=== PATIENT | male | born 1980 | race Caucasian/White ===

== ENCOUNTER → 2016-09-03 | Outpatient (CLI) | payer OTHER ==
[~2016-09-03] MED LIST: ATOR-54 PO; GABA1CAP4 PO; GLGKIT INJ; INSDGI SQ; INSU100I SQ; METO1TAB54 PO; ONDA4TAB46 PO; PRLSR20 PO; PROM25TA9 PO; VARE1PAK15 PO
== END | disposition home or self-care (01) ==
LOC: C.LAB 07:56
DX: Z02.83 Encounter for blood-alcohol and blood-drug test (principal)

== ENCOUNTER 2019-01-23 07:25 | Inpatient (IN) ==
[2019-01-23] MEDS ORDERED: FAMOTIDINE 20MG/5ML IV PUSH IV STA (07:40)
[2019-01-23] MEDS ORDERED: MoRPHine SULFATE 4 MG/ML 1 ML CARP\\VIAL IV PRN (07:40)
[2019-01-23] MEDS ORDERED: ONDANSETRON INJ 2 MG/ML 2 ML VIAL IV STA (07:40)
[2019-01-23] MEDS ORDERED: PROMETHAZINE HCL 12.5 MG in SODIUM CHLORIDE 0.9% 50 ML IV STA (07:40)
[2019-01-23] MEDS ORDERED: NovoLIN-R INSULIN PER UNIT CHARGE IV STA ×2 (07:42→09:03)
[2019-01-23] MEDS ORDERED: SODIUM CHLORIDE 0.9% 1000ML 1,000 ML IV SCH (07:45)
[2019-01-23 07:52] LABS: Hematocrit (blood only) 44.9 % (42-52); Hemoglobin 16.3 g/dL (14.0-18.0); Mean Corpuscular Hemoglobin 33.8 pg (25-34); Mean Corpuscular Hgb Conc 36.3 g/dL (32-36); Mean Corpuscular Volume 93.2 fL (80-100); Mean Platelet Volume 9.6 fL (7.4-10.4); Platelet Count 351 K/uL (130-400); RDW Coefficient of Variation 13.2 % (11.5-14.5); RDW Standard Deviation 45.5 fL (36.4-46.3); Red Blood Count 4.82 M/uL (4.7-6.1)
--- NOTE | 2019-01-23 07:53 | Emergency Department Note ---
Entered by Tung Delgado acting as a scribe for History of Present Illness General Chief complaint: Vomiting Time Seen by Provider: 01/23/19 07:33 Source: patient History of Present Illness Provider complaint: Vomiting Onset (ago): hour(s) (4.5) Location: abdomen Severity: similar to prior episodes Pain Consistency: + constant Associated symptoms: + chest pain, + nausea/vomiting and + other (Abdominal pain); no fever/chills The patient is a 38 year old male who presents to the Emergency Room with comp laints of constant nausea and vomiting that started about 4.5 hours ago. The patient has a history of gastroparesis and states it feels similar to his typical flare ups. The patient has been to the hospital before due to these flares. The patient adds that after a few episodes of emesis he started having hematemesis. The patient notes he does not have any ulcers to his knowledge. The patient also endorses some abdominal and chest soreness caused by the vomiting. The patient states he felt fine before going to bed last night but he did have an episode of emesis yesterday morning. The patient denies any diarrhea or fevers. Home Medications Home Medications Medication Instructions Recorded Confirmed Type insulin lispro [Humalog U-100 1 dose CONTINUOUS SUBCUTANEOUS 02/20/18 01/23/19 History Insulin] INFUSION UD promethazine 25 mg PO BID PRN 02/20/18 01/23/19 History ondansetron 4 - 8 mg TRANSLINGUAL TID PRN 04/25/18 01/23/19 History prochlorperazine maleate 10 mg PO Q8H PRN #20 tab 09/26/18 01/23/19 Rx [Compazine] Allergies Allergy/AdvReac Type Severity Reaction Status Date / Time Penicillins Allergy Severe SWELLING Verified 01/23/19 08:00 Sulfa (Sulfonamide Allergy Unknown Unknown Verified 01/23/19 08:00 Antibiotics) Past Med/Surg History Medical History Diabetes mellitus type 1, uncontrolled, insulin dependent (Chronic 06/09/13) "on insulin pump" Diabetic neuropathy (Chronic) Gastroparesis due to DM (Chronic 07/05/11) Diabetic retinopathy (Chronic) Tobacco abuse (Chronic) Marijuana use, continuous (Chronic) Surgical History H/O laser photocoagulation of retina (Chronic) H/O esophagogastroduodenoscopy (Chronic) " 06/11/2013- Normal upper third of esophagus and middle third of esophagus. LA Grade A reflux esophagitis. Biopsied. Gastritis. Biopsied. Normal duodenal bulb. Normal 2nd part of the duodenum. 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 and A total of 10 systems reviewed and were otherwise negative Physical Exam Vital Signs Vital Signs - 24 hr 01/23/19 07:34 01/23/19 07:40 01/23/19 09:00 Temperature 36.9 C Temperature Source Oral Sepsis Recent Fever Within 48 Hours No Sepsis New/Unexplained Change in Mental Status No Sepsis Action Taken by Nursing No Action Required Pulse Rate 105 H Pulse Rate [Apical] 94 H Pulse Rhythm Regular Pulse Rhythm [Apical] Regular Pulse Strength Normal Respiratory Rate 17 17 Respiratory Effort / Characteristics Non-Labored Spontaneous Non-Labored Spontaneous Respiratory Depth Normal Normal Respiratory Pattern Regular Regular Blood Pressure 148/65 H Blood Pressure [Left Arm] 120/64 Blood Pressure Mean 92 Blood Pressure Mean [Left Arm] 82 Pulse Oximetry 89 L 95 98 Oxygen Delivery Method Room Air Nasal Cannula Nasal Cannula Oxygen Flow Rate 2 2 GENERAL: Patient is in mild distress, vomiting coffee ground material. HEENT: No acute trauma, normocephalic atraumatic, mucous membranes moist, no nasal congestion, no scleral icterus. NECK: No stridor, no adenopathy, no meningismus, trachea is midline. LUNGS: Clear to auscultation bilaterally, no wheeze, no rhonchi, breath sounds equal. HEART: Without murmurs gallops or rubs, regular rate and rhythm. ABDOMEN: Soft, moderately diffusely tender, bowel sounds positive, no hernias, no peritonitis. EXTREMITIES: No cyanosis or edema, full range of motion of all the joints without pain or difficulty, no signs for acute trauma. NEUROLOGIC: Oriented x 3, no acute motor or sensory deficits, no focal weakness. SKIN: No rash, no jaundice, no diaphoresis. Course 0738: Past medical records reviewed. The patient was evaluated in room A10, and a complete history and physical examination were performed. 0829: I spoke to pharmacy about ordering the patient a protonix bolus and drip. 0903: I reevaluated the patient and he is feeling a little better. He is no longer vomiting at this time. I updated him on the treatment plan and he agreed. The [facility] service was paged. 0907: I spoke to Yancy Romo PAC, under Dr. Selina Mendoza, about the patient's case. They are going to accept the patient for further evaluation. Consultations Consultation #1: I spoke to [facility], under Dr. Selina Mendoza, about the patient's case. They are going to accept the patient for further evaluation. Time: 09:07 Administered Medications Pantoprazole Sodium 40 mg/ (Dextrose) 100 mls @ 20 mls/hr IV Q5H HELIO Stop: 02/22/19 08:59 Last Admin: 01/23/19 09:12 Dose: 20 mls/hr Documented by: [id number] Potassium Chloride/Sodium Chloride (Normal Saline W/20 Meq Kcl) 20 meq in 1,000 mls @ 125 mls/hr IV .Q8H HELIO Stop: 02/22/19 13:29 Last Admin: 01/23/19 14:23 Dose: 125 mls/hr Documented by: [id number] Discontinued Medications Famotidine (Pepcid 20mg Iv Push) 20 mg IV ONE STA Stop: 01/23/19 07:41 Last Admin: 01/23/19 08:02 Dose: 20 mg Documented by: [id number] Sodium Chloride (Nss 1000ml) 1,000 mls @ 999 mls/hr IV .Q1H1M HELIO Stop: 01/23/19 08:45 Last Infusion: 01/23/19 08:58 Dose: 0 mls/hr Documented by: [id number] Admin: 01/23/19 08:02 Dose: 999 mls/hr Documented by: [id number] Promethazine HCl 12.5 mg/ (Sodium Chloride) 50.5 mls @ 202 mls/hr IV NOW STA Stop: 01/23/19 07:54 Last Infusion: 01/23/19 08:23 Dose: 0 mls/hr Documented by: [id number] Admin: 01/23/19 08:02 Dose: 202 mls/hr Documented by: [id number] Pantoprazole Sodium 80 mg/ (Dextrose) 120 mls @ 480 mls/hr IV TODAY@0845 [facility] Stop: 01/23/19 08:59 Last Infusion: 01/23/19 09:13 Dose: 0 mls/hr Documented by: [id number] Admin: 01/23/19 08:54 Dose: 480 mls/hr Documented by: [id number] Sodium Chloride (Nss 1000ml) 500 mls @ 999 mls/hr IV .Q31M ONE Stop: 01/23/19 09:33 Last Infusion: 01/23/19 10:35 Dose: 0 mls/hr Documented by: [id number] Admin: 01/23/19 09:57 Dose: 999 mls/hr Documented by: [id number] Insulin Human Regular (Novolin R U-100 Per Unit) 10 units IV NOW STA Stop: 01/23/19 07:43 Last Admin: 01/23/19 08:03 Dose: 10 units Documented by: [id number] Cosigned by: [id number] Insulin Human Regular (Novolin R U-100 Per Unit) 8 units IV NOW STA Stop: 01/23/19 09:04 Last Admin: 01/23/19 09:57 Dose: 8 units Documented by: [id number] Cosigned by: [id number] Ioversol (Optiray 320 100ml) 94 ml IV ONCE PRN PRN Reason: Interaction Checking Stop: 01/27/19 08:41 Last Admin: 01/23/19 08:43 Dose: 94 ml Documented by: [id number] Morphine Sulfate (Morphine Sulfate) 4 mg IV Q15M PRN PRN Reason: Pain Stop: 02/06/19 07:39 Last Admin: 01/23/19 08:02 Dose: 4 mg Documented by: [id number] Ondansetron HCl (Zofran) 4 mg IV NOW STA Stop: 01/23/19 07:41 Last Admin: 01/23/19 08:02 Dose: 4 mg Documented by: [id number] Medical Decision Making Differential Diagnosis Differential Diagnosis includes: DKA, hyperglycemia, electrolyte imbalance, upper GI bleed, ulcer, Roshni-Liu tear, anemia, gastroparesis, bowel obstruction, and UT, amongst others. Medical Records Attestation: I reviewed the patient's medical records. Home Medications Current Medication List: was personally reviewed by me Laboratory Data Attestation: I reviewed the patient's lab results. Result diagrams: 01/23/19 13:21 01/23/19 07:35 Lab Results 01/23/19 01/23/19 01/23/19 Range/Units 07:35 07:35 07:35 WBC 28.80 H (4.8-10.8) K/uL RBC 4.82 (4.7-6.1) M/uL Hgb 16.3 (14.0-18.0) g/dL Hct 44.9 (42-52) % MCV 93.2 (80-100) fL MCH 33.8 (25-34) pg MCHC 36.3 H (32-36) g/dL RDW Std Deviation 45.5 (36.4-46.3) fL RDW Coeff of Lamont 13.2 (11.5-14.5) % Plt Count 351 (130-400) K/uL MPV 9.6 (7.4-10.4) fL Immature Gran % (Auto) 0.4 % Neut % (Auto) 84.0 % Lymph % (Auto) 7.5 % Gulf % (Auto) 6.4 % Eos % (Auto) 1.4 % Baso % (Auto) 0.3 % Immature Gran # (Auto) 0.11 H (0.00-0.02) K/uL Neut # (Auto) 24.16 H (1.4-6.5) K/uL Lymph # (Auto) 2.17 (1.2-3.4) K/uL Gulf # (Auto) 1.85 H (0.11-0.59) K/uL Eos # (Auto) 0.41 (0-0.5) K/uL Baso # (Auto) 0.10 (0-0.2) K/uL PT 11.3 (9.0-12.0) Seconds INR 1.1 (0.9-1.1) APTT 23.7 (21.0-31.0) Seconds PTT Ratio 0.9 VBG pH (7.36-7.41) VBG pCO2 (38-50) mmHg VBG pO2 mmHg VBG HCO3 mmol/L VBG O2 Saturation % VBG Base Excess mEq/L Barometric Pressure mm/Hg Sodium 134 L (136-145) mmol/L Potassium 4.2 (3.5-5.1) mmol/L Chloride 98 (98-107) mmol/L Carbon Dioxide 27 (21-32) mmol/L Anion Gap 9.0 (3-11) BUN 14 (7-18) mg/dl Creatinine 1.20 (0.6-1.4) mg/dl Est Cr Clr Drug Dosing 78.8 ml/min Est GFR ( Amer) 89.6 Est GFR (Non-Af Amer) 77.3 BUN/Creatinine Ratio 11.3 (10-20) Glucose 419 H* (70-99) mg/dl POC Glucose (70-99) Calcium 9.1 (8.5-10.1) mg/dl Magnesium 2.1 (1.8-2.4) mg/dl Total Bilirubin 1.0 (0.2-1) mg/dl AST 12 L (15-37) U/L ALT 20 (12-78) U/L Alkaline Phosphatase 149 H (45-117) U/L Total Protein 7.6 (6.4-8.2) gm/dl Albumin 4.0 (3.4-5.0) gm/dl Globulin 3.6 (2.5-4.0) gm/dl Albumin/Globulin Ratio 1.1 (0.9-2) Lipase 30 L (73-393) U/L Beta-Hydroxybutyric Acd 10.83 H (0.2-2.81) mg/dl Blood Type Antibody Screen 01/23/19 01/23/19 01/23/19 Range/Units 07:42 07:58 07:58 WBC (4.8-10.8) K/uL RBC (4.7-6.1) M/uL Hgb (14.0-18.0) g/dL Hct (42-52) % MCV (80-100) fL MCH (25-34) pg MCHC (32-36) g/dL RDW Std Deviation (36.4-46.3) fL RDW Coeff of Lamont (11.5-14.5) % Plt Count (130-400) K/uL MPV (7.4-10.4) fL Immature Gran % (Auto) % Neut % (Auto) % Lymph % (Auto) % Gulf % (Auto) % Eos % (Auto) % Baso % (Auto) % Immature Gran # (Auto) (0.00-0.02) K/uL Neut # (Auto) (1.4-6.5) K/uL Lymph # (Auto) (1.2-3.4) K/uL Gulf # (Auto) (0.11-0.59) K/uL Eos # (Auto) (0-0.5) K/uL Baso # (Auto) (0-0.2) K/uL PT (9.0-12.0) Seconds INR (0.9-1.1) APTT (21.0-31.0) Seconds PTT Ratio VBG pH 7.36 (7.36-7.41) VBG pCO2 50 (38-50) mmHg VBG pO2 35 mmHg VBG HCO3 28 mmol/L VBG O2 Saturation 68.0 % VBG Base Excess 1.3 mEq/L Barometric Pressure 737.2 mm/Hg Sodium (136-145) mmol/L Potassium (3.5-5.1) mmol/L Chloride (98-107) mmol/L Carbon Dioxide (21-32) mmol/L Anion Gap (3-11) BUN (7-18) mg/dl Creatinine (0.6-1.4) mg/dl Est Cr Clr Drug Dosing ml/min Est GFR ( Amer) Est GFR (Non-Af Amer) BUN/Creatinine Ratio (10-20) Glucose (70-99) mg/dl POC Glucose 414 H* (70-99) Calcium (8.5-10.1) mg/dl Magnesium (1.8-2.4) mg/dl Total Bilirubin (0.2-1) mg/dl AST (15-37) U/L ALT (12-78) U/L Alkaline Phosphatase (45-117) U/L Total Protein (6.4-8.2) gm/dl Albumin (3.4-5.0) gm/dl Globulin (2.5-4.0) gm/dl Albumin/Globulin Ratio (0.9-2) Lipase (73-393) U/L Beta-Hydroxybutyric Acd (0.2-2.81) mg/dl Blood Type A Positive Antibody Screen NEGATIVE 01/23/19 01/23/19 Range/Units 08:52 09:45 WBC (4.8-10.8) K/uL RBC (4.7-6.1) M/uL Hgb (14.0-18.0) g/dL Hct (42-52) % MCV (80-100) fL MCH (25-34) pg MCHC (32-36) g/dL RDW Std Deviation (36.4-46.3) fL RDW Coeff of Lamont (11.5-14.5) % Plt Count (130-400) K/uL MPV (7.4-10.4) fL Immature Gran % (Auto) % Neut % (Auto) % Lymph % (Auto) % Gulf % (Auto) % Eos % (Auto) % Baso % (Auto) % Immature Gran # (Auto) (0.00-0.02) K/uL Neut # (Auto) (1.4-6.5) K/uL Lymph # (Auto) (1.2-3.4) K/uL Gulf # (Auto) (0.11-0.59) K/uL Eos # (Auto) (0-0.5) K/uL Baso # (Auto) (0-0.2) K/uL PT (9.0-12.0) Seconds INR (0.9-1.1) APTT (21.0-31.0) Seconds PTT Ratio VBG pH (7.36-7.41) VBG pCO2 (38-50) mmHg VBG pO2 mmHg VBG HCO3 mmol/L VBG O2 Saturation % VBG Base Excess mEq/L Barometric Pressure mm/Hg Sodium (136-145) mmol/L Potassium (3.5-5.1) mmol/L Chloride (98-107) mmol/L Carbon Dioxide (21-32) mmol/L Anion Gap (3-11) BUN (7-18) mg/dl Creatinine (0.6-1.4) mg/dl Est Cr Clr Drug Dosing ml/min Est GFR ( Amer) Est GFR (Non-Af Amer) BUN/Creatinine Ratio (10-20) Glucose (70-99) mg/dl POC Glucose 373 H* 298 H (70-99) Calcium (8.5-10.1) mg/dl Magnesium (1.8-2.4) mg/dl Total Bilirubin (0.2-1) mg/dl AST (15-37) U/L ALT (12-78) U/L Alkaline Phosphatase (45-117) U/L Total Protein (6.4-8.2) gm/dl Albumin (3.4-5.0) gm/dl Globulin (2.5-4.0) gm/dl Albumin/Globulin Ratio (0.9-2) Lipase (73-393) U/L Beta-Hydroxybutyric Acd (0.2-2.81) mg/dl Blood Type Antibody Screen Imaging Data Radiologist's Impression: Radiology results as stated below per my review and the radiologist's interpretation: XR chest 1V portable CLINICAL HISTORY: cp, vomiting dyspnea COMPARISON STUDY: 02/20/2018 FINDINGS: The bones soft tissues and hemidiaphragms are normal. The cardiomediastinal silhouette is normal. The lungs are clear. The pulmonary vasculature is normal. IMPRESSION: Negative chest. The above report was generated using voice recognition software. It may contain grammatical, syntax or spelling errors. Electronically signed by: Chapincito Sanchez M.D. 01/23/2019 8:[address] abd pelvis IV con only CT DOSE: 476.85 mGycm HISTORY: Nausea. Vomiting. vomiting, poss obstruc TECHNIQUE: Multiaxial CT images of the abdomen and pelvis were performed following the use of intravenous contrast. A dose lowering technique was utilized adhering to the principles of ALARA. COMPARISON STUDY: 04/25/2018 FINDINGS: Mild wall edema of the colon as well as small bowel. No evidence for abscess collection or obstruction. Liver spleen and pancreas are unremarkable. Kidneys are considered negative for hydronephrosis. There are bilateral extrarenal pelves. No evidence for true obstructive change. Bladder is midline. IMPRESSION: 1. Generalized nonspecific enteritis/colitis. 2. No evidence for abscess collection or obstruction. The above report was generated using voice recognition software. It may contain grammatical, syntax or spelling errors. Electronically signed by: Chapincito Sanchez M.D. 01/23/2019 8:52 AM ECG Data Attestation: I personally reviewed and interpreted this ECG as follows: Indication: vomiting Rate (beats per minute): 101 Rhythm: sinus tachycardia ECG Intervals/blocks: Normal QT (456) ECG Findings: Other (No PAC or PVC. No ST elevation. ) Blood Pressure Blood Pressure Findings: Normal blood pressure MDM Narrative There is a significant leukocytosis at 28,000, this could be consistent with infection or just his stress and vomiting. No worrisome anemia. No coagulopathy. No significant electrolyte abnormality with the exception of a glucose in the range of 400. VBG does not show any acidosis. No worrisome liver enzyme elevation. No evidence for pancreatitis. Urinalysis shows glucose, no infection. Chest film does not show pneumonia or CHF, there is no free air. Abdominal and pelvis CT does not show any evidence for bowel obstruction or bowel rupture. EKG shows a sinus tachycardia, no acute ischemia. On exam, the patient did have coffee-ground emesis in his vomit bag. The patient received IV saline, a second IV saline bolus was given. He was given a bolus of IV Protonix and placed on a Protonix drip. He received IV Phenergan for nausea, IV Zofran for nausea. He was given IV morphine for pain. He did receive a dose of IV Pepcid. Patient received IV insulin, 2 doses of IV insulin were given to help lower the blood sugar. The patient does seem to be feeling improved. He is going to require a hospitalization given the hyperglycemia, the high white count, and his hematemesis. I did speak with the patient, I talked with case management. The on-call hospitalist has been consulted. Patient is hyperglycemic and appears to be suffering from a flare of gastroparesis. Impression & Plan Hematemesis, Diffuse abdominal pain, Leukocytosis, Hyperglycemia, Gastroparesis Critical Care Time Critical Care Time: Yes Total Critical Care Time: 35 I have personally spent greater than 35 minutes of critical care time in the direct management of this patient. This includes bedside care, interpretation of diagnostic studies, and testing, discussion with consultants, patient, and family members, and other required patient management activities. This 35 minutes is in excess of all separately billable procedures. Discharge Plan Visit Data *Final* Discharge Date/Time: 01/23/19 12:22 Chief Complaint: Vomiting ED Provider: Rafael Lynne Discharge Problem: Hematemesis, Diffuse abdominal pain, Leukocytosis, Hyperglycemia, Gastroparesis Patient Disposition: Admitted As Inpatient Discharge Instructions Interventions: ED Discharge Assessment Last Done: 01/23/19 12:22 Discharge Problem: Leukocytosis Qualifiers: Leukocytosis type: unspecified Qualified Code(s): D72.829 - Elevated white blood cell count, unspecified The scribe's documentation has been prepared under my direction and personally reviewed by me in its entirety. I confirm that the note above accurately reflects all work, treatment, procedures, and medical decision making performed by me.
[2019-01-23] MEDS ORDERED: PROMETHAZINE 12.5 MG/50.5 ML NSS IV ONE (07:56)
[2019-01-23 08:03] LABS: Albumin Globulin Ratio 1.1 (0.9-2); BUN Creatinine Ratio 11.3 (10-20); Calcium 9.1 mg/dl (8.5-10.1); Creatinine Clr Calc Pharmacy 78.8 ml/min; Est GFR (African American) 89.6; Est GFR (Non-African American) 77.3; Globulin 3.6 gm/dl (2.5-4.0); Magnesium 2.1 mg/dl (1.8-2.4); Potassium 4.2 mmol/L (3.5-5.1); Total Protein 7.6 gm/dl (6.4-8.2)
[2019-01-23 08:05] LABS: INR 1.1 (0.9-1.1); Partial Thromboplastin Ratio 0.9; Partial Thromboplastin Time 23.7 Seconds (21.0-31.0); Prothrombin Time 11.3 Seconds (9.0-12.0)
[2019-01-23 08:12] LABS: Base Excess VBG 1.3 mEq/L; pH VBG 7.36 (7.36-7.41)
[2019-01-23 08:14] LABS: Beta-Hydroxybutyrate 10.83 mg/dl (0.2-2.81)
[2019-01-23 08:22] LABS: Basophils % (auto) 0.3 %; Eosinophils # (auto) 0.41 K/uL (0-0.5); Eosinophils % (auto) 1.4 %; Immature Granulocytes # (auto) 0.11 K/uL (0.00-0.02); Immature Granulocytes % (auto) 0.4 %; Lymphocytes # (auto) 2.17 K/uL (1.2-3.4); Lymphocytes % (auto) 7.5 %; Monocytes # (auto) 1.85 K/uL (0.11-0.59); Monocytes % (auto) 6.4 %; Neutrophils # (auto) 24.16 K/uL (1.4-6.5)
--- NOTE | 2019-01-23 08:36 | XRay Report ---
XR chest 1V portable CLINICAL HISTORY: cp, vomiting dyspnea COMPARISON STUDY: 02/20/2018 FINDINGS: The bones soft tissues and hemidiaphragms are normal. The cardiomediastinal silhouette is n ormal. The lungs are clear. The pulmonary vasculature is normal. IMPRESSION: Negative chest. The above report was generated using voice recognition software. It may contain grammatical, syntax or spelling errors. Electronically signed by: Chapincito Sanchez M.D. 01/23/2019 8:35 AM
[2019-01-23] MEDS ORDERED: IOVERSOL 100ml IV PRN (08:42)
[2019-01-23] MEDS ORDERED: PANTOprazole 80 MG in DEXTROSE 5% 100 ML IV SCH (08:45)
--- NOTE | 2019-01-23 08:53 | CT Scan Report ---
CT abd pelvis IV con only CT DOSE: 476.85 mGycm HISTORY: Nausea. Vomiting. vomiting, poss obstruc TECHNIQUE: Multiaxial CT images of the abdomen and pelvis were performed following the use of intrave nous contrast. A dose lowering technique was utilized adhering to the principles of ALARA. COMPARISON STUDY: 04/25/2018 FINDINGS: Mild wall edema of the colon as well as small bowel. No evidence for abscess collection or obstruction. Liver spleen and pancreas are unremarkable. Kidneys are considered negative for hydronephrosis. There are bilateral extrarenal pelves. No evidence for true obstructive change. Bladder is midline. IMPRESSION: 1. Generalized nonspecific enteritis/colitis. 2. No evidence for abscess collection or obstruction. The above report was generated using voice recognition software. It may contain grammatical, syntax or spelling errors. Electronically signed by: Chapincito Sanchez M.D. 01/23/2019 8:52 AM
[2019-01-23] MEDS ORDERED: SODIUM CHLORIDE 0.9% 1000ML 500 ML IV ONE (09:03)
[2019-01-23] MEDS: PANTOprazole 40 MG in DEXTROSE 5% 100 ML IV SCH ×2 (09:12→15:03)
--- NOTE | 2019-01-23 09:54 | History & Physical Report ---
Date of Service January 23, 2019 Assessment & Plan (1) Coffee ground emesis: (2) Gastroparesis: This is a 38-year-old male with PMH of type 1 diabetes on insulin pump, gastroparesis, tobacco use disorder and marijuana use who presents with coffee- ground emesis since yesterday. -H/o gastroparesis, esophagitis, gastritis and Roshni-Liu tear -Hemoglobin stable at 16.3. Leukocytosis of 28.8 but chronically elevated. Glucose of 419 but no anion gap or acidosis -CT abd/pelvis w contrast showed mild wall edema of the colon as well as small bowel, suggestive of generalized non specific enteritis or colitis. No signs of obstructive process or abscess collection -Keeping NPO, monitor H/H, IV fluids, IV protonix bolus and drip, antiemetics -Seen by GI. He refused offer for EGD eval. Recommend continuing IV fluids, PPI bolus and gtt, symptomatic management. NPO today. Pls obtain stool studies to r/o infectious processes if diarrhea (3) Pancolitis: Afebrile, chronic leukocytosis -CT abd/pelvis with generalized nonspecific enteritis/colitis. No evidence for abscess collection or obstruction -No diarrhea or abnormal bowel movements -Will continue to monitor and add abx if becomes febrile, develops bowel sx (4) Leukocytosis: Elevated at 28.8 -Per chart review, has been elevated between 16-28k in the past so at upper limit of normal -Continue to monitor with daily CBC (5) Diabetes mellitus type 1, uncontrolled, insulin dependent: A1c of 7.2 in july 2018 -On insulin pump at home with initial BSG of 419 -No anion gap, vbg pH without acidosis, B hydroxybutyric acid 10, urine ketones 3+ - Glycemic consult placed (6) Tobacco abuse: Recommended cessation DVT Ppx: Andrea osullivan Code status: FULL PCP: Francis Dispo: Admitted [facility]. Plan to return home once medically stable. Patient seen in collaboration with Dr. Marks. Please see addendum. History of Present Illness Chief Complaint: Vomiting Primary Care Provider: Chapincito Blanco MD This is a 38-year-old male with PMH of type 1 diabetes on insulin pump, gastroparesis, tobacco use disorder and marijuana use who presents with coffee- ground emesis since yesterday. Endorses one episode of coffee-ground emesis when he woke up yesterday and then an additional 4 episodes since 3:00 this morning. Denies any bright red blood per vomit. Bowel movements normal color without melena or hematochezia. Denies fever, chills or abdominal pain. Has history of gastroparesis and states this is a somewhat typical presentation for him when he becomes nauseous with vomiting. Has been seen by GI in the past with history of esophagitis, gastritis and Roshni-Liu tear. Was admitted with similar symptoms in January 2018 and was scheduled for EGD but refused and left AMA later that day. Patient currently afebrile and hemodynamically stable. Hemoglobin stable at 16.3. Leukocytosis of 28.8 but chronically elevated. Glucose of 419 but no anion gap or acidosis. CT abd/pelvis w contrast showed mild wall edema of the colon as well as small bowel, suggestive of generalized non specific enteritis or colitis. No signs of obstructive process or abscess collection. No lightheadedness, visual changes, chest pain, shortness of breath, dysuria, diarrhea or constipation. Denies any new medications. Allergies Allergy/AdvReac Type Severity Reaction Status Date / Time Penicillins Allergy Severe SWELLING Verified 01/23/19 08:00 Sulfa (Sulfonamide Allergy Unknown Unknown Verified 01/23/19 08:00 Antibiotics) Home Medications Home Medications Medication Instructions Recorded Confirmed Type insulin lispro [Humalog U-100 1 dose CONTINUOUS SUBCUTANEOUS 02/20/18 01/23/19 History Insulin] INFUSION UD promethazine 25 mg PO BID PRN 02/20/18 01/23/19 History ondansetron 4 - 8 mg TRANSLINGUAL TID PRN 04/25/18 01/23/19 History prochlorperazine maleate 10 mg PO Q8H PRN #20 tab 09/26/18 01/23/19 Rx [Compazine] Past Med/Surg History Medical History Diabetes mellitus type 1, uncontrolled, insulin dependent (Chronic 06/09/13) "on insulin pump" Diabetic neuropathy (Chronic) Gastroparesis due to DM (Chronic 07/05/11) Diabetic retinopathy (Chronic) Tobacco abuse (Chronic) Marijuana use, continuous (Chronic) Surgical History H/O laser photocoagulation of retina (Chronic) H/O esophagogastroduodenoscopy (Chronic) " 06/11/2013- Normal upper third of esophagus and middle third of esophagus. LA Grade A reflux esophagitis. Biopsied. Gastritis. Biopsied. Normal duodenal bulb. Normal 2nd part of the duodenum. Biopsied." History of arthroplasty of left ankle (Resolved) History of wisdom tooth extraction (Resolved) Hx of inguinal herniorrhaphy (Resolved) Family History Brother T1DM (type 1 diabetes mellitus) Social History Preferred Language: Spanish Communication Ability: Effective Hearing Ability: Normal Bristle Machine Operator Required: No Beliefs That Will Affect Care: None Current Living Situation: Spouse and Family Other Information That Helps Us Care for You: No Feels Safe at Home: Yes Safety Concerns: Feels Safe At This Time Smoking Status: Current every day smoker Tobacco Type: cigarettes ; Years Smoked: 20 ; Cigarettes Per Day: 20 ; Do You Dip or Chew Tobacco: No ; Second Hand Exposure: No ; Hx Alcohol Use: No Hx Substance Use: Yes substance use type: marijuana Last Used Substance: Hours (ago) Review of Systems Review of Systems: At least ten systems reviewed and negative except as noted in the HPI. Physical Exam Physical Exam: General Appearance: WD/WN, vitals as above, thin, lethargic but answers questions appropriately Head: normocephalic, atraumatic Eyes: normal inspection, PERRL, conjunctivae normal, anicteric sclerae ENT: external ear and nose normal, oropharynx normal Neck: trachea midline, no thyromegaly normal visual inspection Respiratory: lungs clear to auscultation, no wheeze, rales, rhonchi. Normal insp/exp effort, no accessory muscle use Cardiovascular: regular rate, rhythm, no murmur, normal peripheral pulses. Vessels: no JVD or carotid bruit Chest: normal inspection of chest Abdomen/GI: normal bowel sounds, soft, nontender, no hepatosplenomegaly Extremities/Musculoskelatal: no cyanosis or clubbing, extremities motor strength 5/5 Neurologic: PERRL, EOMI, accommodation nl, no face palsy, no dysarthria CN's II-XI intact bilaterally and moves all extremities Psychiatric: A+Ox3, euthymic affect Skin: no rashes, normal color, warm/dry Results & Data Vital Signs (Past 12 Hours) Vital Signs Temp Pulse Pulse Resp BP BP Pulse Ox 01/23/19 09:00 94 H 17 120/64 98 01/23/19 07:40 95 01/23/19 07:34 36.9 C 105 H 17 148/65 H 89 L Laboratory Results Short CBC 01/23/19 Range/Units 07:35 WBC 28.80 H (4.8-10.8) K/uL Hgb 16.3 (14.0-18.0) g/dL Hct 44.9 (42-52) % Plt Count 351 (130-400) K/uL BMP 01/23/19 07:35 Sodium 134 L Potassium 4.2 Chloride 98 Carbon Dioxide 27 BUN 14 Creatinine 1.20 Glucose 419 H* Calcium 9.1 Liver Function 01/23/19 Range/Units 07:35 Total Bilirubin 1.0 (0.2-1) mg/dl AST 12 L (15-37) U/L ALT 20 (12-78) U/L Alkaline Phosphatase 149 H (45-117) U/L Albumin 4.0 (3.4-5.0) gm/dl Urine 01/23/19 Range/Units 10:00 Urine Color Yellow Urine Appearance Clear (Clear) Urine pH 7.5 (4.5-7.5) Ur Specific [place] 1.045 H (1.000-1.030) Urine Protein Negative (Negative) Urine Glucose (UA) 3+ H (Negative) Diagnostic Findings CXR: IMPRESSION: Negative chest. CT abd/pelvis: IMPRESSION: 1. Generalized nonspecific enteritis/colitis. 2. No evidence for abscess collection or obstruction. Code Status & VTE Plan VTE Prophylaxis Plan VTE Prophylaxis will be ordered: Yes Supervising Physician Co-Signing Physician Notes Attending Addendum: care coordinated with GILMA Hernández please refer to her notes for full details, I agree with her notes patient seen and examined, records reviewed by myself as well on exam, patient seen resting in bed, comfortable, sleeping but easily awakened had another episode of coffee ground emesis earlier no active abdominal pain, nausea on my exam no other symptoms VS noted and reviewed orientedx3 , not in distress, speaks in sentences with no effort nor accessory muscle use normal rate, regular rhythm, no murmurs clear breath sounds bilaterally non distended, soft, nontender no bipedal edema, erythema, warmth no neuro deficits WBC 28 Hg 14.8 Crea 1.2 ASSESSMENT AND PLAN POSSIBLE UPPER GI BLEED Protonix drip, NPO, IV fluids monitor H&H GI consulted PANCOLITIS WBC 28k patient adamantly requesting antibiotic to be given discussed possible risks including C diff diarrhea, dehydration, DKA he verbalized understanding and agreement start Probiotics when diet resumed other diagnoses and plan of care as per GILMA Hernández's notes Schuyler Marks MD (1) Leukocytosis Leukocytosis type: unspecified Qualified Code(s): D72.829 - Elevated white blood cell count, unspecified
[2019-01-23 10:19] LABS: Appearance Urine Clear (Clear); Bilirubin Urine Negative (Negative); Blood Urine Negative (Negative); Color Urine Yellow; Glucose Urine UA 3+ (Negative); Ketones Urine Negative (Negative); Leukocyte Esterase Urine Negative (Negative); Nitrite Urine Negative (Negative); Protein Urine Negative (Negative); Specific Gravity Urine 1.045 (1.000-1.030); Urobilinogen Urine Negative (Negative); pH Urine 7.5 (4.5-7.5)
--- NOTE | 2019-01-23 11:12 | Gastrointestinal Consultation ---
Date of Consultation January 23, 2019 Assessment & Plan (1) Coffee ground emesis: (2) Gastroparesis: Pt is a 38 y/o male w hx of uncontrolled DM II, gastroparesis, esophagitis, gastritis, hx of Roshni Liu tear who presented to ED w c/o n/v since yesterday. He reports emesis this AM turned into black in color w coffee ground material. Normal H/H, BUN/Cr, LFTs, lipase. ? etiology of leukocytosis CT w findings of non specific colitis/enteritis though he denies diarrhea. - He refused my offer for EGD eval. Thus for now would recommend IVF hydration, PPI bolus and gtt, symptomatic management. NPO today. Pls obtain stool studies to r/o infectious processes if diarrhea. Supervising Physician Co-Signing Physician Notes Attending attestation I have seen, examined this patient, and agree with the findings and above by our mid-level provider LUCAS Ruiz, with the following additions. -Patient admitted with apparent gastroparesis flare as similar in past, possibly gastroenteritis. Concern of coffee-ground emesis, no signs of hemodynamic changes, Hb stable -Recommended EGD, patient refused -BID PPI -NPO, advance diet as tolerated -Work up for infection given elevated WBC ct -Call with questions History of Present Illness Reason for Consultation: Hematemesis Requesting Physician: Dr. Schuyler Marks Attending Physician: Dr. Dany Daugherty History of Present Illness Pt is a 38 y/o male, who presented to ED w c/o n/v, bloody emesis. He has hx of uncontrolled DM II, gastroparesis, marijuana and tobacco abuses, hx of esophagitis, gastritis, Roshni Liu tear. He started to have n/v yesterday morning. Had 1 episode of emesis yesterday. Today around 3AM he started having more n/v. Initially emesis was orange in color then it started to turn into black, with coffee ground materials. He has generalized abd discomfort. Stools were "normal" without black tarry appearance. Last BM prior to ED visit. Upon eval, noted leukocytosis WBC 28K - this seems to be slightly up from baseline. H/H stable 16/44, plt 351, normal PT/INR, normal BUN/Cr. Noted normal LFTs, lipase. Glucose >400s. CT abd/pelvis w contrast showed mild wall edema of the colon as well as small bowel, suggestive of generalized non specific enteritis or colitis. No signs of obstructive process or abscess collection. He denies sick contact, raw/undercooked foods consumption, recent new meds/antibx. Noted he was last seen in our service while admitted w similar N/N symptoms in January 2018. Was scheduled for EGD eval but morning of it, he refused this and left AMA later in the day. He refuses EGD eval when offered by me today. He reports he usually gets gastroparesis flare about 2x a year. When it happen, he would handle it by changing diet. He was previousy given Reglan but developed tics. He was also on Erythromycin in the past. Allergies Allergy/AdvReac Type Severity Reaction Status Date / Time Penicillins Allergy Severe SWELLING Verified 01/23/19 08:00 Sulfa (Sulfonamide Allergy Unknown Unknown Verified 01/23/19 08:00 Antibiotics) Home Medications Home Medications Medication Instructions Recorded Confirmed Type insulin lispro [Humalog U-100 1 dose CONTINUOUS SUBCUTANEOUS 02/20/18 01/23/19 History Insulin] INFUSION UD promethazine 25 mg PO BID PRN 02/20/18 01/23/19 History ondansetron 4 - 8 mg TRANSLINGUAL TID PRN 04/25/18 01/23/19 History prochlorperazine maleate 10 mg PO Q8H PRN #20 tab 09/26/18 01/23/19 Rx [Compazine] Patient History Medical History Diabetes mellitus type 1, uncontrolled, insulin dependent (Chronic 06/09/13) "on insulin pump" Diabetic neuropathy (Chronic) Gastroparesis due to DM (Chronic 07/05/11) Diabetic retinopathy (Chronic) Tobacco abuse (Chronic) Marijuana use, continuous (Chronic) Surgical History H/O laser photocoagulation of retina (Chronic) H/O esophagogastroduodenoscopy (Chronic) " 06/11/2013- Normal upper third of esophagus and middle third of esophagus. LA Grade A reflux esophagitis. Biopsied. Gastritis. Biopsied. Normal duodenal bulb. Normal 2nd part of the duodenum. Biopsied." History of arthroplasty of left ankle (Resolved) History of wisdom tooth extraction (Resolved) Hx of inguinal herniorrhaphy (Resolved) Family History Brother T1DM (type 1 diabetes mellitus) Social History Preferred Language: Greek Communication Ability: Effective Hearing Ability: Normal Plodding Operator Required: No Beliefs That Will Affect Care: None Current Living Situation: Spouse and Family Other Information That Helps Us Care for You: No Feels Safe at Home: Yes Safety Concerns: Feels Safe At This Time Smoking Status: Current every day smoker Tobacco Type: cigarettes ; Years Smoked: 20 ; Cigarettes Per Day: 20 ; Do You Dip or Chew Tobacco: No ; Second Hand Exposure: No ; Hx Alcohol Use: No Hx Substance Use: Yes substance use type: marijuana Last Used Substance: Hours (ago) Review of Systems Review of Systems: All systems reviewed & are unremarkable except as noted in HPI & below Physical Exam Constitutional: + thin, cooperative, comfortable and + lethargic Eyes: PERRL, conjunctivae normal, anicteric sclerae ENMT: external ear and nose normal, oropharynx normal Respiratory: normal respiratory effort, lungs clear to auscultation Cardiovascular: RRR, no murmur, no edema Gastrointestinal (Abdomen): Inspection/Auscultation: + hypoactive bowel sounds Percussion/Palpation: + abdomen tender (generalized) and abdomen soft Skin: no rashes, warm and dry no jaundice Psychiatric: A+Ox3, euthymic affect Lymphatic: no lymphedema Results & Data Vital Signs (Past 12 Hours) Vital Signs Temp Pulse Pulse Resp BP BP Pulse Ox 01/23/19 10:15 93 H 18 127/75 98 01/23/19 09:00 94 H 17 120/64 98 01/23/19 07:40 95 01/23/19 07:34 36.9 C 105 H 17 148/65 H 89 L
[2019-01-23] MEDS ORDERED: PROMETHAZINE HCL 6.25 MG in SODIUM CHLORIDE 0.9% 50 ML IV PRN (12:55)
[2019-01-23] MEDS ORDERED: ACETAMINOPHEN 325 MG TAB PO PRN (12:55)
[2019-01-23] MEDS ORDERED: POLYETHYLENE (MIRALAX) 17 GM PACK PO PRN (12:55)
[2019-01-23] MEDS ORDERED: ONDANSETRON INJ 2 MG/ML 2 ML VIAL IV PRN (12:55)
[2019-01-23] MEDS ORDERED: POTASSIUM CHLORIDE 20 MEQ in SODIUM CHLORIDE 0.9% 1000ML 1,000 ML IV SCH (13:16)
[2019-01-23] MEDS ORDERED: PHARMACY GLYCEMIC MGMT CONSULT PRN (13:16)
[2019-01-23] MEDS ORDERED: NSS + 20MEQ KCL 20 MEQ/1,000 ML BAG IV SCH (13:30)
[2019-01-23 13:32] LABS: Hematocrit (blood only) 42.2 % (42-52); Hemoglobin 14.8 g/dL (14.0-18.0)
--- NOTE | 2019-01-23 14:09 | Pharmacy Report ---
Pharmacy Glycemic Short Note 2 - Date of Service January 23, 2019 - Glycemic Short BSG Results (Last 24 hours): 01/23/19 01/23/19 01/23/19 07:35 07:42 08:52 Glucose 419 H* POC Glucose 414 H* 373 H* 01/23/19 01/23/19 09:45 11:22 Glucose POC Glucose 298 H 133 H OUTPATIENT ANTIDIABETIC REGIMEN: * Lispro insulin pump * basal rate 5392-4998: 0.75 units/hr, 1126-5944: 0.7 units/hr (total 17.15 units/day) * Sensitivity factor: 80, carb coverage: 1 unit for every 25 grams ASSESSMENT: * Mahesh is a 38 year old T1DM male managed on a lispro insulin pump * I spoke with the patient about transitioning to a basal + bolus insulin regimen due to recent severe hyperglycemia, NPO status, N/V. He is very resistant to disconnecting his pump. I have included recommendations for a basal + bolus regimen below as I am not convinced self management of pump is appropriate for this patient. PLAN FOR INPATIENT GLYCEMIC CONTROL: Pt is to manage BSGs with insulin pump per outpatient settings. * RN will have patient read and sign agreement [id number] Insulin Pump Therapy Patient Agreement. * RN will provide and explain form NS-[id number] Flowsheet for Patient * Patient will document their insulin dose given on NS-824 which is kept at the bedside, available to caregivers upon request, and which becomes part of the permanent medical record. If at any time the patients condition evidences that he/she is not able to manage the insulin pump (i.e. frequent hypo/hyperglycemia) Pharmacy will assume glycemic control by discontinuing the pump & managing with SQ basal bolus insulin regimen for the interim. Recommendations for basal/bolus: * Basal insulin * Lantus 14 units SQ once daily * Bolus insulin * NovoLog per scale ACHS or Q6hrs while NPO * Goal Range: Low 110 mg/dL - High 140 mg/dL * Correction Factor: 50 mg/dL/unit * Nutritional / Prandial insulin per carb ratio of 1 unit per 20 grams CHO consumed
[2019-01-23] MEDS ORDERED: GLUCOSE 40% GEL 15 GM TUBE PO PRN (14:15)
[2019-01-23] MEDS ORDERED: CARBOHYDRATES FOR HYPOGLYCEMIA PO PRN (14:15)
[2019-01-23] MEDS ORDERED: INSULIN HUMAN LISPRO (humaLOG) 100 UNITS/ML VIAL SC PRN (14:15)
[2019-01-23] MEDS ORDERED: DEXTROSE 50% 50 ML SYRINGE IV PRN (14:15)
[2019-01-23] MEDS ORDERED: GLUCOSE 10 TABS/TUBE PO PRN (14:15)
[2019-01-23] MEDS ORDERED: GLUCAGON FOR INJ 1 MG VIAL SQ PRN (14:15)
[2019-01-23] MEDS ORDERED: POTASSIUM CHLORIDE 20 MEQ in D5W AND NSS 1,000 ML IV SCH (16:00)
[2019-01-23] MEDS ORDERED: D5NSS + 20MEQ KCL 20 MEQ/1,000 ML BAG IV SCH (16:15)
[2019-01-23] MEDS ORDERED: PROMETHAZINE HCL 12.5 MG in SODIUM CHLORIDE 0.9% 50 ML IV PRN (16:30)
[2019-01-23] MEDS ORDERED: CIPROFLOXACIN 400 MG/200 ML BAG IV SCH (17:00)
== END 2019-01-23 19:15 | disposition left against medical advice (07) | DRG 392 ==
LOC: ED 07:25 → 2N 09:51

== ENCOUNTER 2020-09-04 23:50 | Inpatient (IN) ==
[2020-09-05] MEDS ORDERED: ONDANSETRON INJ 2 MG/ML 2 ML VIAL IV STA (00:19)
[2020-09-05] MEDS ORDERED: FAMOTIDINE 20MG IV PUSH 20 MG/5 ML SYR IV STA (00:19)
[2020-09-05] MEDS ORDERED: PANTOPRAZOLE BOLUS/DRIP 1 EA IV STA (00:27)
[2020-09-05] MEDS ORDERED: PANTOprazole 80 MG in DEXTROSE 5% 100 ML IV ONE (00:27)
[2020-09-05] MEDS ORDERED: SODIUM CHLORIDE 0.9% 1000ML 1,000 ML IV SCH ×2 (00:30→01:15)
[2020-09-05 00:37] LABS: Basophils # (auto) 0.05 K/uL (0-0.2); Basophils % (auto) 0.3 %; Eosinophils # (auto) 0.01 K/uL (0-0.5); Eosinophils % (auto) 0.1 %; Hematocrit (blood only) 43.6 % (42-52); Hemoglobin 15.6 g/dL (14.0-18.0); Immature Granulocytes # (auto) 0.04 K/uL (0.00-0.02); Immature Granulocytes % (auto) 0.2 %; Lymphocytes # (auto) 1.36 K/uL (1.2-3.4); Lymphocytes % (auto) 8.3 %; Mean Corpuscular Hemoglobin 33.2 pg (25-34); Mean Corpuscular Hgb Conc 35.8 g/dL (32-36); Mean Corpuscular Volume 92.8 fL (80-100); Mean Platelet Volume 9.9 fL (7.4-10.4); Monocytes # (auto) 0.74 K/uL (0.11-0.59); Monocytes % (auto) 4.5 %; Neutrophils # (auto) 14.28 K/uL (1.4-6.5); Neutrophils % (auto) 86.6 %; Platelet Count 390 K/uL (130-400); RDW Coefficient of Variation 13.2 % (11.5-14.5); RDW Standard Deviation 45.5 fL (36.4-46.3); White Blood Count 16.48 K/uL (4.8-10.8)
[2020-09-05] MEDS ORDERED: PROMETHAZINE 25 MG/51 ML BAG IV STA (00:37)
[2020-09-05 00:47] LABS: Base Excess VBG 4.6 mEq/L; HCO3 VBG 25 mmol/L; Oxygen Saturation VBG 78.5 %; PCO2 VBG 26 mmHg (38-50); PO2 VBG 34 mmHg
[2020-09-05 00:56] LABS: Alanine Aminotransferase 26 U/L (12-78); Albumin Globulin Ratio 0.9 (0.9-2); Alkaline Phosphatase 132 U/L (45-117); Aspartate Aminotransferase 17 U/L (15-37); BUN Creatinine Ratio 16.5 (10-20); Beta-Hydroxybutyrate 11.25 mg/dl (0.2-2.81); Blood Urea Nitrogen 22 mg/dl (7-18); Calcium 9.4 mg/dl (8.5-10.1); Carbon Dioxide 25 mmol/L (21-32); Chloride 103 mmol/L (98-107); Creatinine Clr Calc Pharmacy 66.8 ml/min; Est GFR (African American) 78.8 ml/min; Globulin 4.3 gm/dl (2.5-4.0); Glucose 324 mg/dl (70-99); Lipase 44 U/L (73-393); Magnesium 1.8 mg/dl (1.8-2.4); Potassium 3.4 mmol/L (3.5-5.1); Sodium 139 mmol/L (136-145); Total Protein 8.3 gm/dl (6.4-8.2); Troponin I < 0.015 ng/ml (0-0.045)
[2020-09-05 00:58] LABS: INR 1.1 (0.9-1.1); Partial Thromboplastin Time 25.1 Seconds (21.0-31.0); Prothrombin Time 10.9 Seconds (9.0-12.0)
[2020-09-05] MEDS: PANTOprazole 40 MG in DEXTROSE 5% 100 ML IV SCH ×2 (01:22→06:16)
[2020-09-05 01:47] LABS: Appearance Urine Clear (Clear); Bacteria Urine Automated Negative (Negative); Bilirubin Urine Negative (Negative); Blood Urine Negative (Negative); Color Urine Yellow; Glucose Urine UA 3+ (Negative); Ketones Urine 2+ (Negative); Leukocyte Esterase Urine Negative (Negative); Nitrite Urine Negative (Negative); RBC Urine Automated 0-4 /hpf (0-4); Specific Gravity Urine 1.027 (1.000-1.030); Urobilinogen Urine Negative (Negative)
[2020-09-05 01:53] LABS: Protein Urine 2+ (Negative)
[2020-09-05 02:01] LABS: Sperm Urine Present (None Prsent)
[2020-09-05 03:05] LABS: Basophils # (auto) 0.03 K/uL (0-0.2); Basophils % (auto) 0.2 %; Hematocrit (blood only) 41.8 % (42-52); Hemoglobin 14.9 g/dL (14.0-18.0); Immature Granulocytes # (auto) 0.03 K/uL (0.00-0.02); Immature Granulocytes % (auto) 0.2 %; Lymphocytes # (auto) 1.18 K/uL (1.2-3.4); Lymphocytes % (auto) 6.2 %; Mean Corpuscular Hgb Conc 35.6 g/dL (32-36); Mean Corpuscular Volume 92.7 fL (80-100); Mean Platelet Volume 9.6 fL (7.4-10.4); Monocytes # (auto) 0.79 K/uL (0.11-0.59); Monocytes % (auto) 4.1 %; Neutrophils # (auto) 17.05 K/uL (1.4-6.5); Neutrophils % (auto) 89.3 %; Platelet Count 358 K/uL (130-400); RDW Coefficient of Variation 13.4 % (11.5-14.5); RDW Standard Deviation 45.5 fL (36.4-46.3); Red Blood Count 4.51 M/uL (4.7-6.1); White Blood Count 19.08 K/uL (4.8-10.8)
[2020-09-05] MEDS ORDERED: POLYETHYLENE (MIRALAX) 17 GM PACK PO PRN (04:13)
[2020-09-05] MEDS ORDERED: ACETAMINOPHEN 325 MG TAB PO PRN (04:13)
[2020-09-05] MEDS ORDERED: ONDANSETRON INJ 2 MG/ML 2 ML VIAL IV PRN (04:13)
[2020-09-05] MEDS ORDERED: NITROGLYCERIN SL 0.4 MG/TAB TAB SL PRN (04:13)
[2020-09-05] MEDS ORDERED: PHARMACY GLYCEMIC MGMT CONSULT PRN (04:17)
[2020-09-05] MEDS ORDERED: POTASSIUM CHLORIDE CRTAB 20 MEQ TABCR PO STA (04:17)
[2020-09-05] MEDS: SODIUM CHLORIDE 0.9% 1000ML 1,000 ML IV SCH ×3 (04:22→20:46)
[2020-09-05] MEDS ORDERED: GLUCOSE 40% GEL 15 GM TUBE PO PRN (04:30)
[2020-09-05] MEDS ORDERED: GLUCOSE 10 TABS/TUBE PO PRN (04:30)
[2020-09-05] MEDS ORDERED: GLUCAGON FOR INJ 1 MG VIAL IM PRN (04:30)
[2020-09-05] MEDS ORDERED: DEXTROSE 50% 50 ML SYRINGE IV PRN (04:30)
[2020-09-05] MEDS ORDERED: CARBOHYDRATES FOR HYPOGLYCEMIA PO PRN (04:30)
[2020-09-05] MEDS: NICOTINE 21 MG/24 HR TDSY TD SCH (05:20)
--- NOTE | 2020-09-05 05:22 | History and Physical Report ---
DATE OF ADMISSION: 09/05/2020 CHIEF COMPLAINT: Nausea, vomiting, and coffee-ground emesis. HISTORY OF PRESENT ILLNESS: A 40-year-old male with past medical history significant for type 1 diabetes, on insulin pump, diabetic neuropathy, retinopathy, gastroparesis, history of kidney stones, recently had 2 lithotripsies and stent placement, stent was taken out few days ago, osteoarthritis of the left knee, tobacco abuse disorder, history of laser photocoagulation of retina, presents with nausea, vomiting. The patient says he has episodes of nausea, vomiting from his gastroparesis. He takes his home promethazine and generally it helps, but today it did not help, so he came to the ER. He had an episode of coffee-ground emesis. He says he has a history of coffee-ground emesis in the past and EGD was done in the past. Currently resting comfortably and hemodynamically stable. He has some mild abdominal discomfort currently. Denies any blood in stool or black stools. Normal bladder movements. No chest pain, no shortness of breath. No cough, no sore throat. He has some headache. No blurred vision, no sore throat, no earache, no runny nose. Resting comfortably. ALLERGIES: REGLAN, CHANTIX, NICODERM, PENICILLIN, SULFA ANTIBIOTICS, WELLBUTRIN. PAST MEDICAL HISTORY: As mentioned above. PAST SURGICAL HISTORY: Treatment of extensive retinopathy, photocoagulation, upper endoscopy. MEDICATIONS: The patient is on atorvastatin 20 mg p.o. at bedtime, insulin pump, lisinopril 2.5 mg p.o. at bedtime, omeprazole 20 mg p.o. at bedtime, Zofran 4 mg p.r.n., promethazine 50 mg p.o. p.r.n., Flomax 0.4 mg p.o. at bedtime. FAMILY HISTORY: Significant for brother has diabetes; uncle has diabetes; father has heart disorder; SOCIAL HISTORY: , smokes 1 pack a day for 15 years. Social drinking. Smokes medical marijuana daily. REVIEW OF SYSTEMS: As per HPI. Rest of his review of systems negative. PHYSICAL EXAMINATION: GENERAL: The patient is thin and frail, not in acute distress. VITAL SIGNS: Temperature 36.8, pulse 105, respiratory rate 19, blood pressure 130/74, oxygen 98% on room air. HEENT: Pupils equal, round, and reactive to light. Oral mucosa dry. NECK: No JVD, no neck masses. CARDIOVASCULAR: S1, S2 heard, regular rate and rhythm, no murmur, no gallop. RESPIRATORY SYSTEM: Normal AP diameter. No accessory muscle use. No wheezing, no crackles. ABDOMEN: Soft, mild diffuse abdominal discomfort. No guarding, no rigidity. No distention. CENTRAL NERVOUS SYSTEM: Cranial nerves II-XII grossly intact. Nonfocal. EXTREMITIES: No edema, no erythema. LABORATORY DATA: WBC 19, hemoglobin 14.9, hematocrit 41.8, platelets 358. PT 10.9, INR 1.1, APTT 25.1. Venous blood gas, pH of 7.6, pCO2 of 26, bicarbonate 25. Sodium 139, potassium 3.4, chloride 103, bicarbonate 25, BUN 22, creatinine 1.3, serum glucose 324, calcium 9.4, magnesium 1.8, total bilirubin 1, AST 17, ALT 26, alkaline phosphatase 132. Troponin I less than 0.015. Lipase 44. Beta hydroxybutyric acid 11.2. Urinalysis, +2 ketones, +3 glucose, +2 protein. Ethyl alcohol less than 3. SARS-CoV-2 PCR negative. IMAGING DATA: CT of the abdomen and pelvis preliminary report is showing mild thickening of the wall of the distal esophagus consistent with esophagitis, showing constipation, large distal right ureteral calculus no longer present. There is still 5 mm calculus in the right kidney. EKG: Sinus tachycardia at a rate of 107, no significant change was found. ASSESSMENT AND PLAN: A 40-year-old male with type 1 diabetes, comes with nausea, vomiting, abdominal discomfort, and coffee-ground emesis. 1. Nausea, vomiting, history of gastroparesis, also coffee-ground emesis: Hemoglobin is stable. The patient has no recent use of any NSAIDS.Oesophagitis on CT scan. The patient says he has history of coffee-ground emesis in the past. Protonix drip was started in the ER, which will be continued. We will keep him n.p.o., IV fluids, and consult GI in the a.m. for further recommendations. Closely monitor in the med/tele. Hemoglobin and hematocrit q. 6 hours. Blood consent obtained. Nausea and vomiting most likely from gastroparesis. The patient also smokes medical marijuana daily, could be from cannabis-induced emesis. IV Zofran and Phenergan p.r.n., n.p.o. for now, fluids, and await GI input. Leukocytosis mostly reactive, will follow repeat labs. 2. Type 1 diabetes, on insulin pump: The patient does not have much medicine left in his pump, so we will place him on Lantus and insulin sliding scale and glycemia pharmacy consult. Follow hemoglobin A1c level. 3. History of hyperlipidemia: Continue statin. 4. History of hypertension: Continue lisinopril. 5. kidney stone on Flomax. 6. Deep venous thrombosis prophylaxis: Sequential compression devices. DISPOSITION: Admit to [facility]. Expect to discharge home and follow with family doctor. JALIL
[2020-09-05] MEDS ORDERED: INSULIN GLARGINE SOLOSTAR 100 UNITS/ML 3 ML PEN SC ONE ×3 (05:30→23:00)
[2020-09-05] MEDS: INSULIN ASPART 100 UNITS/ML 3 ML PEN SC SCH ×5 (05:35→20:33)
--- NOTE | 2020-09-05 05:51 | Emergency Department Note ---
History of Present Illness General Chief complaint: Nausea Stated complaint: NAUSEA/VOMITING Time Seen by Provider: 09/05/20 00:06 History of Present Illness Maximum Pain Intensity: 0 This is a 40-year-old male presenting to the emergency department for evaluation of nausea and vomiting symptoms for the past 12 hours. The patient is a diabetic and has had difficulty getting his sugar under control today. His initial vomiting was food from yesterday, but has transition to more bile, and finally coffee-ground emesis upon arrival to the ER. The patient has a recent history of complicated kidney stones requiring multiple procedures to extract. He has been taking pain medications intermittently for this. The patient rates his current discomfort a 3/10, primarily with the nausea and vomiting. He is not having any lower abdominal discomfort. No fevers or chills. Home Medications Medication Instructions Recorded Confirmed Type insulin lispro 1 dose CONTINUOUS SUBCUTANEOUS 02/20/18 09/05/20 History INFUSION CONTINOUS atorvastatin 20 mg PO HS 03/08/20 09/05/20 History lisinopril 2.5 mg PO HS 03/08/20 09/05/20 History omeprazole 20 mg PO HS 06/11/20 09/05/20 History ondansetron 4 mg PO UD PRN 07/14/20 09/05/20 History promethazine 50 mg PO UD PRN 07/14/20 09/05/20 History tamsulosin 0.4 mg capsule 0.4 mg PO HS #30 cap 08/11/20 09/05/20 Rx Allergies Allergy/AdvReac Type Severity Reaction Status Date / Time Penicillins Allergy Unknown Swelling Verified 09/05/20 00:36 and hives (per pt's mother) Sulfa (Sulfonamide Allergy Unknown Unknown Verified 09/05/20 00:36 Antibiotics) Past Med/Surg History Medical History ADHD Arthritis Degenerative joint disease of ankle, left Diabetes mellitus type 1, uncontrolled, insulin dependent Insulin pump Diabetic peripheral neuropathy associated with type 1 diabetes mellitus Gastroparesis due to DM GERD (gastroesophageal reflux disease) History of kidney stones History of seizure r/t hypoglycemia (2+ years ago) Kidney stones Loss of protective sensation of skin of foot Proliferative diabetic retinopathy associated with type 1 diabetes mellitus Tobacco abuse Surgical History H/O esophagogastroduodenoscopy H/O laser photocoagulation of retina History of ankle surgery Left x3 History of lithotripsy History of tooth extraction History of wisdom tooth extraction Hx of inguinal herniorrhaphy PONV (postoperative nausea and vomiting) Family History Brother T1DM (type 1 diabetes mellitus) Uncle Family history of esophageal ulcer Social History Smoking Status: Heavy tobacco smoker Tobacco Type: Cigarettes Years Smoked: 20; Cigarettes Per Day: 2 packs; Second Hand Exposure: Yes; Do You Dip or Chew Tobacco: No; Tobacco Cessation Education Requested by Patient: Yes Hx Alcohol Use: No Hx Substance Use: Yes Last Used Substance: Days (ago) Substance Use Type Other:: Medical marijuana Preferred Language: [place] Communication Ability: Effective Hearing Ability: Normal [employer] Required: No Beliefs That Will Affect Care: None Current Living Situation: Spouse Other Information That Helps Us Care for You: No Feels Safe at Home: Yes Safety Concerns: Feels Safe At This Time Assistive Devices: None Review of Systems A total of 10 systems reviewed and were otherwise negative Physical Exam Vital Signs Vital Signs - 24 hr 09/05/20 02:00 09/05/20 02:31 09/05/20 03:26 Pulse Rate 107 H 105 H Pulse Rate from SpO2 Sensor 107 H 105 H 110 H Respiratory Rate 16 19 Blood Pressure 172/92 H 130/74 Blood Pressure Mean 118 92 Pulse Oximetry 100 100 98 Oxygen Delivery Method Room Air 09/05/20 03:30 Pulse Rate 110 H Pulse Rate from SpO2 Sensor Respiratory Rate 24 Blood Pressure 131/68 Blood Pressure Mean 89 Pulse Oximetry 98 Oxygen Delivery Method VITALS: Vitals are noted on the nurse's note and reviewed by myself. Vital signs stable. GENERAL: Well-developed, well-nourished, white male, who is with active coffee- ground emesis upon my arrival to the room. HEAD: Normocephalic atraumatic. NECK: Supple without nuchal rigidity. No lymphadenopathy. No thyromegaly. Cervical spine is nontender. HEART: Regular rate and rhythm without murmurs gallops or rubs. LUNGS: Clear to auscultation bilaterally without wheezes, rales or rhonchi. No retractions or accessory muscle use. ABDOMEN: Positive normal bowel sounds x 4. Soft with epigastric tenderness on palpation. MUSCULOSKELETAL: No muscle atrophy, erythema, or edema noted. Full range of motion in all extremities. NEURO: Patient was alert and oriented to person place and time. CN II through XII grossly intact. Course Administered Medications Atorvastatin Calcium (Atorvastatin 20 Mg Tab) 20 mg PO HS HELIO Stop: 10/05/20 20:59 Last Admin: 09/05/20 20:32 Dose: 20 mg Documented by: [id number] Sodium Chloride (Nss 1000ml) 1,000 mls @ 125 mls/hr IV .Q8H HELIO Stop: 10/05/20 04:29 Last Admin: 09/05/20 20:46 Dose: 125 mls/hr Documented by: [id number] Infusion: 09/05/20 19:57 Dose: 125 mls/hr Documented by: [id number] Admin: 09/05/20 11:57 Dose: 125 mls/hr Documented by: [id number] Infusion: 09/05/20 11:57 Dose: 125 mls/hr Documented by: [id number] Admin: 09/05/20 04:22 Dose: 125 mls/hr Documented by: [id number] Promethazine HCl 12.5 mg/ (Sodium Chloride) 50.5 mls @ 202 mls/hr IV Q6H PRN PRN Reason: Nausea And Vomiting Stop: 10/05/20 05:59 Last Infusion: 09/05/20 06:16 Dose: 0 mls/hr Documented by: [id number] Admin: 09/05/20 05:59 Dose: 202 mls/hr Documented by: [id number] Pantoprazole Sodium 40 mg/ (Syringe) 10 mls @ 5 mls/min IV BID HELIO Stop: 10/05/20 20:59 Last Admin: 09/05/20 20:32 Dose: 5 mls/min Documented by: [id number] Insulin Aspart (Insulin Aspart 100 Units/Ml 3 Ml Pen) 0 units SC Q4 HELIO; Protocol Stop: 10/05/20 15:59 Last Admin: 09/06/20 00:53 Dose: 285 units Documented by: [id number] Cosigned by: [id number] Admin: 09/05/20 20:33 Dose: 1 units Documented by: [id number] Cosigned by: [id number] Admin: 09/05/20 18:16 Dose: 3 units Documented by: [id number] Cosigned by: [id number] Admin: 09/05/20 15:46 Dose: 1 units Documented by: [id number] Cosigned by: [id number] Lisinopril (Lisinopril 2.5 Mg Tab) 2.5 mg PO HS HELIO Stop: 10/05/20 20:59 Last Admin: 09/05/20 20:31 Dose: 2.5 mg Documented by: [id number] Melatonin (Melatonin 3 Mg Tab) 3 mg PO HS PRN PRN Reason: Sleep Stop: 10/05/20 19:13 Last Admin: 09/05/20 20:38 Dose: 3 mg Documented by: [id number] Miscellaneous (Remove Nicoderm Patch) 1 ea N/A DAILY@0459 [facility] Stop: 10/05/20 04:58 Last Admin: 09/05/20 05:19 Dose: Not Given Documented by: [id number] Nicotine (Nicotine 21 Mg/24 Hr Tdsy) 21 mg TD DAILY@0500 [facility] Stop: 10/05/20 04:59 Last Admin: 09/05/20 05:20 Dose: 21 mg Documented by: [id number] Ondansetron HCl (Ondansetron Inj 2 Mg/Ml 2 Ml Vial) 4 mg IV Q6H PRN PRN Reason: Nausea Stop: 10/05/20 04:12 Last Admin: 09/05/20 05:20 Dose: 4 mg Documented by: [id number] Tamsulosin HCl (Tamsulosin Hcl 0.4 Mg Cap) 0.4 mg PO HS HELIO Stop: 10/05/20 20:59 Last Admin: 09/05/20 20:31 Dose: 0.4 mg Documented by: [id number] Zolpidem Tartrate (Zolpidem Tartrate 5 Mg Tab) 5 mg PO HS PRN PRN Reason: Sleep Stop: 10/05/20 23:18 Last Admin: 09/06/20 00:56 Dose: 5 mg Documented by: [id number] Discontinued Medications Bisacodyl (Bisacodyl 10 Mg Supp) 10 mg IN NOW ONE Stop: 09/05/20 08:01 Last Admin: 09/05/20 08:37 Dose: Not Given Documented by: [id number] Famotidine (Pepcid 20mg Iv Push) 20 mg in 5 mls @ 2.5 mls/min IV NOW STA Stop: 09/05/20 00:20 Last Admin: 09/05/20 00:26 Dose: 2.5 mls/min Documented by: [id number] Sodium Chloride (Nss 1000ml) 1,000 mls @ 999 mls/hr IV .Q1H1M HELIO Stop: 09/05/20 01:30 Last Infusion: 09/05/20 02:02 Dose: 0 mls/hr Documented by: [id number] Admin: 09/05/20 00:27 Dose: 999 mls/hr Documented by: [id number] Pantoprazole Sodium (Protonix Bolus/Drip) 0 mls @ 1 mls/hr IV ONE STA Stop: 09/05/20 00:28 Last Admin: 09/05/20 04:11 Dose: Not Given Documented by: [id number] Pantoprazole Sodium 40 mg/ (Dextrose) 100 mls @ 20 mls/hr IV Q5H HELIO Stop: 10/05/20 00:41 Last Infusion: 09/05/20 10:30 Dose: 0 mg/hr, 0 mls/hr Documented by: [id number] Admin: 09/05/20 06:16 Dose: 8 mg/hr, 20 mls/hr Documented by: [id number] Infusion: 09/05/20 06:16 Dose: 8 mg/hr, 20 mls/hr Documented by: [id number] Admin: 09/05/20 01:22 Dose: 8 mg/hr, 20 mls/hr Documented by: [id number] Pantoprazole Sodium 80 mg/ (Dextrose) 120 mls @ 400 mls/hr IV NOW ONE Stop: 09/05/20 00:44 Last Infusion: 09/05/20 01:22 Dose: 0 mls/hr Documented by: [id number] Admin: 09/05/20 00:55 Dose: 400 mls/hr Documented by: [id number] Promethazine HCl (Phenergan) 25 mg in 51 mls @ 204 mls/hr IV NOW STA Stop: 09/05/20 00:51 Last Infusion: 09/05/20 01:22 Dose: 0 mls/hr Documented by: [id number] Admin: 09/05/20 00:49 Dose: 204 mls/hr Documented by: [id number] Sodium Chloride (Nss 1000ml) 1,000 mls @ 999 mls/hr IV .Q1H1M HELIO Stop: 09/05/20 02:15 Last Infusion: 09/05/20 03:30 Dose: 0 mls/hr Documented by: [id number] Admin: 09/05/20 02:04 Dose: 999 mls/hr Documented by: [id number] Promethazine HCl 6.25 mg/ (Sodium Chloride) 50.25 mls @ 201 mls/hr IV NOW ONE Stop: 09/05/20 08:44 Last Admin: 09/05/20 08:37 Dose: Not Given Documented by: [id number] Fosaprepitant 115 mg/ Sodium (Chloride) 115 mls @ 450 mls/hr IV ONE ONE Stop: 09/05/20 10:30 Last Infusion: 09/05/20 10:45 Dose: 0 mls/hr Documented by: [id number] Admin: 09/05/20 10:29 Dose: 450 mls/hr Documented by: [id number] Insulin Aspart (Insulin Aspart 100 Units/Ml 3 Ml Pen) 0 units SC Q6 HELIO; Protocol Stop: 10/05/20 05:59 Last Admin: 09/05/20 11:54 Dose: 1 units Documented by: [id number] Cosigned by: [id number] Admin: 09/05/20 05:35 Dose: 2 units Documented by: [id number] Cosigned by: [id number] Insulin Glargine (Insulin Glargine Solostar 100 Units/Ml 3 Ml Pen) 10 units SC ONE ONE; Protocol Stop: 09/05/20 05:31 Last Admin: 09/05/20 05:34 Dose: 10 units Documented by: [id number] Cosigned by: [id number] Insulin Glargine (Insulin Glargine Solostar 100 Units/Ml 3 Ml Pen) 10 units SC ONE ONE; Protocol Stop: 09/05/20 23:01 Last Admin: 09/05/20 23:13 Dose: 10 units Documented by: [id number] Cosigned by: [id number] Ondansetron HCl (Ondansetron Inj 2 Mg/Ml 2 Ml Vial) 4 mg IV NOW STA Stop: 09/05/20 00:20 Last Admin: 09/05/20 00:26 Dose: 4 mg Documented by: [id number] Potassium Chloride (Potassium Chloride Crtab 20 Meq Tabcr) 20 meq PO NOW STA Stop: 09/05/20 04:18 Last Admin: 09/05/20 05:35 Dose: 20 meq Documented by: [id number] Promethazine HCl (Promethazine 6.25 Mg/50.25 Ml Nss) Confirm Administered Dose 6.25 mg IV .STK-MED ONE Stop: 09/05/20 08:35 Last Admin: 09/05/20 08:37 Dose: 6.25 mg Documented by: [id number] Medical Decision Making Differential Diagnosis Differential diagnosis: Etiologies such as gastroenteritis, food borne illness, infections, appendicitis, diverticulitis, inflammatory bowel disease, obstruction, GI bleed, biliary pathology, cardiac process, intracranial process, as well as others were entertained. Laboratory Data Result diagrams: 09/05/20 18:55 09/05/20 07:16 Lab Results 09/05/20 09/05/20 09/05/20 Range/Units 00:05 00:05 00:05 WBC 16.48 H (4.8-10.8) K/uL RBC 4.70 (4.7-6.1) M/uL Hgb 15.6 (14.0-18.0) g/dL Hct 43.6 (42-52) % MCV 92.8 (80-100) fL MCH 33.2 (25-34) pg MCHC 35.8 (32-36) g/dL RDW Std Deviation 45.5 (36.4-46.3) fL RDW Coeff of Lamont 13.2 (11.5-14.5) % Plt Count 390 (130-400) K/uL MPV 9.9 (7.4-10.4) fL Immature Gran % (Auto) 0.2 % Neut % (Auto) 86.6 % Lymph % (Auto) 8.3 % [place] % (Auto) 4.5 % Eos % (Auto) 0.1 % Baso % (Auto) 0.3 % Neut # (Auto) 14.28 H (1.4-6.5) K/uL Lymph # (Auto) 1.36 (1.2-3.4) K/uL [place] # (Auto) 0.74 H (0.11-0.59) K/uL Eos # (Auto) 0.01 (0-0.5) K/uL Baso # (Auto) 0.05 (0-0.2) K/uL Immature Gran # (Auto) 0.04 H (0.00-0.02) K/uL PT 10.9 (9.0-12.0) Seconds INR 1.1 (0.9-1.1) APTT 25.1 (21.0-31.0) Seconds PTT Ratio 1.0 VBG pH (7.36-7.41) VBG pCO2 (38-50) mmHg VBG pO2 mmHg VBG HCO3 mmol/L VBG O2 Saturation % VBG Base Excess mEq/L Sodium 139 (136-145) mmol/L Potassium 3.4 L (3.5-5.1) mmol/L Chloride 103 (98-107) mmol/L Carbon Dioxide 25 (21-32) mmol/L Anion Gap 11.0 (3-11) BUN 22 H (7-18) mg/dl Creatinine 1.32 (0.6-1.4) mg/dl Est Cr Clr Drug Dosing 66.8 ml/min Est GFR ( Amer) 78.8 ml/min Est GFR (Non-Af Amer) 68.0 ml/min BUN/Creatinine Ratio 16.5 (10-20) Glucose 324 H* (70-99) mg/dl POC Glucose (70-99) mg/dl Calcium 9.4 (8.5-10.1) mg/dl Magnesium 1.8 (1.8-2.4) mg/dl Total Bilirubin 1.0 (0.2-1) mg/dl AST 17 (15-37) U/L ALT 26 (12-78) U/L Alkaline Phosphatase 132 H (45-117) U/L Troponin I < 0.015 (0-0.045) ng/ml Total Protein 8.3 H (6.4-8.2) gm/dl Albumin 4.0 (3.4-5.0) gm/dl Globulin 4.3 H (2.5-4.0) gm/dl Albumin/Globulin Ratio 0.9 (0.9-2) Lipase 44 L (73-393) U/L Beta-Hydroxybutyric Acd 11.25 H (0.2-2.81) mg/dl Urine Color Urine Appearance (Clear) Urine pH (4.5-7.5) Ur Specific [place] (1.000-1.030) Urine Protein (Negative) Urine Glucose (UA) (Negative) Urine Ketones (Negative) Urine Blood (Negative) Urine Nitrite (Negative) Urine Bilirubin (Negative) Urine Urobilinogen (Negative) Ur Leukocyte Esterase (Negative) Urine WBC (Auto) (0-5) /hpf Urine RBC (Auto) (0-4) /hpf U Hyaline Cast (Auto) (0-5) /lpf U Epithel Cells (Auto) (0-5) /lpf Urine Bacteria (Auto) (Negative) Urine Sperm (None Prsent) Ethyl Alcohol mg/dL (0-3) mg/dl COVID-19 Eval Order SARS-CoV-2 (PCR) (Negative) Blood Type Antibody Screen 09/05/20 09/05/20 09/05/20 Range/Units 00:20 00:32 00:32 WBC (4.8-10.8) K/uL RBC (4.7-6.1) M/uL Hgb (14.0-18.0) g/dL Hct (42-52) % MCV (80-100) fL MCH (25-34) pg MCHC (32-36) g/dL RDW Std Deviation (36.4-46.3) fL RDW Coeff of Lamont (11.5-14.5) % Plt Count (130-400) K/uL MPV (7.4-10.4) fL Immature Gran % (Auto) % Neut % (Auto) % Lymph % (Auto) % [place] % (Auto) % Eos % (Auto) % Baso % (Auto) % Neut # (Auto) (1.4-6.5) K/uL Lymph # (Auto) (1.2-3.4) K/uL [place] # (Auto) (0.11-0.59) K/uL Eos # (Auto) (0-0.5) K/uL Baso # (Auto) (0-0.2) K/uL Immature Gran # (Auto) (0.00-0.02) K/uL PT (9.0-12.0) Seconds INR (0.9-1.1) APTT (21.0-31.0) Seconds PTT Ratio VBG pH (7.36-7.41) VBG pCO2 (38-50) mmHg VBG pO2 mmHg VBG HCO3 mmol/L VBG O2 Saturation % VBG Base Excess mEq/L Sodium (136-145) mmol/L Potassium (3.5-5.1) mmol/L Chloride (98-107) mmol/L Carbon Dioxide (21-32) mmol/L Anion Gap (3-11) BUN (7-18) mg/dl Creatinine (0.6-1.4) mg/dl Est Cr Clr Drug Dosing ml/min Est GFR ( Amer) ml/min Est GFR (Non-Af Amer) ml/min BUN/Creatinine Ratio (10-20) Glucose (70-99) mg/dl POC Glucose 313 H* (70-99) mg/dl Calcium (8.5-10.1) mg/dl Magnesium (1.8-2.4) mg/dl Total Bilirubin (0.2-1) mg/dl AST (15-37) U/L ALT (12-78) U/L Alkaline Phosphatase (45-117) U/L Troponin I (0-0.045) ng/ml Total Protein (6.4-8.2) gm/dl Albumin (3.4-5.0) gm/dl Globulin (2.5-4.0) gm/dl Albumin/Globulin Ratio (0.9-2) Lipase (73-393) U/L Beta-Hydroxybutyric Acd (0.2-2.81) mg/dl Urine Color Urine Appearance (Clear) Urine pH (4.5-7.5) Ur Specific [place] (1.000-1.030) Urine Protein (Negative) Urine Glucose (UA) (Negative) Urine Ketones (Negative) Urine Blood (Negative) Urine Nitrite (Negative) Urine Bilirubin (Negative) Urine Urobilinogen (Negative) Ur Leukocyte Esterase (Negative) Urine WBC (Auto) (0-5) /hpf Urine RBC (Auto) (0-4) /hpf U Hyaline Cast (Auto) (0-5) /lpf U Epithel Cells (Auto) (0-5) /lpf Urine Bacteria (Auto) (Negative) Urine Sperm (None Prsent) Ethyl Alcohol mg/dL < 3.0 (0-3) mg/dl COVID-19 Eval Order SARS-CoV-2 (PCR) (Negative) Blood Type A Positive Antibody Screen NEGATIVE 09/05/20 09/05/20 09/05/20 Range/Units 00:32 01:20 01:46 WBC (4.8-10.8) K/uL RBC (4.7-6.1) M/uL Hgb (14.0-18.0) g/dL Hct (42-52) % MCV (80-100) fL MCH (25-34) pg MCHC (32-36) g/dL RDW Std Deviation (36.4-46.3) fL RDW Coeff of Lamont (11.5-14.5) % Plt Count (130-400) K/uL MPV (7.4-10.4) fL Immature Gran % (Auto) % Neut % (Auto) % Lymph % (Auto) % [place] % (Auto) % Eos % (Auto) % Baso % (Auto) % Neut # (Auto) (1.4-6.5) K/uL Lymph # (Auto) (1.2-3.4) K/uL [place] # (Auto) (0.11-0.59) K/uL Eos # (Auto) (0-0.5) K/uL Baso # (Auto) (0-0.2) K/uL Immature Gran # (Auto) (0.00-0.02) K/uL PT (9.0-12.0) Seconds INR (0.9-1.1) APTT (21.0-31.0) Seconds PTT Ratio VBG pH 7.60 H (7.36-7.41) VBG pCO2 26 L (38-50) mmHg VBG pO2 34 mmHg VBG HCO3 25 mmol/L VBG O2 Saturation 78.5 % VBG Base Excess 4.6 mEq/L Sodium (136-145) mmol/L Potassium (3.5-5.1) mmol/L Chloride (98-107) mmol/L Carbon Dioxide (21-32) mmol/L Anion Gap (3-11) BUN (7-18) mg/dl Creatinine (0.6-1.4) mg/dl Est Cr Clr Drug Dosing ml/min Est GFR ( Amer) ml/min Est GFR (Non-Af Amer) ml/min BUN/Creatinine Ratio (10-20) Glucose (70-99) mg/dl POC Glucose (70-99) mg/dl Calcium (8.5-10.1) mg/dl Magnesium (1.8-2.4) mg/dl Total Bilirubin (0.2-1) mg/dl AST (15-37) U/L ALT (12-78) U/L Alkaline Phosphatase (45-117) U/L Troponin I (0-0.045) ng/ml Total Protein (6.4-8.2) gm/dl Albumin (3.4-5.0) gm/dl Globulin (2.5-4.0) gm/dl Albumin/Globulin Ratio (0.9-2) Lipase (73-393) U/L Beta-Hydroxybutyric Acd (0.2-2.81) mg/dl Urine Color Yellow Urine Appearance Clear (Clear) Urine pH 8.0 H (4.5-7.5) Ur Specific [place] 1.027 (1.000-1.030) Urine Protein 2+ H (Negative) Urine Glucose (UA) 3+ H (Negative) Urine Ketones 2+ H (Negative) Urine Blood Negative (Negative) Urine Nitrite Negative (Negative) Urine Bilirubin Negative (Negative) Urine Urobilinogen Negative (Negative) Ur Leukocyte Esterase Negative (Negative) Urine WBC (Auto) 1-5 (0-5) /hpf Urine RBC (Auto) 0-4 (0-4) /hpf U Hyaline Cast (Auto) 1-5 (0-5) /lpf U Epithel Cells (Auto) 5-10 H (0-5) /lpf Urine Bacteria (Auto) Negative (Negative) Urine Sperm Present A (None Prsent) Ethyl Alcohol mg/dL (0-3) mg/dl COVID-19 Eval Order Covid19 at [facility] SARS-CoV-2 (PCR) (Negative) Blood Type Antibody Screen 09/05/20 09/05/20 Range/Units 01:46 02:46 WBC 19.08 H (4.8-10.8) K/uL RBC 4.51 L (4.7-6.1) M/uL Hgb 14.9 (14.0-18.0) g/dL Hct 41.8 L (42-52) % MCV 92.7 (80-100) fL MCH 33.0 (25-34) pg MCHC 35.6 (32-36) g/dL RDW Std Deviation 45.5 (36.4-46.3) fL RDW Coeff of Lamont 13.4 (11.5-14.5) % Plt Count 358 (130-400) K/uL MPV 9.6 (7.4-10.4) fL Immature Gran % (Auto) 0.2 % Neut % (Auto) 89.3 % Lymph % (Auto) 6.2 % [place] % (Auto) 4.1 % Eos % (Auto) 0.0 % Baso % (Auto) 0.2 % Neut # (Auto) 17.05 H (1.4-6.5) K/uL Lymph # (Auto) 1.18 L (1.2-3.4) K/uL [place] # (Auto) 0.79 H (0.11-0.59) K/uL Eos # (Auto) 0.00 (0-0.5) K/uL Baso # (Auto) 0.03 (0-0.2) K/uL Immature Gran # (Auto) 0.03 H (0.00-0.02) K/uL PT (9.0-12.0) Seconds INR (0.9-1.1) APTT (21.0-31.0) Seconds PTT Ratio VBG pH (7.36-7.41) VBG pCO2 (38-50) mmHg VBG pO2 mmHg VBG HCO3 mmol/L VBG O2 Saturation % VBG Base Excess mEq/L Sodium (136-145) mmol/L Potassium (3.5-5.1) mmol/L Chloride (98-107) mmol/L Carbon Dioxide (21-32) mmol/L Anion Gap (3-11) BUN (7-18) mg/dl Creatinine (0.6-1.4) mg/dl Est Cr Clr Drug Dosing ml/min Est GFR ( Amer) ml/min Est GFR (Non-Af Amer) ml/min BUN/Creatinine Ratio (10-20) Glucose (70-99) mg/dl POC Glucose (70-99) mg/dl Calcium (8.5-10.1) mg/dl Magnesium (1.8-2.4) mg/dl Total Bilirubin (0.2-1) mg/dl AST (15-37) U/L ALT (12-78) U/L Alkaline Phosphatase (45-117) U/L Troponin I (0-0.045) ng/ml Total Protein (6.4-8.2) gm/dl Albumin (3.4-5.0) gm/dl Globulin (2.5-4.0) gm/dl Albumin/Globulin Ratio (0.9-2) Lipase (73-393) U/L Beta-Hydroxybutyric Acd (0.2-2.81) mg/dl Urine Color Urine Appearance (Clear) Urine pH (4.5-7.5) Ur Specific [place] (1.000-1.030) Urine Protein (Negative) Urine Glucose (UA) (Negative) Urine Ketones (Negative) Urine Blood (Negative) Urine Nitrite (Negative) Urine Bilirubin (Negative) Urine Urobilinogen (Negative) Ur Leukocyte Esterase (Negative) Urine WBC (Auto) (0-5) /hpf Urine RBC (Auto) (0-4) /hpf U Hyaline Cast (Auto) (0-5) /lpf U Epithel Cells (Auto) (0-5) /lpf Urine Bacteria (Auto) (Negative) Urine Sperm (None Prsent) Ethyl Alcohol mg/dL (0-3) mg/dl COVID-19 Eval Order SARS-CoV-2 (PCR) NEGATIVE (Negative) Blood Type Antibody Screen Imaging Data Radiologist's Impression: Abdomen/Pelvis CT 09/05/20 00:[address] WITHOUT CONTRAST CT DOSE: 340.44 mGy.cm HISTORY: Acute hematemesis vomiting blood TECHNIQUE: Multiaxial CT images of the abdomen and pelvis were performed without contrast. A dose lowering technique was utilized adhering to the principles of ALARA. COMPARISON STUDY: CT abdomen pelvis 08/11/2020 FINDINGS: Imaged inferior cardiac chambers are unremarkable. Minimal right basilar atelectasis. No pneumatosis or pneumoperitoneum. Limited evaluation of the solid abdominal organs without the use of IV contrast. Within the limitations of the study, the spleen, pancreas, adrenal glands, gallbladder and liver appear unremarkable. There are a few punctate calculi of the left kidney with a 3 mm calculus of the inferior pole. External renal pelvis on the left without hydronephrosis. There are at least 5 nonobstructing calculi of the right kidney measuring up to 5 mm. There is mild right-sided hydroureteronephrosis with perinephric and periureteral stranding, improved from comparison. The previously noted right ureteral calculus is no longer present. Mild urinary bladder distention. Mild calcified plaque of the abdominal aorta and iliac arteries. There is no adenopathy. Moderate wall thickening of the distal esophagus. No bowel obstruction or bowel wall thickening. Mild fecal retention of the rectum. The visualized appendix is unremarkable. Unremarkable soft tissues. No acute fracture. IMPRESSION: 1. Moderate distal esophageal wall thickening. Correlate clinically to exclude esophagitis. 2. Mild right-sided hydroureteronephrosis has improved from comparison. The previously noted right ureteral calculus is no longer present. 3. Nonobstructing bilateral nephrolithiasis. 4. No bowel obstruction or bowel wall thickening. Normal appendix. ACT 112: Negative or not required by law. The above report was generated using voice recognition software. It may contain grammatical, syntax or spelling errors. Electronically signed by: Duke Haji M.D. 09/05/2020 8:17 AM ECG Data Attestation: I personally reviewed and interpreted this ECG as follows: Indication: + vomiting Additional Comments: Sinus tachycardia @[address] elevation Possible Left atrial enlargement When compared with ECG of 07-DEC-2019 22:25, No significant change was found MDM Narrative Physical exam and history were performed. Nursing notes, EMR, and Medication List were personally reviewed. Patient appears to have coffee-ground emesis upon my arrival to his room. I did guaiac this at bedside and it was heme positive. IV access was established and labs were obtained. The patient was hydrated with 2 L normal saline. Blood bank was gathered. I did touch base with the pharmacy, and the patient was s tarted on Protonix with bolus and drip. He was given additional Pepcid and Zofran. The patient was offered pain medication as he does have epigastric pain, but declined. He was sent to CT scan for further evaluation of his symptoms. The case was discussed with my attending. The patient blood work is as above and was reviewed. He does have an elevated white blood cell count which is felt to be from his vomiting. He does not have a significant anemia however, which is comforting. Lipase and transaminases are not diagnostic. Glucose is elevated at greater than 300, and he does appear to have increased ketones. He is not acidotic on VBG. CT scan was performed and reviewed by myself and radiology showing what seems to be esophagitis. This would correlate with many of his symptoms. The patient continued hydration for glucose control. A repeat H&H was performed about 2 hours after the initial, and does show a stable hemoglobin. Overall he does not appear well for discharge home. The case was discussed with the on-call hospitalist team who agreed to evaluate the patient here at bedside. Please see their dictation for further patient course, plan, disposition. The chart was completed utilizing [employer] Voice Recognition Software. Grammatical errors, random word insertions, pronoun errors, and incomplete sentences are an occasional consequence of this system due to software limitations, ambient noise, and hardware issues. Any formal questions or concerns about the content, text, or information contained within the body of this dictation should be directly addressed to the provider for clarification. . Impression & Plan Coffee ground emesis, Esophagitis, Hyperglycemia due to diabetes mellitus, Epigastric abdominal pain Discharge Plan Visit Data Chief Complaint: Nausea Stated Complaint: NAUSEA/VOMITING ED Provider: [facility] Midlevel Provider: Derek Hernandes Discharge Problem: Coffee ground emesis, Esophagitis, Hyperglycemia due to diabetes mellitus, Epigastric abdominal pain Patient Disposition: Admitted As Inpatient Discharge Instructions Interventions: ED Discharge Assessment Last Done: 09/05/20 03:51
[2020-09-05] MEDS ORDERED: PROMETHAZINE HCL 12.5 MG in SODIUM CHLORIDE 0.9% 50 ML IV PRN (06:00)
[2020-09-05 07:46] LABS: Basophils # (auto) 0.03 K/uL (0-0.2); Basophils % (auto) 0.2 %; Hematocrit (blood only) 43.1 % (42-52); Immature Granulocytes # (auto) 0.04 K/uL (0.00-0.02); Immature Granulocytes % (auto) 0.2 %; Lymphocytes # (auto) 1.37 K/uL (1.2-3.4); Lymphocytes % (auto) 8.2 %; Mean Corpuscular Hemoglobin 32.3 pg (25-34); Mean Corpuscular Hgb Conc 34.8 g/dL (32-36); Mean Corpuscular Volume 92.9 fL (80-100); Mean Platelet Volume 9.6 fL (7.4-10.4); Monocytes # (auto) 0.93 K/uL (0.11-0.59); Monocytes % (auto) 5.6 %; Neutrophils # (auto) 14.37 K/uL (1.4-6.5); Neutrophils % (auto) 85.8 %; Platelet Count 372 K/uL (130-400); RDW Coefficient of Variation 13.5 % (11.5-14.5); RDW Standard Deviation 46.6 fL (36.4-46.3); Red Blood Count 4.64 M/uL (4.7-6.1); White Blood Count 16.74 K/uL (4.8-10.8)
[2020-09-05 07:53] LABS: Estimated Average Glucose 212 mg/dl
[2020-09-05] MEDS ORDERED: bisacodyL 10 MG SUPP PR ONE (08:00)
[2020-09-05 08:05] LABS: BUN Creatinine Ratio 21.5 (10-20); Calcium 9.3 mg/dl (8.5-10.1); Est GFR (African American) 125.7 ml/min; Est GFR (Non-African American) 108.5 ml/min; Potassium 3.6 mmol/L (3.5-5.1)
--- NOTE | 2020-09-05 08:18 | CT Scan Report ---
ABDOMEN AND PELVIS CT WITHOUT CONTRAST CT DOSE: 340.44 mGy.cm HISTORY: Acute hematemesis vomiting blood TECHNIQUE: Multiaxial CT images of the abdomen and pelvis were performed without contrast. A dose lo wering technique was utilized adhering to the principles of ALARA. COMPARISON STUDY: CT abdomen pelvis 08/11/2020 FINDINGS: Imaged inferior cardiac chambers are unremarkable. Minimal right basilar atelectasis. No pneumatosis or pneumoperitoneum. Limited evaluation of the solid abdominal organs without the use of IV contrast. Within the limitations of the study, the spleen, pancreas, adrenal glands, gallbladder and liver james ear unremarkable. There are a few punctate calculi of the left kidney with a 3 mm calculus of the inferior pole. Cattle Sorter al renal pelvis on the left without hydronephrosis. There are at least 5 nonobstructing calculi of th e right kidney measuring up to 5 mm. There is mild right-sided hydroureteronephrosis with perinephric and periureteral stranding, improved from comparison. The previously noted right ureteral calculus i s no longer present. Mild urinary bladder distention. Mild calcified plaque of the abdominal aorta an d iliac arteries. There is no adenopathy. Moderate wall thickening of the distal esophagus. No bowel obstruction or bowel wall thickening. Mild fecal retention of the rectum. The visualized appendix is unremarkable. Unremarkable soft tissues. N o acute fracture. IMPRESSION: 1. Moderate distal esophageal wall thickening. Correlate clinically to exclude esophagitis. 2. Mild right-sided hydroureteronephrosis has improved from comparison. The previously noted right ur eteral calculus is no longer present. 3. Nonobstructing bilateral nephrolithiasis. 4. No bowel obstruction or bowel wall thickening. Normal appendix. ACT 112: Negative or not required by law. The above report was generated using voice recognition software. It may contain grammatical, syntax o r spelling errors. Electronically signed by: Duke Haji M.D. 09/05/2020 8:17 AM
[2020-09-05] MEDS ORDERED: PROMETHAZINE HCL 6.25 MG in SODIUM CHLORIDE 0.9% 50 ML IV ONE (08:30)
[2020-09-05] MEDS ORDERED: PROMETHAZINE 6.25 MG/50.25 ML NSS IV ONE (08:34)
--- NOTE | 2020-09-05 10:02 | Gastrointestinal Consultation ---
Date of Consultation September 05, 2020 Assessment & Plan (1) Diabetes: (2) Esophagitis: (3) Gastroparesis: (4) Coffee ground emesis: Pt is a 40 y/o male w hx of DM I, gastroparesis, who presented w abd pain, N/V, reported one episode of coffee ground emesis. Blood ct stable, emesis bilious appearing on examination. CT showed distal esophagus thickening, likely esophagitis. - Monitor blood ct and for s/s of GI bleeding - Keep NPO - PPI IV BID - Emend 115mg IV x 1 dose now - GI coctail - Symptomatic management - Plan for EGD eval in outpt setting Supervising Physician Co-Signing Physician Notes I performed a history and physical examination of the patient today, including specifically on physical exam - soft abdomen. I have discussed the patient's management with the advanced practitioner. Please refer to the nurse practitioner's note for the documented findings and plan of care. EGD as OP. Antiemetics. Recall GI if needed. History of Present Illness Reason for Consultation: N/V, coffee ground emesis Requesting Physician: Dr. Blayne Marcum Attending Physician: Dr. Oren Ott History of Present Illness Pt is a 40 yo male w PMHx of DM I, kidney stones s/p lithotripsy and stent replacement, removed 4 days ago, OA, marijuana uses who presented to ED w c/o abd pain, N/V x 2 days. Previously N/V symptoms managed well w Promethazine & occasional Zofran. He denies sick contact, travels, new meds, herbal supplement, changes in bowel habits including diarrhea. He denies uses of NSAIDs. Been on Omeprazole at home. Hx of esophagitis and Roshni zarco tear in the past. Last EGD in 2013. H&P noted reported he had an episode of coffee ground emesis. However vomitus in emesis bag currently appears bilious. + slight tachycardia, VS stable, blood ct stable. BUN w/o significant rise. CT abd/pelvis w/o contrast: 1. Moderate distal esophageal wall thickening. Correlate clinically to exclude esophagitis. 2. Mild right-sided hydroureteronephrosis has improved from comparison. The previously noted right ureteral calculus is no longer present. 3. Nonobstructing bilateral nephrolithiasis. 4. No bowel obstruction or bowel wall thickening. Normal appendix. Allergies Allergy/AdvReac Type Severity Reaction Status Date / Time Penicillins Allergy Unknown Swelling Verified 09/05/20 00:36 and hives (per pt's mother) Sulfa (Sulfonamide Allergy Unknown Unknown Verified 09/05/20 00:36 Antibiotics) Home Medications Medication Instructions Recorded Confirmed Type insulin lispro 1 dose CONTINUOUS SUBCUTANEOUS 02/20/18 09/05/20 History INFUSION CONTINOUS atorvastatin 20 mg PO HS 03/08/20 09/05/20 History lisinopril 2.5 mg PO HS 03/08/20 09/05/20 History omeprazole 20 mg PO HS 06/11/20 09/05/20 History ondansetron 4 mg PO UD PRN 07/14/20 09/05/20 History promethazine 50 mg PO UD PRN 07/14/20 09/05/20 History tamsulosin 0.4 mg capsule 0.4 mg PO HS #30 cap 08/11/20 09/05/20 Rx Patient History Medical History ADHD Arthritis Degenerative joint disease of ankle, left Diabetes mellitus type 1, uncontrolled, insulin dependent Insulin pump Diabetic peripheral neuropathy associated with type 1 diabetes mellitus Gastroparesis due to DM GERD (gastroesophageal reflux disease) History of kidney stones History of seizure r/t hypoglycemia (2+ years ago) Kidney stones Loss of protective sensation of skin of foot Proliferative diabetic retinopathy associated with type 1 diabetes mellitus Tobacco abuse Surgical History H/O esophagogastroduodenoscopy H/O laser photocoagulation of retina History of ankle surgery Left x3 History of lithotripsy History of tooth extraction History of wisdom tooth extraction Hx of inguinal herniorrhaphy PONV (postoperative nausea and vomiting) Family History Brother T1DM (type 1 diabetes mellitus) Uncle Family history of esophageal ulcer Social History Smoking Status: Heavy tobacco smoker Tobacco Type: Cigarettes Years Smoked: 20; Cigarettes Per Day: 2 packs; Second Hand Exposure: Yes; Do You Dip or Chew Tobacco: No; Tobacco Cessation Education Requested by Patient: Yes Hx Alcohol Use: No Hx Substance Use: Yes Last Used Substance: Days (ago) Substance Use Type Other:: Medical marijuana Preferred Language: Eritrean Communication Ability: Effective Hearing Ability: Normal Transfill Technician Required: No Beliefs That Will Affect Care: None Current Living Situation: Spouse Other Information That Helps Us Care for You: No Feels Safe at Home: Yes Safety Concerns: Feels Safe At This Time Assistive Devices: None Review of Systems Review of Systems: All systems reviewed & are unremarkable except as noted in HPI & below Physical Exam Constitutional: + ill appearing, + thin and cooperative Eyes: PERRL, conjunctivae normal, anicteric sclerae ENMT: external ear and nose normal, oropharynx normal Respiratory: normal respiratory effort, lungs clear to auscultation Cardiovascular: RRR, no murmur, no edema Gastrointestinal (Abdomen): Inspection/Auscultation: + hypoactive bowel sounds Percussion/Palpation: + abdomen tender and abdomen soft Skin: no rashes, warm and dry no jaundice Psychiatric: A+Ox3, euthymic affect Lymphatic: no lymphedema Results & Data ([facility]) Vital Signs (Past 12 Hours) Vital Signs Temp Pulse Pulse Resp BP BP Pulse Ox 09/05/20 08:25 100 H 20 142/82 H 99 09/05/20 05:00 105 H 17 09/05/20 04:12 110 H 19 110/64 09/05/20 04:00 107 H 24 121/74 99 09/05/20 03:30 110 H 24 131/68 98 09/05/20 03:26 130/74 98 09/05/20 02:31 105 H 19 100 09/05/20 02:00 107 H 16 172/92 H 100 09/05/20 01:30 169/107 H 99 09/05/20 01:02 108 H 23 171/97 H 100 09/04/20 23:58 116 H 19 167/106 H 100 09/04/20 23:55 36.8 C 115 H 22 167/106 H 95
[2020-09-05] MEDS ORDERED: FOSAPREPITANT DIMEGLUMINE 115 MG in 0.9 % SODIUM CHLORIDE 111.1667 ML IV ONE (10:15)
[2020-09-05] MEDS ORDERED: ALUMINUM/MAGNESIUM SUSP 72 ML, LIDOCAINE VISCOUS 2% SOLN 24 ML, BARCODE IDENTIFIER 1 EA PO PRN (10:41)
[2020-09-05 13:36] LABS: Hematocrit (blood only) 42.2 % (42-52); Hemoglobin 14.4 g/dL (14.0-18.0)
--- NOTE | 2020-09-05 14:43 | Pharmacy Report ---
Pharmacy Glycemic Short Note 2 - Date of Service September 05, 2020 - Glycemic Short BSG Results (Last 24 hours): 09/05/20 09/05/20 09/05/20 00:05 00:20 05:31 Glucose 324 H* POC Glucose 313 H* 176 H 09/05/20 09/05/20 07:16 11:51 Glucose 151 H POC Glucose 153 H OUTPATIENT ANTIDIABETIC REGIMEN: * Novolog pump: * basal: 7540-4044: 0.675units/hr; 4802-6038 0.6units/hr; 7014-1745 0.675units/hr (~16 unit/day) * sensitivity factor: 90mg/dL/unit * carb ratio: 1 unit per 40gm CHO consumed * A1c = 9.0% ASSESSMENT: * Type 1 diabetic admitted for NV, concern for UGIB * Patient manages his DM with insulin pump, in combo with Dexcom CGM * Patient is known to glycemic control service from prior admissions however duration of hospitalization typically short-lived * He was transitioned to SQ basal/bolus regimen this AM given ongoing NPO status along w/ NV. There may be plans for endoscopy either inpatient or outpt * Will provide basal needs in the form of once daily Lantus as this will allow for easier transition to his own pump in the future. Will reduce home basal dose ~30-40% given NPO status and lack of IV dextrose provision. If patient's BSGs do begin to fall with this regimen, would recommend adding dextrose to IVF to allow for continue insulin admin w/ suppression of ketosis * Novolog doses will be based roughly on weight and out-pt needs PLAN FOR INPATIENT GLYCEMIC CONTROL: * Hold pt's own insulin pump (he is asking his to bring his pump supplies to the hospital to allow for transition in the future) * Basal insulin * Lantus 10 units SQ Q AM * Bolus insulin * NovoLog per scale ACHS and at 0200 * Goal Range: Low 110 mg/dL - High 140 mg/dL * Correction Factor: 60 mg/dL/unit * Nutritional / Prandial insulin per carb ratio of 1 unit per 20 grams CHO consumed * If BSGs begin to fall while NPO, would recommend incorporation of D2.5% or D5% into maint IVFs PLAN FOR DISCHARGE: * Patient's A1c is significantly elevated given his age. He typically follows with [facility] however it appears that several of his last appts have been cancelled. Would encourage f/u with [facility] for pump adjustments.
--- NOTE | 2020-09-05 16:11 | Hospitalist Progress Note ---
Date of Service September 05, 2020 Assessment & Plan (1) Esophagitis: Patient is a 40 yr male with H/O Type 1 diabetes, comes with nausea, vomiting, abdominal discomfort, and coffee-ground emesis. Esophagitis Gastroparesis Coffee-ground emesis likely due to Above -CT ABD:Moderate distal esophageal wall thickening. Correlate clinically to exclude esophagitis. Mild right-sided hydroureteronephrosis has improved from comparison. The previously noted right ureteral calculus is no longer present. Nonobstructing bilateral nephrolithiasis. No bowel obstruction or bowel wall thickening. Normal appendix. -Denies any NSAID use. Also denies alcohol use -Received a dose of Emend -Continue IV PPI -Appreciate GI input -Counseled to quit marijuana use Continue GI cocktail Plan for outpatient EGD Monitor H&H Advance diet as tolerated Continue IV fluids Leukocytosis Likely reactive Afebrile No obvious source of infection Chronic right-sided hydroureteronephrosis CT as above --improving from prior Follows with urology H/O lithotripsy DM Type I HbA1c 9.0 on insulin pump--less insulin supply as per patient currently Continue insulin sliding scale, Lantus for now Appreciate glycemic pharmacy input Hyperlipidemia: Continue statin. Hypertension: Continue lisinopril Nephrolithiasis Continue Flomax DVT Px: SCDs CODE STATUS Full code Disposition Expected discharge home when medically stable. Admission and Anticipated Discharge Date Admission Date: September 05, 2020 Subjective Patient is seen and examined while in ED. States having nausea associated with vomiting and generalized abdominal pain Otherwise feels better Denies chest pain, shortness of breath, dizziness, diarrhea Offers no other complaints Review of Systems Review of Systems: All systems reviewed & are unremarkable except as noted in HPI & below Physical Exam Physical Exam: Physical Exam: Vitals signs as noted above General Appearance:Thin, no apparent distress Head: normocephalic, Atraumatic, +Poor oral hygiene Eyes: normal inspection, EOMI Neck: supple, Trachea midline Respiratory/Chest: Normal breath sounds, CTA Cardiovascular: S1, S2, No murmur, +Tachycardia Abdomen/GI:Soft, mild generalized tender, Bowel sounds present, no guarding or rigidity Extremities/Musculoskeletal:normal inspection, no edema Neurologic/Psych:AAOX3, grossly no focal neurological deficits Skin: normal color, warm Results & Data Results & Data ([facility]) Vital Signs (Past 12 Hours) Vital Signs Temp Pulse Pulse Resp BP BP BP 09/05/20 15:29 36.8 C 97 H 18 133/67 09/05/20 12:49 36.9 C 100 H 20 125/78 09/05/20 08:25 100 H 20 142/82 H 09/05/20 05:00 105 H 17 09/05/20 04:12 110 H 19 110/64 09/05/20 04:00 107 H 24 121/74 Pulse Ox 09/05/20 15:29 97 09/05/20 12:49 100 09/05/20 08:25 99 09/05/20 05:00 09/05/20 04:12 09/05/20 04:00 99 Laboratory Results Short CBC 09/05/20 09/05/20 09/05/20 Range/Units 00:05 02:46 07:16 WBC 16.48 H 19.08 H 16.74 H (4.8-10.8) K/uL Hgb 15.6 14.9 15.0 (14.0-18.0) g/dL Hct 43.6 41.8 L 43.1 (42-52) % Plt Count 390 358 372 (130-400) K/uL 09/05/20 Range/Units 13:18 WBC (4.8-10.8) K/uL Hgb 14.4 (14.0-18.0) g/dL Hct 42.2 (42-52) % Plt Count (130-400) K/uL BMP 09/05/20 09/05/20 00:05 07:16 Sodium 139 139 Potassium 3.4 L 3.6 Chloride 103 107 Carbon Dioxide 25 26 BUN 22 H 19 H Creatinine 1.32 0.89 D Glucose 324 H* 151 H Calcium 9.4 9.3 Cardiac Enzymes 09/05/20 Range/Units 00:05 Troponin I < 0.015 (0-0.045) ng/ml Liver Function 09/05/20 Range/Units 00:05 Total Bilirubin 1.0 (0.2-1) mg/dl AST 17 (15-37) U/L ALT 26 (12-78) U/L Alkaline Phosphatase 132 H (45-117) U/L Albumin 4.0 (3.4-5.0) gm/dl Urine 09/05/20 Range/Units 01:20 Urine Color Yellow Urine Appearance Clear (Clear) Urine pH 8.0 H (4.5-7.5) Ur Specific Skipwith 1.027 (1.000-1.030) Urine Protein 2+ H (Negative) Urine Glucose (UA) 3+ H (Negative)
[2020-09-05 19:04] LABS: Hematocrit (blood only) 41.4 % (42-52); Hemoglobin 14.3 g/dL (14.0-18.0)
[2020-09-05] MEDS ORDERED: MELATONIN 3 MG TAB PO PRN (19:14)
[2020-09-05] MEDS ORDERED: TAMSULOSIN HCL 0.4 MG CAP PO SCH (21:00)
[2020-09-05] MEDS ORDERED: ATORVASTATIN 20 MG TAB PO SCH (21:00)
[2020-09-05] MEDS ORDERED: PANTOprazole 40 MG in SYRINGE 0 ML IV SCH (21:00)
[2020-09-05] MEDS ORDERED: lisinopril 2.5 MG TAB PO SCH (21:00)
[2020-09-05] MEDS ORDERED: ZOLPIDEM TARTRATE 5 MG TAB PO PRN (23:19)
[2020-09-06] MEDS: INSULIN ASPART 100 UNITS/ML 3 ML PEN SC SCH ×2 (00:53→03:39)
[2020-09-06] MEDS: SODIUM CHLORIDE 0.9% 1000ML 1,000 ML IV SCH (04:40)
[2020-09-06] MEDS: NICOTINE 21 MG/24 HR TDSY TD SCH (05:03)
[2020-09-06 06:29] LABS: Basophils # (auto) 0.07 K/uL (0-0.2); Basophils % (auto) 0.5 %; Eosinophils # (auto) 0.29 K/uL (0-0.5); Eosinophils % (auto) 2.1 %; Hematocrit (blood only) 40.9 % (42-52); Hemoglobin 14.1 g/dL (14.0-18.0); Immature Granulocytes # (auto) 0.02 K/uL (0.00-0.02); Immature Granulocytes % (auto) 0.1 %; Lymphocytes # (auto) 3.38 K/uL (1.2-3.4); Lymphocytes % (auto) 24.4 %; Mean Corpuscular Hemoglobin 32.4 pg (25-34); Mean Corpuscular Hgb Conc 34.5 g/dL (32-36); Mean Platelet Volume 9.3 fL (7.4-10.4); Monocytes # (auto) 1.39 K/uL (0.11-0.59); Neutrophils # (auto) 8.72 K/uL (1.4-6.5); Neutrophils % (auto) 62.9 %; Platelet Count 328 K/uL (130-400); RDW Coefficient of Variation 13.6 % (11.5-14.5); RDW Standard Deviation 47.4 fL (36.4-46.3); Red Blood Count 4.35 M/uL (4.7-6.1); White Blood Count 13.87 K/uL (4.8-10.8)
[2020-09-06 06:56] LABS: BUN Creatinine Ratio 20.6 (10-20); Creatinine Clr Calc Pharmacy 122.4 ml/min; Est GFR (African American) 137.2 ml/min; Est GFR (Non-African American) 118.3 ml/min; Potassium 3.7 mmol/L (3.5-5.1)
--- NOTE | 2020-09-06 07:51 | Electrocardiogram Report ---
Test Reason : Blood Pressure : / mmHG Vent. Rate : 107 BPM Atrial Rate : 107 BPM P-R Int : 112 ms QRS Dur : 072 ms QT Int : 354 ms P-R-T Axes : 043 062 060 degrees QTc Int : 472 ms Sinus tachycardia Possible Left atrial enlargement Borderline ECG When compared with ECG of 07-DEC-2019 22:25, No significant change was found Confirmed by Toni Shah ([id number]) on 09/06/2020 7:50:45 AM Referred By: REFERRED SELF Confirmed By:Toni Shah
--- NOTE | 2020-09-06 09:21 | Discharge Summary ---
Date of Service September 06, 2020 Admission HPI Per Admitting Provider CHIEF COMPLAINT: Nausea, vomiting, and coffee-ground emesis. HISTORY OF PRESENT ILLNESS: A 40-year-old male with past medical history significant for type 1 diabetes, on insulin pump, diabetic neuropathy, retinopathy, gastroparesis, history of kidney stones, recently had 2 lithotripsies and stent placement, stent was taken out few days ago, osteoarthritis of the left knee, tobacco abuse disorder, history of laser photocoagulation of retina, presents with nausea, vomiting. The patient says he has episodes of nausea, vomiting from his gastroparesis. He takes his home promethazine and generally it helps, but today it did not help, so he came to the ER. He had an episode of coffee- ground emesis. He says he has a history of coffee-ground emesis in the past and EGD was done in the past. Currently resting comfortably and hemodynamically stable. He has some mild abdominal discomfort currently. Denies any blood in stool or black stools. Normal bladder movements. No chest pain, no shortness of breath. No cough, no sore throat. He has some headache. No blurred vision, no sore throat, no earache, no runny nose. Resting comfortably. Admission Exam Per Admitting Provider PHYSICAL EXAMINATION: GENERAL: The patient is thin and frail, not in acute distress. VITAL SIGNS: Temperature 36.8, pulse 105, respiratory rate 19, blood pressure 130/74, oxygen 98% on room air. HEENT: Pupils equal, round, and reactive to light. Oral mucosa dry. NECK: No JVD, no neck masses. CARDIOVASCULAR: S1, S2 heard, regular rate and rhythm, no murmur, no gallop. RESPIRATORY SYSTEM: Normal AP diameter. No accessory muscle use. No wheezing, no crackles. ABDOMEN: Soft, mild diffuse abdominal discomfort. No guarding, no rigidity. No distention. CENTRAL NERVOUS SYSTEM: Cranial nerves II-XII grossly intact. Nonfocal. EXTREMITIES: No edema, no erythema. Principal Diagnosis Esophagitis Gastroparesis Discharge Data Allergies Allergy/AdvReac Type Severity Reaction Status Date / Time Penicillins Allergy Unknown Swelling Verified 09/05/20 00:36 and hives (per pt's mother) Sulfa (Sulfonamide Allergy Unknown Unknown Verified 09/05/20 00:36 Antibiotics) Consultations 09/05/20 02:51 ED Decision to Admit Stat 09/05/20 08:00 Consult Gastroenterology Routine Procedures Performed CT ABD: 1. Moderate distal esophageal wall thickening. Correlate clinically to exclude esophagitis. 2. Mild right-sided hydroureteronephrosis has improved from comparison. The previously noted right ureteral calculus is no longer present. 3. Nonobstructing bilateral nephrolithiasis. 4. No bowel obstruction or bowel wall thickening. Normal appendix. Ordered Studies 09/05/20 00:20 CT abd pelvis wo con Urgent Diabetes Follow up Diabetes Follow-up Needed for HgbA1c >9% Hospital Course (1) Esophagitis: Patient is a 40 yr male with H/O Type 1 diabetes, comes with nausea, vomiting, abdominal discomfort, and coffee-ground emesis. Esophagitis Gastroparesis Coffee-ground emesis likely due to Above -CT ABD:Moderate distal esophageal wall thickening. Correlate clinically to exclude esophagitis. Mild right-sided hydroureteronephrosis has improved from comparison. The previously noted right ureteral calculus is no longer present. Nonobstructing bilateral nephrolithiasis. No bowel obstruction or bowel wall thickening. Normal appendix. -Denies any NSAID use. Also denies alcohol use -Received a dose of Emend -Continue IV PPI -Appreciate GI input -Counseled to quit marijuana use Continue GI cocktail Plan for outpatient EGD Monitor H&H Advance diet as tolerated Continue IV fluids Patient left AMA early this morning as per Night hospitalist Leukocytosis Likely reactive Afebrile No obvious source of infection Chronic right-sided hydroureteronephrosis CT as above --improving from prior Follows with urology H/O lithotripsy DM Type I HbA1c 9.0 on insulin pump--less insulin supply as per patient currently Continue insulin sliding scale, Lantus for now Appreciate glycemic pharmacy input Hyperlipidemia: Continue statin. Hypertension: Continue lisinopril Nephrolithiasis Continue Flomax DVT Px: SCDs CODE STATUS Full code Disposition Patient left AMA early this morning as per Night hospitalist Total Time Total Time Spent Total Time Spent (In Minutes): 25 minutes Discharge Plan Discharge Items Patient Disposition: Against Medical Advice Reason For Visit: NAUSEA Activity: As commented below Non-emergency contact: Primary Care Provider and Stopboard Assembler Follow-up/Referrals: Chapincito Blanco MD [Primary Care Provider] - Pending Studies at Discharge: No Medications and DC Order Prescriptions: Continued tamsulosin 0.4 mg capsule 0.4 mg PO HS Qty: 30 RF: 0 insulin lispro 100 unit/mL solution 1 dose Continuous Subcutaneous Infusion CONTINOUS RF: 0 atorvastatin 20 mg tablet 20 mg PO HS RF: 0 lisinopril 2.5 mg tablet 2.5 mg PO HS RF: 0 omeprazole 20 mg capsule,delayed release(DR/EC) 20 mg PO HS RF: 0 promethazine 25 mg Tablet 50 mg PO UD PRN (Reason: GASTROPERSIS ) RF: 0 ondansetron 4 mg Tablet,Disintegrating 4 mg PO UD PRN (Reason: Nausea) RF: 0 Discharge Orders: Left Against Medical Advice (Routine); Ordered 09/06/20 Ordered By: Blayne Marcum Admission Data Admit Date/Time: 09/05/20 03:33 Attending Provider: Blayne Marcum Admit Provider: Juan Landaverde Primary Care Provider: Chapincito Blanco Other Providers: Juan Brown ; Juan Landaverde
== END 2020-09-06 06:50 | disposition left against medical advice (07) | DRG 73 ==
LOC: ED 23:50 → EDINP 09-05 03:33 → 2N 09-05 03:51

== ENCOUNTER 2021-06-20 02:05 | Observation (INO) ==
[2021-06-20] MEDS ORDERED: ONDANSETRON INJ 2 MG/ML 2 ML VIAL IV STA ×2 (02:16→07:06)
[2021-06-20] MEDS ORDERED: SODIUM CHLORIDE 0.9% 1000ML 1,000 ML IV ONE (02:16)
[2021-06-20] MEDS ORDERED: LORazepam 2 MG/1 ML VIAL IV STA (02:19)
[2021-06-20] MEDS ORDERED: FAMOTIDINE 20MG IV PUSH 20 MG/5 ML SYR IV STA (02:19)
[2021-06-20 02:51] LABS: Basophils # (auto) 0.17 K/uL (0-0.2); Eosinophils # (auto) 0.41 K/uL (0-0.5); Eosinophils % (auto) 2.4 %; Hematocrit (blood only) 44.2 % (42-52); Hemoglobin 15.5 g/dL (14.0-18.0); Immature Granulocytes # (auto) 0.04 K/uL (0.00-0.02); Immature Granulocytes % (auto) 0.2 %; Lymphocytes # (auto) 2.63 K/uL (1.2-3.4); Lymphocytes % (auto) 15.1 %; Mean Corpuscular Hemoglobin 32.8 pg (25-34); Mean Corpuscular Hgb Conc 35.1 g/dL (32-36); Mean Corpuscular Volume 93.4 fL (80-100); Mean Platelet Volume 10.5 fL (7.4-10.4); Monocytes # (auto) 1.55 K/uL (0.11-0.59); Monocytes % (auto) 8.9 %; Neutrophils # (auto) 12.64 K/uL (1.4-6.5); Neutrophils % (auto) 72.4 %; Platelet Count 305 K/uL (130-400); RDW Coefficient of Variation 14.3 % (11.5-14.5); RDW Standard Deviation 48.9 fL (36.4-46.3); Red Blood Count 4.73 M/uL (4.7-6.1); White Blood Count 17.44 K/uL (4.8-10.8)
[2021-06-20 02:58] LABS: Base Excess VBG 2.1 mEq/L; HCO3 VBG 25 mmol/L; Oxygen Saturation VBG 79.6 %; PCO2 VBG 34 mmHg (38-50); PO2 VBG 42 mmHg; pH VBG 7.49 (7.36-7.41)
[2021-06-20 03:55] LABS: Alanine Aminotransferase 9 U/L (7-52); Albumin Globulin Ratio 1.2 (0.9-2); Albumin Level 4.2 gm/dl (3.4-5.0); Alkaline Phosphatase 128 U/L (34-104); BUN Creatinine Ratio 16.3 (10-20); Bilirubin,Total 0.9 mg/dl (0.2-1.0); Blood Urea Nitrogen 16 mg/dl (6-23); Calcium 10.7 mg/dl (8.5-10.1); Carbon Dioxide 23 mmol/L (21-32); Chloride 96 mmol/L (98-107); Creatinine Clr Calc Pharmacy 86.5 ml/min; Est GFR (African American) 112.1 ml/min; Est GFR (Non-African American) 96.7 ml/min; Globulin 3.4 gm/dl (2.5-4.0); Glucose 616 mg/dl (70-99(Fasting)); Lipase 5 U/L (11-82); Total Protein 7.6 gm/dl (6.0-8.3)
[2021-06-20] MEDS ORDERED: NovoLIN-R INSULIN PER UNIT CHARGE IV STA ×2 (04:00→05:20)
[2021-06-20 04:53] LABS: Magnesium 1.8 mg/dl (1.7-2.4)
--- NOTE | 2021-06-20 04:54 | Emergency Department Note ---
History of Present Illness General Chief complaint: Hyperglycemia Stated complaint: Hyperglycemia Time Seen by Provider: 06/20/21 02:10 History of Present Illness Maximum Pain Intensity: 5 This is a 41-year-old male presenting to the emergency department for evaluation of nausea, vomiting, and elevated blood sugar at home. The patient has an established history of type 1 diabetes with insulin pump. He believes his pump is working appropriately and he did a site change earlier today. The patient started with some nausea this afternoon and is no longer able to keep anything down. The patient states that his sugar typically runs between 150 and 200, but today it was "high". The patient does use marijuana on a regular basis. He does not have any recent medication changes otherwise. No fevers or chills. No chest pain, chest tightness, shortness of breath. He rates his discomfort a 5/10. The patient does arrive via EMS. EMS fingerstick was 497. Home Medications Medication Instructions Recorded Confirmed Type insulin lispro 100 unit/mL 1 dose CONTINUOUS SUBCUTANEOUS 02/20/18 06/20/21 History subcutaneous solution INFUSION CONTINOUS mirtazapine 15 mg tablet 15 mg PO HS 06/20/21 06/20/21 History Allergies Allergy/AdvReac Type Severity Reaction Status Date / Time Penicillins Allergy Unknown Swelling Verified 06/20/21 02:36 and hives (per pt's mother) Sulfa (Sulfonamide Allergy Unknown Unknown Verified 06/20/21 02:36 Antibiotics) Past Med/Surg History Medical History ADHD Arthritis Degenerative joint disease of ankle, left Diabetes mellitus type 1, uncontrolled, insulin dependent Insulin pump Diabetic peripheral neuropathy associated with type 1 diabetes mellitus Gastroparesis due to DM GERD (gastroesophageal reflux disease) History of kidney stones History of seizure r/t hypoglycemia (2+ years ago) Kidney stones Left against medical advice Loss of protective sensation of skin of foot Marijuana use Proliferative diabetic retinopathy associated with type 1 diabetes mellitus Tobacco abuse Surgical History H/O esophagogastroduodenoscopy H/O laser photocoagulation of retina History of ankle surgery Left x3 History of lithotripsy History of tooth extraction History of wisdom tooth extraction Hx of inguinal herniorrhaphy PONV (postoperative nausea and vomiting) Family History Brother T1DM (type 1 diabetes mellitus) Uncle Family history of esophageal ulcer Social History Smoking Status: Current every day smoker Tobacco Type: Cigarettes Years Smoked: 20; Cigarettes Per Day: 1-2 pack per day; Second Hand Exposure: Yes; Hx Alcohol Use: No Hx Substance Use: Yes Last Used Substance: Hours (ago) Last Used Substance Other:: last evening 06/19/21 Substance Use Type Other:: Medical marijuana Preferred Language: Sammarinese Communication Ability: Effective Hearing Ability: Normal Leave Specialist Required: No Beliefs That Will Affect Care: None Current Living Situation: Spouse Current Living Situation Comment: home w/ spouse Feels Safe at Home: Yes Assistive Devices: None Review of Systems A total of 10 systems reviewed and were otherwise negative Physical Exam Vital Signs Vital Signs - 24 hr 06/20/21 01:56 06/20/21 03:00 06/20/21 03:11 Temperature 36.5 C Temperature Source Axillary Pulse Rate 96 H 91 H 92 H Pulse Rate from SpO2 Sensor 93 H 92 H Pulse Rhythm Regular Pulse Strength Normal Respiratory Rate 20 17 20 Respiratory Effort / Characteristics Non-Labored Spontaneous Respiratory Pattern Regular Blood Pressure 146/84 H 146/72 H Blood Pressure Mean 104 96 Blood Pressure Position Lying Pulse Oximetry 98 96 91 Oxygen Delivery Method Room Air Sepsis Recent Fever Within 48 Hours No Sepsis New/Unexplained Change in Mental Status N/A Sepsis Action Taken by Nursing No Action Required 06/20/21 03:30 06/20/21 04:00 06/20/21 04:31 Temperature Temperature Source Pulse Rate 99 H 102 H 104 H Pulse Rate from SpO2 Sensor 99 H 102 H 105 H Pulse Rhythm Pulse Strength Respiratory Rate 22 16 24 Respiratory Effort / Characteristics Respiratory Pattern Blood Pressure 137/72 150/71 H Blood Pressure Mean 93 97 Blood Pressure Position Pulse Oximetry 93 97 93 Oxygen Delivery Method Sepsis Recent Fever Within 48 Hours Sepsis New/Unexplained Change in Mental Status Sepsis Action Taken by Nursing 06/20/21 05:00 06/20/21 05:30 06/20/21 06:00 Temperature Temperature Source Pulse Rate 103 H 95 H 92 H Pulse Rate from SpO2 Sensor Pulse Rhythm Pulse Strength Respiratory Rate 24 18 18 Respiratory Effort / Characteristics Respiratory Pattern Blood Pressure 142/78 H 135/78 159/83 H Blood Pressure Mean 99 97 108 Blood Pressure Position Pulse Oximetry 97 97 Oxygen Delivery Method Sepsis Recent Fever Within 48 Hours Sepsis New/Unexplained Change in Mental Status Sepsis Action Taken by Nursing 06/20/21 06:30 Temperature Temperature Source Pulse Rate 89 Pulse Rate from SpO2 Sensor Pulse Rhythm Pulse Strength Respiratory Rate 18 Respiratory Effort / Characteristics Respiratory Pattern Blood Pressure 128/66 Blood Pressure Mean 86 Blood Pressure Position Pulse Oximetry 96 Oxygen Delivery Method Sepsis Recent Fever Within 48 Hours Sepsis New/Unexplained Change in Mental Status Sepsis Action Taken by Nursing VITALS: Vitals are noted on the nurse's note and reviewed by myself. Vital signs stable. GENERAL: White male who is actively dry heaving upon my arrival to the room. He is minimally cooperative. HEAD: Normocephalic atraumatic. MOUTH: Mucous membranes moist. Tonsils are not enlarged. Pharynx without carlito thema, blood, or exudate. Uvula midline. Airway patent. NECK: Supple without nuchal rigidity. No lymphadenopathy. No thyromegaly. Cervical spine is nontender. HEART: Regular rate and rhythm without murmurs gallops or rubs. LUNGS: Clear to auscultation bilaterally without wheezes, rales or rhonchi. No retractions or accessory muscle use. ABDOMEN: Positive normal bowel sounds x 4. Soft, nontender, without masses or organomegaly. No guarding or rebound tenderness. MUSCULOSKELETAL: No muscle atrophy, erythema, or edema noted. Full range of motion in all extremities. Course Administered Medications Discontinued Medications Sodium Chloride (Nss 1000ml) 1,000 mls @ 999 mls/hr IV .Q1H1M ONE Stop: 06/20/21 03:16 Last Infusion: 06/20/21 05:03 Dose: 0 mls/hr Documented by: [id number] Admin: 06/20/21 02:53 Dose: 999 mls/hr Documented by: [id number] Famotidine (Pepcid 20mg Iv Push) 20 mg in 5 mls @ 2.5 mls/min IV NOW STA Stop: 06/20/21 02:20 Last Admin: 06/20/21 02:52 Dose: 2.5 mls/min Documented by: [id number] Sodium Chloride (Nss 1000ml) 1,000 mls @ 999 mls/hr IV .Q1H1M HELIO Stop: 06/20/21 06:00 Last Infusion: 06/20/21 06:35 Dose: 0 mls/hr Documented by: [id number] Admin: 06/20/21 05:04 Dose: 999 mls/hr Documented by: [id number] Magnesium Sulfate/Dextrose (Magnesium Sulfate / D5w) 1 gm in 100 mls @ 50 mls/hr IV ONE ONE Stop: 06/20/21 07:31 Last Infusion: 06/20/21 08:20 Dose: 0 mls/hr Documented by: [id number] Admin: 06/20/21 05:52 Dose: 50 mls/hr Documented by: [id number] Potassium Chloride 20 meq/ (Lactated Ringer's) 1,010 mls @ 125 mls/hr IV .Q8H5M [facility] Stop: 06/21/21 00:54 Last Admin: 06/20/21 09:08 Dose: 125 mls/hr Documented by: [id number] Pantoprazole Sodium 40 mg/ (Syringe) 10 mls @ 5 mls/min IV BID [facility] Stop: 07/20/21 09:44 Last Admin: 06/20/21 10:15 Dose: 5 mls/min Documented by: [id number] Insulin Aspart (Insulin Aspart Per Unit) 0 units SC [facility] Stop: 07/20/21 08:17 Last Admin: 06/20/21 12:06 Dose: 5 units Documented by: [id number] Cosigned by: [id number] Admin: 06/20/21 09:12 Dose: 3 units Documented by: [id number] Cosigned by: [id number] Insulin Glargine (Insulin Glargine Solostar 100 Units/Ml 3 Ml Pen) 10 units SC BID [facility] Stop: 07/20/21 08:59 Last Admin: 06/20/21 09:41 Dose: 10 units Documented by: [id number] Cosigned by: [id number] Insulin Human Lispro (Humalog Insulin Pump) 1 ea N/A [facility]; Protocol Stop: 07/20/21 16:29 Last Admin: 06/20/21 14:15 Dose: 1 ea Documented by: [id number] Insulin Human Regular (Novolin-R Insulin Per Unit Charge) 10 units IV NOW STA Stop: 06/20/21 04:01 Last Admin: 06/20/21 04:14 Dose: 10 units Documented by: [id number] Cosigned by: [id number] Insulin Human Regular (Novolin-R Insulin Per Unit Charge) 5 units IV NOW STA Stop: 06/20/21 05:21 Last Admin: 06/20/21 05:53 Dose: 5 units Documented by: [id number] Cosigned by: [id number] Lorazepam (Lorazepam 2 Mg/1 Ml Vial) 0.5 mg IV NOW STA Stop: 06/20/21 02:20 Last Admin: 06/20/21 02:52 Dose: 0.5 mg Documented by: [id number] Metoclopramide HCl (Metoclopramide Hcl Inj 5 Mg/Ml 2 Ml Vial) 10 mg IV Q6H PRN PRN Reason: Nausea Stop: 07/20/21 08:17 Last Admin: 06/20/21 09:08 Dose: 10 mg Documented by: [id number] Metoclopramide HCl (Metoclopramide Hcl Inj 5 Mg/Ml 2 Ml Vial) 10 mg IV Q6 HELIO Stop: 07/20/21 14:14 Last Admin: 06/20/21 14:49 Dose: Not Given Documented by: [id number] Nicotine (Nicotine 14 Mg/24 Hr Patch) 14 mg TD QAM HELIO Stop: 07/20/21 09:44 Last Admin: 06/20/21 10:30 Dose: 14 mg Documented by: [id number] Ondansetron HCl (Ondansetron Inj 2 Mg/Ml 2 Ml Vial) 4 mg IV NOW STA Stop: 06/20/21 02:17 Last Admin: 06/20/21 02:52 Dose: 4 mg Documented by: [id number] Ondansetron HCl (Ondansetron Inj 2 Mg/Ml 2 Ml Vial) 4 mg IV NOW STA Stop: 06/20/21 07:07 Last Admin: 06/20/21 07:24 Dose: 4 mg Documented by: [id number] Pantoprazole Sodium (Pantoprazole 40 Mg Tab) 40 mg PO BID HELIO Stop: 07/20/21 08:59 Last Admin: 06/20/21 09:08 Dose: Not Given Documented by: [id number] Medical Decision Making Differential Diagnosis Differential diagnosis: Etiologies such as moreno, hyperglycemia, cyclic vomiting, gastroenteritis, food borne illness, infections, appendicitis, diverticulitis, inflammatory bowel dis ease, obstruction, GI bleed, biliary pathology, cardiac process, intracranial process, as well as others were entertained. Laboratory Data Result diagrams: 06/20/21 10:50 06/20/21 05:13 Lab Results 06/20/21 06/20/21 06/20/21 Range/Units 02:09 02:35 02:42 WBC 17.44 H (4.8-10.8) K/uL RBC 4.73 (4.7-6.1) M/uL Hgb 15.5 (14.0-18.0) g/dL Hct 44.2 (42-52) % MCV 93.4 (80-100) fL MCH 32.8 (25-34) pg MCHC 35.1 (32-36) g/dL RDW Std Deviation 48.9 H (36.4-46.3) fL RDW Coeff of Lamont 14.3 (11.5-14.5) % Plt Count 305 (130-400) K/uL MPV 10.5 H (7.4-10.4) fL Immature Gran % (Auto) 0.2 % Neut % (Auto) 72.4 % Lymph % (Auto) 15.1 % [place] % (Auto) 8.9 % Eos % (Auto) 2.4 % Baso % (Auto) 1.0 % Neut # (Auto) 12.64 H (1.4-6.5) K/uL Lymph # (Auto) 2.63 (1.2-3.4) K/uL [place] # (Auto) 1.55 H (0.11-0.59) K/uL Eos # (Auto) 0.41 (0-0.5) K/uL Baso # (Auto) 0.17 (0-0.2) K/uL Immature Gran # (Auto) 0.04 H (0.00-0.02) K/uL VBG pH (7.36-7.41) VBG pCO2 (38-50) mmHg VBG pO2 mmHg VBG HCO3 mmol/L VBG O2 Saturation % VBG Base Excess mEq/L Sodium (136-145) mmol/L Potassium (3.5-5.1) mmol/L Chloride (98-107) mmol/L Carbon Dioxide (21-32) mmol/L Anion Gap BUN (6-23) mg/dl Creatinine (0.6-1.4) mg/dl Est Cr Clr Drug Dosing ml/min Est GFR ( Amer) ml/min Est GFR (Non-Af Amer) ml/min BUN/Creatinine Ratio (10-20) Glucose (70-99(Fasting)) mg/dl POC Glucose > 600 H* (70-99) mg/dl Estimat Average Glucose mg/dl Hemoglobin A1c (4.5-5.6) % Calcium (8.5-10.1) mg/dl Magnesium (1.7-2.4) mg/dl Total Bilirubin (0.2-1.0) mg/dl AST (13-39) U/L ALT (7-52) U/L Alkaline Phosphatase (34-104) U/L Troponin I (0-0.04) ng/ml Total Protein (6.0-8.3) gm/dl Albumin (3.4-5.0) gm/dl Globulin (2.5-4.0) gm/dl Albumin/Globulin Ratio (0.9-2) Lipase (11-82) U/L SARS-CoV-2, RNA, NAAT NEGATIVE (NEGATIVE) 06/20/21 06/20/21 06/20/21 Range/Units 02:42 02:42 02:42 WBC (4.8-10.8) K/uL RBC (4.7-6.1) M/uL Hgb (14.0-18.0) g/dL Hct (42-52) % MCV (80-100) fL MCH (25-34) pg MCHC (32-36) g/dL RDW Std Deviation (36.4-46.3) fL RDW Coeff of Lamont (11.5-14.5) % Plt Count (130-400) K/uL MPV (7.4-10.4) fL Immature Gran % (Auto) % Neut % (Auto) % Lymph % (Auto) % [place] % (Auto) % Eos % (Auto) % Baso % (Auto) % Neut # (Auto) (1.4-6.5) K/uL Lymph # (Auto) (1.2-3.4) K/uL [place] # (Auto) (0.11-0.59) K/uL Eos # (Auto) (0-0.5) K/uL Baso # (Auto) (0-0.2) K/uL Immature Gran # (Auto) (0.00-0.02) K/uL VBG pH 7.49 H (7.36-7.41) VBG pCO2 34 L (38-50) mmHg VBG pO2 42 mmHg VBG HCO3 25 mmol/L VBG O2 Saturation 79.6 % VBG Base Excess 2.1 mEq/L Sodium (136-145) mmol/L Potassium (3.5-5.1) mmol/L Chloride 96 L (98-107) mmol/L Carbon Dioxide 23 (21-32) mmol/L Anion Gap TNP BUN 16 (6-23) mg/dl Creatinine 0.98 (0.6-1.4) mg/dl Est Cr Clr Drug Dosing 86.5 ml/min Est GFR ( Amer) 112.1 ml/min Est GFR (Non-Af Amer) 96.7 ml/min BUN/Creatinine Ratio 16.3 (10-20) Glucose 616 H* (70-99(Fasting)) mg/dl POC Glucose (70-99) mg/dl Estimat Average Glucose 174 mg/dl Hemoglobin A1c 7.7 H (4.5-5.6) % Calcium 10.7 H (8.5-10.1) mg/dl Magnesium (1.7-2.4) mg/dl Total Bilirubin 0.9 (0.2-1.0) mg/dl AST (13-39) U/L ALT 9 (7-52) U/L Alkaline Phosphatase 128 H (34-104) U/L Troponin I (0-0.04) ng/ml Total Protein 7.6 (6.0-8.3) gm/dl Albumin 4.2 (3.4-5.0) gm/dl Globulin 3.4 (2.5-4.0) gm/dl Albumin/Globulin Ratio 1.2 (0.9-2) Lipase 5 L (11-82) U/L SARS-CoV-2, RNA, NAAT (NEGATIVE) 06/20/21 06/20/21 06/20/21 Range/Units 04:17 04:21 05:07 WBC (4.8-10.8) K/uL RBC (4.7-6.1) M/uL Hgb (14.0-18.0) g/dL Hct (42-52) % MCV (80-100) fL MCH (25-34) pg MCHC (32-36) g/dL RDW Std Deviation (36.4-46.3) fL RDW Coeff of Lamont (11.5-14.5) % Plt Count (130-400) K/uL MPV (7.4-10.4) fL Immature Gran % (Auto) % Neut % (Auto) % Lymph % (Auto) % [place] % (Auto) % Eos % (Auto) % Baso % (Auto) % Neut # (Auto) (1.4-6.5) K/uL Lymph # (Auto) (1.2-3.4) K/uL [place] # (Auto) (0.11-0.59) K/uL Eos # (Auto) (0-0.5) K/uL Baso # (Auto) (0-0.2) K/uL Immature Gran # (Auto) (0.00-0.02) K/uL VBG pH (7.36-7.41) VBG pCO2 (38-50) mmHg VBG pO2 mmHg VBG HCO3 mmol/L VBG O2 Saturation % VBG Base Excess mEq/L Sodium 135 L (136-145) mmol/L Potassium (3.5-5.1) mmol/L Chloride (98-107) mmol/L Carbon Dioxide (21-32) mmol/L Anion Gap BUN (6-23) mg/dl Creatinine (0.6-1.4) mg/dl Est Cr Clr Drug Dosing ml/min Est GFR ( Amer) ml/min Est GFR (Non-Af Amer) ml/min BUN/Creatinine Ratio (10-20) Glucose (70-99(Fasting)) mg/dl POC Glucose 503 H* 371 H* (70-99) mg/dl Estimat Average Glucose mg/dl Hemoglobin A1c (4.5-5.6) % Calcium (8.5-10.1) mg/dl Magnesium 1.8 (1.7-2.4) mg/dl Total Bilirubin (0.2-1.0) mg/dl AST (13-39) U/L ALT (7-52) U/L Alkaline Phosphatase (34-104) U/L Troponin I (0-0.04) ng/ml Total Protein (6.0-8.3) gm/dl Albumin (3.4-5.0) gm/dl Globulin (2.5-4.0) gm/dl Albumin/Globulin Ratio (0.9-2) Lipase (11-82) U/L SARS-CoV-2, RNA, NAAT (NEGATIVE) 06/20/21 06/20/21 Range/Units 05:13 05:13 WBC (4.8-10.8) K/uL RBC (4.7-6.1) M/uL Hgb (14.0-18.0) g/dL Hct (42-52) % MCV (80-100) fL MCH (25-34) pg MCHC (32-36) g/dL RDW Std Deviation (36.4-46.3) fL RDW Coeff of Lamont (11.5-14.5) % Plt Count (130-400) K/uL MPV (7.4-10.4) fL Immature Gran % (Auto) % Neut % (Auto) % Lymph % (Auto) % [place] % (Auto) % Eos % (Auto) % Baso % (Auto) % Neut # (Auto) (1.4-6.5) K/uL Lymph # (Auto) (1.2-3.4) K/uL [place] # (Auto) (0.11-0.59) K/uL Eos # (Auto) (0-0.5) K/uL Baso # (Auto) (0-0.2) K/uL Immature Gran # (Auto) (0.00-0.02) K/uL VBG pH (7.36-7.41) VBG pCO2 (38-50) mmHg VBG pO2 mmHg VBG HCO3 mmol/L VBG O2 Saturation % VBG Base Excess mEq/L Sodium (136-145) mmol/L Potassium 3.4 L (3.5-5.1) mmol/L Chloride (98-107) mmol/L Carbon Dioxide (21-32) mmol/L Anion Gap BUN (6-23) mg/dl Creatinine (0.6-1.4) mg/dl Est Cr Clr Drug Dosing ml/min Est GFR ( Amer) ml/min Est GFR (Non-Af Amer) ml/min BUN/Creatinine Ratio (10-20) Glucose (70-99(Fasting)) mg/dl POC Glucose (70-99) mg/dl Estimat Average Glucose mg/dl Hemoglobin A1c (4.5-5.6) % Calcium (8.5-10.1) mg/dl Magnesium (1.7-2.4) mg/dl Total Bilirubin (0.2-1.0) mg/dl AST 14 (13-39) U/L ALT (7-52) U/L Alkaline Phosphatase (34-104) U/L Troponin I < 0.03 (0-0.04) ng/ml Total Protein (6.0-8.3) gm/dl Albumin (3.4-5.0) gm/dl Globulin (2.5-4.0) gm/dl Albumin/Globulin Ratio (0.9-2) Lipase (11-82) U/L SARS-CoV-2, RNA, NAAT (NEGATIVE) MDM Narrative Physical exam and history were performed. Nursing notes, EMR, and Medication List were personally reviewed. Patient appears to have hyperglycemia with nausea and vomiting at home. The patient is a type I diabetic and his prehospital blood glucose is nearly 500. IV access was established and labs were obtained. The patient was hydrated with 2 L of normal saline and given IV Zofran and IV Ativan. An order was placed for continuous cardiac monitoring. The monitor shows a rate of 90 with normal sinus rhythm. The patient's blood work is as above and was reviewed. He does have an elevated white blood cell count of 17,000. He does not have significant anemia. Lab glucose is greater than 600 and he was started on IV regular insulin. Patient is not acidotic. He does not have significant electrolyte imbalance. Drug abuse screen is positive for marijuana. Patient was reevaluated multiple times throughout his ER stay. The patient did have persistent vomiting and was given multiple medications to control this. I suspect his symptoms are likely the result of cyclic vomiting from marijuana use combined with gastroparesis from type 1 diabetes. I did discuss options of care with the patient, and he is concerned about getting his nausea under control as well as his sugar. The patient case was initially discussed with the [facility] Hospitalist team, who did evaluate the patient, however the patient changed to the [facility] service 2 months ago, and was subsequently discussed with the [facility] hospitalist team. Please see the hospitalist dictation for further patient course, plan, disposition. The chart was completed utilizing [employer] Voice Recognition Software. Grammatical errors, random word insertions, pronoun errors, and incomplete sentences are an occasional consequence of this system due to software limitations, ambient noise, and hardware issues. Any formal questions or concerns about the content, text, or information contained within the body of this dictation should be directly addressed to the provider for clarification. . Impression & Plan Hyperglycemia due to diabetes mellitus, Epigastric abdominal pain, Marijuana use, Nausea and vomiting Discharge Plan Visit Data Chief Complaint: Hyperglycemia Stated Complaint: Hyperglycemia ED Provider: Swapna Morgan ED Midlevel Provider: Derek Hernandes Discharge Problem: Hyperglycemia due to diabetes mellitus, Epigastric abdominal pain, Marijuana use, Nausea and vomiting Patient Disposition: Admitted As Inpatient Discharge Instructions Interventions: ED Discharge Assessment Last Done: 06/20/21 08:05
[2021-06-20] MEDS ORDERED: SODIUM CHLORIDE 0.9% 1000ML 1,000 ML IV SCH ×2 (05:00→09:45)
[2021-06-20] MEDS ORDERED: MAGNESIUM SULFATE / D5W 1 GM/100 ML BAG IV ONE (05:32)
--- NOTE | 2021-06-20 05:39 | History & Physical Report ---
Date of Service June 20, 2021 Assessment & Plan (1) Hyperglycemic crisis in diabetes mellitus: Plan: DM1, on insulin pump r precipitated by viral gastroenteritis ? question of gastroparesis flareup ro Cdif diarrhea, recent antibiotic intake for some foot infection 2. situational hypertension 3. ongoing tobacco abuse. med tle Pharmacy consult in the morning for glycemic control. Symptomatic management for possible gastroparesis flare up Px counseled about smoking cessation. DVT prophylaxis, Lovenox subQ. Full code. History of Present Illness Primary Care Provider: Chapincito Blanco MD Allergies Allergy/AdvReac Type Severity Reaction Status Date / Time Penicillins Allergy Unknown Swelling Verified 06/20/21 02:36 and hives (per pt's mother) Sulfa (Sulfonamide Allergy Unknown Unknown Verified 06/20/21 02:36 Antibiotics) Home Medications Medication Instructions Recorded Confirmed Type insulin lispro 100 unit/mL 1 dose CONTINUOUS SUBCUTANEOUS 02/20/18 06/20/21 History subcutaneous solution INFUSION CONTINOUS mirtazapine 15 mg tablet 15 mg PO HS 06/20/21 06/20/21 History Past Med/Surg History Medical History ADHD Arthritis Degenerative joint disease of ankle, left Diabetes mellitus type 1, uncontrolled, insulin dependent Insulin pump Diabetic peripheral neuropathy associated with type 1 diabetes mellitus Gastroparesis due to DM GERD (gastroesophageal reflux disease) History of kidney stones History of seizure r/t hypoglycemia (2+ years ago) Kidney stones Loss of protective sensation of skin of foot Marijuana use Proliferative diabetic retinopathy associated with type 1 diabetes mellitus Tobacco abuse Surgical History H/O esophagogastroduodenoscopy H/O laser photocoagulation of retina History of ankle surgery Left x3 History of lithotripsy History of tooth extraction History of wisdom tooth extraction Hx of inguinal herniorrhaphy PONV (postoperative nausea and vomiting) Family History Brother T1DM (type 1 diabetes mellitus) Uncle Family history of esophageal ulcer Social History Smoking Status: Current every day smoker Tobacco Type: Cigarettes Years Smoked: 20; Cigarettes Per Day: 2 packs; Second Hand Exposure: Yes; Hx Alcohol Use: No Hx Substance Use: Yes Last Used Substance: Days (ago) Substance Use Type Other:: Medical marijuana Preferred Language: Tongan Communication Ability: Effective Hearing Ability: Normal Bond Clerk Required: No Beliefs That Will Affect Care: None Current Living Situation: Spouse Feels Safe at Home: Yes Assistive Devices: None Results & Data Results & Data ([facility]) Vital Signs (Past 12 Hours) Vital Signs Temp Pulse Resp BP Pulse Ox 06/20/21 05:00 103 H 24 142/78 H 06/20/21 04:31 104 H 24 93 06/20/21 04:00 102 H 16 150/71 H 97 06/20/21 03:30 99 H 22 137/72 93 06/20/21 03:11 92 H 20 146/72 H 91 06/20/21 03:00 91 H 17 96 06/20/21 01:56 36.5 C 96 H 20 146/84 H 98
[2021-06-20 05:41] LABS: Potassium 3.4 mmol/L (3.5-5.1)
--- NOTE | 2021-06-20 06:53 | History & Physical Report ---
Date of Service June 20, 2021 Assessment & Plan (1) Hyperglycemia due to diabetes mellitus: Plan: elevated blood sugar, 616 on arrival. Most likely secondary to pump malfunction. Patient received IVF and insulin in the ER with improvement. pH=7.49. AG minimal at 16 -Observation to medical -Lantus 10u this AM with ISS -Goal blood sugar 100 - 140 -Check A1C -Diabetes education -Continue IVF with LR at 125mL/hr (2) Nausea and vomiting: Plan: Patient with persistent nausea, dark red liquid - appears bloody. Has history of esophagitis with coffee ground emesis in the past. HD stable. No liver disease. Given Pepcid in ER. Most likely secondary to hyperglycemia. Patient with history of marijuana use, cyclic vomiting. -Zofran PRN -Phenergan PRN -Reglan PRN -Protonix 40mg po BID -CBC at 11:00 -IVF and electrolyte repletion -Should consider discontinuing marijuana use - may be contributing to symptoms (3) Gastroparesis: Plan: As above -Zofran, Phenergan and Reglan as needed -EKG ordered to assess QT interval -Tele monitoring Plan: F/E/N - LR at 125mL/hr + KCl 20mEq, Labs in AM, Clear liquids advance as tolerated Ppx - Low risk for DVT, IVF and ambulation Code - Full Dispo - Observation to medical with telemetry History of Present Illness Chief Complaint: nausea, vomiting Primary Care Provider: Curry Rubin MD 41yo male with Type I DM presenting with hyperglycemia, nausea with persistent vomiting and PO intolerance since this AM around 10:00. Has abdominal pain from vomiting, otherwise, no complaints. Denies fever, chills, chest pain, cough, SOB and diarrhea. He changed his insulin pump site earlier today. Not sure if it is functioning properly. His Dexcom was reading "High" afterwards. Patient does not have insulin needles at home and was unable to administer additional insulin. Vomiting dark red material. Has history of esophagitis in the past. ER Course: NSS, Zofran, Pepcid, Ativan, Insulin 10u IV then 5u IV, Mg Allergies Allergy/AdvReac Type Severity Reaction Status Date / Time Penicillins Allergy Unknown Swelling Verified 06/20/21 02:36 and hives (per pt's mother) Sulfa (Sulfonamide Allergy Unknown Unknown Verified 06/20/21 02:36 Antibiotics) Home Medications Medication Instructions Recorded Confirmed Type insulin lispro 100 unit/mL 1 dose CONTINUOUS SUBCUTANEOUS 02/20/18 06/20/21 History subcutaneous solution INFUSION CONTINOUS mirtazapine 15 mg tablet 15 mg PO HS 06/20/21 06/20/21 History Past Med/Surg History Medical History ADHD Arthritis Degenerative joint disease of ankle, left Diabetes mellitus type 1, uncontrolled, insulin dependent Insulin pump Diabetic peripheral neuropathy associated with type 1 diabetes mellitus Gastroparesis due to DM GERD (gastroesophageal reflux disease) History of kidney stones History of seizure r/t hypoglycemia (2+ years ago) Kidney stones Loss of protective sensation of skin of foot Marijuana use Proliferative diabetic retinopathy associated with type 1 diabetes mellitus Tobacco abuse Surgical History H/O esophagogastroduodenoscopy H/O laser photocoagulation of retina History of ankle surgery Left x3 History of lithotripsy History of tooth extraction History of wisdom tooth extraction Hx of inguinal herniorrhaphy PONV (postoperative nausea and vomiting) Family History Brother T1DM (type 1 diabetes mellitus) Uncle Family history of esophageal ulcer Social History Smoking Status: Current every day smoker Tobacco Type: Cigarettes Years Smoked: 20; Cigarettes Per Day: 2 packs; Second Hand Exposure: Yes; Hx Alcohol Use: No Hx Substance Use: Yes Last Used Substance: Days (ago) Substance Use Type Other:: Medical marijuana Preferred Language: [place] Citizen Communication Ability: Effective Hearing Ability: Normal Space Studies 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 Patient nausea and wretching during encounter Physical Exam Physical Exam: General: patient ill in appearance, thin, nausea with persistent retching throughout exam. Difficult to answer questions Skin: warm, dry, intact, no rashes or lesions HEENT: NC/AT, PERRL, EOMI, anicteric sclera, conjunctiva without injection, external ear normal to inspection and nontender, nares patent, moist mucus membranes, dentition intact, no oropharyngeal lesions, neck supple, trachea midline, no LAD, no thyromegaly, no JVD Heart: +S1/S2, regular, no m/r/g Lungs: equal air entry bilaterally, no rales/rhonchi/wheezes Abd: +BS, soft, diffuse tenderness without rebound/guarding/peritoneal signs Ext: warm, 2+ pulses in UE/LE bilaterally, no clubbing/cyanosis or edema Neuro: nonfocal, patient AA&O x 4, speech intact, no facial droop, moving all extremities on command with equal strength 5/5, weak, ambulates slowly and shuffling Results & Data Results & Data ([facility]) Vital Signs (Past 12 Hours) Vital Signs Temp Pulse Resp BP Pulse Ox 06/20/21 05:00 103 H 24 142/78 H 06/20/21 04:31 104 H 24 93 06/20/21 04:00 102 H 16 150/71 H 97 06/20/21 03:30 99 H 22 137/72 93 06/20/21 03:11 92 H 20 146/72 H 91 06/20/21 03:00 91 H 17 96 06/20/21 01:56 36.5 C 96 H 20 146/84 H 98 Laboratory Results Laboratory Results WBC 17.44 K/uL (4.8-10.8) H 06/20/21 02:42 RBC 4.73 M/uL (4.7-6.1) 06/20/21 02:42 Hgb 15.5 g/dL (14.0-18.0) 06/20/21 02:42 Hct 44.2 % (42-52) 06/20/21 02:42 MCV 93.4 fL (80-100) 06/20/21 02:42 MCH 32.8 pg (25-34) 06/20/21 02:42 MCHC 35.1 g/dL (32-36) 06/20/21 02:42 RDW Std Deviation 48.9 fL (36.4-46.3) H 06/20/21 02:42 RDW Coeff of Lamont 14.3 % (11.5-14.5) 06/20/21 02:42 Plt Count 305 K/uL (130-400) 06/20/21 02:42 MPV 10.5 fL (7.4-10.4) H 06/20/21 02:42 Immature Gran % (Auto) 0.2 % 06/20/21 02:42 Neut % (Auto) 72.4 % 06/20/21 02:42 Lymph % (Auto) 15.1 % 06/20/21 02:42 Mathews % (Auto) 8.9 % 06/20/21 02:42 Eos % (Auto) 2.4 % 06/20/21 02:42 Baso % (Auto) 1.0 % 06/20/21 02:42 Neut # (Auto) 12.64 K/uL (1.4-6.5) H 06/20/21 02:42 Lymph # (Auto) 2.63 K/uL (1.2-3.4) 06/20/21 02:42 Mathews # (Auto) 1.55 K/uL (0.11-0.59) H 06/20/21 02:42 Eos # (Auto) 0.41 K/uL (0-0.5) 06/20/21 02:42 Baso # (Auto) 0.17 K/uL (0-0.2) 06/20/21 02:42 Immature Gran # (Auto) 0.04 K/uL (0.00-0.02) H 06/20/21 02:42 VBG pH 7.49 (7.36-7.41) H 06/20/21 02:42 VBG pCO2 34 mmHg (38-50) L 06/20/21 02:42 VBG pO2 42 mmHg 06/20/21 02:42 VBG HCO3 25 mmol/L 06/20/21 02:42 VBG O2 Saturation 79.6 % 06/20/21 02:42 VBG Base Excess 2.1 mEq/L 06/20/21 02:42 Sodium 135 mmol/L (136-145) L 06/20/21 04:17 Potassium 3.4 mmol/L (3.5-5.1) L 06/20/21 05:13 Chloride 96 mmol/L (98-107) L 06/20/21 02:42 Carbon Dioxide 23 mmol/L (21-32) 06/20/21 02:42 Anion Gap TNP 06/20/21 02:42 BUN 16 mg/dl (6-23) 06/20/21 02:42 Creatinine 0.98 mg/dl (0.6-1.4) 06/20/21 02:42 Est Cr Clr Drug Dosing 86.5 ml/min 06/20/21 02:42 Est GFR ( Amer) 112.1 ml/min 06/20/21 02:42 Est GFR (Non-Af Amer) 96.7 ml/min 06/20/21 02:42 BUN/Creatinine Ratio 16.3 (10-20) 06/20/21 02:42 Glucose 616 mg/dl (70-99(Fasting)) H* 06/20/21 02:42 POC Glucose 371 mg/dl (70-99) H* 06/20/21 05:07 Calcium 10.7 mg/dl (8.5-10.1) H 06/20/21 02:42 Magnesium 1.8 mg/dl (1.7-2.4) 06/20/21 04:17 Total Bilirubin 0.9 mg/dl (0.2-1.0) 06/20/21 02:42 AST 14 U/L (13-39) 06/20/21 05:13 ALT 9 U/L (7-52) 06/20/21 02:42 Alkaline Phosphatase 128 U/L (34-104) H 06/20/21 02:42 Troponin I < 0.03 ng/ml (0-0.04) 06/20/21 05:13 Total Protein 7.6 gm/dl (6.0-8.3) 06/20/21 02:42 Albumin 4.2 gm/dl (3.4-5.0) 06/20/21 02:42 Globulin 3.4 gm/dl (2.5-4.0) 06/20/21 02:42 Albumin/Globulin Ratio 1.2 (0.9-2) 06/20/21 02:42 Lipase 5 U/L (11-82) L 06/20/21 02:42 SARS-CoV-2, RNA, NAAT NEGATIVE (NEGATIVE) 06/20/21 02:35 Code Status & VTE Plan VTE Prophylaxis Plan VTE Prophylaxis will be ordered: Yes PG Care Time/CCT Total # of Minutes Spent Total Time Spent with Patient: Total time spent is greater than 50% in coordination of care (as documented) at patient's floor/unit and/or counseling patient: Coding Level of Care Code INT OBSERVATION CARE 50M LVL 2 Diagnoses Gastroparesis K31.84 Hyperglycemia due to diabetes mellitus E11.65 Nausea and vomiting R11.2
[2021-06-20 07:14] LABS: Estimated Average Glucose 174 mg/dl; Hemoglobin A1C 7.7 % (4.5-5.6)
[2021-06-20] MEDS ORDERED: GLUCOSE 10 TABS/TUBE PO PRN (08:18)
[2021-06-20] MEDS ORDERED: CARBOHYDRATES FOR HYPOGLYCEMIA PO PRN (08:18)
[2021-06-20] MEDS ORDERED: DEXTROSE 50% 50 ML SYRINGE IV PRN (08:18)
[2021-06-20] MEDS ORDERED: ACETAMINOPHEN 325 MG TAB PO PRN (08:18)
[2021-06-20] MEDS ORDERED: METOCLOPRAMIDE HCL INJ 5 MG/ML 2 ML VIAL IV PRN (08:18)
[2021-06-20] MEDS ORDERED: GLUCAGON FOR INJ 1 MG VIAL SQ PRN (08:18)
[2021-06-20] MEDS ORDERED: PROMETHAZINE HCL 6.25 MG in SODIUM CHLORIDE 0.9% 50 ML IV PRN (08:18)
[2021-06-20] MEDS ORDERED: GLUCOSE 40% GEL 15 GM TUBE PO PRN (08:18)
[2021-06-20] MEDS ORDERED: ONDANSETRON INJ 2 MG/ML 2 ML VIAL IV PRN (08:18)
--- NOTE | 2021-06-20 08:34 | XRay Report ---
XR chest 1V portable CLINICAL HISTORY: sepsis. Evaluate cardiopulmonary status COMPARISON STUDY: 12/07/2019 TECHNIQUE: 1 view of the chest FINDINGS: Single frontal view of the chest demonstrates the cardiomediastinal silhouette to be within normal li mits. The lungs are clear of alveolar opacities. There is no evidence for pleural effusion. There is no evidence for vascular congestion. There is no acute osseous pathology. IMPRESSION: 1. No acute cardiopulmonary disease. ACT 112: Negative or not required by law. Electronically signed by: Valentino Flores M.D. 06/20/2021 8:33 AM
[2021-06-20] MEDS ORDERED: POTASSIUM CHLORIDE 20 MEQ in LACTATED RINGER'S 1,000 ML IV SCH (08:45)
[2021-06-20] MEDS ORDERED: INSULIN GLARGINE SOLOSTAR 100 UNITS/ML 3 ML PEN SC SCH (09:00)
[2021-06-20] MEDS ORDERED: PANTOprazole 40 MG TAB PO SCH (09:00)
[2021-06-20] MEDS: INSULIN ASPART PER UNIT SC SCH ×2 (09:12→12:06)
[2021-06-20] MEDS ORDERED: PANTOprazole 40 MG in SYRINGE 0 ML IV SCH (09:45)
[2021-06-20] MEDS ORDERED: NICOTINE 14 MG/24 HR PATCH TD SCH (09:45)
[2021-06-20 11:10] LABS: Basophils # (auto) 0.05 K/uL (0-0.2); Basophils % (auto) 0.2 %; Hematocrit (blood only) 40.8 % (42-52); Immature Granulocytes # (auto) 0.06 K/uL (0.00-0.02); Immature Granulocytes % (auto) 0.3 %; Lymphocytes # (auto) 0.98 K/uL (1.2-3.4); Lymphocytes % (auto) 4.8 %; Mean Corpuscular Hemoglobin 31.9 pg (25-34); Mean Corpuscular Hgb Conc 34.3 g/dL (32-36); Mean Corpuscular Volume 92.9 fL (80-100); Mean Platelet Volume 9.7 fL (7.4-10.4); Monocytes # (auto) 0.51 K/uL (0.11-0.59); Monocytes % (auto) 2.5 %; Neutrophils # (auto) 18.95 K/uL (1.4-6.5); Neutrophils % (auto) 92.2 %; Platelet Count 325 K/uL (130-400); RDW Standard Deviation 47.8 fL (36.4-46.3); Red Blood Count 4.39 M/uL (4.7-6.1); White Blood Count 20.55 K/uL (4.8-10.8)
[2021-06-20 11:53] LABS: Appearance Urine Clear (Clear); Bacteria Urine Automated Negative (Negative); Bilirubin Urine Negative (Negative); Blood Urine Trace (Negative); Color Urine Orange; Epithelial Cell Urine Auto >30 /lpf (0-5); Glucose Urine UA 3+ (Negative); Ketones Urine 1+ (Negative); Leukocyte Esterase Urine Negative (Negative); Nitrite Urine Negative (Negative); RBC Urine Automated 0-4 /hpf (0-4); Specific Gravity Urine 1.023 (1.000-1.030); Urobilinogen Urine Negative (Negative); pH Urine 7.5 (4.5-7.5)
[2021-06-20 11:59] LABS: Protein Urine Trace (Negative)
--- NOTE | 2021-06-20 12:22 | Electrocardiogram Report ---
Test Reason : Blood Pressure : / mmHG Vent. Rate : 098 BPM Atrial Rate : 098 BPM P-R Int : 128 ms QRS Dur : 080 ms QT Int : 358 ms P-R-T Axes : 073 070 071 degrees QTc Int : 457 ms Normal sinus rhythm Possible Left atrial enlargement Borderline ECG When compared with ECG of 05-SEP-2020 01:56, No significant change was found Confirmed by Allan Torres ([id number]) on 06/20/2021 12:21:36 PM Referred By: REFERRED SELF Confirmed By:Allan Torres
[2021-06-20] MEDS ORDERED: FLUARIX QUADRIVALENT 0.5 ML SYR IM ONE (12:59)
[2021-06-20 13:20] LABS: Amphetamines+Metham, Urine Neg (Neg); Benzodiazepine, Urine Neg (Neg); Cocaine, Urine Neg (Neg); MDMA (Ecstacy), Urine Neg (Neg); Methadone, Urine Neg (Neg); Phencyclidine, Urine Neg (Neg)
--- NOTE | 2021-06-20 14:05 | Communication Note ---
Date of Service: June 20, 2021 patient evaluated this AM. Brief Hx: DM1 diagnosed at age 4, now with polyneuropathy, gastroparesis, microalbuminuria, ocular complications, on insulin pump for management with dexcom. Has lots of highs and lows with sugars as he tends to not eat to control the sugars but then will bright with high sugar food (10 oz of mountain dew) to make sure he doesn't bottom out from too much of an insulin bolus. Admitted for hyperglycemia to [facility] with persistent N/V. Feeling better with use of phenergan rather than zofran. uses phenergan almost daily at home for control of chronic N/V. Likely secondary to gastroparesis vs. new infection. No fevers/chills/facial pain/sinus congestion. mild productive cough. no hx osteomyelitis or foot infections. Changed placement of pump needle yesterday and was able to see sugars decreasing but still had N/V and elevated sugars later. Has had issues with needle cannula bending while in skin. Recently transferred from [facility] PCP to [facility] Dr. Rubin due to insurance change. Previously was in discussion with mnaohar? about getting gastric pacemaker to control gastroparesis. uses medical marijuana for symptom control. Previously has been on erythromycin and domperidone which worked well. A1c today 7.7, 6.9 1 month ago in [facility] record. Exam: Const - thin, tattooed Pulm: CTA BL Card: tachycardic, RR Abd: nondistended, thin but not scaphoid extremities: 2+ DP pulses BL, no signs of erythema/infection overlying toes or feet Neuro: A&Ox3 Plan Hyperglycemia with DM1- SSI, Glargine 10u BID, continue monitoring ACHS. Hypokalemia - repletion with 20meq in LR @ 125 N/V - due to gastroparesis vs. cyclic emesis from medical MJ. controlled with phenergan. discuss cutting back on MJ vs. reaching back out regarding gastric pacemaker. Possible viral gastroenteritis given acute onset N/V+D given it has been spreading in the community. will continue to monitor. Chronic Leukocytosis - 16k in Apr 2021 in [facility] records, 20.55 today. increase 2/2 demargination vs. viral gastroenteritis vs. oncologic? Afebrile, neutrophilic predominance. will evaluate CRP, ESR. Diabetic Gastroparesis - scheduled reglan Attending Note I saw the patient with the resident physician and agree with the impression and plan as noted above. The patient was admitted earlier today. Please see the admission team note and attending attestation for complete information. No obvious signs of infection; leukocytosis appears chronic. Unsure if episode of hyperglycemia was secondary to pump malfunction versus viral gastroenteritis (difficult to differentiate his current symptoms from his daily, baseline nausea secondary to gastroparesis). At present time, patient is feeling better than upon admission. Exam is unremarkable. Will cover sugars with sliding scale; agree with checking inflammatory markers. Resident Activity Tracking Resident Involvement: Resident Care Provided Care Provided: Adult [facility] Medicine
[2021-06-20] MEDS ORDERED: METOCLOPRAMIDE HCL INJ 5 MG/ML 2 ML VIAL IV SCH (14:15)
[2021-06-20] MEDS ORDERED: INSULIN HUMAN LISPRO (humaLOG) 100 UNITS/ML VIAL SC PRN (14:30)
[2021-06-20] MEDS ORDERED: PHARMACY GLYCEMIC MGMT CONSULT PRN (14:32)
[2021-06-20 15:00] LABS: Barbiturates, Urine Neg (Neg); Opiate, Urine Neg (Neg)
--- NOTE | 2021-06-20 15:25 | Pharmacy Report ---
Pharmacy Glycemic Short Note 2 - Date of Service June 20, 2021 - Glycemic Short BSG Results (Last 24 hours): 06/20/21 06/20/21 06/20/21 02:09 02:42 04:21 Glucose 616 H* POC Glucose > 600 H* 503 H* 06/20/21 06/20/21 06/20/21 05:07 06:49 08:09 Glucose POC Glucose 371 H* 257 H 262 H 06/20/21 06/20/21 06/20/21 09:58 09:59 11:46 Glucose POC Glucose 315 H* 350 H* 258 H 06/20/21 14:15 Glucose POC Glucose 239 H OUTPATIENT ANTIDIABETIC REGIMEN: * Humalog pump: * Goal range 100-140 * Basal 12-5pm: 0.6 units/hr; 5pm-12pm: 0.7units/hr: 5pm-12pm (~16units/hr) * CF 120 mg/dl/unit * CR 1 unit per 50 grams CHO consumed ASSESSMENT: * 41 year old male type 1 diabetic since 4 years old admitted with hyperglycemia likely d/t pump failure, BSG > 600mg, down to 200s now with Lantus 10 units SQ and 15 units IV regular insulin and 8 units NovoLog SQ * Patient's brought in new supplies, patient would like to go back onto pump now despite not having BSG in goal range yet * Patient restarted insulin pump as above with new sight and new supplies PLAN FOR INPATIENT GLYCEMIC CONTROL: * Insulin pump as above
[2021-06-20] MEDS ORDERED: MIRTAZAPINE TAB 15 MG TAB PO SCH (21:00)
--- NOTE | 2021-06-21 08:18 | Discharge Summary ---
Date of Service June 21, 2021 Admission HPI Per Admitting Provider 41yo male with Type I DM presenting with hyperglycemia, nausea with persistent vomiting and PO intolerance since this AM around 10:00. Has abdominal pain from vomiting, otherwise, no complaints. Denies fever, chills, chest pain, cough, SOB and diarrhea. He changed his insulin pump site earlier today. Not sure if it is functioning properly. His Dexcom was reading "High" afterwards. Patient does not have insulin needles at home and was unable to administer additional insulin. Vomiting dark red material. Has history of esophagitis in the past. ER Course: NSS, Zofran, Pepcid, Ativan, Insulin 10u IV then 5u IV, Mg Admission Exam Per Admitting Provider General: patient ill in appearance, thin, nausea with persistent retching thro ughout exam. Difficult to answer questions Skin: warm, dry, intact, no rashes or lesions HEENT: NC/AT, PERRL, EOMI, anicteric sclera, conjunctiva without injection, external ear normal to inspection and nontender, nares patent, moist mucus membranes, dentition intact, no oropharyngeal lesions, neck supple, trachea midline, no LAD, no thyromegaly, no JVD Heart: +S1/S2, regular, no m/r/g Lungs: equal air entry bilaterally, no rales/rhonchi/wheezes Abd: +BS, soft, diffuse tenderness without rebound/guarding/peritoneal signs Ext: warm, 2+ pulses in UE/LE bilaterally, no clubbing/cyanosis or edema Neuro: nonfocal, patient AA&O x 4, speech intact, no facial droop, moving all extremities on command with equal strength 5/5, weak, ambulates slowly and shuffling Principal Diagnosis Hyperglycemia Discharge Exam Const - thin, tattooed Pulm: CTA BL Card: tachycardic, RRR Abd: nondistended, thin but not scaphoid extremities: 2+ DP pulses BL, no signs of erythema/infection overlying toes or feet Neuro: A&Ox3 Discharge Data Allergies Allergy/AdvReac Type Severity Reaction Status Date / Time Penicillins Allergy Unknown Swelling Verified 06/20/21 02:36 and hives (per pt's mother) Sulfa (Sulfonamide Allergy Unknown Unknown Verified 06/20/21 02:36 Antibiotics) Consultations 03/26/22 05:27 ED Decision to Admit Stat Hospital Course (1) Left against medical advice: 41 yo M with IDDM1 managed by insulin pump, neuropathy, gastroparesis, medical marijuana use, tobacco use, admitted for hyperglycemia, nausea and vomiting. Hyperglycemia Secondary to either pump malfunction or viral gastroenteritis. Patient described moving his pump site to his abdomen on day of admission which hasn't been working well due to scarring. He also attests to persist nausea and vomiting and one episode of diarrhea the same day. His was recently ill with similar symptoms. Symptoms improved with phenergan use, IVF and potassium repletion. Given pump dependent status and question of pump malfunction, he was advised to stay in the hospital overnight to continue monitoring blood sugars, electrolytes and pump function. He refused, acknowledged and repeated back to me that leaving against medical advice ran the risk of hyperglycemia, DKA, worsening emesis, electrolyte disturbances and possible . (2) Hyperglycemic crisis in diabetes mellitus: (3) Marijuana use: (4) Gastroparesis: (5) Diabetes mellitus type 1, uncontrolled, insulin dependent: Total Time Total Time Spent Total Time Spent (In Minutes): see attending attestation Discharge Plan Discharge Items Patient Disposition: Against Medical Advice Reason For Visit: HYPERGLYCEMIA, NAUSEA Discharge Diagnosis: Hyperglycemia Activity: Resume your previous activity Non-emergency contact: Primary Care Provider Call non-emergency contact if: you have any medication questions and your symptoms worsen Follow-up/Referrals: Curry Rubin MD [Primary Care Provider] - Diet: Carb Count or DM1 Addtl Attending Provider Instructions: Admitted for hyperglycemia, persistent nausea and vomiting, possibly secondary to worsening gastroparesis vs. acute viral gastroenteritis. Hypokalemic and hyponatremic on admission, improved with hydration. emesis control with phenergan. Query insulin pump not working as well for possible etiology. responded well to IV regular insulin Left AMA citing feeling well enough to be home and not needing to stay another night. Able to recite that his decision to leave was against medical advise, and has the risk of worsening condition, hyperglycemia, dehydration, severe organ damage,. he accepted these risks and maintained that he wished to leave. Pending Studies at Discharge: No Stand-Alone Forms: My [employer], Smoking Cessation Medications and DC Order Prescriptions: Discontinued mirtazapine 15 mg tablet 15 mg PO HS RF: 0 No Action insulin lispro 100 unit/mL solution 1 dose Continuous Subcutaneous Infusion CONTINOUS RF: 0 Discharge Orders: Left Against Medical Advice (Routine); Ordered 06/20/21 Ordered By: Christin Stanley/Other Patient Handouts: Diabetes: Sick-Day Plan Admission Data Admit Date/Time: 06/20/21 06:36 Attending Provider: Scott Barrios Admit Provider: Iraida Hernández Primary Care Provider: Curry Rubin Other Providers: Iraida Hernández Other Interventions: Discharge Summary Assessment (RN) Last Done: 06/20/21 16:56 Supervising Physician Co-Signing Physician Notes I also saw the patient concurrent with the resident physician and confirmed [place] portions of the history and exam. Please see my complete attestation in the medications reported the same date. After seeing the patient in the morning, the patient elected to leave the hospital AGAINST MEDICAL ADVICE. We had advocated that he remain in the hospital overnight to confirm proper functioning of his insulin pump and to continue to monitor his glucose and electrolytes. There was a concern for an occult infection -an alternative reason for his elevated blood sugars -although thankfully there was no sign of infection upon exam. His ESR came back at 16 although his CRP was slightly evaded 2.23. Encouraged follow-up with PCP. Encouraged return to the emergency department should symptoms warrant. Again the patient like to leave the hospital AGAINST MEDICAL ADVICE. Resident Activity Tracking Resident Involvement: Resident Care Provided Care Provided: Adult Hospital Medicine
== END 2021-06-20 17:13 | disposition left against medical advice (07) ==
LOC: ED 02:05 → 2W 02:05 → SUATTDRO 06:36 → 2W 08:05

== ENCOUNTER 2023-04-03 14:44 | Inpatient (IN) ==
--- OUTSIDE RECORDS SUMMARY | 2023-04-03 14:49 | External Medical Summary | Continuity of Care Document ---
Author Name Unknown Organization [facility] [address] Address [address] [place], [place] [id number] Care Team Providers Care Plasticator Name Role Phone Tejas Rubin Primary Care Physician [phone] [id number] Date(s): 10/05/22 - 10/05/22 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) - Encounter for general adult medical examination without abnormal findings(Final) - Type 1 diabetes mellitus without complications(Final) - Discharge Disposition: Home or Self Care Attending Physician: MD Rubin Christopher Referring Physician: MD Rubin Christopher Allergies, Adverse Reactions, Alerts Substance Reaction Severity Status penicillin Hives Moderate Active sulfa drugs unknown Moderate Active Nicoderm Dermatitis Moderate Active Wellbutrin Hypoglycemia Moderate Active Reglan Facial tic Moderate Active Chantix Emesis Moderate Active Immunizations Given and Recorded Vaccine Date Status Refusal Reason SARS-CoV-2 (COVID-19) mRNA-1273 vaccine 1 11/22/20 Recorded SARS-CoV-2 (COVID-19) mRNA-1273 vaccine 2 10/25/20 Recorded tetanus/diphtheria/pertuss, acel (Tdap) 3 11/24/19 Recorded tetanus/diphtheria/pertuss, acel (Tdap) 4 12/31/10 Recorded hepatitis B adult vaccine 5 05/10/18 Recorded hepatitis B pediatric vaccine 05/19/15 Recorded hepatitis B pediatric vaccine 04/16/15 Recorded influenza virus vaccine, H1N1 6 02/10/09 Recorded pneumococcal 23-valent vaccine 7 07/31/07 Recorded pneumococcal 23-valent vaccine 8 03/28/00 Recorded 1Result Comment: 2021-05-18: Historical information-source unspecified 2Result Comment: 2021-05-18: Historical information-source unspecified 3Result Comment: 2021-05-18: Historical information-source unspecified 4Result Comment: 2021-05-18: Historical information-source unspecified 5Result Comment: 2021-05-18: Historical information-source unspecified 6Result Comment: 2021-05-18: Historical information-source unspecified 7Result Comment: 2021-05-18: Historical information-source unspecified 8Result Comment: 2021-05-18: Historical information-source unspecified Medications Dexcom G6 [employer] Start: 08/06/22 15:22:00 EDT, See Instructions, Disp# 1 kit, as directed Start Date: 08/06/22 Status: Ordered Dexcom G6 Sensor Kit Start: 08/06/22 15:22:00 EDT, See Instructions, Disp# 1 kit, as directed Start Date: 08/06/22 Status: Ordered Dexcom G6 Transmitter Kit Start: 08/06/22 15:22:00 EDT, See Instructions, Disp# 1 kit, as directed Start Date: 08/06/22 Status: Ordered Glucagon Emergency Kit for Low Blood Sugar 1 mg injection DIRECTED Start Date: 05/18/21 Status: Ordered loratadine 10 mg oral capsule Start: 05/18/21 14:30:00 EST, 1 cap, PO, Daily Start Date: 05/18/21 Status: Ordered mirtazapine 30 mg oral tablet Start: 10/14/21 16:36:00 EDT, 1 tab, PO, qhs, Disp# 90 tab, Refills: 2, Pharmacy: [facility]/pharmacy #[id number] Start Date: 10/14/21 Stop Date: 07/11/22 Status: Ordered NovoLOG 100 units/mL injectable solution Start: 09/03/21 16:10:00 EDT, See Instructions, Disp# 100 mL, Refills: 5, Use Via insulin pump max 100 units per day, Pharmacy: [facility]/pharmacy #[id number] Start Date: 09/03/21 Status: Ordered ondansetron 8 mg oral tablet, disintegrating Start: 05/03/22 14:26:00 EST, 1 tab, PO, q12h, Disp# 30 tab, Refills: 5, PRN: as needed for nausea/vomiting, Pharmacy: [facility]/pharmacy #[id number] Start Date: 05/03/22 Status: Ordered promethazine 25 mg oral tablet Start: 05/03/22 14:26:00 EST, 1 tab, PO, bid, Disp# 60 tab, Refills: 5, PRN: as needed for nausea/vomiting, Pharmacy: [facility]/pharmacy #[id number] Start Date: 05/03/22 Status: Ordered Tandem X2 insulin pump Start: 11/02/21 14:55:00 EDT, Tandem X2 insulin pump, [employer] XC 23in tubing 6mm cannula. 2slim X23mL cartridge. 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 2No radiopaque foreign body identified in plantar aspect of the foot [id number] Nov,Mar 4Bilateral Results Laboratory List Name Date Comprehensive Metabolic Panel (COMP META B PANEL) 10/05/22 Hemoglobin A1C (HEMOGLOBIN, A1C) 10/05/22 Hepatitis C Antibody (HEP C AB) 10/05/22 Lipid Profile (LIPOPROTEINS) 10/05/22 Microalbumin, Urine, Random (MICROALBUMI N, RD UR) 10/05/22 Thyroid Stimulating Hormone (TSH) 3 Most recent to oldest [Reference Range]: 1 eGFR CKD-EPI [>60 mL/min/1.73 m2] >90 mL /min/1.73 m2 1 (10/05/22 2:22 PM) Estimated Average Glucose 146 mg/dL 2 (10/05/22 2:22 PM) Non-HDL 92 mg/dL 3 (10/05/22 2:22 PM) Estimated CrCl 110.59 mL/min (10/05/22 3:39 PM) Micro Alb (u) [<2.00 mg/dL] 3.46 mg/dL *HI* (10/05/22 2 PM) Anion Gap [5-14 mmol/L] 12 mmol/L (10/05/22 PM) Alb [3.5-5.0 g/dL] 4.4 g/dL (10/05/22 PM) Alk Phos [38-126 unit/L] 81 unit/L (10/05/22 PM) ALT [<50 unit/L] 17 unit/L (10/05/22 PM) AST [15-46 unit/L] 26 unit/L (10/05/22 PM) BUN [7-20 mg/dL] 15 mg/dL (10/05/22 PM) Ca [8.4-10.2 mg/dL] 9.8 mg/dL (10/05/22 PM) Chol/HDL 4 (10/05/22 PM) Chol [125-200 mg/dL] 121 mg/dL *LOW* (10/05/22 PM) Cl- [96-107 mmol/L] 104 mmol/L (10/05/22 PM) HCO3 [22-30 mmol/L] 27 mmol/L (10/05/22 PM) Cret [0.70-1.30 mg/dL] 0.80 mg/dL (10/05/22 PM) HbA1c [4.0-6.0 %] 6.7 % *HI* (10/05/22 PM) Glu [74-106 mg/dL] 149 mg/dL *HI* (10/05/22 PM) HCV Ab [NR] NONREACTIVE *Unknown* (10/05/22 PM) HDL [>35 mg/dL] 29 mg/dL *LOW* (10/05/22 PM) K [3.5-5.1 mmol/L] 3.9 mmol/L (10/05/22 2:22 PM) LDL Chol, Calculated [50-130 mg/dL] 80 m g/dL (10/05/22 2:22 PM) Micro Alb Ratio [<20 ug/mg cret] 20 ug/m g cret *HI* (10/05/22 2:22 PM) Na [137-145 mmol/L] 143 mmol/L (10/05/22 2:22 PM) T Bili [0.2-1.3 mg/dL] 0.3 mg/dL (10/05/22 2:22 PM) Prot [6.3-8.2 g/dL] 7.4 g/dL (10/05/22 2:22 PM) TG [<200 mg/dL] 59 mg/dL (10/05/22 2:22 PM) TSH [0.47-4.68 uIU/mL] 0.73 uIU/mL 4 (10/05/22 2:22 PM) Creat (u) 173.34 mg/dL 5 (10/05/22 2:22 PM) 1Result Comment: [facility] [address] [place] [address], [place] [address] 2Result Comment: Testing [facility]formed [facility], [address] [place] [address], [place] [address] 3Result Comment: Testing Performed By: [facility], [address] [place] [address], [place] [address] 4Result Comment: Testing Performed [facility], [address] [place] [address], [place] [address] 5Result Comment: Reference Range for Random Urine Not Established. Social History Social History Type Response Tobacco Current every day sm oker, Cigarettes, 40 per day. 28 year(s). Ready to change: Yes. Smoking Status Never smoked cigaret tony Sex Male Patient Care team information Care Team Personnel Name: MD Rubin Christopher Position: Physician - Family Med Member Role: Primary Care Provider Address: Address: [address] [place] [address], [place] [address] [place] Care Team Related Persons Name: PAT PRIETO Address: home [address] [place], [place] [id number] Name: YOLANDA FIGUEROA Address: home [address] [facility] [place] [id number]
--- OUTSIDE RECORDS SUMMARY | 2023-04-03 14:49 | External Medical Summary | Continuity of Care Document ---
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 Name Role Phone Tejas Rubin Primary Care Physician [phone] [id number] Date(s): 11/01/22 - 11/01/[address] [facility] [address] [address] [phone] Encounter Diagnosis Gastroparesis(Discharge Diagnosis) - 11/01/22 Medical marijuana use(Discharge Diagnosis) - 11/01/22 Body mass index [BMI] 19.9 or less, adult(Discharge Diagnosis) - 11/01/22 Chronic constipation(Discharge Diagnosis) - 11/01/22 Discharge Disposition: Home or Self Care Attending Physician: LUCAS Hernandes Janet Griffith Referring Physician: LUCAS Hernandes Janet Griffith Allergies, Adverse Reactions, Alerts Substance Reaction Severity Status penicillin Hives Moderate Active sulfa drugs unknown Moderate Active Nicoderm Dermatitis Moderate Active Wellbutrin Hypoglycemia Moderate Active Reglan Facial tic Moderate Active Chantix Emesis Moderate Active Assessment and Plan Extracted from: Title:Office Visit Note Author:LUCAS Hernandes Janet Griffith Date:11/01/22 1.Gastroparesis The patient is a pleasant 42-year-old male who presents in the office todayfor follow-up ofgastroparesis with past medical history to include type 1 diabeteson insulin pump,cigarette smoking,andregular marijuana use. 1. Gastroparesis: - Appears the patient was initially diagnosed with gastroparesis about 10 years ago. - He has tried multiple medicationsin the past includingerythromycin liquid, domperidone. - He had discussed a gastric pacemaker with [facility]day. - He is currently managed with promethazine 50 mg daily, Zofran prn, and medical marijuana. - Discussed potential side effects of long-term use of promethazine and Zofran. - Caution use of medical marijuana as this may be contributingto a cannabis hyperemesis syndrome. - Gastric emptying study07/2021 demonstrated gastroparesis. - Had planned to obtain EGD but patient decided to defer. - Patient's primary goal is symptom management. - [facility] - Continue compliance withgastroparesis diet. - He was strongly encouraged to stop smoking, has stopped all but 2 cigarettes daily and is now vaping. Encouraged to stop vaping. - Refills provided for promethazine 2. Chronic constipation: - Bowel movement approximately every 2 to 3 days Start Linzess 145 mcg p.o. daily 2. GI office visit follow-upin 6 months, sooner if needed. 2.Medical marijuana use 3.Chronic constipation Immunizations Given and Recorded Vaccine Date Status [...] 2021-05-18: Historical information-source unspecified Medications Dexcom G6 Certified Fire Investigator Kit Start: 08/06/22 15:22:00 EDT, See Instructions, [...] injection DIRECTED Start Date: 05/18/21 Status: Ordered linaclotide 145 mcg oral capsule Start: 11/01/22 11:09:00 EDT, 1 cap, PO, Daily, Disp# 90 cap, Refills: 3, [facility] Start Date: 11/01/22 Stop Date: 10/27/23 Status: Ordered loratadine 10 mg oral capsule Start: 05/18/21 14:30:00 EST, 1 cap, PO, Daily Start Date: 05/18/21 Status: Ordered Medical Marijuana Start: 11/01/22 10:54:00 EDT, Medical Marijuana, 1 gram inhaled daily Start Date: 11/01/22 Status: Ordered mirtazapine 30 mg oral tablet Start: 10/14/21 16:36:00 EDT, 1 tab, PO, qhs, Disp# 90 tab, Refills: 2, Pharmacy: [facility]/pharmacy #[id number] Start Date: 10/14/21 Stop Date: 07/11/22 Status: Ordered NovoLOG 100 units/mL injectable solution Start: 09/03/21 16:10:00 EDT, See Instructions, Disp# 100 mL, Refills: 5, Use Via insulin pump max 100 units per day, Pharmacy: [facility]/pharmacy #[id number] Start Date: 09/03/21 Status: Ordered ondansetron 8 mg oral tablet, disintegrating Start: 05/03/22 14:26:00 EST, 1 tab, PO, q12h, Disp# 30 tab, Refills: 5, PRN: as needed for nausea/vomiting, Pharmacy: [facility]/pharmacy #[id number] Start Date: 05/03/22 Status: Ordered promethazine 25 mg oral tablet Start: 11/01/22 11:09:00 EDT, 1 tab, PO, bid, Disp# 180 tab, Refills: 1, PRN: as needed for nausea/vomiting, Pharmacy: [facility] Start Date: 11/01/22 Stop Date: 04/30/23 Status: Ordered Tandem X2 insulin pump Start: 11/02/21 14:55:00 EDT, Tandem X2 insulin pump, [employer] XC 23in tubing 6mm cannula. 2slim X23mL cartridge. Start Date: 11/02/21 Status: Ordered Mental Status 11/01/22 Barriers to Learning one year None evide nt Mandatory Health Literacy Documentation Yes Communication Barrier Present No Health Literacy Communication Barriers N ever Primary Language [place] Problem List Condition Confirmation Course Effective Dates Status H ealth Status Informant Chronic constipation Confirmed Active Cigarette smoker 1 Confirmed Active Diabetic ophthalmopathy [...] 2patient's twin brother 3uric acid, per patient Diagnosis Diagnosis Type Effective Dates Health Status Clinical Service Informant Body mass index [BMI] 19.9 or less, adult Discharge Diagnosis 11/01/22 Non-Specified Gastroparesis Discharge Diagnosis 11/01/22 Chronic constipation Discharge Diagnosis 11/01/22 Medical marijuana use Discharge Diagnosis 11/01/22 Procedures Procedure Date Related Diagnosis Body Site Status Gastric emptying study 1 08/19/21 Completed X-ray of left foot 2 03/17/20 Comp leted Ankle 3 03/28/14 Completed Upper GI (gastrointestinal) endoscopy 12/18/12 Completed Upper GI (gastrointestinal) endoscopy 09/14/11 Completed [place] tooth 1998 Completed Hernia repair 1984 Completed 1Significant delayed gastric tmpyting as described above. 2No radiopaque foreign body identified in plantar aspect of the foot [address] Nov,Mar 4Bilateral Vital Signs Most recent to oldest [Reference Range]: 1 Height 182 cm (11/01/22 10:56 AM) Patient Weight 64 kg (11/01/22 10:56 AM) Body Mass Index 19.32 kg/m2 (11/01/22 10:56 AM) Heart Rate 92 bpm (11/01/22 10:56 AM) Respiratory Rate 16 br/min (11/01/22 10:56 AM) Blood Pressure 106/58mmHg (11/01/22 10:56 AM) Cuff Pulse Pressure 48 mmHg (11/01/22 10:56 AM) BP Location # 1 Right Arm (11/01/22 10:56 AM) Social History Social History Type Response Tobacco Current every day sm oker, Cigarettes, 40 per day. 26 year(s). Ready to change: Yes. Smoking Status Former Smoker, quit within 31 days - 1 yr Sex Male Gastroenterology Outpatient Note * LUCAS Hernandes, Claudia Choudhury: PERFORM Event Display: Gastroenterology Outpt Note Authored Date: Chief Complaint Pt here for 6 month f/u for gastroparesis. Pt states he is doing the same History of Present Illness The patient is a pleasant [id number] presents today forfollow-up evaluation ofgastroparesis.The patient was last evaluated in the office byneda 05/03/2022. [facility]. PMH: IDDM1 managed by insulin pump, neuropathy, gastroparesis, medical marijuana use, tobacco use Abdominal surgical history:Bilateralinguinal hernia repair (age 4) Prior records: 11/15/2012: Gastric emptying study was performed due to abdominal pain, nausea, vomiting which demonstrated an abnormal study with delayed gastric emptying 12/18/2012: EGD obtained due to history of epigastric abdominal pain, heartburn, failure to respond to medical treatment which demonstrated normal esophagus with large amount of food (residue) found in the gastric body. Patient was advised to follow antireflux regimen. 05/22/2021: [facility] OV notes are reviewed for patient with h/o Type 1 diabetes w/ retinopathy, gastroparesis, nephropathy, neuropathy. Referred to GI for h/o gastroparesis with significant issues with any GI illnesses. Has 25mg promethazine 1 tab daily (sometimes 2), has Marinol but leans more on medial MJ, filling rarely and tolerating.Has previously used ondansetron.Has alsopreviously usederythromycin liquid for gastroparesis and domperidone (the former worked better).Previously discussed w/ [facility] gastric pacemaker. No records from GI at [facility] are available for review at time of appointment. Patient has had extensive work-up, evaluation, and management through [facility]. 08/19/2021: Gastric emptying study obtained due to history of diabetes and history of gastroparesis demonstrated significant delayed gastric emptying with approximately 96% activity remaining at the 1hour time interval (normal is less than 90%), 90% remaining at the 2 hour time interval (normal is less than 60%), and 46% activity remaining at the 4 hour time interval (normal is less than 10%). 10/26/2021 GI OV: the patient presents today for evaluation of gastroparesis. He hasbasically lived off of promethazine and Zofran per his report. He has had longstanding history of gastroparesiswith work-upin [place] and at [facility] and [facility].He would just like to be able to continue to manage his disease. He reports that he has tried everything includingdomperidone in the past. Denies any fever, chills, unintentional weight loss. No sore throat, hoarseness of voice, cough. No difficulty swallowing food pills or liquids. He gets occasional heartburn inthe morning with nausea and vomiting. Denies routine use of NSAIDs or aspirin. He does have dailynausea that ismostly relieved by use of promethazine. Reports vomiting 2-3 times per week. He states he does not really have a lot of appetiteand he always feels full. He gets abdominal bloating frequently. Hedenies dairy intolerance. He has some generalized abdominal painprimar juanpablo in the right upper quadrant. Denies melena or hematochezia. Reports a bowel movement every 2 to 3 days. He is not compliant with gastroparesis diet per his own report. He uses promethazine as first-lineeach morning and Zofran as needed. He is only taking 1 dose of promethazine daily. 05/03/2022 GI OV: OV:Patient presents today for f/u of gastroparesis with h/o type 1 diabetes andfrequent marijuana use. Overall symptoms unchanged. Follows low fat, low fiber diet most of thetime per his report today. Uses Phenergan first line for nausea and Zofran secondarily. He is no longer using Marinol. Weight stable to slightly decreased. Has chronic constipation with BM q 2-3 days. Denies any fever, chills, unintentional weight loss. No sore throat, hoarseness of voice, cough. No difficulty swallowing food pills or liquids. He gets occasional heartburn in themorning with nausea and vomiting. Denies routine use of NSAIDs or aspirin. He does have mariella ausea that ismostly relieved by use of promethazine. Reports vomiting 2-3 times per week. He states he does not really have a lot of appetiteand he always feels full. He gets abdominal bloating frequently. Hedenies dairy intolerance. He has some generalized abdominal painprimarilyin the right upper quadrant. Denies melena or hematochezia. 11/01/2022 GI OV: Patient presents today for f/u of gastroparesis with h/o type 1 diabetes and frequent marijuana use.Most recent hemoglobin A1c was under 7. He is using an insulin pump. Continues to use about 1 to 1-1/2 g of medical marijuana daily. His weight has been stable since last office visit. He is taking 50 mgof Phenergan daily. He has Zofran for as needed use. He reports daily nausea with vomitingapproximately 2-4 times weekly. He does note undigested food from the day beforewith emesis. Denies specific abdominal pain. He has history of constipation with bowel movement approximately every 2 to 3 days. Social History: Patient is a current smoker. He previouslysmoked 2 packs of cigarettes per day. He is now vaping. He reports rare intake of alcohol. He is a daily medical marijuana user. 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 He is and has no children. Family History: Sister withh/o gastroparesis No further complaints or concerns today. Physical Exam Vitals & Measurements HR:92(Monitored) RR:16 BP:106/58 HT:182cm WT:64.000kg(Dosing) WT:64kg BMI:19.32 General:Alert and oriented, No acute distress, appears stated age,_,thin HENT:Normocephalic, normal hearing Respiratory: Respiration are non-labored and no evidence of respiratory distress is noted Integumentary:Exposed skin viewable is dry and intact Psychiatric:Cooperative, appropriate mood & affect, Normal judgement Assessment/Plan 1.Gastroparesis The patient is a pleasant 42-year-old male who presents in the office todayfor follow-up ofgastroparesis with past medical history to include type 1 diabeteson insulin pump,cigarette smoking,andregular marijuana use. 1. Gastroparesis: - Appears the patient was initially diagnosed with gastroparesis about 10 years ago. - He has tried multiple medicationsin the past includingerythromycin liquid, domperidone. - He had discussed a gastric pacemaker with Uday. - He is currently managed with promethazine 50 mg daily, Zofran prn, and medical marijuana. - Discussed potential side effects of long-term use of promethazine and Zofran. - Caution use of medical marijuana as this may be contributingto a cannabis hyperemesis syndrome. - Gastric emptying study07/2021 demonstrated gastroparesis. - Had planned to obtain EGD but patient decided to defer. - Patient's primary goal is symptom management. - [facility] - Continue compliance withgastroparesis diet. - He was strongly encouraged to stop smoking, has stopped all but 2 cigarettes daily and is now vaping. Encouraged to stop vaping. - Refills provided for promethazine 2. Chronic constipation: - Bowel movement approximately every 2 to 3 days Start Linzess 145 mcg p.o. daily 2. GI office visit follow-upin 6 months, sooner if needed. 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 mellitus with ophthalmic complication Procedure/Surgical History Gastric emptying study (08/19/2021)X-ray of left foot (03/17/2020)Ankle (03/28/2014)Upper GI (gastrointestinal) endoscopy (12/18/2012)Upper GI (gastrointestinal) endoscopy (09/14/2011)[place] tooth (1998)Hernia repair (1984) Medications diabetes supplies(Dexcom G6 Transmitter Kit), See Instructions diabetes supplies(Dexcom G6 Sensor Kit), See Instructions diabetes supplies(Dexcom G6 Certified Fire Investigator Kit), See Instructions glucagon(Glucagon Emergency Kit for Low Blood Sugar 1 mg injection) insulin aspart(NovoLOG 100 units/mL injectable solution), See Instructions, 5 refills linaclotide(linaclotide 145 mcg oral capsule), 145 mcg= 1 cap, PO, Daily, 3 refills loratadine(loratadine 10 mg oral capsule), 10 mg= 1 cap, PO, Daily mirtazapine(mirtazapine 30 mg oral tablet), 30 mg= 1 tab, PO, qhs, 2 refills ondansetron(ondansetron 8 mg oral tablet, disintegrating), 8 mg= 1 tab, PO, q12h, PRN, 5 refills promethazine(promethazine 25 mg oral tablet), 25 mg= 1 tab, PO, bid, PRN, 1 refills unknown medication(Tandem X2 insulin pump) unknown medication(Medical Marijuana) Allergies Chantix (Moderate)Emesis Nicoderm (Moderate)Dermatitis Reglan (Moderate)Facial tic Wellbutrin (Moderate)Hypoglycemia penicillin (Moderate)Hives sulfa drugs (Moderate)unknown Social History Smoking Status Former Smoker, quit within 31 days - 1 yr Alcohol - Low Risk Use:Current Type:Beer Frequency:1-2 times per week Average drinks per episode in last year:1 Substance Abuse - Low Risk Use:Current Type:Marijuana - Comments: medical Tobacco - High Risk Use:Current every day smoker Type:Cigarettes Tobacco use per day:40 Number of years:26 Ready to change:Yes Family History Breast cancer: Unknown. Cancer: Unknown. Deep vein thrombosis: Mother. Heart attack: Father. Heart disease: Father. Stroke: Father. Type I diabetes mellitus: Brother. Health Status Family Member(s) Family Member(s) Relationship: Father, Age: Unknown Immunizations Vaccine Date Status SARS-CoV-2 (COVID-19) mRNA-1273 vaccine 11/22/2020 Recorded Comments : 2021-05-18: Historical information-source unspecified SARS-CoV-2 (COVID-19) mRNA-1273 vaccine 10/25/2020 Recorded Comments : 2021-05-18: Historical information-source unspecified tetanus/diphtheria/pertuss, acel (Tdap) 11/24/2019 Recorded Comments : 2021-05-18: Historical information-source unspecified hepatitis B adult vaccine 05/10/2018 Recorded Comments : 2021-05-18: Historical information-source unspecified hepatitis B pediatric vaccine 05/19/2015 Recorded hepatitis B pediatric vaccine 04/16/2015 Recorded tetanus/diphtheria/pertuss, acel (Tdap) 12/31/2010 Recorded Comments : 2021-05-18: Historical information-source unspecified influenza virus vaccine, H1N1 02/10/2009 Recorded Comments : 2021-05-18: Historical information-source unspecified pneumococcal 23-valent vaccine 07/31/2007 Recorded Comments : 2021-05-18: Historical information-source unspecified pneumococcal 23-valent vaccine 03/28/2000 Recorded Comments : 2021-05-18: Historical information-source unspecified Recommendations Health Maintenance Pending(in the next year) OverDue Adult Influenza Vaccine due09/25/22and every 1year Due Adult COVID-19 Vaccination due11/01/22Unknown Frequency Due In Future Diabetes Management A1c not due until10/05/23and every 1year Body Mass Index not due until11/01/23and every 1year Satisfied(in the past 1 year) Satisfied Body Mass Index on11/01/22.Satisfied by SEDRICK Murray Erin Diabetes Management A1c on10/05/22.Satisfied by Contributor_system, [employer] Diabetes Nephropathy Management on10/05/22.Satisfied by Contributor_system, [id number] Diabetic Eye Exam on10/05/22.Satisfied by VERENICE Jean-Baptiste Robin A Hepatitis C Screening on10/05/22.Satisfied by Contributor_system, [email or web address] Lipid Screening on10/05/22.Satisfied by Contributor_system, [employer] Lab Results 30 Day Labs Last Updated 10/05/22 22:45 10/05/22 1539 Estimated RjPa552.59 10/05/22 1422 Chol/HDL4 Zvxc683T HDL29L LDL Chol, Oepkiquemj32 TG59 Non-HDL92 Anion Gap12 BUN15 Ca9.8 Cl-104 HNO218 Cret0.80 Hpi868A K3.9 Na143 eGFR CKD-EPI>90 HbA1c6.7H TSH0.73 Estimated Average Jvlhcgo065 Alk Phos81 ALT17 AST26 HCV AbNONREACTIVE T Bili0.3 Alb4.4 Prot7.4 Micro Alb Ajiln78F Creat (u)173.34 Micro Alb (u)3.46H Electronic Signature on File CC: Tejas Rubin MD [address] [id number] Electronically Reviewed/Signed by: LUCAS Cheung Author Signature Dt/Tm:11/01/2022 11:20 AM Division of Gastroenterology [facility] Patient Care team information Care Team Personnel Name: MD Rubin Christopher Position: Physician - Family Med Member Role: Primary Care Provider Address: Address: [address] [place] [address] [place] Care Team Related Persons Name: PAT PRIETO Address: home [address], [place] [phone] Name: YOLANDA FIGUEROA Address: home [address], [place] [id number]
--- OUTSIDE RECORDS SUMMARY | 2023-04-03 14:49 | External Medical Summary | Continuity of Care Document ---
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) - 02/22/23 Diabetic neuropathy(Discharge Diagnosis) - 02/22/23 Diabetic ophthalmopathy(Discharge Diagnosis) - 02/22/23 Gastroparesis(Discharge Diagnosis) - 02/22/23 Cigarette smoker(Discharge Diagnosis) - 02/22/23 Type 1 diabetes mellitus without complications(Final) - 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) - Type 1 diabetes mellitus with diabetic polyneuropathy(Final) - 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) - Gastroparesis(Final) - Nicotine dependence, cigarettes, uncomplicated(Final) - Discharge Disposition: Home or Self Care Attending Physician: MD Noah, Gillian Allergies, Adverse Reactions, Alerts Substance Reaction Severity [...] 2021-05-18: Historical information-source unspecified Medications Dexcom G6 Construction Equipment Mechanic Kit Start: 08/06/22 15:22:00 EDT, See Instructions, [...] Daily, Disp# 90 cap, Refills: 3, Pharmacy: [facility] Start Date: 11/01/22 Stop Date: 10/27/23 Status: Ordered loratadine 10 mg oral capsule Start: 05/18/21 14:30:00 EST, 1 cap, PO, Daily Start Date: 05/18/21 Status: Ordered Medical Marijuana Start: 11/01/22 10:54:00 EDT, Medical Marijuana, 1 gram inhaled daily Start Date: 11/01/22 Status: Ordered mirtazapine 30 mg oral tablet Start: 10/14/21 16:36:00 EDT, 1 tab, PO, qhs, Disp# 90 tab, Refills: 2, Pharmacy: [facility]/pharmacy #[id number] Start Date: 10/14/21 Stop Date: 07/11/22 Status: Ordered NovoLOG 100 units/mL injectable solution Start: 02/03/23 10:27:00 EST, See Instructions, Disp# 100 mL, Refills: 5, Use Via insulin pump max 100 units per day, Pharmacy: [facility]/pharmacy #[id number] Start Date: 02/03/23 Status: Ordered ondansetron 8 mg oral tablet, disintegrating Start: 05/03/22 14:26:00 EST, 1 tab, PO, q12h, Disp# 30 tab, Refills: 5, PRN: as needed for nausea/vomiting, Pharmacy: [facility]/pharmacy #[id number] Start Date: 05/03/22 Status: Ordered promethazine 25 mg oral tablet Start: 02/04/23 8:00:00 EST, 1 tab, PO, bid, Disp# 180 tab, Refills: 1, PRN: as needed for nausea/vomiting, [id number] Start Date: 02/04/23 Stop Date: 08/03/23 Status: Ordered rosuvastatin 5 mg oral tablet Start: 02/22/23 11:50:00 EST, 1 tab, PO, Daily, Disp# 30 tab, Refills: 1, Pharmacy: [facility] #[id number] Start Date: 02/22/23 Stop Date: 04/23/23 Status: Ordered Tandem X2 insulin pump Start: 11/02/21 14:55:00 EDT, Tandem X2 insulin pump, [employer]osoft XC 23in tubing 6mm cannula. 2slim X23mL cartridge. Start Date: 11/02/21 Status: Ordered Mental Status 02/22/23 Barriers to Learning one year None evide nt Mandatory Health Literacy Documentation Yes Health Literacy Communication Barriers N ever Primary Language Honduran Problem List Condition Confirmation Course Effective Dates [...] Effective Dates Health Status Clinical Service Informant Type 1 diabetes mellitus with nephropathy Discharge Diagnosis 02/22/23 Diabetic neuropathy Discharge Diagnosis 02/22/23 Diabetic ophthalmopathy Discharge Diagnosis 02/22/23 Cigarette smoker Discharge Diagnosis 02/22/23 Type 1 diabetes Discharge Diagnosis 02/22/23 Gastroparesis Discharge Diagnosis 02/22/23 Procedures Procedure Date Related Diagnosis Body Site Status Gastric emptying study 1 08/19/21 Completed X-ray of left foot 2 03/17/20 Comp leted Ankle 3 03/28/14 Completed Upper GI (gastrointestinal) endoscopy 12/18/12 Completed Upper GI (gastrointestinal) endoscopy 09/14/11 Completed [place] tooth 1998 Completed Hernia repair 1984 Completed 1Significant delayed gastric tmpyting as described above. 2No radiopaque foreign body identified in plantar aspect of the foot [address] Nov,Mar 4Bilateral Results Laboratory List Name Date Hemoglobin A1C (HEMOGLOBIN, A1C) 3 Lipid Profile (LIPOPROTEINS) 02/22/23 Microalbumin, Urine, Random (MICROALBUMI N, RD UR) 02/22/23 Most recent to oldest [Reference Range]: 1 Estimated Average Glucose 148 mg/dL (02/22/23 12:12 PM) Non-HDL 136 mg/dL (02/22/23 12:12 PM) Micro Alb (u) [<2.00 mg/dL] 4.49 mg/dL *HI* (02/22/23 12:12 PM) Chol/HDL 6 (02/22/23 12:12 PM) Chol [<200 mg/dL] 162 mg/dL (02/22/23 12:12 PM) HbA1c [<5.7 %] 6.8 % 1 *HI* (02/22/23 12:12 PM) HDL [>40 mg/dL] 26 mg/dL *LOW* (02/22/23 12:12 PM) LDL Chol, Calculated [50-130 mg/dL] 122 mg/dL (02/22/23 12:12 PM) Micro Alb Ratio [<20 ug/mg cret] 14 ug/m g cret (02/22/23 12:12 PM) TG [<150 mg/dL] 70 mg/dL (02/22/23 12:12 PM) Creat (u) 314.79 mg/dL 2 (02/22/23 12:12 PM) 1Result Comment: ADA Recommended [place] Reference Range: Normal: <5.7% Prediabetes: 5.7-6.4% Diabetes: >6.4% 2Result Comment: Reference Range for Random Urine Not Established. Vital Signs Most recent to oldest [Reference Range]: 1 Height 182 cm (02/22/23 10:43 AM) Patient Weight 67.3 kg (02/22/23 10:43 AM) Body Mass Index 20.32 kg/m2 (02/22/23 10:43 AM) Temperature [36.5-37.9 DegC] 36.7 DegC (02/22/23 10:43 AM) Heart Rate 94 bpm (02/22/23 10:43 AM) Blood Pressure 136/66mmHg (02/22/23 10:43 AM) Cuff Pulse Pressure 70 mmHg (02/22/23 10:43 AM) Social History Social History Type Response Tobacco Current every day sm oker, Cigarettes, 40 per day. 28 year(s). Ready to change: Yes. Smoking Status Current some day lig ht smoker Sex Male Patient Care team information Care Team Personnel Name: MD Rubin Christopher Position: Physician - Family Med Member Role: Primary Care Provider Address: Address: [facility] [address] [address] [place] Care Team Related Persons Name: PAT PRIETO Address: home [address] [place], [place] [phone] Name: YOLANDA FIGUEROA Address: home [address] [place], [place] [phone]
--- OUTSIDE RECORDS SUMMARY | 2023-04-03 14:50 | External Medical Summary | Continuity of Care Document ---
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) - 08/06/22 Gastroparesis(Discharge Diagnosis) - 10/04/22 Diabetic neuropathy(Discharge Diagnosis) - 10/04/22 Diabetic ophthalmopathy(Discharge Diagnosis) - 10/04/22 Discharge Disposition: Home or Self Care Attending Physician: MD Rubin Christopher Allergies, Adverse Reactions, Alerts Substance Reaction Severity Status penicillin Hives Moderate Active sulfa drugs unknown Moderate Active Nicoderm Dermatitis Moderate Active Wellbutrin Hypoglycemia Moderate Active Reglan Facial tic Moderate Active Chantix Emesis Moderate Active Assessment and Plan Extracted from: Title:T1DM F/u Author:DO Hsu Alonna Paige Date:10/04/22 1.Type 1 diabetes mellitus with nephropathy - Chronic, stable - Complicated by nephropathy, neuropathy, and ophthalmopathy - March A1c 6.7 (improved from 8.5), repeat today - Ordered Lipid panel (goal LDL < 70), CMP (to evaluate forNephropathy)and Microalbumin/Cr ratio (consider MORA if elevated) - BP at goal (goal < 130/85) - Diabetic eye exam tomorrow - Encouraged ongoing Endocrine and GI follow up - Continue current medical management 2.Diabetic neuropathy - See above 3.Gastroparesis - See above 4.Diabetic ophthalmopathy - See above Immunizations Given and Recorded Vaccine Date Status [...] 2021-05-18: Historical information-source unspecified Medications Dexcom G6 Repeater Operator Kit Start: 08/06/22 15:22:00 EDT, See Instructions, [...] qhs, Disp# 90 tab, Refills: 2, [id number] Start Date: 10/14/21 Stop Date: 07/11/22 Status: Ordered NovoLOG 100 units/mL injectable solution Start: 09/03/21 16:10:00 EDT, See Instructions, Disp# 100 mL, Refills: 5, Use Via insulin pump max 100 units per day, [id number] Start Date: 09/03/21 Status: Ordered ondansetron 8 mg oral tablet, disintegrating Start: 05/03/22 14:26:00 EST, 1 tab, PO, q12h, Disp# 30 tab, Refills: 5, PRN: as needed for nausea/vomiting, [id number] Start Date: 05/03/22 Status: Ordered promethazine 25 mg oral tablet Start: 05/03/22 14:26:00 EST, 1 tab, PO, bid, Disp# 60 tab, Refills: 5, PRN: as needed for nausea/vomiting, [id number] Start Date: 05/03/22 Status: Ordered Tandem X2 insulin pump Start: 11/02/21 14:55:00 EDT, Tandem X2 insulin pump, [employer] XC 23in tubing 6mm cannula. 2slim X23mL cartridge. Start Date: 11/02/21 Status: Ordered Mental Status 10/04/22 Barriers to Learning one year None evide nt Mandatory Health Literacy Documentation Yes Health Literacy Communication Barriers N ever Primary Language Danish Problem List Condition Confirmation Course Effective Dates [...] 1 diabetes mellitus with nephropathy Discharge Diagnosis 08/06/22 Non-Specified Diabetic neuropathy Discharge Diagnosis 10/04/22 Gastroparesis Discharge Diagnosis 10/04/22 Diabetic ophthalmopathy Discharge Diagnosis 10/04/22 Procedures Procedure Date Related Diagnosis Body Site Status Gastric emptying study 1 08/19/21 Completed X-ray of left foot 2 03/17/20 Comp leted Ankle 3 03/28/14 Completed Upper GI (gastrointestinal) endoscopy 12/18/12 Completed Upper GI (gastrointestinal) endoscopy 09/14/11 Completed [place] tooth 1998 Completed Hernia repair 1984 Completed 1Significant delayed gastric tmpyting as described above. 2No radiopaque foreign body identified in plantar aspect of the foot [address] Nov,Mar 4Bilateral Vital Signs Most recent to oldest [Reference Range]: 1 Patient Weight 63.7 kg (10/04/22 12:42 PM) Temperature [36.5-37.9 DegC] 37.1 DegC (10/04/22 12:42 PM) Blood Pressure 104/72mmHg (10/04/22 12:42 PM) BP Location # 1 Left Arm (10/04/22 12:42 PM) Social History Social History Type Response Tobacco Current every day sm oker, Cigarettes, 40 per day. 26 year(s). Ready to change: Yes. Smoking Status Never smoked cigaret tony Sex Male FCM Outpt Note * MD Pa, Venessa Cruz: MODIFY MD Winn Amy L: MODIFY Event Display: FCM Outpt Note Authored Date: [id number] Chief Complaint pt here for f/u- no concerns History of Present Illness Mahesh is a 41 year old male with history of T1 DM, cigarette smoking, nephrolithiasis, and osteoarthritis who presents for DM follow up. T1DM F/u - Home Average: 50-70% in range (80-150) - Home Lows: Occasional 70s, rarely symptomatic - Ongoing Dexcom and tandem pump - Follows with Endocrinology and Gastroenterology - March A1c 6.7, repeat at visit - Diabetic Eye Exam - Scheduled tomorrow - No change in peripheral sensation or gastroparesis - GI continues to follow - Patient due for Endocrinology appointment, encouraged ongoing f/u - Insulin: 0.6 Basal Rate/ Averaging 20-30 units short acting per day Review of Systems No chest pain, dyspnea, palpitations No abdominal pain, diarrhea or constipation No headaches, lightheadedness or dizziness Physical Exam Vitals & Measurements T:37.1C BP:104/72 SpO2:93% WT:63.700kg(Dosing) WT:63.7kg PHQ2 Data(Data Documented on:10/04/2022 12:41) Emotional health assessment NEGATIVE General: NAD, well appearing, alert, interactive Respiratory: Non-labored, CTAB, no wheezing/rhonchi/rales Cardiovascular: RRR, normal S1/S2, no murmur/rubs/gallops Extremities: 2+ dp bilaterally, no peripheral edema Abdomen: active bowel sounds, no TTP, no masses, Dexcom and pump intact Foot Exam: Sensation intact, no evidence of wounds, lesions, or abrasions. Monofilament testing negative. Assessment/Plan 1.Type 1 diabetes mellitus with nephropathy - Chronic, stable - Complicated by nephropathy, neuropathy, and ophthalmopathy - March A1c 6.7 (improved from 8.5), repeat today - Ordered Lipid panel (goal LDL < 70), CMP (to evaluate forNephropathy)and Microalbumin/Cr ratio (consider MORA if elevated) - BP at goal (goal < 130/85) - Diabetic eye exam tomorrow - Encouraged ongoing Endocrine and GI follow up - Continue current medical management 2.Diabetic neuropathy - See above 3.Gastroparesis - See above 4.Diabetic ophthalmopathy - See above Attestation Attestation -I discussed and evaluated this patient with Dr. Hsu. Praised patient for tremendous improvement that he's made in his diabetic control. The assessment and plan was developed with her and carried out at my direction. I have read and agree with her note. Problem List/Past Medical History Ongoing Cigarette smoker Diabetic neuropathy Diabetic ophthalmopathy Face lesion Family history of gout Gastroparesis Medical marijuana use Nephrolithiasis Osteoarthritis of ankle, left Poorly controlled type 1 diabetes mellitus with gastroparesis Type 1 diabetes mellitus with nephropathy Type 1 diabetes mellitus with ophthalmic complication Procedure/Surgical History Gastric emptying study (08/19/2021)X-ray of left foot (03/17/2020)Ankle (03/28/2014)Upper GI (gastrointestinal) endoscopy (12/18/2012)Upper GI (gastrointestinal) endoscopy (09/14/2011)[place] tooth (1998)Hernia repair (1984) Medications diabetes supplies(Dexcom G6 Transmitter Kit), See Instructions diabetes supplies(Dexcom G6 Sensor Kit), See Instructions diabetes supplies(Dexcom G6 Repeater Operator Kit), See Instructions glucagon(Glucagon Emergency Kit for Low Blood Sugar 1 mg injection) insulin aspart(NovoLOG 100 units/mL injectable solution), See Instructions, 5 refills loratadine(loratadine 10 mg oral capsule), 10 mg= 1 cap, PO, Daily mirtazapine(mirtazapine 30 mg oral tablet), 30 mg= 1 tab, PO, qhs, 2 refills ondansetron(ondansetron 8 mg oral tablet, disintegrating), 8 mg= 1 tab, PO, q12h, PRN, 5 refills promethazine(promethazine 25 mg oral tablet), 25 mg= 1 tab, PO, bid, PRN, 5 refills unknown medication(Tandem X2 insulin pump) Allergies Chantix (Moderate)Emesis Nicoderm (Moderate)Dermatitis Reglan (Moderate)Facial tic Wellbutrin (Moderate)Hypoglycemia penicillin (Moderate)Hives sulfa drugs (Moderate)unknown Social History Smoking Status Never smoked cigarettes Alcohol - Low Risk Use:Current Type:Beer Frequency:1-2 [...] Recommendations Health Maintenance Pending(in the next year) Due Adult Influenza Vaccine due09/25/22and every 1year Adult COVID-19 Vaccination due10/04/22Unknown Frequency Diabetic Eye Exam due10/04/22Unknown Frequency Hepatitis C Screening due10/04/22One-time only Due In Future Diabetes Management A1c not due until04/07/23and every 1year Body Mass Index not due until10/04/23and every 1year Satisfied(in the past 1 year) Satisfied Body Mass Index on07/05/22.Satisfied by SEDRICK Meyer Vanessa T Diabetes Management A1c on10/22/21.Satisfied by Contributor_system, [employer] Electronic Signature on File Electronically Reviewed/Signed by: Shawn Hsu DO Author Signature Dt/Tm:10/04/2022 01:33 PM Resident Department of Family Medicine Electronically Reviewed/Signed by: Venessa Winn MD Cosigner Signature Dt/Tm: 10/04/2022 07:48 PM [facility] [address] [place] [address] APQ Patient Care team information Care Team Personnel Name: MD Rubin Christopher Position: Physician - Family Med Member Role: Primary Care Provider Address: Address: [address] [place] [address] [address] [place] [address] [place] Care Team Related Persons Name: PAT PRIETO Address: home [address] [place], [place] [phone] Name: YOLANDA FIGUEROA Address: home [address] [place], [place] [phone]
[2023-04-03] MEDS ORDERED: SODIUM CHLORIDE 0.9% 1,000 ML IV STA (15:20)
[2023-04-03 15:38] LABS: Basophils # (auto) 0.12 K/uL (0.00-0.20); Basophils % (auto) 0.7 %; Eosinophils # (auto) 0.08 K/uL (0.00-0.50); Eosinophils % (auto) 0.5 %; Hematocrit (blood only) 38.6 % (42.0-52.0); Hemoglobin 13.4 g/dl (14.0-18.0); Immature Granulocytes % (auto) 0.6 %; Lymphocytes # (auto) 0.51 K/uL (1.20-3.40); Mean Corpuscular Hemoglobin 31.2 pg (25.0-34.0); Mean Corpuscular Hgb Conc 34.7 g/dL (32.0-36.0); Mean Corpuscular Volume 89.8 fL (80.0-100.0); Mean Platelet Volume 10.2 fL (9.4-12.4); Monocytes % (auto) 5.3 %; Neutrophils # (auto) 15.17 K/uL (1.40-6.50); Neutrophils % (auto) 89.9 %; Platelet Count 315 K/uL (130-400); RDW Standard Deviation 42.5 fL (36.4-46.3); White Blood Count 16.88 K/ul (4.8-10.8)
[2023-04-03 15:43] LABS: Anion Gap 15 (3-11); BUN Creatinine Ratio 15.6 (10-20); Blood Urea Nitrogen 14 mg/dl (6-23); Calcium 9.4 mg/dl (8.6-10.3); Carbon Dioxide 21 mmol/L (21-32); Chloride 102 mmol/L (98-107); Creatinine Clr Calc Pharmacy 100.2 ml/min; Est GFR (African American) 123.4 ml/min; Est GFR (Non-African American) 106.5 ml/min; Glucose 288 mg/dl (70-99(Fasting)); Potassium 3.9 mmol/L (3.5-5.1); Sodium 138 mmol/L (136-145)
[2023-04-03 15:49] LABS: Troponin I High Sensitivity 4.6 pg/ml (0-20)
[2023-04-03] MEDS ORDERED: PROMETHAZINE 12.5 MG/50.5 ML BAG IV STA (15:51)
[2023-04-03 16:01] LABS: INR 1.1 (0.9-1.1); Prothrombin Time 12.2 Seconds (9.0-12.0)
[2023-04-03 16:08] LABS: Alanine Aminotransferase 9 U/L (7-52); Albumin Globulin Ratio 1.6 (0.9-2); Albumin Level 4.2 gm/dl (3.4-5.0); Alkaline Phosphatase 88 U/L (34-104); Aspartate Aminotransferase 12 U/L (13-39); Bilirubin,Total 1.4 mg/dl (0.2-1.0); Globulin 2.7 gm/dl (2.5-4.0); Lipase < 3 U/L (11-82); Total Protein 6.9 gm/dl (6.0-8.3)
[2023-04-03 16:23] LABS: Adenovirus PCR Not Detected (NotDetected); Bordetella parapertussis PCR Not Detected (NotDetected); Bordetella pertussis PCR Not Detected (NotDetected); Chlamydia pneumoniae PCR Not Detected (NotDetected); Coronavirus 229E PCR Not Detected (NotDetected); Coronavirus HKU1 PCR Not Detected (NotDetected); Coronavirus NL63 PCR Not Detected (NotDetected); Coronavirus OC43PCR Not Detected (NotDetected); Human Metapneumovirus PCR Not Detected (NotDetected); Influenza B PCR Not Detected (NotDetected); Mycoplasma pneumoniae PCR Not Detected (NotDetected); Parainfluenza Virus 1 PCR Not Detected (NotDetected); Parainfluenza Virus 2 PCR Not Detected (NotDetected); Parainfluenza Virus 3 PCR Not Detected (NotDetected); Parainfluenza Virus 4 PCR Not Detected (NotDetected); Respiratory Syncytial VirusPCR Not Detected (NotDetected); Rhinovirus/Enterovirus PCR Not Detected (NotDetected)
[2023-04-03] MEDS ORDERED: PANTOprazole 80 MG in DEXTROSE 5% 100 ML IV STA (16:26)
--- NOTE | 2023-04-03 16:36 | Emergency Department Note ---
Impression & Plan Nausea & vomiting, Esophagitis, Abdominal pain, Coffee ground emesis, COVID-19 ED Provider Note HISTORY OF PRESENT ILLNESS: Patient is a 42-year-old male presenting with vomiting and abdominal pain. Patient reports that he woke up around 8 AM feeling nauseous and started vomiting. Has had multiple episodes of coffee-ground emesis. He reports generalized abdominal pain. Denies any fevers. He was given Zofran prior to arrival. Per the patient: "I need Phenergan." Denies any chest pain or shortness of breath. Denies any blood in the stool. Denies any melena. Denies any diarrhea. Denies any anticoagulation use. ROS: as above PHYSICAL EXAM: Constitutional: Patient appears in no acute distress. Patient actively vomiting coffee-ground emesis. HENT: Head: Normocephalic and atraumatic. Eyes: EOMI, PERRL Mouth/Throat: Mucous membranes moist. Neck: Trachea midline. Neck supple. Cardiovascular: Tachycardic with regular rhythm. No murmurs, rubs or gallops. Intact distal pulses. Pulmonary/Chest: No respiratory distress. Breath sounds clear and equal bilaterally. No wheezes or rales. Abdominal: Abdomen soft, no rebound or guarding. Generalized TTP Musculoskeletal: No edema, tenderness or deformity noted. Skin: Warm and dry. No rash, erythema, pallor or cyanosis Psychiatric: Appropriate mood and affect for situation. Neurological: Alert and keenly responsive. CN II-XII grossly intact, moving all extremities equally and fully. MDM: - Vitals signs showed hypertension and tachycardia. - History obtained via patient. Patient presents with vomiting and abdominal pain. Patient reports he woke up at 8 AM feeling nauseous and started vomiting. He has had multiple episodes of coffee-ground emesis. He is complaining of generalized abdominal pain. Denies any fevers. Denies any chest pain or shortness of breath. Denies any blood in the stool or melena. He is not on any anticoagulation. - Chronic conditions affecting care: GERD; DM-1 - Differential diagnoses include, but are not limited to: Bowel obstruction; peptic ulcer disease; esophagitis; viral syndrome; cholecystitis - Order placed for continuous cardiac monitoring. At this time, monitor showed rate of 110 bpm with normal sinus rhythm, per my interpretation. - External medical records reviewed. EMS run sheet was reviewed. Patient was given 4 mg IV Zofran prehospital. - I did test the patient's vomitus and it was Hemoccult positive. - EKG interpreted by myself showed normal sinus rhythm. Rate tachycardic at 107 bpm. QTc 472. No acute ischemic changes. - Laboratory workup interpreted by myself showed leukocytosis (WBC 16.88) with left shift; normal electrolytes; elevated lactate (2.4); elevated anion gap (15); hyperglycemia (glucose 288); normal lipase; normal troponin - CXR negative for pneumonia, per my interpretation - CT abdomen/pelvis with IV contrast showed distal esophageal wall thickening consistent with esophagitis. No bowel obstruction. - Patient was given 1L NS and 12.5 mg IV phenergan in the emergency department. However, he continued to vomit. He was given 1.25 mg of droperidol. He was given 80 mg of IV Protonix. - Type and screen obtained. - Viral respiratory panel positive for COVID-19. - Leukocytosis with elevated anion gap likely secondary to patient's continued vomiting. Patient's coffee-ground emesis is likely secondary to his persistent vomiting and esophagitis. - Discussion was had with career placement specialist about patient's case and need for admission - Hospitalist consulted for admission - Patient admitted to [facility] service for further evaluation and management. ASSESSMENT AND PLAN: Diagnosis: Nausea and vomiting; coffee-ground emesis; esophagitis; abdominal pain; COVID-19 Plan: Admit Past Med/Surg History Medical History (Updated 04/03/23 @ 18:32 by Mahesh Sheikh MD) Left against medical advice Marijuana use Coffee ground emesis GERD (gastroesophageal reflux disease) Kidney stones History of kidney stones Arthritis History of seizure r/t hypoglycemia (2+ years ago) ADHD Loss of protective sensation of skin of foot Diabetic peripheral neuropathy associated with type 1 diabetes mellitus Proliferative diabetic retinopathy associated with type 1 diabetes mellitus Degenerative joint disease of ankle, left Tobacco abuse Gastroparesis due to DM Surgical History History of lithotripsy History of ankle surgery Left x3 History of tooth extraction PONV (postoperative nausea and vomiting) H/O laser photocoagulation of retina Hx of inguinal herniorrhaphy History of wisdom tooth extraction H/O esophagogastroduodenoscopy Family History Brother T1DM (type 1 diabetes mellitus) Uncle Family history of esophageal ulcer Father Myocardial infarction Heart disease Stroke Mother Deep vein thrombosis Social History Smoking Status: Current every day smoker Tobacco Type: E-cigarettes / Vaping Cigarettes Per Day: 1-2 pack per day; Second Hand Exposure: Yes; Do You Dip or Chew Tobacco: No; Hx Alcohol Use: No Hx Substance Use: Yes Last Used Substance: Hours (ago) Last Used Substance Other:: last evening 06/19/21 Substance Use Type Other:: Medical marijuana Preferred Language: Occitan Communication Ability: Effective Hearing Ability: Normal Automotive Specialty Technician Required: No Beliefs That Will Affect Care: None Current Living Situation: Spouse Current Living Situation Comment: home w/ spouse Feels Safe at Home: Yes Assistive Devices: None Allergies Allergies Allergy/AdvReac Type Severity Reaction Status Date / Time Penicillins Allergy Unknown Swelling Verified 04/03/23 16:28 and hives (per pt's mother) Sulfa (Sulfonamide Allergy Unknown Unknown Verified 04/03/23 16:28 Antibiotics) bupropion [From Wellbutrin] AdvReac Unknown Unknown Verified 04/03/23 16:28 metoclopramide [From Reglan] AdvReac Unknown Unknown Verified 04/03/23 16:28 varenicline [From Chantix] AdvReac Unknown Unknown Verified 04/03/23 16:28 nicotine [From Nicoderm CQ] AdvReac Unknown Verified 04/03/23 16:28 Pollen Allergy Mild Unknown Uncoded 04/03/23 16:28 Cleocin CAPS Allergy Unknown Uncoded 04/03/23 16:28 Home Meds Home Medications Medication Instructions Recorded Confirmed ondansetron 4 mg disintegrating 4 mg PO Q8H 07/23/21 04/03/23 tablet polyethylene glycol 3350 17 17 g PO DAILY PRN constipation 07/23/21 04/03/23 gram/dose oral powder promethazine 25 mg tablet 25 mg PO Q6H PRN Nausea 07/23/21 04/03/23 subcutaneous insulin pump 07/23/21 04/03/23 insulin aspart U-100 100 unit/mL 0 unit subcut DAILY 06/03/22 04/03/23 subcutaneous solution (Novolog U-100 Insulin aspart) Medical Marijuana 1 dose inhalation DIRECTED PRN 04/03/23 04/03/23 Pain rosuvastatin 5 mg tablet 5 mg PO DAILY 04/03/23 04/03/23 Previous Rx's Medication Instructions Recorded glucagon 1 mg/0.2 mL subcutaneous 1 mg (0.2 mL) subcut .COMPLEX #0.4 06/07/22 auto-injector (Gvoke HypoPen mL 1-Pack) Results & Data (ED) Vital Signs Vital Signs - 24 hr 04/03/23 15:05 04/03/23 15:05 04/03/23 15:20 Temperature 36.6 C Temperature Source Oral Pulse Rate 118 H 112 H Pulse Rate [Apical] 118 H Pulse Rhythm Regular Regular Pulse Rhythm [Apical] Regular Pulse Strength Normal Pulse Strength [Apical] Normal Respiratory Rate 20 20 Respiratory Effort / Characteristics Non-Labored Spontaneous Non-Labored Spontaneous Respiratory Depth Normal Normal Respiratory Pattern Regular Blood Pressure 155/106 H Blood Pressure [Right Arm] 155/106 H Blood Pressure Mean 122 Blood Pressure Mean [Right Arm] 122 Blood Pressure Position Semi-fowlers Blood Pressure Position [Right Arm] Semi-fowlers Pulse Oximetry 100 100 100 Oxygen Delivery Method Room Air Room Air Room Air Sepsis Recent Fever Within 48 Hours No Sepsis New/Unexplained Change in Mental Status N/A Sepsis Action Taken by Nursing No Action Required 04/03/23 15:39 04/03/23 17:04 Temperature Temperature Source Pulse Rate 112 H Pulse Rate [Apical] 111 H Pulse Rhythm Pulse Rhythm [Apical] Regular Pulse Strength Pulse Strength [Apical] Normal Respiratory Rate 16 Respiratory Effort / Characteristics Non-Labored Spontaneous Respiratory Depth Normal Respiratory Pattern Regular Blood Pressure Blood Pressure [Right Arm] 146/72 H Blood Pressure Mean Blood Pressure Mean [Right Arm] 96 Blood Pressure Position Blood Pressure Position [Right Arm] Semi-fowlers Pulse Oximetry 94 Oxygen Delivery Method Room Air Sepsis Recent Fever Within 48 Hours Sepsis New/Unexplained Change in Mental Status Sepsis Action Taken by Nursing Laboratory Data 04/03/23 15:10 04/03/23 15:10 Lab Results 04/03/23 04/03/23 04/03/23 Range/Units 15:10 15:21 15:53 WBC 16.88 H (4.8-10.8) K/ul RBC 4.30 L (4.70-6.10) M/uL Hgb 13.4 L (14.0-18.0) g/dl Hct 38.6 L (42.0-52.0) % MCV 89.8 (80.0-100.0) fL MCH 31.2 (25.0-34.0) pg MCHC 34.7 (32.0-36.0) g/dL RDW Std Deviation 42.5 (36.4-46.3) fL RDW Coeff of [place] 13.0 (11.5-14.5) % Plt Count 315 (130-400) K/uL MPV 10.2 (9.4-12.4) fL Immature Gran % (Auto) 0.6 % Neut % (Auto) 89.9 % Lymph % (Auto) 3.0 % [place] % (Auto) 5.3 % Eos % (Auto) 0.5 % Baso % (Auto) 0.7 % Neut # (Auto) 15.17 H (1.40-6.50) K/uL Lymph # (Auto) 0.51 L (1.20-3.40) K/uL [place] # (Auto) 0.90 H (0.11-0.59) K/uL Eos # (Auto) 0.08 (0.00-0.50) K/uL Baso # (Auto) 0.12 (0.00-0.20) K/uL Immature Gran # (Auto) 0.10 (0.01-0.20) K/uL PT 12.2 H (9.0-12.0) Seconds INR 1.1 (0.9-1.1) Sodium 138 (136-145) mmol/L Potassium 3.9 (3.5-5.1) mmol/L Chloride 102 (98-107) mmol/L Carbon Dioxide 21 (21-32) mmol/L Anion Gap 15 H (3-11) BUN 14 (6-23) mg/dl Creatinine 0.90 (0.6-1.4) mg/dl Est Cr Clr Drug Dosing 100.2 ml/min Est GFR ( Amer) 123.4 ml/min Est GFR (Non-Af Amer) 106.5 ml/min BUN/Creatinine Ratio 15.6 (10-20) Glucose 288 H (70-99(Fasting)) mg/dl Lactate 2.4 H* (0.4-2.0) mmol/L Calcium 9.4 (8.6-10.3) mg/dl Total Bilirubin 1.4 H (0.2-1.0) mg/dl AST 12 L (13-39) U/L ALT 9 (7-52) U/L Alkaline Phosphatase 88 (34-104) U/L Troponin I High Sens 4.6 (0-20) pg/ml Total Protein 6.9 (6.0-8.3) gm/dl Albumin 4.2 (3.4-5.0) gm/dl Globulin 2.7 (2.5-4.0) gm/dl Albumin/Globulin Ratio 1.6 (0.9-2) Lipase < 3 L (11-82) U/L Adenovirus (PCR) Not Detected (NotDetected) B. pertussis DNA (PCR) Not Detected (NotDetected) B.parapertussis DNA PCR Not Detected (NotDetected) C. pneumoniae DNA (PCR) Not Detected (NotDetected) Coronavirus OC43 (PCR) Not Detected (NotDetected) Coronavirus HKU1 (PCR) Not Detected (NotDetected) Coronavirus 229E (PCR) Not Detected (NotDetected) SARS-CoV-2 (PCR) DETECTED A* (NotDetected) Coronavirus NL63 (PCR) Not Detected (NotDetected) Human Metapneumovir PCR Not Detected (NotDetected) Influenza A (H3) PCR Not Detected (NotDetected) Influenza Type A (PCR) Not Detected (NotDetected) Influenza Type B (PCR) Not Detected (NotDetected) M. pneumoniae (PCR) Not Detected (NotDetected) Parainfluenza 1 (PCR) Not Detected (NotDetected) Parainfluenza 2 (PCR) Not Detected (NotDetected) Parainfluenza 3 (PCR) Not Detected (NotDetected) Parainfluenza 4 (PCR) Not Detected (NotDetected) RSV (PCR) Not Detected (NotDetected) Entero/Rhino (PCR) Not Detected (NotDetected) Blood Type A Positive Antibody Screen NEGATIVE Administered Medications Sodium Chloride (Nss) 1,000 mls @ 999 mls/hr IV .Q1H1M ONE Stop: 04/03/23 19:29 Last Admin: 04/03/23 18:39 Dose: 999 mls/hr Documented By: MANUEL Discontinued Medications Droperidol (Droperidol 5 Mg/2 Ml Vial) 1.25 mg IV ONE STA Stop: 04/03/23 16:45 Last Admin: 04/03/23 16:50 Dose: 1.25 mg Documented By: MANUEL Sodium Chloride (Nss) 1,000 mls @ 999 mls/hr IV .Q1H1M STA Stop: 04/03/23 16:20 Last Infusion: 04/03/23 16:26 Dose: Infused Documented By: Admin: 04/03/23 15:26 Dose: 999 mls/hr Documented By: MANUEL Promethazine HCl (Phenergan) 12.5 mg in 50.5 mls @ 202 mls/hr IV NOW STA Stop: 04/03/23 16:05 Last Infusion: 04/03/23 16:26 Dose: Infused Documented By: Admin: 04/03/23 16:03 Dose: 202 mls/hr Documented By: MANUEL Pantoprazole Sodium 80 mg/ (Dextrose) 120 mls @ 480 mls/hr IV ONE STA Stop: 04/03/23 16:40 Last Infusion: 04/03/23 17:24 Dose: Infused Documented By: Admin: 04/03/23 16:53 Dose: 480 mls/hr Documented By: MANUEL Ioversol (Optiray 320 500ml) 84 ml IV ONCE ONE Stop: 04/03/23 17:37 Last Admin: 04/03/23 17:36 Dose: 84 ml Documented By: MADHAVI Imaging Data Radiologist's Impression: Chest X-Ray 04/03/23 15:20 XR chest 1V portable CLINICAL HISTORY: Vomiting. COMPARISON STUDY: Chest radiograph June 20, 2021. FINDINGS: Lung volumes are normal. Lungs are clear. There is no pneumothorax or pleural effusion. Cardiac size is normal. Mediastinal contours are normal. There is no evidence for pulmonary edema. IMPRESSION: No acute cardiopulmonary findings. ACT 112: Negative or not required by law. Electronically signed by: William Muñoz M.D. 04/03/2023 5:33 PM Abdomen/Pelvis CT 04/03/23 15:51 CT OF THE ABDOMEN AND PELVIS WITH CONTRAST CLINICAL HISTORY: Hematemesis; abdominal pain. COMPARISON STUDY: CT of the abdomen and pelvis September 05, 2020. KUB December 24, 2020. TECHNIQUE: Following IV administration of 84 mL of Optiray, axial images of the abdomen and pelvis were obtained from the lung bases to the proximal femurs. Images were reviewed in the axial, sagittal, and coronal planes. IV contrast was administered without complication. Automated exposure control was utilized for the study. A dose lowering technique was utilized adhering to the principles of ALARA. CT DOSE: 452.86 mGy.cm FINDINGS: Subpleural right lower lobe groundglass opacities favor atelectasis. Suspected distal esophageal wall thickening is noted. This was shown on prior CT. No pneumatosis, free air or portal venous gas is present. The liver, spleen, adrenal glands are unremarkable. Pancreatic glandular atrophy is noted. There is no biliary or pancreatic ductal dilatation. No peripancreatic or pericholecystic infiltration is present. Sensitivity for detection of renal calculi is diminished given excreted contrast. However, multiple right renal calculi measure up to 7 mm. There may be small left renal calculi. Dilatation of the renal pelves is likely chronic. There are no ureteral calculi. There is no hydronephrosis. There is no evidence for a bowel obstruction. Apparent wall thickening of the small and large bowel is likely due to underdistention. The appendix is normal. Major vasculature is patent. There is no free fluid. There is no lymphadenopathy. No fluid collections are present. No acute fractures are identified within the visualized skeletal structures. IMPRESSION: 1. Circumferential distal esophageal wall thickening. This is nonspecific but was shown on CT of September 05, 2020 and favors esophagitis. 2. No bowel obstruction. Small and large bowel wall thickening is likely due to underdistention. Normal appendix. 3. Right nephrolithiasis. Possible small left renal calculi. No ureteral calculi or hydronephrosis. ACT 112: Negative or not required by law. Electronically signed by: William Muñoz M.D. 04/03/2023 5:55 PM Discharge Plan Visit Data Chief Complaint: Vomiting Stated Complaint: VOMITING, GI BLEED ED Provider: Molly Cleaning Discharge Problem: Nausea & vomiting, Esophagitis, Abdominal pain, Coffee ground emesis, COVID-19 Forms Stand Alone Forms: [employer] Prescriptions Prescriptions: No Action Gvoke HypoPen 1-Pack 1 mg/0.2 mL auto-injector 1 mg subcut .COMPLEX Qty: 0.4 1RF Rx Instructions: 1 mg subcutaneously as needed for hypoglycemia; (DME) subcutaneous insulin pump Misc See Rx Instructions .Route Rx Instructions: As directed ondansetron 4 mg tablet,disintegrating 4 mg PO Q8H polyethylene glycol 3350 17 gram/dose powder 17 g PO DAILY PRN (Reason: constipation) promethazine 25 mg tablet 25 mg PO Q6H PRN (Reason: Nausea) insulin aspart U-100 [Novolog U-100 Insulin aspart] 100 unit/mL solution 0 unit subcut DAILY Rx Instructions: Pump rosuvastatin 5 mg tablet 5 mg PO DAILY Medical Marijuana 1 dose inhalation DIRECTED PRN (Reason: Pain) Referrals Referrals: Tejas Rubin MD [Primary Care Provider] -
[2023-04-03] MEDS ORDERED: DROPERIDOL 5 MG/2 ML VIAL IV STA (16:44)
[2023-04-03 17:19] LABS: Influenza A PCR Not Detected (NotDetected)
--- NOTE | 2023-04-03 17:34 | XRay Report ---
XR chest 1V portable CLINICAL HISTORY: Vomiting. COMPARISON STUDY: Chest radiograph June 20, 2021. FINDINGS: Lung volumes are normal. Lungs are clear. There is no pneumothorax or pleural effusion. Car diac size is normal. Mediastinal contours are normal. There is no evidence for pulmonary edema. IMPRESSION: No acute cardiopulmonary findings. ACT 112: Negative or not required by law. Electronically signed by: William Muñoz M.D. 04/03/2023 5:33 PM
[2023-04-03] MEDS ORDERED: OPTIRAY 320 500ml IV ONE (17:36)
--- NOTE | 2023-04-03 17:57 | CT Scan Report ---
CT OF THE ABDOMEN AND PELVIS WITH CONTRAST CLINICAL HISTORY: Hematemesis; abdominal pain. COMPARISON STUDY: CT of the abdomen and pelvis September 05, 2020. KUB December 24, 2020. TECHNIQUE: Following IV administration of 84 mL of Optiray, axial images of the abdomen and pelvis we re obtained from the lung bases to the proximal femurs. Images were reviewed in the axial, sagittal, and coronal planes. IV contrast was administered without complication. Automated exposure control wa s utilized for the study. A dose lowering technique was utilized adhering to the principles of ALARA . CT DOSE: 452.86 mGy.cm FINDINGS: Subpleural right lower lobe groundglass opacities favor atelectasis. Suspected distal esoph ageal wall thickening is noted. This was shown on prior CT. No pneumatosis, free air or portal venous gas is present. The liver, spleen, adrenal glands are unremarkable. Pancreatic glandular atrophy is noted. There is no biliary or pancreatic ductal dilatation. No peripancreatic or pericholecystic infi ltration is present. Sensitivity for detection of renal calculi is diminished given excreted contrast . However, multiple right renal calculi measure up to 7 mm. There may be small left renal calculi. Di latation of the renal pelves is likely chronic. There are no ureteral calculi. There is no hydronephr osis. There is no evidence for a bowel obstruction. Apparent wall thickening of the small and large b owel is likely due to underdistention. The appendix is normal. Major vasculature is patent. There is no free fluid. There is no lymphadenopathy. No fluid collections are present. No acute fractures are identified within the visualized skeletal structures. IMPRESSION: 1. Circumferential distal esophageal wall thickening. This is nonspecific but was shown on CT of September 05, 2020 and favors esophagitis. 2. No bowel obstruction. Small and large bowel wall thickening is likely due to underdistention. Norm al appendix. 3. Right nephrolithiasis. Possible small left renal calculi. No ureteral calculi or hydronephrosis. ACT 112: Negative or not required by law. Electronically signed by: William Muñoz M.D. 04/03/2023 5:55 PM
[2023-04-03 18:12] LABS: Influenza A (H3) PCR Not Detected (NotDetected)
[2023-04-03 18:13] LABS: Coronavirus CoV-2 (COVID19)PCR DETECTED (NotDetected)
[2023-04-03] MEDS ORDERED: SODIUM CHLORIDE 0.9% 1,000 ML IV ONE (18:29)
--- NOTE | 2023-04-03 18:36 | History & Physical Report ---
Date of Service April 03, 2023 Assessment & Plan (1) Esophagitis: Plan: Patient be on clear liquid diet sparingly. Antiemetics to be used copiously. intractable nausea and vomiting, diabetic gastroparesis In the past his abdominal pain has required parenteral opiate therapy. Patient have his hemoglobin checked in the morning is currently stable, volume resuscitation in ER due to concern for possibility being early DKA continuing IV fluid with potassium (2) Type 1 diabetes: Plan: Typically insulin pump to still be discontinued Patient be on basal bolus insulin patient agreeable to taking off his pump and to allow us to use basal bolus insulin overnight Copious IV hydration will be undertaken additional 1 L fluid to be given in the ER Patient with endorgan damage from diabetes including previous retinitis, chronic kidney disease stage III, and peripheral diabetic neuropathy (3) Lab test positive for detection of COVID-19 virus: Plan: COVID test positivity unclear whether this has anything to do is his GI complaints that she has endorgan damage from his diabetes with likely gastroparesis Plan lovneox for covd /dvt prevention History of Present Illness Primary Care Provider: Tejas Rubin MD 43-year-old type I insulin requiring male who presents with intractable nausea and vomiting. Patient typically has medications at home to suggest gastropares is with chronic Zofran and Phenergan. He also takes medical marijuana. He comes in with generalized abdominal pain had some coffee-ground in his emesis but denies recent melena his most recent admission with similar and he left AGAINST MEDICAL ADVICE. He is found to be COVID-positive in the emergency department he is not hypoxic has no chest x-ray changes. states that she had COVID over the holidays and likely is the source of his COVID illness Currently is not in DKA but does have anion gap around 15, and elevated lactic acid Allergies Allergy/AdvReac Type Severity Reaction Status Date / Time Penicillins Allergy Unknown Swelling Verified 04/03/23 16:28 and hives (per pt's mother) Sulfa (Sulfonamide Allergy Unknown Unknown Verified 04/03/23 16:28 Antibiotics) bupropion [From Wellbutrin] AdvReac Unknown Unknown Verified 04/03/23 16:28 metoclopramide [From Reglan] AdvReac Unknown Unknown Verified 04/03/23 16:28 varenicline [From Chantix] AdvReac Unknown Unknown Verified 04/03/23 16:28 [facility] AdvReac Unknown Verified 04/03/23 16:28 Pollen Allergy Mild Unknown Uncoded 04/03/23 16:28 Cleocin CAPS Allergy Unknown Uncoded 04/03/23 16:28 Home Medications Medication Instructions Recorded Confirmed Type ondansetron 4 mg disintegrating 4 mg PO Q8H 07/23/21 04/03/23 History tablet polyethylene glycol 3350 17 17 g PO DAILY PRN constipation 07/23/21 04/03/23 History gram/dose oral powder promethazine 25 mg tablet 25 mg PO Q6H PRN Nausea 07/23/21 04/03/23 History subcutaneous insulin pump 07/23/21 04/03/23 History insulin aspart U-100 100 unit/mL 0 unit subcut DAILY 06/03/22 04/03/23 History subcutaneous solution (Novolog U-100 Insulin aspart) glucagon 1 mg/0.2 mL subcutaneous 1 mg (0.2 mL) subcut .COMPLEX #0.4 06/07/22 04/03/23 Rx auto-injector (Gvoke HypoPen mL 1-Pack) Medical Marijuana 1 dose inhalation DIRECTED PRN 04/03/23 04/03/23 History Pain rosuvastatin 5 mg tablet 5 mg PO DAILY 04/03/23 04/03/23 History Past Med/Surg History Medical History (Updated 04/03/23 @ 18:32 by Mahesh Sheikh MD) Left against medical advice Marijuana use Coffee ground emesis GERD (gastroesophageal reflux disease) Kidney stones History of kidney stones Arthritis History of seizure r/t hypoglycemia (2+ years ago) ADHD Loss of protective sensation of skin of foot Diabetic peripheral neuropathy associated with type 1 diabetes mellitus Proliferative diabetic retinopathy associated with type 1 diabetes mellitus Degenerative joint disease of ankle, left Tobacco abuse Gastroparesis due to DM Surgical History History of lithotripsy History of ankle surgery Left x3 History of tooth extraction PONV (postoperative nausea and vomiting) H/O laser photocoagulation of retina Hx of inguinal herniorrhaphy History of wisdom tooth extraction H/O esophagogastroduodenoscopy Family History Brother T1DM (type 1 diabetes mellitus) Uncle Family history of esophageal ulcer Father Myocardial infarction Heart disease Stroke Mother Deep vein thrombosis Social History Smoking Status: Current every day smoker Tobacco Type: E-cigarettes / Vaping Cigarettes Per Day: 1-2 pack per day; Second Hand Exposure: Yes; Do You Dip or Chew Tobacco: No; Hx Alcohol Use: No Hx Substance Use: Yes Last Used Substance: Hours (ago) Last Used Substance Other:: last evening 06/19/21 Substance Use Type Other:: Medical marijuana Preferred Language: [place] Communication Ability: Effective Hearing Ability: Normal Priming Mixture Carrier Required: No Beliefs That Will Affect Care: None Current Living Situation: Spouse Current Living Situation Comment: home w/ spouse Feels Safe at Home: Yes Assistive Devices: None Review of Systems Review of Systems: moderate distress and fatigue no headache, no visual changes no speech or swallowing issues no chest pain, pressure or palpitations no shortness of breath, cough or wheezes complains of diffuse abdominal pain consistent with previous gastroparesis nausea and vomiting with some flecks of black, no melena no dysuria, hematuria or frequency no focal joint pain or swelling no back pain, CVA tenderness or radicular pain no bruising, bleeding or rashes no focal signs of weakness or numbness or altered sensation no complaints of anxiety or depression.. Physical Exam Physical Exam: The patient appeared well nourished and normally developed. he is in moderate distress Vital signs as documented. Head exam is normocephalic atraumatic Neck is without JVD, thyromegaly, or carotid bruits. Lungs are clear to auscultation, no focal loss of breath sounds Cardiac exam, Rhythm is regular.. No murmurs, rubs or gallops. Abdominal exam reveals normal bowel sounds, soft diffusely tender no acute abdomen, but tender out of proportion to findings Extremities are nonedematous and both pedal pulses are present Neurologic exam is alert and oriented,foot neuropathy Skin is without bruises or rashes Psychologically is without concerns for anxiety or depression.. Results & Data Results & Data Vital Signs (Past 12 Hours) Vital Signs Temp Pulse Pulse Resp BP BP Pulse Ox 04/03/23 17:04 111 H 16 146/72 H 94 04/03/23 15:39 112 H 04/03/23 15:20 112 H 100 04/03/23 15:05 118 H 20 155/106 H 100 04/03/23 15:05 97.9 F 118 H 20 155/106 H 100 O2 Del Method 04/03/23 17:04 Room Air 04/03/23 15:39 04/03/23 15:20 Room Air 04/03/23 15:05 Room Air 04/03/23 15:05 Room Air Laboratory Results Reviewed CBC reviewed comprehensive medical panel reviewed lactic acid Diagnostic Findings Reviewed chest Reviewed CT scan abdomen pelvis Code Status & VTE Plan VTE Prophylaxis Plan VTE Prophylaxis will be ordered: Yes PG Care Time/CCT Total # of Minutes Spent Total Time Spent with Patient: Total time spent is greater than 50% in coordination of care (as documented) at patient's floor/unit and/or counseling patient: Coding Level of Care Code 75582 INT INP/OBS CARE 3/75MIN Diagnoses Esophagitis K20.90 Type 1 diabetes E10.9 Lab test positive for detection of COVID-19 virus U07.1
[2023-04-03] MEDS: PANTOprazole 40 MG in SYRINGE 0 ML IV SCH (20:18)
[2023-04-03] MEDS: FAMOTIDINE 20 MG in SYRINGE 3 ML IV SCH (20:19)
[2023-04-03] MEDS ORDERED: DROPERIDOL 5 MG/2 ML VIAL IV PRN (20:23)
[2023-04-03] MEDS ORDERED: LORazepam 1 MG in SYRINGE 0.5 ML IV PRN (20:23)
[2023-04-03] MEDS ORDERED: GLUCOSE 40% GEL 15 GM TUBE PO PRN (20:23)
[2023-04-03] MEDS ORDERED: CARBOHYDRATES FOR HYPOGLYCEMIA PO PRN (20:23)
[2023-04-03] MEDS ORDERED: GLUCAGON FOR INJ 1 MG VIAL SQ PRN (20:23)
[2023-04-03] MEDS ORDERED: HYDROmorphone INJ 0.5 MG/0.5 ML SYR IV PRN (20:23)
[2023-04-03] MEDS ORDERED: GLUCOSE 10 TAB/TUBE PO PRN (20:23)
--- NOTE | 2023-04-03 21:11 | Electrocardiogram Report ---
Test Reason : Blood Pressure : / mmHG Vent. Rate : 107 BPM Atrial Rate : 107 BPM P-R Int : 130 ms QRS Dur : 080 ms QT Int : 354 ms P-R-T Axes : 065 082 055 degrees QTc Int : 472 ms Sinus tachycardia Possible Anterior infarct , age undetermined Nonspecific ST abnormality Abnormal ECG When compared with ECG of 20-JUN-2021 07:22, No significant change was found Confirmed by Toni Shah ([id number]) on 04/03/2023 9:10:35 PM Referred By: Confirmed By:Toni Shah
[2023-04-03 21:21] LABS: Appearance Urine Clear (Clear); Bacteria Urine Automated Negative (Negative); Bilirubin Urine Negative (Negative); Blood Urine Trace (Negative); Cast Urine Automated 0 /lpf (0-5); Color Urine Yellow; Glucose Urine UA 3+ (Negative); Ketones Urine 1+ (Negative); Leukocyte Esterase Urine Negative (Negative); Nitrite Urine Negative (Negative); Protein Urine Negative (Negative); RBC Urine Automated 0-4 /hpf (0-4); Specific Gravity Urine 1.036 (1.000-1.030); Urobilinogen Urine Negative (Negative)
[2023-04-03] MEDS: INSULIN ASPART PER UNIT CHARGE SC SCH (21:29)
[2023-04-03] MEDS: LANTUS PER UNIT CHARGE SQ SCH (21:30)
[2023-04-03 21:32] LABS: Amphetamines+Metham, Urine Neg (Neg); Barbiturates, Urine Neg (Neg); Benzodiazepine, Urine Neg (Neg); Cocaine, Urine Neg (Neg); MDMA (Ecstacy), Urine Neg (Neg); Marijuana, Urine Pos (Neg); Methadone, Urine Neg (Neg); Opiate, Urine Neg (Neg); Phencyclidine, Urine Neg (Neg)
[2023-04-03] MEDS: ENOXAPARIN INJ 40 MG/0.4 ML SYR SQ SCH (21:32)
[2023-04-03] MEDS: ONDANSETRON INJ 2 MG/ML 2 ML VIAL IV PRN (21:33)
[2023-04-03] MEDS: NSS + 20MEQ KCL 20 MEQ/1,000 ML BAG IV SCH (21:34)
[2023-04-03] MEDS: HYDROmorphone INJ 1 MG/ML SYRINGE IV PRN (21:48)
[2023-04-03 23:23] LABS: BUN Creatinine Ratio 15.8 (10-20); Creatinine Clr Calc Pharmacy 94.9 ml/min; Est GFR (African American) 115.6 ml/min; Est GFR (Non-African American) 99.7 ml/min; Potassium 3.8 mmol/L (3.5-5.1)
[2023-04-04] MEDS: PROMETHAZINE HCL 12.5 MG in SODIUM CHLORIDE 0.9% 50 ML IV PRN ×2 (05:12→20:33)
[2023-04-04] MEDS: NSS + 20MEQ KCL 20 MEQ/1,000 ML BAG IV SCH (05:12)
[2023-04-04 06:09] LABS: Hematocrit (blood only) 35.6 % (42.0-52.0); Hemoglobin 12.3 g/dl (14.0-18.0); Mean Corpuscular Hemoglobin 31.2 pg (25.0-34.0); Mean Corpuscular Hgb Conc 34.6 g/dL (32.0-36.0); Mean Corpuscular Volume 90.4 fL (80.0-100.0); Platelet Count 263 K/uL (130-400); RDW Coefficient of Variation 13.5 % (11.5-14.5); RDW Standard Deviation 44.5 fL (36.4-46.3); Red Blood Count 3.94 M/uL (4.70-6.10); White Blood Count 13.12 K/ul (4.8-10.8)
[2023-04-04 06:29] LABS: BUN Creatinine Ratio 14.6 (10-20); Calcium 8.5 mg/dl (8.6-10.3); Creatinine Clr Calc Pharmacy 93.9 ml/min; Est GFR (African American) 114.1 ml/min; Est GFR (Non-African American) 98.5 ml/min; Magnesium 1.6 mg/dl (1.7-2.4); Potassium 4.2 mmol/L (3.5-5.1)
[2023-04-04 07:55] LABS: Estimated Average Glucose 154 mg/dl
[2023-04-04] MEDS: MAGNESIUM SULFATE / D5W 1 GM/100 ML BAG IV SCH ×2 (09:20→12:00)
[2023-04-04] MEDS: PANTOprazole 40 MG in SYRINGE 0 ML IV SCH ×2 (09:20→21:50)
[2023-04-04] MEDS: INSULIN ASPART PER UNIT CHARGE SC SCH ×4 (10:18→21:51)
[2023-04-04] MEDS: LANTUS PER UNIT CHARGE SQ SCH ×2 (11:30→21:51)
[2023-04-04] MEDS: ONDANSETRON INJ 2 MG/ML 2 ML VIAL IV PRN ×2 (12:10→19:41)
[2023-04-04] MEDS: FAMOTIDINE 20 MG in SYRINGE 3 ML IV SCH ×2 (12:45→21:50)
[2023-04-04] MEDS ORDERED: SODIUM CHLORIDE 0.9% 1,000 ML IV SCH (13:00)
[2023-04-04] MEDS: HYDROmorphone INJ 1 MG/ML SYRINGE IV PRN ×2 (13:46→19:41)
--- NOTE | 2023-04-04 15:12 | Hospitalist Progress Note ---
Date of Service April 04, 2023 Assessment & Plan (1) Esophagitis: Plan: Patient be on clear liquid diet advanace as tolerated Antiemetics continue intractable nausea and vomiting, since recurred diabetic gastroparesis plays a role along with covid and esophagitis seen on CT In the past his abdominal pain has required parenteral opiate therapy, continues to require now . Patient have his hemoglobin checked in the morning is currently stable, volume resuscitation in ER due to concern for possibility being early DKA continuing IV fluid with potassium (2) Type 1 diabetes: Plan: Typically insulin pump , acidosis resolved will return to his home pump today additional ivf to be given Patient with endorgan damage from diabetes including previous retinitis, chronic kidney disease stage III, and peripheral diabetic neuropathy (3) Lab test positive for detection of COVID-19 virus: Plan: COVID test positivity unclear whether this has anything to do is his GI complaints that she has endorgan damage from his diabetes with likely gastroparesis Plan lovneox for covd /dvt prevention Admission and Anticipated Discharge Date Admission Date: April 03, 2023 Subjective Initially at that patient we will go home today and he was agreeable to go home but shortly after breakfast maybe later in the morning he developed increased abdominal pain nausea and vomiting and we recurred to provide IV fluids and antiemetic therapy with pain control Physical Exam Physical Exam: Awake alert appropriate. Card exam is regular lungs are clear Results & Data Results & Data Vital Signs (Past 12 Hours) Vital Signs Pulse Pulse Resp BP Pulse Ox O2 Del Method 04/04/23 14:43 96 H 18 121/67 96 Room Air 04/04/23 11:59 94 H 17 155/83 H 97 Room Air 04/04/23 08:05 93 H Laboratory Results Reviewed CBC reviewed chemistry PG Care Time/CCT Total # of Minutes Spent Total Time Spent with Patient: Total time spent is greater than 50% in coordination of care (as documented) at patient's floor/unit and/or counseling patient: Coding Level of Care Code 45734 SUB INP/OBS CARE 2/35MIN Diagnoses Esophagitis K20.90 Type 1 diabetes E10.9 Lab test positive for detection of COVID-19 virus U07.1
[2023-04-04 17:05] LABS: Albumin Globulin Ratio 1.4 (0.9-2); Albumin Level 3.9 gm/dl (3.4-5.0); BUN Creatinine Ratio 16.7 (10-20); Bilirubin,Total 0.4 mg/dl (0.2-1.0); Creatinine Clr Calc Pharmacy 100.2 ml/min; Est GFR (African American) 123.4 ml/min; Est GFR (Non-African American) 106.5 ml/min; Globulin 2.8 gm/dl (2.5-4.0); Potassium 3.7 mmol/L (3.5-5.1); Total Protein 6.7 gm/dl (6.0-8.3)
[2023-04-04] MEDS: ENOXAPARIN INJ 40 MG/0.4 ML SYR SQ SCH (19:36)
[2023-04-05] MEDS: HYDROmorphone INJ 1 MG/ML SYRINGE IV PRN (00:51)
[2023-04-05] MEDS: PROMETHAZINE HCL 12.5 MG in SODIUM CHLORIDE 0.9% 50 ML IV PRN ×2 (02:32→17:21)
[2023-04-05] MEDS: ONDANSETRON INJ 2 MG/ML 2 ML VIAL IV PRN ×3 (04:37→19:45)
[2023-04-05 07:08] LABS: Albumin Globulin Ratio 1.7 (0.9-2); Albumin Level 3.9 gm/dl (3.4-5.0); BUN Creatinine Ratio 15.8 (10-20); Bilirubin,Total 0.5 mg/dl (0.2-1.0); Calcium 8.4 mg/dl (8.6-10.3); Creatinine Clr Calc Pharmacy 118.8 ml/min; Est GFR (African American) 132.3 ml/min; Est GFR (Non-African American) 114.1 ml/min; Globulin 2.3 gm/dl (2.5-4.0); Magnesium 1.8 mg/dl (1.7-2.4); Potassium 3.3 mmol/L (3.5-5.1); Total Protein 6.2 gm/dl (6.0-8.3)
[2023-04-05 07:21] LABS: Hematocrit (blood only) 37.9 % (42.0-52.0); Hemoglobin 13.4 g/dl (14.0-18.0); Mean Corpuscular Hemoglobin 31.5 pg (25.0-34.0); Mean Corpuscular Hgb Conc 35.4 g/dL (32.0-36.0); Mean Platelet Volume 9.9 fL (9.4-12.4); Platelet Count 261 K/uL (130-400); RDW Coefficient of Variation 13.3 % (11.5-14.5); RDW Standard Deviation 43.7 fL (36.4-46.3); Red Blood Count 4.26 M/uL (4.70-6.10); White Blood Count 13.27 K/ul (4.8-10.8)
[2023-04-05] MEDS ORDERED: POTASSIUM CHLORIDE CRTAB 20 MEQ TABCR PO STA (07:55)
[2023-04-05] MEDS: INSULIN ASPART PER UNIT CHARGE SC SCH (08:59)
[2023-04-05] MEDS: LANTUS PER UNIT CHARGE SQ SCH (08:59)
[2023-04-05] MEDS: PANTOprazole 40 MG in SYRINGE 0 ML IV SCH ×2 (09:03→21:45)
[2023-04-05] MEDS: FAMOTIDINE 20 MG in SYRINGE 3 ML IV SCH ×2 (09:03→21:45)
[2023-04-05] MEDS: SUCRALFATE 1 GM/10 ML UDC PO SCH ×3 (12:14→21:46)
[2023-04-05] MEDS: NSS + 20MEQ KCL 20 MEQ/1,000 ML BAG IV SCH ×2 (12:14→22:55)
[2023-04-05] MEDS: INSULIN, Rapid-Acting PUMP SC SCH ×3 (13:48→23:40)
--- NOTE | 2023-04-05 17:50 | Hospitalist Progress Note ---
Date of Service April 05, 2023 Assessment & Plan (1) Esophagitis: Plan: Patient be on clear liquid diet advanace as tolerated Antiemetics continue intractable nausea and vomiting, since recurred diabetic gastroparesis plays a role along with covid and esophagitis seen on CT Adding sucralfate considering adding metoclopramide In the past his abdominal pain has required parenteral opiate therapy, continues to require now . Patient have his hemoglobin checked in the morning is currently stable, volume resuscitation in ER due to concern for possibility being early DKA continuing IV fluid with potassium Family is concerned of infectious etiologies however there is no signs or symptoms of at this time if diarrhea ensues will do formal stool testing (2) Type 1 diabetes: Plan: Typically insulin pump , acidosis resolved will return to his home pump will 04/04/2023 additional ivf to be given Patient with endorgan damage from diabetes including previous retinitis, chronic kidney disease stage III, and peripheral diabetic neuropathy (3) Lab test positive for detection of COVID-19 virus: Plan: COVID test positivity unclear whether this has anything to do is his GI complaints that she has endorgan damage from his diabetes with likely gastroparesis Plan lovneox for covd /dvt prevention Admission and Anticipated Discharge Date Admission Date: April 03, 2023 Subjective Patient is significant pain issues recurrent nausea and vomiting. is concerned that he required antibiotics in the past to improve his abdominal pain. This is challenging as he does have gastroparesis initially we will try some scheduled metoclopramide and doubt significant diarrhea we will only pursue stool testing if diarrhea results Continue supportive care as parenteral opiates and droperidol for nausea Physical Exam Physical Exam: Awake alert appropriate. Card exam is regular lungs are clear Abdomen is mostly tenderness central abdomen Results & Data Results & Data Vital Signs (Past 12 Hours) Vital Signs Temp Pulse Pulse Resp BP BP Pulse Ox 04/05/23 16:00 98.8 F 93 H 17 155/82 H 94 04/05/23 12:06 98.8 F 68 18 140/77 97 04/05/23 08:04 99.1 F 93 H 18 143/76 H 96 04/05/23 08:00 04/05/23 07:44 94 H 04/05/23 07:43 94 H O2 Del Method 04/05/23 16:00 Room Air 04/05/23 12:06 Room Air 04/05/23 08:04 Room Air 04/05/23 08:00 Room Air 04/05/23 07:44 04/05/23 07:43 Laboratory Results Reviewed CBC Reviewed chemistryhypokalemic added potassium to IV fluids PG Care Time/CCT Total # of Minutes Spent Total Time Spent with Patient: Total time spent is greater than 50% in coordination of care (as documented) at patient's floor/unit and/or counseling patient: Coding Level of Care Code 06496 SUB INP/OBS CARE 2/35MIN Diagnoses Esophagitis K20.90 Type 1 diabetes E10.9 Lab test positive for detection of COVID-19 virus U07.1
[2023-04-05] MEDS: ENOXAPARIN INJ 40 MG/0.4 ML SYR SQ SCH (21:45)
[2023-04-05] MEDS ORDERED: PROCHLORPERAZINE 5 MG in SYRINGE 4 ML IV ONE (22:15)
[2023-04-06 00:07] LABS: Marijuana Quant, GCMS Urine 782 ng/mL (<5)
[2023-04-06] MEDS: PROMETHAZINE HCL 12.5 MG in SODIUM CHLORIDE 0.9% 50 ML IV PRN ×2 (03:17→15:22)
[2023-04-06] MEDS: ONDANSETRON INJ 2 MG/ML 2 ML VIAL IV PRN ×2 (04:53→11:34)
[2023-04-06 06:24] LABS: Hematocrit (blood only) 42.1 % (42.0-52.0); Hemoglobin 14.5 g/dl (14.0-18.0); Mean Corpuscular Hemoglobin 30.7 pg (25.0-34.0); Mean Corpuscular Hgb Conc 34.4 g/dL (32.0-36.0); Mean Corpuscular Volume 89.2 fL (80.0-100.0); Mean Platelet Volume 9.8 fL (9.4-12.4); Platelet Count 276 K/uL (130-400); RDW Standard Deviation 42.9 fL (36.4-46.3); Red Blood Count 4.72 M/uL (4.70-6.10); White Blood Count 11.33 K/ul (4.8-10.8)
[2023-04-06] MEDS: SUCRALFATE 1 GM/10 ML UDC PO SCH ×4 (08:39→20:16)
[2023-04-06] MEDS: FAMOTIDINE 20 MG in SYRINGE 3 ML IV SCH ×2 (08:39→20:15)
[2023-04-06] MEDS: PANTOprazole 40 MG in SYRINGE 0 ML IV SCH ×2 (08:40→20:16)
[2023-04-06] MEDS: INSULIN, Rapid-Acting PUMP SC SCH ×3 (08:58→17:16)
[2023-04-06] MEDS ORDERED: REMDESIVIR 200 MG in SODIUM CHLORIDE 0.9% 210 ML IV STA (11:07)
--- NOTE | 2023-04-06 17:17 | Hospitalist Progress Note ---
Date of Service April 06, 2023 Assessment & Plan (1) Esophagitis: Plan: Patient be on clear liquid diet advanace as tolerated Antiemetics continue intractable nausea and vomiting, since recurred early DKA treated with ssi and basal insulin, IV fluid with potassium resolved diabetic gastroparesis plays a role along with covid and esophagitis seen on CT Adding sucralfate considering adding metoclopramide In the past his abdominal pain has required parenteral opiate therapy, continues to require now . Family is concerned of infectious etiologies however there is no signs or symptoms of at this time (2) Type 1 diabetes: Plan: Typically insulin pump , acidosis resolved will return to his home pump will 04/04/2023 it fell off 04/06 replaced Patient with endorgan damage from diabetes including previous retinitis, chronic kidney disease stage III, and peripheral diabetic neuropathy (3) Lab test positive for detection of COVID-19 virus: Plan: COVID test positivity unclear whether this has anything to do is his GI complaints that she has endorgan damage from his diabetes with likely gastroparesis pt now with cough and extreme fatigue offered remdesivir and agrees Plan lovneox for covd /dvt prevention Admission and Anticipated Discharge Date Admission Date: April 03, 2023 Physical Exam Physical Exam: Awake alert appropriate. Card exam is regular lungs are clear Abdomen continues to be mostly tender in the central abdomen Results & Data Results & Data Vital Signs (Past 12 Hours) Vital Signs Temp Pulse Pulse Resp BP Pulse Ox O2 Del Method 04/06/23 16:29 94 H 04/06/23 16:22 94 H 04/06/23 16:10 98.2 F 78 18 119/76 98 Room Air 04/06/23 12:00 91 H 20 135/75 92 Room Air 04/06/23 08:35 99.2 F 92 H 18 142/75 H 94 Room Air 04/06/23 08:00 Room Air 04/06/23 07:28 92 H Laboratory Results review cbc review poc glucose PG Care Time/CCT Total # of Minutes Spent Total Time Spent with Patient: Total time spent is greater than 50% in coordination of care (as documented) at patient's floor/unit and/or counseling patient: Coding Level of Care Code 59521 SUB INP/OBS CARE 3/50MIN Diagnoses Esophagitis K20.90 Type 1 diabetes E10.9 Lab test positive for detection of COVID-19 virus U07.1
[2023-04-06] MEDS: INSULIN ASPART PER UNIT CHARGE SC SCH ×2 (18:15→20:10)
[2023-04-06] MEDS: LANTUS PER UNIT CHARGE SQ SCH (20:10)
[2023-04-06] MEDS: ENOXAPARIN INJ 40 MG/0.4 ML SYR SQ SCH (20:14)
[2023-04-06] MEDS ORDERED: INSULIN ASPART PER UNIT CHARGE SC SCH (21:00)
[2023-04-07] MEDS: ONDANSETRON INJ 2 MG/ML 2 ML VIAL IV PRN ×4 (00:32→22:31)
[2023-04-07] MEDS: DEXTROSE 50% 50 ML SYRINGE IV PRN ×2 (00:55→23:11)
[2023-04-07] MEDS: PROMETHAZINE HCL 12.5 MG in SODIUM CHLORIDE 0.9% 50 ML IV PRN ×3 (04:11→19:54)
[2023-04-07 06:14] LABS: Hematocrit (blood only) 43.2 % (42.0-52.0); Mean Corpuscular Hemoglobin 30.9 pg (25.0-34.0); Mean Corpuscular Hgb Conc 34.7 g/dL (32.0-36.0); Mean Corpuscular Volume 88.9 fL (80.0-100.0); Mean Platelet Volume 9.4 fL (9.4-12.4); Platelet Count 264 K/uL (130-400); RDW Standard Deviation 42.5 fL (36.4-46.3); Red Blood Count 4.86 M/uL (4.70-6.10); White Blood Count 12.31 K/ul (4.8-10.8)
[2023-04-07] MEDS: INSULIN ASPART PER UNIT CHARGE SC SCH ×5 (07:15→23:37)
[2023-04-07] MEDS: PANTOprazole 40 MG in SYRINGE 0 ML IV SCH ×2 (08:04→19:54)
[2023-04-07] MEDS: FAMOTIDINE 20 MG in SYRINGE 3 ML IV SCH ×2 (08:04→20:14)
[2023-04-07] MEDS: SUCRALFATE 1 GM/10 ML UDC PO SCH ×4 (08:11→19:54)
[2023-04-07] MEDS: LANTUS PER UNIT CHARGE SQ SCH ×2 (08:24→23:38)
--- NOTE | 2023-04-07 08:39 | XRay Report ---
XR chest 1V portable CLINICAL HISTORY: eval for covid pneumonia COMPARISON STUDY: Chest radiograph April 03, 2023. FINDINGS: Lung volumes are normal. Lungs are clear. There is no pneumothorax or pleural effusion. Car diac size is normal. Mediastinal contours are normal. There is no evidence for pulmonary edema. IMPRESSION: No acute cardiopulmonary findings. ACT 112: Negative or not required by law. Electronically signed by: William Muñoz M.D. 04/07/2023 8:38 AM
[2023-04-07] MEDS ORDERED: PROCHLORPERAZINE 5 MG in SYRINGE 4 ML IV ONE (09:59)
[2023-04-07] MEDS: SODIUM CHLORIDE 0.9% 1,000 ML IV SCH ×2 (10:41→19:55)
[2023-04-07] MEDS ORDERED: CIPROFLOXACIN / D5W 400 MG/200 ML BAG IV SCH (11:00)
[2023-04-07] MEDS ORDERED: OPTIRAY 320 500ml IV ONE (11:30)
[2023-04-07] MEDS: metroNIDAZOLE 500 MG/100 ML BAG IV SCH ×2 (11:44→18:18)
--- NOTE | 2023-04-07 12:02 | CT Scan Report ---
CT SCAN OF THE ABDOMEN AND PELVIS WITH IV CONTRAST CLINICAL HISTORY: Nausea and vomiting. Generalized abdominal pain. COMPARISON STUDY: Abdominal CT dated 04/03/2023. TECHNIQUE: Following the IV administration of 95 cc of Optiray 320, CT scan of the abdomen and pelvi s is performed from the lung bases to the proximal femora. Images are reviewed in the axial, sagittal , and coronal planes. IV contrast was administered without complication. A dose lowering technique wa s utilized adhering to the principles of ALARA. CT DOSE: 386.29 mGy.cm FINDINGS: Lung bases: The heart is normal in size and without pericardial effusion. There is advanced coronary artery atherosclerosis. Secretions/debris fill the lower lobe airways. There are trace pleural effusi ons with dependent atelectasis. Patchy airspace consolidation is seen in the left lower lobe. A small hiatal hernia is noted. Liver: The contrast-enhanced liver is normal in size, contour, and attenuation. There is no intrahepa tic biliary ductal dilatation. The hepatic veins and portal veins are patent. Gallbladder: Unremarkable. Spleen: Normal in size and attenuation. Pancreas: Unremarkable. Adrenal glands: Unremarkable. Kidneys: The contrast enhanced kidneys are normal in size and without hydronephrosis. The kidneys enh ance symmetrically. There is an accessory left renal vein which drains to the left iliac vein. There are at least 4 nonobstructing right renal calculi which measure up to 8 mm. A 3 mm nonobstructing sydnee culus is seen in the left kidney. Abdominal vasculature: The abdominal aorta is normal in course and caliber note mild to moderate age advanced atherosclerotic calcification. Bowel: The wall of the distal stomach appears thickened and edematous. There is mild perigastric infi ltration. No bowel obstruction is seen. The appendix is well-visualized and normal. Peritoneum: There is moderate mesenteric edema. Trace free fluid seen in the pelvis. No intraperitone al free air is identified. Lymphadenopathy: None. Pelvic viscera: The bladder is distended and appears thick-walled with mild surrounding inflammation. The prostate and seminal vesicles are normal as visualized. There is trace free fluid in the pelvis. Skeletal structures: No lytic or blastic lesions are seen. IMPRESSION: 1. Fluid/debris fills the lower lobe airways. There are trace pleural effusions, and patchy airspace consolidation is seen in the left lower lobe. These findings likely represent aspiration pneumonia. C orrelate clinically. 2. There is a small hiatal hernia. The distal stomach appears thick walled and edematous, and there i s mild diffuse perigastric infiltration. Correlate clinically for evidence of gastritis or possibly u lcer disease. If warranted this could be further assessed with endoscopy. 3. The bladder is distended and appears thick-walled with pericystic infiltration. Correlate with cli nical findings and urinalysis. 4. There is age-advanced atherosclerotic calcification of the abdominal aorta and coronary arteries. 5. There is mild mesenteric edema and a small volume of pelvic ascites. 6. Bilateral nephrolithiasis. 7. Additional findings as above. ACT 112: Negative or not required by law. Electronically signed by: Rafael Arango M.D. 04/07/2023 12:01 PM
[2023-04-07] MEDS: REMDESIVIR 100 MG in SODIUM CHLORIDE 0.9% 230 ML IV SCH (12:50)
[2023-04-07] MEDS: CEFEPIME 2,000 MG in SYRINGE 0 ML IV SCH ×2 (13:05→20:14)
--- NOTE | 2023-04-07 15:47 | Hospitalist Progress Note ---
Date of Service April 07, 2023 Assessment & Plan (1) Esophagitis: Plan: Patient be on clear liquid diet advanace as tolerated Antiemetics continue intractable nausea and vomiting, since recurred early DKA treated with ssi and basal insulin, IV fluid with potassium resolved diabetic gastroparesis plays a role along with covid and esophagitis seen on initial CT plus on repeat CT the distal stomach appears thick walled and edematous, and there is mild diffuse perigastric infiltration. will get GI consult previously has seen [facility] Adding sucralfate considering adding metoclopramide In the past his abdominal pain has required parenteral opiate therapy, continues to require now . 2018 did have lester colitis treated with antibiotics (2) Lab test positive for detection of COVID-19 virus: Plan: COVID test positivity unclear whether this has anything to do is his GI complaints that she has endorgan damage from his diabetes with likely gastroparesis pt now with cough and extreme fatigue offered remdesivir and agrees (3) Aspiration pneumonia: Plan: aspiraiton pneumonia seen on CT imaging, slight acute respiratory failure with hypoxia started on CEfepime and metronidazole to cover gram negatives and anaerobes (poor dentition) (4) Type 1 diabetes: Plan: Typically insulin pump , acidosis resolved will return to his home pump will 04/04/2023 it fell off 04/06 replaced but stopped working resumed basal bolus insulin 04/07/23 Patient with endorgan damage from diabetes including previous retinitis, chronic kidney disease stage III, and peripheral diabetic neuropathy Plan lovneox for covd /dvt prevention Admission and Anticipated Discharge Date Admission Date: April 03, 2023 Subjective Patient is significant pain issues recurrent nausea and vomiting. This is challenging as he does have gastroparesis imaging continues to show some esophageal and sathish gastric inflamation also concern for some aspiration pneumonia on top of his covid diagnosis Continue supportive care with anti emetics, starting ivf, initiating antibiotics and GI consult for advice on imaging Physical Exam Physical Exam: Awake alert appropriate. Card exam is regular Lungs are diminished at bases with rhonchi Abdomen continues to be mostly tender in the central abdomen Results & Data Results & Data Vital Signs (Past 12 Hours) Vital Signs Temp Pulse Pulse Resp BP Pulse Ox O2 Del Method 04/07/23 15:28 101 H 04/07/23 12:55 99.7 F H 92 H 18 151/84 H 91 Room Air 04/07/23 07:51 98.4 F 83 17 140/84 91 Room Air Laboratory Results reviewed cbc reviewed poc glucoses PG Care Time/CCT Total # of Minutes Spent Total Time Spent with Patient: Total time spent is greater than 50% in coordination of care (as documented) at patient's floor/unit and/or counseling patient: Coding Level of Care Code 10229 SUB INP/OBS CARE 3/50MIN Diagnoses Esophagitis K20.90 Lab test positive for detection of COVID-19 virus U07.1 Aspiration pneumonia J69.0 Type 1 diabetes E10.9
[2023-04-07] MEDS ORDERED: ACETAMINOPHEN 500 MG TAB PO PRN (18:34)
[2023-04-07] MEDS: guaiFENesin 600 MG TABCR PO SCH (19:58)
[2023-04-07] MEDS: ENOXAPARIN INJ 40 MG/0.4 ML SYR SQ SCH (20:09)
[2023-04-08] MEDS: PROMETHAZINE HCL 12.5 MG in SODIUM CHLORIDE 0.9% 50 ML IV PRN ×2 (01:12→08:14)
[2023-04-08] MEDS: metroNIDAZOLE 500 MG/100 ML BAG IV SCH ×3 (02:51→18:39)
[2023-04-08] MEDS: ONDANSETRON INJ 2 MG/ML 2 ML VIAL IV PRN ×2 (04:02→17:49)
[2023-04-08] MEDS: CEFEPIME 2,000 MG in SYRINGE 0 ML IV SCH ×3 (05:36→20:53)
[2023-04-08] MEDS: SODIUM CHLORIDE 0.9% 1,000 ML IV SCH (05:36)
[2023-04-08] MEDS: INSULIN ASPART PER UNIT CHARGE SC SCH ×4 (08:14→20:52)
[2023-04-08] MEDS: SUCRALFATE 1 GM/10 ML UDC PO SCH ×4 (08:18→20:32)
[2023-04-08] MEDS: FAMOTIDINE 20 MG in SYRINGE 3 ML IV SCH ×2 (08:18→20:53)
[2023-04-08] MEDS: PANTOprazole 40 MG in SYRINGE 0 ML IV SCH ×2 (08:18→20:33)
[2023-04-08] MEDS: LANTUS PER UNIT CHARGE SQ SCH ×2 (08:18→20:53)
[2023-04-08] MEDS: guaiFENesin 600 MG TABCR PO SCH ×2 (08:19→20:32)
[2023-04-08] MEDS ORDERED: FOSAPREPITANT DIMEGLUMINE 115 MG in 0.9 % SODIUM CHLORIDE 111.1667 ML IV ONE (11:00)
--- NOTE | 2023-04-08 11:42 | Gastrointestinal Consultation ---
Date of Consultation April 08, 2023 Assessment & Plan (1) Lab test positive for detection of COVID-19 virus: (2) Abdominal pain: (3) Nausea & vomiting: Pt is a 42 yo male w hx of DM I, gastroparesis, marijuana use, presented w n/v, abd pain symptoms. Found to have be COVID positive. CT abd/pelvis showed signs of possible esophagitis and gastric wall thickening, edema. DDX gastritis, PUD. - Emend 115mg IV x 1 dose - Protonix 40mg IV BID - Carafate 1g QID - CL diet, advance as tolerated - COVID isolation protocol - Advised cessation of marijuana use - Plan for EGD eval in OP setting History of Present Illness Reason for Consultation: Perigastric inflammation on CT Requesting Physician: Dr. Mahesh Sheikh Attending Physician: Dr. Dany Daugherty History of Present Illness Pt is a 42 yo male w DM I, gastroparesis, marijuana user who was admitted with intractable nausea, vomiting and generalized abd pain symptoms. He did report cofffee ground emesis but no melena and blood ct been normal. He was found to be COVID +. CT abd/pelvis done on 04/03 and 04/07 showed signs of distal esophageal wall thickening favoring esophagitis. Distal stomach thick walled and edematous with mild diffuse perigastric infiltration ? gastritis vs PUD. He has been on Protonix 40mg IV BID, Carafate 1g QID, tried on several antiemetics including Zofran, Phenergan and Compazine, however still reports nausea not well managed. Not eating meals, just sipping ice chips. Last EGD in 2013 - esophagitis, gastritis. Allergies Allergy/AdvReac Type Severity Reaction Status Date / Time clindamycin Allergy Unknown Unknown Verified 04/05/23 22:08 Penicillins Allergy Unknown Swelling Verified 04/03/23 16:28 and hives (per pt's mother) Sulfa (Sulfonamide Allergy Unknown Unknown Verified 04/03/23 16:28 Antibiotics) bupropion [From Wellbutrin] AdvReac Unknown Unknown Verified 04/03/23 16:28 metoclopramide [From Reglan] AdvReac Unknown Unknown Verified 04/03/23 16:28 varenicline [From Chantix] AdvReac Unknown Unknown Verified 04/03/23 16:28 nicotine [From Nicoderm CQ] AdvReac Unknown Verified 04/03/23 16:28 Home Medications Medication Instructions Recorded Confirmed Type ondansetron 4 mg disintegrating 4 mg PO Q8H 07/23/21 04/03/23 History tablet polyethylene glycol 3350 17 17 g PO DAILY PRN constipation 07/23/21 04/03/23 History gram/dose oral powder promethazine 25 mg tablet 25 mg PO Q6H PRN Nausea 07/23/21 04/03/23 History subcutaneous insulin pump 07/23/21 04/03/23 History insulin aspart U-100 100 unit/mL 0 unit subcut DAILY 06/03/22 04/03/23 History subcutaneous solution (Novolog U-100 Insulin aspart) glucagon 1 mg/0.2 mL subcutaneous 1 mg (0.2 mL) subcut .COMPLEX #0.4 06/07/22 04/03/23 Rx auto-injector (Gvoke HypoPen mL 1-Pack) Medical Marijuana 1 dose inhalation DIRECTED PRN 04/03/23 04/03/23 History Pain rosuvastatin 5 mg tablet 5 mg PO DAILY 04/03/23 04/03/23 History Patient History Medical History (Updated 04/07/23 @ 15:44 by Mahesh Sheikh MD) Left against medical advice Marijuana use Coffee ground emesis GERD (gastroesophageal reflux disease) Kidney stones History of kidney stones Arthritis History of seizure r/t hypoglycemia (2+ years ago) ADHD Loss of protective sensation of skin of foot Diabetic peripheral neuropathy associated with type 1 diabetes mellitus Proliferative diabetic retinopathy associated with type 1 diabetes mellitus Degenerative joint disease of ankle, left Tobacco abuse Gastroparesis due to DM Surgical History History of lithotripsy History of ankle surgery Left x3 History of tooth extraction PONV (postoperative nausea and vomiting) H/O laser photocoagulation of retina Hx of inguinal herniorrhaphy History of wisdom tooth extraction H/O esophagogastroduodenoscopy Family History Brother T1DM (type 1 diabetes mellitus) Uncle Family history of esophageal ulcer Father Myocardial infarction Heart disease Stroke Mother Deep vein thrombosis Social History Smoking Status: Current every day smoker Tobacco Type: Cigarettes and E-cigarettes / Vaping Cigarettes Per Day: 2; Second Hand Exposure: Yes; Do You Dip or Chew Tobacco: No; Hx Alcohol Use: No Hx Substance Use: Yes Last Used Substance: Hours (ago) Last Used Substance Other:: last evening 06/19/21 Substance Use Type Other:: Medical marijuana Preferred Language: Montserratian Communication Ability: Effective Hearing Ability: Normal Shoe Stock Associate Required: No Beliefs That Will Affect Care: None Current Living Situation: Spouse Current Living Situation Comment: home w/ spouse Feels Safe at Home: Yes Assistive Devices: None Review of Systems Review of Systems: All systems reviewed & are unremarkable except as noted in HPI & below Physical Exam Constitutional: WD/WN, vitals as above + thin, well groomed, cooperative and comfortable Eyes: PERRL, conjunctivae normal, anicteric sclerae ENMT: external ear and nose normal, oropharynx normal Respiratory: normal respiratory effort, lungs clear to auscultation Cardiovascular: RRR, no murmur, no edema Gastrointestinal (Abdomen): normal bowel sounds, soft, nontender, no hepatosplenomegaly Skin: no rashes, warm and dry no jaundice Psychiatric: A+Ox3, euthymic affect Lymphatic: no lymphedema Results & Data Vital Signs (Past 12 Hours) Vital Signs Temp Pulse Resp BP Pulse Ox O2 Del Method O2 Flow Rate 04/08/23 04:00 36.7 C 84 22 155/83 H 91 Nasal Cannula 3
[2023-04-08] MEDS: REMDESIVIR 100 MG in SODIUM CHLORIDE 0.9% 230 ML IV SCH (13:00)
--- NOTE | 2023-04-08 18:40 | Hospitalist Progress Note ---
Date of Service April 08, 2023 Assessment & Plan (1) Esophagitis: Plan: Intractable nausea and vomitingappears to be acute viral illness (COVID) superimposed on baseline gastroparesis. Likely has not only esophagitis but some degree of PUDcontinue aggressive acid suppression and Carafate. Will need to try to coordinate his scopeideally given the complexity of his situation and difficulty getting to scope, possibly GI could simply do this as an inpatient if COVID rules allow, if not we will need to try to facilitate getting him set up for an outpatient scope that is able to meet the needs of his complexity, and that he is able to get to. Emend seems to have helped with nausea somewould need to ask GI given that this is not an antiemetic we use that often, but it appears we could probably redosed tomorrow at a lower dose if needed. Encouraged gentle attempted p.o. intake (applesauce) (2) Lab test positive for detection of COVID-19 virus: Plan: Seems most likely that COVID led to acute exacerbation of his chronic GI symptoms leading to his admission. (3) Aspiration pneumonia: Plan: aspiration pneumonia seen on CT imaging, slight acute respiratory failure with hypoxia was started on CEfepime and metronidazole to cover gram negatives and anaerobes (poor dentition) (4) Type 1 diabetes: Plan: sugars acceptablecontinue insulin management Plan lovneox for covid /dvt prevention Admission and Anticipated Discharge Date Admission Date: April 03, 2023 Subjective Chronic nausea notes that its fairly well-managed with Phenergan twice daily. Acute nausea just started maybe a day or so prior to admission way worse than his normal. Emend seems to have helped some. Will try eating some applesauce. GI input appreciated. Patient himself notes that he has been trying to get an EGD set up for a while, relates some sort of insurance issues precluding him from seeing [employer]er locally, [place] wanting him to have the scope at [place], and the travel to and from being preclusive for him to be able to get there. Review of Systems Review of Systems: All systems reviewed & are unremarkable except as noted in HPI & below Physical Exam Physical Exam: Awake and alert fatigued. Breathing unlabored no accessory muscle use good effort. Abdomen is soft he does have epigastric tenderness moderatebut no guarding rebound or rigidity. Results & Data Results & Data Vital Signs (Past 12 Hours) Vital Signs Temp Pulse Pulse Resp BP Pulse Ox O2 Del Method 04/08/23 16:55 98.4 F 87 18 139/71 97 Nasal Cannula 04/08/23 16:00 83 04/08/23 12:00 98.1 F 74 20 149/63 H 93 Nasal Cannula 04/08/23 08:00 78 04/08/23 08:00 Nasal Cannula 04/08/23 07:00 97.9 F 77 18 139/85 95 Nasal Cannula O2 Flow Rate 04/08/23 16:55 3 04/08/23 16:00 04/08/23 12:00 3 04/08/23 08:00 04/08/23 08:00 3 04/08/23 07:00 3 PG Care Time/CCT Total # of Minutes Spent Total Time Spent with Patient: Total time spent is greater than 50% in coordination of care (as documented) at patient's floor/unit and/or counseling patient: Coding Level of Care Code 53940 SUB INP/OBS CARE 3/50MIN Diagnoses Esophagitis K20.90 Lab test positive for detection of COVID-19 virus U07.1 Aspiration pneumonia J69.0 Type 1 diabetes E10.9
[2023-04-08] MEDS: LACTATED RINGER'S 1,000 ML IV SCH (18:43)
[2023-04-08] MEDS: ENOXAPARIN INJ 40 MG/0.4 ML SYR SQ SCH (20:26)
[2023-04-09] MEDS: HYDROmorphone INJ 1 MG/ML SYRINGE IV PRN (00:27)
[2023-04-09] MEDS: LACTATED RINGER'S 1,000 ML IV SCH ×3 (03:24→20:00)
[2023-04-09] MEDS: metroNIDAZOLE 500 MG/100 ML BAG IV SCH ×3 (03:24→18:18)
[2023-04-09] MEDS: PROMETHAZINE HCL 12.5 MG in SODIUM CHLORIDE 0.9% 50 ML IV PRN ×2 (03:35→12:49)
[2023-04-09] MEDS: CEFEPIME 2,000 MG in SYRINGE 0 ML IV SCH ×3 (05:08→21:55)
[2023-04-09] MEDS: ONDANSETRON INJ 2 MG/ML 2 ML VIAL IV PRN (05:08)
[2023-04-09 06:34] LABS: Basophils # (auto) 0.04 K/uL (0.00-0.20); Basophils % (auto) 0.3 %; Eosinophils # (auto) 0.14 K/uL (0.00-0.50); Eosinophils % (auto) 1.2 %; Hematocrit (blood only) 41.9 % (42.0-52.0); Immature Granulocytes # (auto) 0.06 K/uL (0.01-0.20); Immature Granulocytes % (auto) 0.5 %; Lymphocytes # (auto) 2.21 K/uL (1.20-3.40); Lymphocytes % (auto) 19.2 %; Mean Corpuscular Hemoglobin 31.3 pg (25.0-34.0); Mean Corpuscular Hgb Conc 35.8 g/dL (32.0-36.0); Mean Corpuscular Volume 87.5 fL (80.0-100.0); Mean Platelet Volume 9.7 fL (9.4-12.4); Monocytes % (auto) 8.7 %; Neutrophils # (auto) 8.06 K/uL (1.40-6.50); Neutrophils % (auto) 70.1 %; Platelet Count 209 K/uL (130-400); RDW Coefficient of Variation 13.2 % (11.5-14.5); Red Blood Count 4.79 M/uL (4.70-6.10); White Blood Count 11.51 K/ul (4.8-10.8)
[2023-04-09 06:54] LABS: BUN Creatinine Ratio 17.9 (10-20); Calcium 7.9 mg/dl (8.6-10.3); Creatinine Clr Calc Pharmacy 126.2 ml/min; Est GFR (African American) 139.3 ml/min; Est GFR (Non-African American) 120.2 ml/min
[2023-04-09] MEDS: INSULIN ASPART PER UNIT CHARGE SC SCH ×4 (08:08→20:50)
[2023-04-09] MEDS: SUCRALFATE 1 GM/10 ML UDC PO SCH ×4 (08:30→21:01)
[2023-04-09] MEDS: guaiFENesin 600 MG TABCR PO SCH ×2 (09:30→21:06)
[2023-04-09] MEDS: FAMOTIDINE 20 MG in SYRINGE 3 ML IV SCH (09:30)
[2023-04-09] MEDS: PANTOprazole 40 MG in SYRINGE 0 ML IV SCH (09:31)
[2023-04-09] MEDS: REMDESIVIR 100 MG in SODIUM CHLORIDE 0.9% 230 ML IV SCH (12:44)
[2023-04-09] MEDS: POTASSIUM CHLORIDE / WTR 10 MEQ/100 ML PLCT IV SCH ×4 (13:37→17:09)
[2023-04-09] MEDS: ERYTHROMYCIN ETHYLSUCC SUSP 200 MG/5 ML 100 ML BTL PO SCH (17:10)
--- NOTE | 2023-04-09 18:52 | Hospitalist Progress Note ---
Date of Service April 09, 2023 Assessment & Plan (1) Esophagitis: Plan: Intractable nausea and vomitingappears to be acute viral illness (COVID) superimposed on baseline gastroparesis. Likely has not only esophagitis but some degree of PUDcontinue aggressive acid suppression and Carafate. Will need to try to coordinate his scopeideally given the complexity of his situation and difficulty getting to scope, possibly GI could simply do this as an inpatient if COVID rules allow, if not we will need to try to facilitate getting him set up for an outpatient scope that is able to meet the needs of his complexity, and that he is able to get to. Emend seems to have helped with nausea some However this is an expensive medication and is not typically used for gastroparesis. Will try more typical medications and will resume erythromycine, switch promethazine for diphendyradmine and add prochlorperazine. Patient has followed with [facility] during this admission, however [facility] is his outpatient GI will reach out to them tomorrow given his complicated hosptialt stay due to low oral intake and difficulty imprving with conservative management. (2) Lab test positive for detection of COVID-19 virus: Plan: Seems most likely that COVID led to acute exacerbation of his chronic GI symptoms leading to his admission. (3) Aspiration pneumonia: Plan: aspiration pneumonia seen on CT imaging, slight acute respiratory failure with hypoxia was started on CEfepime and metronidazole to cover gram negatives and anaerobes (poor dentition) (4) Type 1 diabetes: Plan: sugars acceptablecontinue insulin management Plan lovneox for covid /dvt prevention Admission and Anticipated Discharge Date Admission Date: April 03, 2023 Subjective Patient reports feeling much better after taking one dose of Emend. Patient reports he has taken multiple medications in he past for his gastroparesis. He cannot take reglan due to a tic. He has taken erythomycin (stopped years ago), promethazine, with no significant improvement. Due to insurance issues, he reports he follows with [facility] GI and no longer with [facility]. Review of Systems Review of Systems: All systems reviewed & are unremarkable except as noted in HPI & below Physical Exam Physical Exam: Awake and alert fatigued. Breathing unlabored no accessory muscle use good effort. Abdomen is soft he does have epigastric tenderness moderatebut no guarding rebound or rigidity. Results & Data Results & Data Vital Signs (Past 12 Hours) Vital Signs Temp Pulse Pulse Resp BP BP Pulse Ox 04/09/23 17:14 36.9 C 83 16 142/85 H 96 04/09/23 14:55 69 04/09/23 11:43 36.7 C 74 17 133/69 94 04/09/23 08:00 04/09/23 08:00 65 04/09/23 07:49 36.8 C 72 16 118/65 97 O2 Del Method 04/09/23 17:14 Room Air 04/09/23 14:55 04/09/23 11:43 Room Air 04/09/23 08:00 Room Air 04/09/23 08:00 04/09/23 07:49 Room Air PG Care Time/CCT Total # of Minutes Spent Total Time Spent with Patient: Total time spent is greater than 50% in coordination of care (as documented) at patient's floor/unit and/or counseling patient: Coding Level of Care Code 73823 SUB INP/OBS CARE 3/50MIN Diagnoses Esophagitis K20.90 Lab test positive for detection of COVID-19 virus U07.1 Aspiration pneumonia J69.0 Type 1 diabetes E10.9 Time Spent (min) 50
[2023-04-09] MEDS: LANTUS PER UNIT CHARGE SQ SCH (20:49)
[2023-04-09] MEDS: ENOXAPARIN INJ 40 MG/0.4 ML SYR SQ SCH (20:51)
[2023-04-09] MEDS ORDERED: ERYTHROMYCIN ETHYLSUCC SUSP 200 MG/5 ML 100 ML BTL PO SCH (21:00)
[2023-04-09] MEDS: diphenhydrAMINE HCL 25 MG/10 ML UDC PO SCH (21:03)
[2023-04-09] MEDS: PROCHLORPERAZINE MALEATE 5 MG TAB PO SCH (21:05)
[2023-04-09 21:16] LABS: Adenovirus F 40/41 PCR Not Detected (NotDetected); Astrovirus PCR Not Detected (NotDetected); Campylobacter PCR Not Detected (NotDetected); Cryptosporidium PCR Not Detected (NotDetected); Cyclospora cayetanensis PCR Not Detected (NotDetected); Entamoeba histolytica PCR Not Detected (NotDetected); Enteroaggregative E.coli(EAEC) Not Detected (NotDetected); Enteropathogenic E.coli (EPEC) Not Detected (NotDetected); Enterotoxigenic E.coli (ETEC) Not Detected (NotDetected); Giardia lamblia PCR Not Detected (NotDetected); Norovirus GI/GII PCR Not Detected (NotDetected); Plesiomonas shigelloides PCR Not Detected (NotDetected); Rotavirus A PCR Not Detected (NotDetected); Salmonella PCR Not Detected (NotDetected); Sapovirus PCR Not Detected (NotDetected); Shiga-like Toxin E.coli (STEC) Not Detected (NotDetected); Shigella/Enteroinvasive E.coli Not Detected (NotDetected); Vibrio cholerae PCR Not Detected (NotDetected); Vibrio species PCR Not Detected (NotDetected); Yersinia enterocolitica PCR Not Detected (NotDetected)
[2023-04-09] MEDS: PANTOprazole 40 MG TAB PO SCH (22:40)
[2023-04-09] MEDS: FAMOTIDINE 20 MG TAB PO SCH (22:40)
[2023-04-10] MEDS: LACTATED RINGER'S 1,000 ML IV SCH ×3 (03:23→20:35)
[2023-04-10] MEDS: metroNIDAZOLE 500 MG/100 ML BAG IV SCH ×2 (03:35→11:50)
[2023-04-10] MEDS: CEFEPIME 2,000 MG in SYRINGE 0 ML IV SCH ×2 (05:20→12:09)
[2023-04-10] MEDS: PANTOprazole 40 MG in SYRINGE 0 ML IV SCH (07:03)
[2023-04-10] MEDS: FAMOTIDINE 20 MG in SYRINGE 3 ML IV SCH (07:03)
[2023-04-10] MEDS: INSULIN ASPART PER UNIT CHARGE SC SCH ×2 (08:40→11:58)
[2023-04-10] MEDS: diphenhydrAMINE HCL 25 MG/10 ML UDC PO SCH ×3 (08:47→20:26)
[2023-04-10] MEDS: PROCHLORPERAZINE MALEATE 5 MG TAB PO SCH ×3 (08:47→20:30)
[2023-04-10] MEDS: guaiFENesin 600 MG TABCR PO SCH ×2 (08:47→20:28)
[2023-04-10] MEDS: PANTOprazole 40 MG TAB PO SCH ×2 (08:48→20:28)
[2023-04-10] MEDS: FAMOTIDINE 20 MG TAB PO SCH ×2 (08:48→20:27)
[2023-04-10] MEDS: SUCRALFATE 1 GM/10 ML UDC PO SCH ×4 (08:49→20:31)
[2023-04-10] MEDS: ONDANSETRON INJ 2 MG/ML 2 ML VIAL IV PRN ×2 (08:49→16:08)
[2023-04-10] MEDS: ERYTHROMYCIN ETHYLSUCC SUSP 200 MG/5 ML 100 ML BTL PO SCH ×3 (08:52→17:14)
[2023-04-10 10:04] LABS: Hematocrit (blood only) 41.4 % (42.0-52.0); Hemoglobin 14.5 g/dl (14.0-18.0); Mean Corpuscular Hemoglobin 30.5 pg (25.0-34.0); Mean Corpuscular Volume 87.2 fL (80.0-100.0); Mean Platelet Volume 9.9 fL (9.4-12.4); Platelet Count 261 K/uL (130-400); RDW Standard Deviation 41.3 fL (36.4-46.3); Red Blood Count 4.75 M/uL (4.70-6.10); White Blood Count 11.39 K/ul (4.8-10.8)
[2023-04-10 10:24] LABS: BUN Creatinine Ratio 15.6 (10-20); Calcium 7.7 mg/dl (8.6-10.3); Creatinine Clr Calc Pharmacy 107.7 ml/min; Est GFR (African American) 131.6 ml/min; Est GFR (Non-African American) 113.5 ml/min; Magnesium 1.7 mg/dl (1.7-2.4); Potassium 2.9 mmol/L (3.5-5.1)
[2023-04-10 10:47] LABS: Basophils # (auto) 0.07 K/uL (0.00-0.20); Basophils % (auto) 0.6 %; Eosinophils # (auto) 0.31 K/uL (0.00-0.50); Eosinophils % (auto) 2.7 %; Immature Granulocytes # (auto) 0.07 K/uL (0.01-0.20); Immature Granulocytes % (auto) 0.6 %; Lymphocytes # (auto) 2.06 K/uL (1.20-3.40); Lymphocytes % (auto) 18.1 %; Monocytes # (auto) 0.72 K/uL (0.11-0.59); Monocytes % (auto) 6.3 %; Neutrophils # (auto) 8.16 K/uL (1.40-6.50); Neutrophils % (auto) 71.7 %
[2023-04-10] MEDS: REMDESIVIR 100 MG in SODIUM CHLORIDE 0.9% 230 ML IV SCH (12:50)
[2023-04-10] MEDS ORDERED: MEROPENEM 1,000 MG in SYRINGE 0 ML IV SCH (15:30)
[2023-04-10] MEDS ORDERED: POTASSIUM CHLORIDE CRTAB 20 MEQ TABCR PO STA (15:46)
--- NOTE | 2023-04-10 15:49 | Hospitalist Progress Note ---
Date of Service April 10, 2023 Assessment & Plan (1) Esophagitis: Plan: Intractable nausea and vomitingappears to be acute viral illness (COVID) superimposed on baseline gastroparesis. Likely has not only esophagitis but some degree of PUDcontinue aggressive acid suppression and Carafate. Will need to try to coordinate his scopeideally given the complexity of his situation and difficulty getting to scope, possibly GI could simply do this as an inpatient if COVID rules allow, if not we will need to try to facilitate getting him set up for an outpatient scope that is able to meet the needs of his complexity, and that he is able to get to. Emend seems to have helped with nausea some However this is an expensive medication and is not typically used for gastroparesis. Nausea appears better today: will continue erythromycin, diphendyradmine and prochlorperazine. Reached out to [facility] GI, no further recommendations; no consult needed per GI. (2) Lab test positive for detection of COVID-19 virus: Plan: Seems most likely that COVID led to acute exacerbation of his chronic GI symptoms leading to his admission. (3) Aspiration pneumonia: Plan: aspiration pneumonia seen on CT imaging, slight acute respiratory failure with hypoxia was started on CEfepime and metronidazole to cover gram negatives and anaerobes (poor dentition) however, patient refused cefepime on 04/10 as he felt this was worsening nausea. will switch to meropenem. (4) Type 1 diabetes: Plan: sugars acceptablecontinue insulin management Plan lovneox for covid /dvt prevention Admission and Anticipated Discharge Date Admission Date: April 03, 2023 Subjective 42 yo male reports feeling much better today. His nausea is better controlled and he wants to eat fruit. He also reconnected his insulin pump. Patient though shares frustration that he remains in the hospital. Review of Systems Review of Systems: All systems reviewed & are unremarkable except as noted in HPI & below Physical Exam Physical Exam: Awake and alert. Lung: cleared Breathing unlabored no accessory muscle use good effort. Results & Data Results & Data Vital Signs (Past 12 Hours) Vital Signs Temp Pulse Pulse Resp BP BP Pulse Ox 04/10/23 12:03 36.9 C 97 H 16 105/69 97 04/10/23 08:04 36.5 C 88 18 149/77 H 98 04/10/23 07:51 90 O2 Del Method 04/10/23 12:03 Room Air 04/10/23 08:04 Room Air 04/10/23 07:51 PG Care Time/CCT Total # of Minutes Spent Total Time Spent with Patient: Total time spent is greater than 50% in coordination of care (as documented) at patient's floor/unit and/or counseling patient: Coding Level of Care Code 84260 SUB INP/OBS CARE 3/50MIN Diagnoses Esophagitis K20.90 Lab test positive for detection of COVID-19 virus U07.1 Aspiration pneumonia J69.0 Type 1 diabetes E10.9
[2023-04-10] MEDS: MEROPENEM 500 MG in SYRINGE 0 ML IV SCH ×2 (17:14→22:36)
[2023-04-10] MEDS ORDERED: Nursing to Pharmacy Communication SCH (19:15)
[2023-04-10] MEDS: ENOXAPARIN INJ 40 MG/0.4 ML SYR SQ SCH (20:24)
[2023-04-10] MEDS: POTASSIUM CHLORIDE CRTAB 20 MEQ TABCR PO SCH (20:29)
[2023-04-11] MEDS: MEROPENEM 500 MG in SYRINGE 0 ML IV SCH ×2 (04:51→09:50)
[2023-04-11] MEDS: LACTATED RINGER'S 1,000 ML IV SCH ×2 (04:51→13:32)
[2023-04-11 06:09] LABS: Hematocrit (blood only) 38.1 % (42.0-52.0); Hemoglobin 13.4 g/dl (14.0-18.0); Mean Corpuscular Hemoglobin 30.7 pg (25.0-34.0); Mean Corpuscular Hgb Conc 35.2 g/dL (32.0-36.0); Mean Corpuscular Volume 87.2 fL (80.0-100.0); Mean Platelet Volume 9.7 fL (9.4-12.4); Platelet Count 292 K/uL (130-400); RDW Coefficient of Variation 12.9 % (11.5-14.5); RDW Standard Deviation 41.1 fL (36.4-46.3); Red Blood Count 4.37 M/uL (4.70-6.10); White Blood Count 9.85 K/ul (4.8-10.8)
[2023-04-11 06:20] LABS: BUN Creatinine Ratio 10.4 (10-20); Calcium 7.8 mg/dl (8.6-10.3); Creatinine Clr Calc Pharmacy 109.3 ml/min; Est GFR (African American) 131.6 ml/min; Est GFR (Non-African American) 113.5 ml/min; Magnesium 1.7 mg/dl (1.7-2.4); Phosphorus 2.6 mg/dl (2.5-4.9)
[2023-04-11] MEDS: guaiFENesin 600 MG TABCR PO SCH (09:43)
[2023-04-11] MEDS: diphenhydrAMINE HCL 25 MG/10 ML UDC PO SCH ×2 (09:43→12:38)
[2023-04-11] MEDS: FAMOTIDINE 20 MG TAB PO SCH (09:45)
[2023-04-11] MEDS: PROCHLORPERAZINE MALEATE 5 MG TAB PO SCH (09:45)
[2023-04-11] MEDS: PANTOprazole 40 MG TAB PO SCH (09:45)
[2023-04-11] MEDS: SUCRALFATE 1 GM/10 ML UDC PO SCH ×2 (09:46→12:37)
[2023-04-11] MEDS: ERYTHROMYCIN ETHYLSUCC SUSP 200 MG/5 ML 100 ML BTL PO SCH ×2 (09:50→12:37)
[2023-04-11] MEDS: POTASSIUM CHLORIDE CRTAB 20 MEQ TABCR PO SCH (09:50)
[2023-04-11] MEDS ORDERED: INSULIN ASPART 100 UNITS/ML VIAL SC PRN (10:15)
[2023-04-11] MEDS ORDERED: INSULIN, Rapid-Acting PUMP SCH (11:30)
--- NOTE | 2023-04-11 13:19 | Discharge Summary ---
Date of Service April 11, 2023 Admission HPI Per Admitting Provider 43-year-old type I insulin requiring male who presents with intractable nausea and vomiting. Patient typically has medications at home to suggest gastroparesis with chronic Zofran and Phenergan. He also takes medical marijuana. He comes in with generalized abdominal pain had some coffee-ground in his emesis but denies recent melena his most recent admission with similar and he left AGAINST MEDICAL ADVICE. He is found to be COVID-positive in the emergency department he is not hypoxic has no chest x-ray changes. states that she had COVID over the holidays and likely is the source of his COVID illness Currently is not in DKA but does have anion gap around 15, and elevated lactic acid Principal Diagnosis gastroparesis Discharge Exam Const - thin, tattooed Pulm: CTA BL Card: RRR Abd: nondistended, thin but not scaphoid extremities: 2+ DP pulses BL, no signs of erythema/infection overlying toes or f eet Neuro: A&Ox3 Discharge Data Allergies Allergy/AdvReac Type Severity Reaction Status Date / Time clindamycin Allergy Unknown Unknown Verified 04/05/23 22:08 Penicillins Allergy Unknown Swelling Verified 04/03/23 16:28 and hives (per pt's mother) Sulfa (Sulfonamide Allergy Unknown Unknown Verified 04/03/23 16:28 Antibiotics) bupropion [From Wellbutrin] AdvReac Unknown Unknown Verified 04/03/23 16:28 metoclopramide [From Reglan] AdvReac Unknown Unknown Verified 04/03/23 16:28 varenicline [From Chantix] AdvReac Unknown Unknown Verified 04/03/23 16:28 nicotine [From Nicoderm CQ] AdvReac Unknown Verified 04/03/23 16:28 Consultations 04/07/23 12:19 Consult Gastroenterology Routine Ordered Studies 04/03/23 15:51 CT Abd and Pelvis [CT abd pelvis IV con only] Stat 04/07/23 09:59 CT Abd and Pelvis [CT abd pelvis IV con only] Routine Hospital Course (1) Esophagitis: Intractable nausea and vomitingappears to be acute viral illness (COVID) superimposed on baseline gastroparesis. Likely has not only esophagitis but some degree of PUDcontinue aggressive acid suppression and Carafate. Will need to try to coordinate his scopeideally given the complexity of his situation and difficulty getting to scope, possibly GI could simply do this as an inpatient if COVID rules allow, if not we will need to try to facilitate getting him set up for an outpatient scope that is able to meet the needs of his complexity, and that he is able to get to. Emend seems to have helped with nausea some However this is an expensive medication and is not typically used for gastroparesis. Nausea appears better today: will continue erythromycin, diphendyradmine and prochlorperazine. Reached out to [facility] GI, no further recommendations; no consult needed per GI. Discharge instructions noted below. (2) Lab test positive for detection of COVID-19 virus: Seems most likely that COVID led to acute exacerbation of his chronic GI symptoms leading to his admission. (3) Aspiration pneumonia: aspiration pneumonia seen on CT imaging, slight acute respiratory failure with hypoxia was started on CEfepime and metronidazole to cover gram negatives and anaerobes (poor dentition) however, patient refused cefepime on 04/10 as he felt this was worsening nausea. switched to meropenem, and transitioned to moxifloxacin as an outpatient. (4) Type 1 diabetes: sugars acceptablecontinue insulin management Total Time Total Time Spent Total Time Spent (In Minutes): 32 Discharge Plan Discharge Items Patient Disposition: Home - Self-Care Reason For Visit: VOMITING, GI BLEED Discharge Diagnosis: Gastroenteritis, stable blood counts COVID test + Activity: Resume your previous activity Non-emergency contact: Primary Care Provider Call non-emergency contact if: your symptoms worsen Follow-up/Referrals: Tejas Rubin MD [Primary Care Provider] - (Please call to schedule this apt we tried to call and they are closed due to the holiday.) Diet: Carb Consistent or DM2 Addtl Attending Provider Instructions: You have been diagnosed with covid infection, it would be recommended that you quarantine yourself for 10 days from your first test or first symptoms, and if at the 10th day you have no symptoms the you can come off quarantine but use common sense precautions. Quarantine means attempting to stay away from people who have not had an active covid infection in the past, and if you have to be around others to wear a mask even if you are indoors, do not share a room to sleep in with others until you are out of quarantine. If you still have symptoms at the 10th day, continue to quarantine until you are symptom free for 48 hours you would qualify for Paxlovid treatment however many of the side affects include nausea and vomiting and since you already have those symptoms, and do not have any pneumonia I do not think this would be a good medication for you In regards to your nausea, you can either take promethazine or benadryl which is also (diphenhydramine) 12.5 mg. Both are antihistamine. Promethazine causes more drowsiness. It appears the combination of benadyl/prochloperazine/zofran/erythromycin here helped. You can switch the promethazine to benadryl, just do not take both. Also we will order 2 days of moxifloxacin for your aspiration pneumonia. Take one dose tonight and one dose on Tuesday night. Try to limit zofran while on this medication. Recommend followup in 1-2 weeks with PCP. Addtl [employer] Model [employer] Provider Instructions: Please eat a bland diet and keep hydrated with diet drinks, and water if you have uncrontrolled blood glucose or worsen please return to the hospital Pending Studies at Discharge: No Stand-Alone Forms: My [facility] [employer], Smoking Cessation Medications and DC Order Prescriptions: New erythromycin ethylsuccinate [E.E.S. Granules] 200 mg/5 mL Suspension For Reconstitution 50 mg PO TIDM Qty: 100 0RF prochlorperazine maleate 5 mg Tablet 5 mg PO TID PRN (Reason: nausea) Qty: 30 0RF sucralfate 100 mg/mL Suspension 1 g PO ACHS Qty: 112 0RF pantoprazole 40 mg Tablet,Delayed Release (Dr/Ec) 40 mg PO BID Qty: 60 0RF guaifenesin [Mucinex] 600 mg Tablet Extended Release 12hr 1,200 mg PO Q12 Qty: 60 0RF moxifloxacin 400 mg tablet 400 mg PO PM Qty: 2 0RF Continued Gvoke HypoPen 1-Pack 1 mg/0.2 mL auto-injector 1 mg subcut .COMPLEX Qty: 0.4 1RF Rx Instructions: 1 mg subcutaneously as needed for hypoglycemia; (DME) subcutaneous insulin pump Misc See Rx Instructions .Route Rx Instructions: As directed ondansetron 4 mg tablet,disintegrating 4 mg PO Q8H polyethylene glycol 3350 17 gram/dose powder 17 g PO DAILY PRN (Reason: constipation) promethazine 25 mg tablet 25 mg PO Q6H PRN (Reason: Nausea) insulin aspart U-100 [Novolog U-100 Insulin aspart] 100 unit/mL solution 0 unit subcut DAILY Rx Instructions: Pump rosuvastatin 5 mg tablet 5 mg PO DAILY Medical Marijuana 1 dose inhalation DIRECTED PRN (Reason: Pain) Discharge Orders: Discharge Order (Routine); Ordered 04/11/23 Ordered By: Miguel Ángel Stanley/Other Patient Handouts: Managing Type 1 Diabetes, Diabetes: Sick-Day Plan Admission Data Admit Date/Time: 04/03/23 18:27 Attending Provider: Miguel Ángel Cueto Admit Provider: Mahesh Sheikh Primary Care Provider: Tejas Rubin Other Providers: Mckenna Terry Other Interventions: Discharge Summary Assessment (RN) Last Done: 04/11/23 13:24 Coding Level of Care Code 29911 INP/OBS DISCH >30 MIN Diagnoses Esophagitis K20.90 Lab test positive for detection of COVID-19 virus U07.1 Aspiration pneumonia J69.0 Type 1 diabetes E10.9
== END 2023-04-11 15:14 | disposition home or self-care (01) | DRG 73 ==
LOC: ED 14:44 → SUATTDRO 18:27 → EDINP 18:27 → 2E 20:23

== ENCOUNTER 2024-04-02 18:20 | Inpatient (IN) ==
[2024-04-02] MEDS: ONDANSETRON INJ 2 MG/ML 2 ML VIAL IV STA (18:41)
[2024-04-02 18:54] LABS: Hematocrit (blood only) 39.7 % (42.0-52.0); Hemoglobin 14.2 g/dl (14.0-18.0); Mean Corpuscular Hemoglobin 30.9 pg (25.0-34.0); Mean Corpuscular Hgb Conc 35.8 g/dL (32.0-36.0); Mean Corpuscular Volume 86.3 fL (80.0-100.0); Mean Platelet Volume 9.2 fL (9.4-12.4); Platelet Count 297 K/uL (130-400); RDW Coefficient of Variation 13.3 % (11.5-14.5); RDW Standard Deviation 42.2 fL (36.4-46.3); White Blood Count 26.65 K/ul (4.8-10.8)
[2024-04-02] MEDS: PROCHLORPERAZINE 2 ML IV ONE (18:54)
[2024-04-02 19:10] LABS: Basophils # (auto) 0.22 K/uL (0.00-0.20); Basophils % (auto) 0.8 %; Eosinophils # (auto) 0.18 K/uL (0.00-0.50); Eosinophils % (auto) 0.7 %; Immature Granulocytes # (auto) 0.22 K/uL (0.01-0.20); Immature Granulocytes % (auto) 0.8 %; Lymphocytes # (auto) 2.06 K/uL (1.20-3.40); Lymphocytes % (auto) 7.7 %; Monocytes % (auto) 7.5 %; Neutrophils # (auto) 21.97 K/uL (1.40-6.50); Neutrophils % (auto) 82.5 %; RBC Morphology Unremarkable
[2024-04-02 19:12] LABS: iSTAT Hemoglobin 14.6 g/dl (14.0-18.0); iSTAT Ionized Calcium 1.05 mmol/l (1.12-1.32); iSTAT Potassium 3.9 mmol/L (3.3-5.0)
--- NOTE | 2024-04-02 19:19 | Emergency Department Note ---
Impression & Plan Gastritis, Intractable nausea and vomiting, Esophagitis, Gastroparesis, Marijuana use, Coffee ground emesis, Type 1 diabetes, Leukocytosis ED Provider Note NAME: MELISSA FIGUEROA AGE: 43 SEX: M : 1980 ARRIVES VIA: Ambulance INFORMANT: Patient ED PROVIDER(S): Cory Lynch MD CHIEF COMPLAINT: Nausea, vomiting, abdominal pain PLAN: Disposition: Admit MEDICAL DECISION MAKING: The patient is a 43-year-old gentleman with a past medical history of type 1 diabetes managed with insulin pump, gastroparesis, gastritis/esophagitis, marijuana use, who presents to the emergency department via EMS for evaluation of acute onset of intractable nausea and vomiting that began at 1600 this afternoon. Patient reports that he was feeling healthy this morning prior to onset of symptoms. He reports having been admitted to this facility a year ago for similar flare of symptoms which he understands was attributed to "infection in his stomach". The patient does acknowledge that he has had flares of persistent nausea and vomiting since then but did not require visit to the emergency department. He denies having been suggested that his symptoms may be related to his cannabis/medical marijuana which he uses daily. Patient denies any cough, congestion, diarrhea or constipation. He denies any bloody or black stool. He reports his emesis began appearing more like his recent meal and then developed into coffee ground like emesis subsequently. He denies being on anticoagulation. He does report smoking history. He denies regular alcohol use. He denies any drug use other than his medical marijuana. On evaluation the patient is uncomfortable appearing, afebrile with heart rate in the 110s and blood pressure 150s/70s. Appears clinically dry. Abdomen is nondistended. There is no tenderness to light touch but patient refuses deeper palpation. There is no crepitus on palpation of the neck or chest. EKG without overt acute ischemia. CXR with chronic bronchial wall and interstitial thickening and otherwise negative for acute cardiopulmonary process. WBC 20 6.6K with neutrophilia and slight left shift. Hemoglobin within normal limits. Platelets within normal limits. INR is 1.1, within normal limits. Chemistry without significant metabolic acidosis with bicarbonate of 22. VBG is without acidemia and so DKA is not present at this time. Glucose was 268. LFTs are unremarkable. High-sensitivity troponin 4.5, within normal limits. Lipase is not elevated. Procalcitonin is not elevated. UA without evidence of infection. Respiratory BioFire was negative. Lungs better characterized on CT of the chest which demonstrates emphysema and mild basilar interstitial thickening. There is no consolidation. A small hiatal hernia is described. CT of the pelvis demonstrates evidence of gastritis. Description of diffuse edematous mucosal thickening throughout the colon is noted which may suggest pancolitis though does not correlate as patient does not have diarrhea. Patient was treated with 2 L of normal saline, IV famotidine, IV Protonix bolus and drip as well as numerous medications for nausea and vomiting, including topical capsaicin, with some improvement in symptoms but still with nausea and intermittent coffee-ground emesis. Findings were reviewed with the patient and he does agree with plan for admission for further management. Given normal procalcitonin and no clear evidence of pneumonia leukocytosis likely reactive in the setting of intractable vomiting. [facility] the [facility] for [facility]. Further management per admitting team. Triage Nursing notes reviewed and agree them. Prior/external medical records reviewed Vital Signs: reviewed Differential diagnosis: Gastroenteritis, food borne illness, infections, appendicitis, diverticulitis, inflammatory bowel disease, obstruction, GI bleed, biliary pathology, volvulus, as well as other pathologies. ER treatment provided: See below. Diagnostics interpreted by me: ECG: Sinus tachycardia, 112 bpm, no ectopy, no overt ST ovation or depression, QTc 444, QRS 76. Cardiac Monitoring: An order for continuous cardiac monitoring was placed and demonstrated Sinus tachycardia, 112 bpm, no ectopy. Laboratory studies: See below Imaging studies: See below Consultation(s): [facility] the patient for admission. HPI: The patient is a 43-year-old gentleman with a past medical history of type 1 diabetes managed with insulin pump, gastroparesis, gastritis/esophagitis, marijuana use, who presents to the emergency department via EMS for evaluation of acute onset of intractable nausea and vomiting that began at 1600 this afternoon. Patient reports that he was feeling healthy this morning prior to onset of symptoms. He reports having been admitted to this facility a year ago for similar flare of symptoms which he understands was attributed to "infection in his stomach". The patient does acknowledge that he has had flares of persistent nausea and vomiting since then but did not require visit to the emergency department. He denies having been suggested that his symptoms may be related to his cannabis/medical marijuana which he uses daily. Patient denies any cough, congestion, diarrhea or constipation. He denies any bloody or black stool. He reports his emesis began appearing more like his recent meal and then developed into coffee ground like emesis subsequently. He denies being on anticoagulation. He does report smoking history. He denies regular alcohol use. He denies any drug use other than his medical marijuana. ROS: See above HPI for pertinent positives & negatives. A total of 10 systems reviewed and were otherwise negative. VITALS:See Below PHYSICAL EXAMINATION: GENERAL: Awake, alert, uncomfortable-appearing, in no distress HENT: Normocephalic, atraumatic. Oropharynx with dry mucous membranes and otherwise unremarkable. EYES: Normal conjunctiva. Sclera non-icteric. NECK: Supple. No nuchal rigidity. FROM. No JVD. No crepitus. RESPIRATORY: Clear to auscultation. CARDIAC: Tachycardic rate, normal rhythm. Extremities warm and well perfused. Pulses equal. ABDOMEN: Soft, non-distended. No tenderness to light touch. Patient refuses deep palpation. MUSCULOSKELETAL: Chest examination reveals no tenderness. No crepitus. The back is symmetrical on inspection without obvious abnormality. There is no CVA tenderness to palpation. No joint edema. LOWER EXTREMITIES: Calves are equal size bilaterally and non-tender. No edema. No discoloration. NEURO: Normal sensorium. No sensory or motor deficits noted. SKIN: No rash or jaundice noted. Cory Lynch MD Past Med/Surg History Problem List (Updated 04/03/24 @ 04:33 by Cory Lynch MD) Leukocytosis (Acute) Gastritis (Acute) Intractable nausea and vomiting (Acute) Aspiration pneumonia Lab test positive for detection of COVID-19 virus Type 1 diabetes (Acute) COVID-19 (Acute) Coffee ground emesis (Acute) Abdominal pain (Acute) Esophagitis (Acute) Nausea & vomiting (Acute) Proliferative diabetic retinopathy associated with type 1 diabetes mellitus Tobacco abuse Diabetic peripheral neuropathy associated with type 1 diabetes mellitus Diabetes mellitus type 1, controlled, insulin dependent Left against medical advice Nausea and vomiting (Acute) Hyperglycemic crisis in diabetes mellitus Marijuana use (Acute) Nephrolithiasis Gastroparesis (Chronic) Esophagitis (Acute) Hyperglycemia due to diabetes mellitus (Acute) Epigastric abdominal pain (Acute) Kidney stone (Chronic) Dysesthesia Encounter for pre-operative examination Right ureteral stone (Acute) Medical History Coffee ground emesis GERD (gastroesophageal reflux disease) Kidney stones History of kidney stones Arthritis History of seizure r/t hypoglycemia (2+ years ago) ADHD Loss of protective sensation of skin of foot Degenerative joint disease of ankle, left Gastroparesis due to DM Surgical History History of lithotripsy History of ankle surgery Left x3 History of tooth extraction PONV (postoperative nausea and vomiting) H/O laser photocoagulation of retina Hx of inguinal herniorrhaphy History of wisdom tooth extraction H/O esophagogastroduodenoscopy Family History Brother T1DM (type 1 diabetes mellitus) Uncle Family history of esophageal ulcer Father Myocardial infarction Heart disease Stroke Mother Deep vein thrombosis Social History Smoking Status: Former smoker Tobacco Type: Cigarettes and E-cigarettes / Vaping Cigarettes Per Day: 2; Second Hand Exposure: Yes; Do You Dip or Chew Tobacco: No; Hx Alcohol Use: No Hx Substance Use: Yes Last Used Substance: Hours (ago) Last Used Substance Other:: last evening 06/19/21 Substance Use Type Other:: Medical marijuana Preferred Language: Croatian Communication Ability: Effective Hearing Ability: Normal Watch 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 Required: No Beliefs That Will Affect Care: None Current Living Situation: Spouse Current Living Situation Comment: home w/ spouse Feels Safe at Home: Yes Assistive Devices: None Allergies Allergies Allergy/AdvReac Type Severity Reaction Status Date / Time clindamycin Allergy Unknown Unknown Verified 04/05/23 22:08 Penicillins Allergy Unknown Swelling Verified 04/03/23 16:28 and hives (per pt's mother) Sulfa (Sulfonamide Allergy Unknown Unknown Verified 04/03/23 16:28 Antibiotics) bupropion [From Wellbutrin] AdvReac Unknown Unknown Verified 04/03/23 16:28 metoclopramide [From Reglan] AdvReac Unknown Unknown Verified 04/03/23 16:28 varenicline [From Chantix] AdvReac Unknown Unknown Verified 04/03/23 16:28 nicotine [From Nicoderm CQ] AdvReac Unknown Verified 04/03/23 16:28 Home Meds Home Medications Medication Instructions Recorded Confirmed ondansetron 4 mg disintegrating 4 mg PO Q8H 07/23/21 04/03/23 tablet polyethylene glycol 3350 17 17 g PO DAILY PRN constipation 07/23/21 04/03/23 gram/dose oral powder promethazine 25 mg tablet 25 mg PO Q6H PRN Nausea 07/23/21 04/03/23 subcutaneous insulin pump 07/23/21 04/03/23 insulin aspart U-100 100 unit/mL 0 unit subcut DAILY 06/03/22 04/03/23 subcutaneous solution (Novolog U-100 Insulin aspart) Medical Marijuana 1 dose inhalation DIRECTED PRN 04/03/23 04/03/23 Pain rosuvastatin 5 mg tablet 5 mg PO DAILY 04/03/23 04/03/23 Previous Rx's Medication Instructions Recorded glucagon 1 mg/0.2 mL subcutaneous 1 mg (0.2 mL) subcut .COMPLEX #0.4 06/07/22 auto-injector (Gvoke HypoPen mL 1-Pack) erythromycin ethylsuccinate 200 50 mg (1.25 mL) PO TIDM #100 mL 04/11/23 mg/5 mL oral powder for suspension (E.E.S. Granules) guaifenesin 600 mg tablet, 1,200 mg (2 x 600 mg) PO Q12 #60 04/11/23 extended release 12 hr (Mucinex) tabs moxifloxacin 400 mg tablet 400 mg PO PM #2 tabs 04/11/23 pantoprazole 40 mg tablet,delayed 40 mg PO BID #60 tabs 04/11/23 release prochlorperazine maleate 5 mg 5 mg PO TID PRN nausea #30 tabs 04/11/23 tablet sucralfate 100 mg/mL oral 1 g (10 mL) PO ACHS #112 mL 04/11/23 suspension acetone (urine) test (Ketone Urine #100 ea 08/05/23 Test strips) Results & Data (ED) Vital Signs Vital Signs - 24 hr 04/02/24 18:28 04/02/24 18:44 04/02/24 19:01 Temperature 37.1 C Temperature Source Oral Pulse Rate 113 H 115 H 116 H Pulse Rate [Apical] Pulse Rate from SpO2 Sensor Pulse Rhythm [Apical] Pulse Strength [Apical] Respiratory Rate 22 20 Respiratory Effort / Characteristics Spontaneous Labored Respiratory Depth Normal Respiratory Pattern Regular Blood Pressure 154/78 H 164/62 H Blood Pressure [Left Arm] Blood Pressure Mean 103 120 Blood Pressure Mean [Left Arm] Pulse Oximetry 99 100 Oxygen Delivery Method Room Air Room Air Sepsis Recent Fever Within 48 Hours No Sepsis New/Unexplained Change in Mental Status N/A Sepsis Action Taken by Nursing Physician Notified 04/02/24 19:17 04/02/24 19:30 04/02/24 19:30 Temperature Temperature Source Pulse Rate 98 H 123 H Pulse Rate [Apical] 113 H Pulse Rate from SpO2 Sensor Pulse Rhythm [Apical] Pulse Strength [Apical] Respiratory Rate 20 20 16 Respiratory Effort / Characteristics Non-Labored Spontaneous Respiratory Depth Normal Respiratory Pattern Regular Blood Pressure 143/69 H Blood Pressure [Left Arm] 143/69 H Blood Pressure Mean 96 Blood Pressure Mean [Left Arm] 93 Pulse Oximetry 100 99 100 Oxygen Delivery Method Room Air Room Air Room Air Sepsis Recent Fever Within 48 Hours Sepsis New/Unexplained Change in Mental Status Sepsis Action Taken by Nursing 04/02/24 20:00 04/02/24 20:30 04/02/24 21:00 Temperature Temperature Source Pulse Rate 113 H 112 H 113 H Pulse Rate [Apical] Pulse Rate from SpO2 Sensor 113 H 114 H Pulse Rhythm [Apical] Pulse Strength [Apical] Respiratory Rate 25 H 23 23 Respiratory Effort / Characteristics Respiratory Depth Respiratory Pattern Blood Pressure 141/70 H 145/66 H 146/73 H Blood Pressure [Left Arm] Blood Pressure Mean 93 92 99 Blood Pressure Mean [Left Arm] Pulse Oximetry 99 97 99 Oxygen Delivery Method Room Air Sepsis Recent Fever Within 48 Hours Sepsis New/Unexplained Change in Mental Status Sepsis Action Taken by Nursing 04/02/24 21:48 04/02/24 21:51 04/02/24 22:00 Temperature Temperature Source Pulse Rate 117 H 110 H Pulse Rate [Apical] Pulse Rate from SpO2 Sensor 110 H 117 H Pulse Rhythm [Apical] Pulse Strength [Apical] Respiratory Rate 17 21 Respiratory Effort / Characteristics Respiratory Depth Respiratory Pattern Blood Pressure 153/75 H 162/79 H Blood Pressure [Left Arm] Blood Pressure Mean 101 94 Blood Pressure Mean [Left Arm] Pulse Oximetry 98 98 99 Oxygen Delivery Method Room Air Room Air Room Air Sepsis Recent Fever Within 48 Hours Sepsis New/Unexplained Change in Mental Status Sepsis Action Taken by Nursing 04/02/24 22:16 04/02/24 22:30 04/02/24 23:00 Temperature Temperature Source Pulse Rate 106 H 107 H 109 H Pulse Rate [Apical] Pulse Rate from SpO2 Sensor Pulse Rhythm [Apical] Pulse Strength [Apical] Respiratory Rate 17 24 Respiratory Effort / Characteristics Respiratory Depth Respiratory Pattern Blood Pressure 162/82 H 185/92 H Blood Pressure [Left Arm] Blood Pressure Mean 123 148 Blood Pressure Mean [Left Arm] Pulse Oximetry 98 99 Oxygen Delivery Method Room Air Room Air Sepsis Recent Fever Within 48 Hours Sepsis New/Unexplained Change in Mental Status Sepsis Action Taken by Nursing 04/02/24 23:36 04/03/24 01:00 04/03/24 02:05 Temperature Temperature Source Pulse Rate 110 H 110 H Pulse Rate [Apical] 107 H Pulse Rate from SpO2 Sensor 113 H Pulse Rhythm [Apical] Regular Pulse Strength [Apical] Normal Respiratory Rate 19 16 Respiratory Effort / Characteristics Non-Labored Spontaneous Respiratory Depth Normal Respiratory Pattern Blood Pressure Blood Pressure [Left Arm] 159/77 H Blood Pressure Mean Blood Pressure Mean [Left Arm] 104 Pulse Oximetry 100 97 Oxygen Delivery Method Room Air Room Air Sepsis Recent Fever Within 48 Hours Sepsis New/Unexplained Change in Mental Status Sepsis Action Taken by Nursing Laboratory Data Attestation: I reviewed the patient's lab results. 04/02/24 18:38 04/02/24 19:22 Lab Results 04/02/24 04/02/24 04/02/24 Range/Units 18:38 18:59 19:22 WBC 26.65 H (4.8-10.8) K/ul RBC 4.60 L (4.70-6.10) M/uL Hgb 14.2 (14.0-18.0) g/dl POC Hgb 14.6 (14.0-18.0) g/dl Hct 39.7 L (42.0-52.0) % POC Hct 43 (42-52) % MCV 86.3 (80.0-100.0) fL MCH 30.9 (25.0-34.0) pg MCHC 35.8 (32.0-36.0) g/dL RDW Std Deviation 42.2 (36.4-46.3) fL RDW Coeff of [place] 13.3 (11.5-14.5) % Plt Count 297 (130-400) K/uL MPV 9.2 L (9.4-12.4) fL Immature Gran % (Auto) 0.8 % Neut % (Auto) 82.5 % Lymph % (Auto) 7.7 % [place] % (Auto) 7.5 % Eos % (Auto) 0.7 % Baso % (Auto) 0.8 % Neut # (Auto) 21.97 H (1.40-6.50) K/uL Lymph # (Auto) 2.06 (1.20-3.40) K/uL [place] # (Auto) 2.00 H (0.11-0.59) K/uL Eos # (Auto) 0.18 (0.00-0.50) K/uL Baso # (Auto) 0.22 H (0.00-0.20) K/uL Immature Gran # (Auto) 0.22 H (0.01-0.20) K/uL RBC Morphology Unremarkable PT 11.9 (9.0-12.0) Seconds INR 1.1 (0.9-1.1) APTT 23 (21-31) Seconds PTT Ratio 0.9 VBG pH 7.45 H (7.36-7.41) VBG pCO2 28 L (38-50) mmHg VBG pO2 45 mmHg VBG HCO3 20 mmol/L VBG O2 Saturation 75.7 % VBG Base Excess -3.2 mEq/L POC Sodium 136 (135-144) mmol/L Sodium 134 L (136-145) mmol/L POC Potassium 3.9 (3.3-5.0) mmol/L Potassium TNP 4.3 POC Chloride 101 (101-112) mmol/L Chloride 98 (98-107) mmol/L Carbon Dioxide 22 (21-32) mmol/L POC Total CO2 19 L (24-31) mmol/L Anion Gap 14 H (3-11) POC Anion Gap 20.0 (16-25) mmol/L POC BUN 16 (7-18) mg/dl BUN 18 (6-23) mg/dl Creatinine 1.13 (0.6-1.4) mg/dl POC Creatinine 1.0 (0.6-1.3) mg/dl Est Cr Clr Drug Dosing 85.3 ml/min eGFR 83.74 BUN/Creatinine Ratio 15.9 (10-20) Glucose 268 H (70-99(Fasting)) mg/dl POC Glucose (other) 278 H (70-99) mg/dl Calcium 9.9 (8.6-10.3) mg/dl POC Ioniz Calcium [place] 1.05 L (1.12-1.32) mmol/l Total Bilirubin 0.9 (0.2-1.0) mg/dl Direct Bilirubin 0.2 (0-0.2) mg/dl AST TNP 16 ALT 12 (7-52) U/L Alkaline Phosphatase 83 (34-104) U/L Troponin I High Sens 4.5 (0-20) pg/ml Total Protein 7.6 (6.0-8.3) gm/dl Albumin 4.6 (3.4-5.0) gm/dl Globulin 3.0 (2.5-4.0) gm/dl Albumin/Globulin Ratio 1.5 (0.9-2) Lipase 5 L (11-82) U/L Procalcitonin 0.04 (0-0.5) ng/ml Urine Color Urine Appearance (Clear) Urine pH (4.5-7.5) Ur Specific [place] (1.000-1.030) Urine Protein (Negative) Urine Glucose (UA) (Negative) Urine Ketones (Negative) Urine Blood (Negative) Urine Nitrite (Negative) Urine Bilirubin (Negative) Urine Urobilinogen (Negative) Ur Leukocyte Esterase (Negative) Urine WBC (Auto) (0-5) /hpf Urine RBC (Auto) (0-2) /hpf U Hyaline Cast (Auto) (0-2) /lpf U Epithel Cells (Auto) (0-2) /hpf Urine Bacteria (Auto) (None Seen) Urine Opiates Screen (Neg) Ur Methadone, Qual (Neg) Urine Fentanyl Screen (Neg) Urine Barbiturates (Neg) Ur Phencyclidine (PCP) (Neg) U Amphetamin/Meth Scrn (Neg) MDMA (Ecstasy) Screen (Neg) U Benzodiazepines Scrn (Neg) Ur Cocaine Metabolite (Neg) U Marijuana (THC) Screen (Neg) Adenovirus (PCR) (NotDetected) B. pertussis DNA (PCR) (NotDetected) B.parapertussis DNA PCR (NotDetected) C. pneumoniae DNA (PCR) (NotDetected) Coronavirus OC43 (PCR) (NotDetected) Coronavirus HKU1 (PCR) (NotDetected) Coronavirus 229E (PCR) (NotDetected) SARS-CoV-2 (PCR) (NotDetected) Coronavirus NL63 (PCR) (NotDetected) Human Metapneumovir PCR (NotDetected) Influenza Type A (PCR) (NotDetected) Influenza Type B (PCR) (NotDetected) M. pneumoniae (PCR) (NotDetected) Parainfluenza 1 (PCR) (NotDetected) Parainfluenza 2 (PCR) (NotDetected) Parainfluenza 3 (PCR) (NotDetected) Parainfluenza 4 (PCR) (NotDetected) RSV (PCR) (NotDetected) Entero/Rhino (PCR) (NotDetected) Blood Type A Positive Antibody Screen NEGATIVE 04/02/24 04/02/24 Range/Units 19:54 21:40 WBC (4.8-10.8) K/ul RBC (4.70-6.10) M/uL Hgb (14.0-18.0) g/dl POC Hgb (14.0-18.0) g/dl Hct (42.0-52.0) % POC Hct (42-52) % MCV (80.0-100.0) fL MCH (25.0-34.0) pg MCHC (32.0-36.0) g/dL RDW Std Deviation (36.4-46.3) fL RDW Coeff of [place] (11.5-14.5) % Plt Count (130-400) K/uL MPV (9.4-12.4) fL Immature Gran % (Auto) % Neut % (Auto) % Lymph % (Auto) % [place] % (Auto) % Eos % (Auto) % Baso % (Auto) % Neut # (Auto) (1.40-6.50) K/uL Lymph # (Auto) (1.20-3.40) K/uL [place] # (Auto) (0.11-0.59) K/uL Eos # (Auto) (0.00-0.50) K/uL Baso # (Auto) (0.00-0.20) K/uL Immature Gran # (Auto) (0.01-0.20) K/uL RBC Morphology PT (9.0-12.0) Seconds INR (0.9-1.1) APTT (21-31) Seconds PTT Ratio VBG pH (7.36-7.41) VBG pCO2 (38-50) mmHg VBG pO2 mmHg VBG HCO3 mmol/L VBG O2 Saturation % VBG Base Excess mEq/L POC Sodium (135-144) mmol/L Sodium (136-145) mmol/L POC Potassium (3.3-5.0) mmol/L Potassium POC Chloride (101-112) mmol/L Chloride (98-107) mmol/L Carbon Dioxide (21-32) mmol/L POC Total CO2 (24-31) mmol/L Anion Gap (3-11) POC Anion Gap (16-25) mmol/L POC BUN (7-18) mg/dl BUN (6-23) mg/dl Creatinine (0.6-1.4) mg/dl POC Creatinine (0.6-1.3) mg/dl Est Cr Clr Drug Dosing ml/min eGFR BUN/Creatinine Ratio (10-20) Glucose (70-99(Fasting)) mg/dl POC Glucose (other) (70-99) mg/dl Calcium (8.6-10.3) mg/dl POC Ioniz Calcium [place] (1.12-1.32) mmol/l Total Bilirubin (0.2-1.0) mg/dl Direct Bilirubin (0-0.2) mg/dl AST ALT (7-52) U/L Alkaline Phosphatase (34-104) U/L Troponin I High Sens (0-20) pg/ml Total Protein (6.0-8.3) gm/dl Albumin (3.4-5.0) gm/dl Globulin (2.5-4.0) gm/dl Albumin/Globulin Ratio (0.9-2) Lipase (11-82) U/L Procalcitonin (0-0.5) ng/ml Urine Color Yellow Urine Appearance Clear (Clear) Urine pH 6.5 (4.5-7.5) Ur Specific [place] 1.022 (1.000-1.030) Urine Protein Negative (Negative) Urine Glucose (UA) 3+ H (Negative) Urine Ketones 2+ H (Negative) Urine Blood Trace H (Negative) Urine Nitrite Negative (Negative) Urine Bilirubin Negative (Negative) Urine Urobilinogen Negative (Negative) Ur Leukocyte Esterase Negative (Negative) Urine WBC (Auto) 0-5 (0-5) /hpf Urine RBC (Auto) 11-20 H (0-2) /hpf U Hyaline Cast (Auto) 0-2 (0-2) /lpf U Epithel Cells (Auto) 0-2 (0-2) /hpf Urine Bacteria (Auto) None Seen (None Seen) Urine Opiates Screen Neg (Neg) Ur Methadone, Qual Neg (Neg) Urine Fentanyl Screen Neg (Neg) Urine Barbiturates Neg (Neg) Ur Phencyclidine (PCP) Neg (Neg) U Amphetamin/Meth Scrn Neg (Neg) MDMA (Ecstasy) Screen Neg (Neg) U Benzodiazepines Scrn Neg (Neg) Ur Cocaine Metabolite Neg (Neg) U Marijuana (THC) Screen Pos H (Neg) Adenovirus (PCR) Not Detected (NotDetected) B. pertussis DNA (PCR) Not Detected (NotDetected) B.parapertussis DNA PCR Not Detected (NotDetected) C. pneumoniae DNA (PCR) Not Detected (NotDetected) Coronavirus OC43 (PCR) Not Detected (NotDetected) Coronavirus HKU1 (PCR) Not Detected (NotDetected) Coronavirus 229E (PCR) Not Detected (NotDetected) SARS-CoV-2 (PCR) Not Detected (NotDetected) Coronavirus NL63 (PCR) Not Detected (NotDetected) Human Metapneumovir PCR Not Detected (NotDetected) Influenza Type A (PCR) Not Detected (NotDetected) Influenza Type B (PCR) Not Detected (NotDetected) M. pneumoniae (PCR) Not Detected (NotDetected) Parainfluenza 1 (PCR) Not Detected (NotDetected) Parainfluenza 2 (PCR) Not Detected (NotDetected) Parainfluenza 3 (PCR) Not Detected (NotDetected) Parainfluenza 4 (PCR) Not Detected (NotDetected) RSV (PCR) Not Detected (NotDetected) Entero/Rhino (PCR) Not Detected (NotDetected) Blood Type Antibody Screen Administered Medications Pantoprazole Sodium 40 mg/ (Dextrose) 100 mls @ 20 mls/hr IV Q5H HELIO Stop: 05/02/24 19:29 Last Admin: 04/03/24 01:26 Dose: 8 mg/hr, 20 mls/hr Documented By: Infusion: 04/03/24 01:26 Dose: Infused Documented By: Admin: 04/02/24 20:35 Dose: 8 mg/hr, 20 mls/hr Documented By: BRYON Sodium Chloride (Nss) 1,000 mls @ 250 mls/hr IV .Q4H HELIO Stop: 04/03/24 23:44 Last Admin: 04/03/24 00:52 Dose: 250 mls/hr Documented By: WIL Discontinued Medications Capsaicin (Capsaicin Cr 0.075% 60 Gm Tube) 1 appln EXT NOW STA Stop: 04/02/24 19:14 Last Admin: 04/02/24 19:31 Dose: 1 appln Documented By: ROHAN Dicyclomine HCl (Dicyclomine Hcl 10 Mg/Ml 2 Ml Amp/Vial) 20 mg IM NOW ONE Stop: 04/02/24 21:12 Last Admin: 04/02/24 21:55 Dose: Not Given Documented By: BRYON Diphenhydramine HCl (Diphenhydramine 50 Mg/Ml Vial) 25 mg IV NOW STA Stop: 04/02/24 19:14 Last Admin: 04/02/24 19:30 Dose: 25 mg Documented By: ROHAN Prochlorperazine (Compazine) 2 mls @ 1 mls/min IV ONE ONE Stop: 04/02/24 18:47 Last Admin: 04/02/24 18:54 Dose: 1 mls/min Documented By: WIL Acetaminophen (Ofirmev) 1,000 mg in 100 mls @ 400 mls/hr IV NOW STA Stop: 04/02/24 19:25 Last Infusion: 04/02/24 19:45 Dose: Infused Documented By: Admin: 04/02/24 19:30 Dose: 400 mls/hr Documented By: ROHAN Sodium Chloride (Nss) 1,000 mls @ 999 mls/hr IV .Q1H1M HELIO Stop: 04/02/24 21:15 Last Infusion: 04/02/24 21:10 Dose: Infused Documented By: Admin: 04/02/24 20:09 Dose: 999 mls/hr Documented By: Infusion: 04/02/24 20:08 Dose: Infused Documented By: Admin: 04/02/24 19:26 Dose: 999 mls/hr Documented By: SHARON Famotidine (Pepcid 20mg Iv Push) 20 mg in 5 mls @ 2.5 mls/min IV NOW STA Stop: 04/02/24 19:12 Last Admin: 04/02/24 19:30 Dose: 2.5 mls/min Documented By: SHARON Pantoprazole Sodium 80 mg/ (Dextrose) 120 mls @ 480 mls/hr IV NOW ONE Stop: 04/02/24 19:25 Last Infusion: 04/02/24 20:08 Dose: Infused Documented By: Admin: 04/02/24 19:46 Dose: 480 mls/hr Documented By: BRYON Promethazine HCl (Phenergan) 25 mg in 51 mls @ 204 mls/hr IV NOW STA Stop: 04/02/24 20:10 Last Infusion: 04/02/24 20:30 Dose: Infused Documented By: Admin: 04/02/24 20:09 Dose: 204 mls/hr Documented By: BRYON Haloperidol Lactate 5 mg/ (Sodium Chloride) 501 mls @ 1,002 mls/hr IV NOW STA Stop: 04/03/24 00:13 Last Infusion: 04/03/24 01:29 Dose: Infused Documented By: Admin: 04/03/24 00:51 Dose: 1,002 mls/hr Documented By: ALVARO Ioversol (Optiray 320 100ml) 94 ml IV ONCE ONE Stop: 04/02/24 21:32 Last Admin: 04/02/24 21:31 Dose: 94 ml Documented By: SINDHU Lorazepam (Lorazepam 2 Mg/1 Ml Vial) 1 mg IV NOW STA Stop: 04/02/24 20:42 Last Admin: 04/02/24 21:10 Dose: Not Given Documented By: BRYON Lorazepam (Lorazepam 2 Mg/1 Ml Vial) 1 mg IV NOW STA Stop: 04/02/24 23:45 Last Admin: 04/03/24 00:58 Dose: 1 mg Documented By: WIL Metoclopramide HCl (Metoclopramide Hcl Inj 5 Mg/Ml 2 Ml Vial) 10 mg IV NOW STA Stop: 04/02/24 19:12 Last Admin: 04/02/24 19:30 Dose: 10 mg Documented By: ROHAN Ondansetron HCl (Ondansetron Inj 2 Mg/Ml 2 Ml Vial) 4 mg IV NOW STA Stop: 04/02/24 18:39 Last Admin: 04/02/24 18:41 Dose: 4 mg Documented By: [facility] Pantoprazole Sodium (Pantoprazole Bolus/Drip) 1 each IV NOW STA Stop: 04/02/24 19:12 Last Admin: 04/02/24 20:15 Dose: Not Given Documented By: [facility] Imaging Data Radiologist's Impression: Abdomen/Pelvis CT 04/02/24 19:15 Exam(s): CT ABDOMEN + PELVIS With Contrast IV Amt: 94 ml opti 320 EXAM: CT Abdomen and Pelvis With Intravenous Contrast CLINICAL HISTORY: Reason for exam: chest/abd pain, n/v, upper GIB. TECHNIQUE: Axial computed tomography images of the abdomen and pelvis with intravenous contrast. CTDI is 22.49 mGy and DLP is 982.26 mGy-cm. Automated exposure control was utilized for the study. A dose lowering technique was utilized adhering to the principles of ALARA. CONTRAST: Patient received 94 ml opti 320 of IV contrast COMPARISON: CT abdomen/pelvis: 04/07/2023 FINDINGS: Lung bases: Concurrently performed CT chest reported separately. ABDOMEN: Image diagnostic quality reduced by motion artifact. Liver: Mild diffuse fatty infiltration.. No mass. Gallbladder and bile ducts: Unremarkable. No calcified stones. No ductal dilation. Pancreas: Diffusely decreased pancreatic glandular tissue. No mass. No ductal dilation. Spleen: Unremarkable. No splenomegaly. Adrenals: Unremarkable. No mass. Kidneys and ureters: An exophytic 3.1 cm left renal parapelvic cyst. A dilated right extrarenal pelvis No solid mass. No solid mass. Stomach and bowel: Small/moderate size hiatal hernia. Nonspecific circumferential wall thickening of the gastric body/antrum, incomplete distention versus antral gastritis. Diffuse incomplete distention of the small bowel loops. Diffuse edematous mucosal thickening of the ascending, transverse and descending colon is seen with liquid/formed stool in a somewhat distended rectosigmoid, concerning for an acute pancolitis. PELVIS: Appendix: No findings to suggest acute appendicitis. Bladder: A markedly distended urinary bladder seen extending superiorly to the L4-L5 level. No mass. Reproductive: Unremarkable as visualized. ABDOMEN and PELVIS: Intraperitoneal space: No free air. No significant fluid collection. Bones/joints: No acute fracture. No dislocation. Soft tissues: Unremarkable. Vasculature: Mild/moderate calcified/noncalcified atheromatous plaques. No abdominal aortic aneurysm. Lymph nodes: No significantly enlarged lymph nodes. IMPRESSION: A small/moderate size hiatal hernia. Nonspecific circumferential wall thickening of the gastric body/antrum, incomplete distention versus antral gastritis. Diffuse edematous mucosal thickening of the ascending, transverse and descending colon, concerning for an acute pancolitis. Advise clinical correlation. A markedly distended urinary bladder seen extending into the abdomen to the L4-L5 level. A 3.1 cm left renal parapelvic cyst. Electronically signed by: Ghada Lo MD, DABR 04/02/24 22:[address] 04/02/24 19:15 Exam(s): CT CHEST With Contrast EXAM: CT Chest With Intravenous Contrast CLINICAL HISTORY: Reason for exam: chest/abd pain, n/v, upper GIB. TECHNIQUE: Axial computed tomography images of the chest with intravenous contrast. CTDI is 22.49 mGy and DLP is 982.26 mGy-cm. Automated exposure control was utilized for the study. A dose lowering technique was utilized adhering to the principles of ALARA. CONTRAST: Contrast must be dictated COMPARISON: X-ray chest: 04/02/2024 FINDINGS: Diagnostic sensitivity of the exam is reduced by motion artifact. Lungs: Central airways are patent. Biapical subpleural emphysematous blebs/mild emphysema. Predominantly basilar mild interstitial thickening. Posteriorly right basilar small linear atelectatic changes. No mass. No consolidation. Pleural space: Unremarkable. No pneumothorax. No significant effusion. Heart: Unremarkable. No cardiomegaly. No significant pericardial effusion. No significant coronary artery calcifications. Bones/joints: Unremarkable. No acute fracture. No dislocation. Soft tissues: Unremarkable. Vasculature: Unremarkable. No thoracic aortic aneurysm. Lymph nodes: Unremarkable. No enlarged lymph nodes. Other findings: A small hiatal hernia with circumferential wall thickening and mildly dilated gas-filled esophagus. IMPRESSION: Mild paraseptal/centrilobular emphysema. Predominantly basilar mild interstitial thickening. Posteriorly right basilar small linear atelectatic changes. No mass. No consolidation. A small hiatal hernia with circumferential wall thickening and a mildly dilated gas-filled esophagus. . Electronically signed by: Ghada Lo MD, NIRAV 04/02/24 22:38 PM Chest X-Ray 04/02/24 19:15 Exam(s): XR CXR 1 VIEW EXAM: XR Chest, 1 View CLINICAL HISTORY: Reason for exam: chest/abd pain, n/v, upper GIB. TECHNIQUE: Frontal view of the chest. COMPARISON: Chest x-ray: 04/07/2023 FINDINGS: Lungs: Hyperinflated lungs. Bilateral bronchial wall and perihilar mild chronic interstitial thickening. No consolidation. Pleural space: Unremarkable. No pneumothorax. Heart: Stable cardiomediastinal silhouette. Bones/joints: Unremarkable. No acute fracture.. IMPRESSION: No acute cardiopulmonary process. Bilateral chronic appearing bronchial wall and perihilar interstitial thickening/bronchitis. . Electronically signed by: Ghada Lo MD, NIRAV 04/02/24 20:12 PM Discharge Plan Visit Data Chief Complaint: Illness Stated Complaint: ILLNESS ED Provider: Cory Lynch Discharge Problem: Gastritis, Intractable nausea and vomiting, Esophagitis, Gastroparesis, Marijuana use, Coffee ground emesis, Type 1 diabetes, Leukocytosis Forms Stand Alone Forms: [facility] Prescriptions Prescriptions: No Action (DME) Ketone Urine Test Strip See Rx Instructions .Route Qty: 100 2RF Rx Instructions: To be used if blood sugars >300 mg/dL Gvoke HypoPen 1-Pack 1 mg/0.2 mL auto-injector 1 mg subcut .COMPLEX Qty: 0.4 1RF Rx Instructions: 1 mg subcutaneously as needed for hypoglycemia; (DME) subcutaneous insulin pump Misc See Rx Instructions .Route Rx Instructions: As directed ondansetron 4 mg tablet,disintegrating 4 mg PO Q8H polyethylene glycol 3350 17 gram/dose powder 17 g PO DAILY PRN (Reason: constipation) promethazine 25 mg tablet 25 mg PO Q6H PRN (Reason: Nausea) insulin aspart U-100 [Novolog U-100 Insulin aspart] 100 unit/mL solution 0 unit subcut DAILY Rx Instructions: Pump rosuvastatin 5 mg tablet 5 mg PO DAILY Medical Marijuana 1 dose inhalation DIRECTED PRN (Reason: Pain) erythromycin ethylsuccinate [E.E.S. Granules] 200 mg/5 mL Suspension For Reconstitution 50 mg PO TIDM Qty: 100 0RF prochlorperazine maleate 5 mg Tablet 5 mg PO TID PRN (Reason: nausea) Qty: 30 0RF sucralfate 100 mg/mL Suspension 1 g PO ACHS Qty: 112 0RF pantoprazole 40 mg Tablet,Delayed Release (Dr/Ec) 40 mg PO BID Qty: 60 0RF guaifenesin [Mucinex] 600 mg Tablet Extended Release 12hr 1,200 mg PO Q12 Qty: 60 0RF moxifloxacin 400 mg tablet 400 mg PO PM Qty: 2 0RF Referrals Referrals: PCP,NO [Primary Care Provider] - Discharge Problem: Gastritis Qualifiers: Gastritis type: unspecified gastritis Chronicity: acute Gastritis bleeding: w ith bleeding Qualified Code(s): K29.01 - Acute gastritis with bleeding Type 1 diabetes Qualifiers: Diabetes mellitus complication status: with other specified complication Q ualified Code(s): E10.69 - Type 1 diabetes mellitus with other specified complication Leukocytosis Qualifiers: Leukocytosis type: unspecified Qualified Code(s): D72.829 - Elevated white blood cell count, unspecified
[2024-04-02] MEDS: SODIUM CHLORIDE 0.9% 1,000 ML IV SCH (19:26)
[2024-04-02] MEDS: ACETAMINOPHEN 1,000 MG/100 ML VIAL IV STA (19:30)
[2024-04-02] MEDS: METOCLOPRAMIDE HCL INJ 5 MG/ML 2 ML VIAL IV STA (19:30)
[2024-04-02] MEDS: FAMOTIDINE 20MG IV PUSH 20 MG/5 ML SYR IV STA (19:30)
[2024-04-02] MEDS: diphenhydrAMINE 50 MG/ML VIAL IV STA (19:30)
[2024-04-02] MEDS: CAPSAICIN CR 0.075% 60 GM TUBE EXT STA (19:31)
[2024-04-02 19:35] LABS: Base Excess VBG -3.2 mEq/L; HCO3 VBG 20 mmol/L; Oxygen Saturation VBG 75.7 %; PCO2 VBG 28 mmHg (38-50); PO2 VBG 45 mmHg; pH VBG 7.45 (7.36-7.41)
[2024-04-02 19:40] LABS: Alanine Aminotransferase 12 U/L (7-52); Albumin Globulin Ratio 1.5 (0.9-2); Albumin Level 4.6 gm/dl (3.4-5.0); Alkaline Phosphatase 83 U/L (34-104); Anion Gap 14 (3-11); BUN Creatinine Ratio 15.9 (10-20); Bilirubin,Total 0.9 mg/dl (0.2-1.0); Blood Urea Nitrogen 18 mg/dl (6-23); Calcium 9.9 mg/dl (8.6-10.3); Carbon Dioxide 22 mmol/L (21-32); Chloride 98 mmol/L (98-107); Creatinine Clr Calc Pharmacy 85.3 ml/min; Glucose 268 mg/dl (70-99(Fasting)); Lipase 5 U/L (11-82); Sodium 134 mmol/L (136-145); Total Protein 7.6 gm/dl (6.0-8.3)
[2024-04-02] MEDS: PANTOprazole 80 MG in DEXTROSE 5% 100 ML IV ONE (19:46)
[2024-04-02 19:54] LABS: Bilirubin Direct 0.2 mg/dl (0-0.2); Potassium 4.3 mmol/L (3.5-5.1)
[2024-04-02 20:09] LABS: INR 1.1 (0.9-1.1); Partial Thromboplastin Ratio 0.9; Partial Thromboplastin Time 23 Seconds (21-31); Prothrombin Time 11.9 Seconds (9.0-12.0)
[2024-04-02] MEDS: PROMETHAZINE 25 MG/51 ML BAG IV STA (20:09)
--- NOTE | 2024-04-02 20:13 | XRay Report ---
Exam(s): XR CXR 1 VIEW EXAM: XR Chest, 1 View CLINICAL HISTORY: Reason for exam: chest/abd pain, n/v, upper GIB. TECHNIQUE: Frontal view of the chest. COMPARISON: Chest x-ray: 04/07/2023 FINDINGS: Lungs: Hyperinflated lungs. Bilateral bronchial wall and perihilar mild chronic interstitial thickening. No consolidation. Pleural space: Unremarkable. No pneumothorax. Heart: Stable cardiomediastinal silhouette. Bones/joints: Unremarkable. No acute fracture.. IMPRESSION: No acute cardiopulmonary process. Bilateral chronic appearing bronchial wall and perihilar interstitial thickening/bronchitis. . Electronically signed by: Ghada Lo MD, DABR 04/02/24 20:12 PM
[2024-04-02] MEDS: PANTOPRAZOLE BOLUS/DRIP IV STA (20:15)
[2024-04-02] MEDS: PANTOprazole 40 MG in DEXTROSE 5% MINI-B 100 ML IV SCH (20:35)
[2024-04-02 20:52] LABS: Adenovirus PCR Not Detected (NotDetected); Bordetella parapertussis PCR Not Detected (NotDetected); Bordetella pertussis PCR Not Detected (NotDetected); Chlamydia pneumoniae PCR Not Detected (NotDetected); Coronavirus 229E PCR Not Detected (NotDetected); Coronavirus CoV-2 (COVID19)PCR Not Detected (NotDetected); Coronavirus HKU1 PCR Not Detected (NotDetected); Coronavirus NL63 PCR Not Detected (NotDetected); Coronavirus OC43PCR Not Detected (NotDetected); Human Metapneumovirus PCR Not Detected (NotDetected); Influenza A PCR Not Detected (NotDetected); Influenza B PCR Not Detected (NotDetected); Mycoplasma pneumoniae PCR Not Detected (NotDetected); Parainfluenza Virus 1 PCR Not Detected (NotDetected); Parainfluenza Virus 2 PCR Not Detected (NotDetected); Parainfluenza Virus 3 PCR Not Detected (NotDetected); Parainfluenza Virus 4 PCR Not Detected (NotDetected); Respiratory Syncytial VirusPCR Not Detected (NotDetected); Rhinovirus/Enterovirus PCR Not Detected (NotDetected)
[2024-04-02] MEDS: LORazepam 2 MG/1 ML VIAL IV STA (21:10)
[2024-04-02] MEDS: OPTIRAY 320 100ml IV ONE (21:31)
[2024-04-02] MEDS: DICYCLOMINE HCL 10 MG/ML 2 ML AMP/VIAL IM ONE (21:55)
--- NOTE | 2024-04-02 22:40 | CT Scan Report ---
Exam(s): CT CHEST With Contrast EXAM: CT Chest With Intravenous Contrast CLINICAL HISTORY: Reason for exam: chest/abd pain, n/v, upper GIB. TECHNIQUE: Axial computed tomography images of the chest with intravenous contrast. CTDI is 22.49 mGy and DLP is 982.26 mGy-cm. Automated exposure control was utilized for the study. A dose lowering technique was utilized adhering to the principles of ALARA. CONTRAST: Contrast must be dictated COMPARISON: X-ray chest: 04/02/2024 FINDINGS: Diagnostic sensitivity of the exam is reduced by motion artifact. Lungs: Central airways are patent. Biapical subpleural emphysematous blebs/mild emphysema. Predominantly basilar mild interstitial thickening. Posteriorly right basilar small linear atelectatic changes. No mass. No consolidation. Pleural space: Unremarkable. No pneumothorax. No significant effusion. Heart: Unremarkable. No cardiomegaly. No significant pericardial effusion. No significant coronary artery calcifications. Bones/joints: Unremarkable. No acute fracture. No dislocation. Soft tissues: Unremarkable. Vasculature: Unremarkable. No thoracic aortic aneurysm. Lymph nodes: Unremarkable. No enlarged lymph nodes. Other findings: A small hiatal hernia with circumferential wall thickening and mildly dilated gas-filled esophagus. IMPRESSION: Mild paraseptal/centrilobular emphysema. Predominantly basilar mild interstitial thickening. Posteriorly right basilar small linear atelectatic changes. No mass. No consolidation. A small hiatal hernia with circumferential wall thickening and a mildly dilated gas-filled esophagus. . Electronically signed by: Ghada Lo MD, NIRAV 04/02/24 22:38 PM
--- NOTE | 2024-04-02 23:00 | CT Scan Report ---
Exam(s): CT ABDOMEN + PELVIS With Contrast IV Amt: 94 ml opti 320 EXAM: CT Abdomen and Pelvis With Intravenous Contrast CLINICAL HISTORY: Reason for exam: chest/abd pain, n/v, upper GIB. TECHNIQUE: Axial computed tomography images of the abdomen and pelvis with intravenous contrast. CTDI is 22.49 mGy and DLP is 982.26 mGy-cm. Automated exposure control was utilized for the study. A dose lowering technique was utilized adhering to the principles of ALARA. CONTRAST: Patient received 94 ml opti 320 of IV contrast COMPARISON: CT abdomen/pelvis: 04/07/2023 FINDINGS: Lung bases: Concurrently performed CT chest reported separately. ABDOMEN: Image diagnostic quality reduced by motion artifact. Liver: Mild diffuse fatty infiltration.. No mass. Gallbladder and bile ducts: Unremarkable. No calcified stones. No ductal dilation. Pancreas: Diffusely decreased pancreatic glandular tissue. No mass. No ductal dilation. Spleen: Unremarkable. No splenomegaly. Adrenals: Unremarkable. No mass. Kidneys and ureters: An exophytic 3.1 cm left renal parapelvic cyst. A dilated right extrarenal pelvis No solid mass. No solid mass. Stomach and bowel: Small/moderate size hiatal hernia. Nonspecific circumferential wall thickening of the gastric body/antrum, incomplete distention versus antral gastritis. Diffuse incomplete distention of the small bowel loops. Diffuse edematous mucosal thickening of the ascending, transverse and descending colon is seen with liquid/formed stool in a somewhat distended rectosigmoid, concerning for an acute pancolitis. PELVIS: Appendix: No findings to suggest acute appendicitis. Bladder: A markedly distended urinary bladder seen extending superiorly to the L4-L5 level. No mass. Reproductive: Unremarkable as visualized. ABDOMEN and PELVIS: Intraperitoneal space: No free air. No significant fluid collection. Bones/joints: No acute fracture. No dislocation. Soft tissues: Unremarkable. Vasculature: Mild/moderate calcified/noncalcified atheromatous plaques. No abdominal aortic aneurysm. Lymph nodes: No significantly enlarged lymph nodes. IMPRESSION: A small/moderate size hiatal hernia. Nonspecific circumferential wall thickening of the gastric body/antrum, incomplete distention versus antral gastritis. Diffuse edematous mucosal thickening of the ascending, transverse and descending colon, concerning for an acute pancolitis. Advise clinical correlation. A markedly distended urinary bladder seen extending into the abdomen to the L4-L5 level. A 3.1 cm left renal parapelvic cyst. Electronically signed by: Ghada Lo MD, INDERR 04/02/24 22:59 PM
[2024-04-02 23:23] LABS: Appearance Urine Clear (Clear); Bacteria Urine Automated None Seen (None Seen); Bilirubin Urine Negative (Negative); Blood Urine Trace (Negative); Cast Urine Automated 0-2 /lpf (0-2); Color Urine Yellow; Epithelial Cell Urine Auto 0-2 /hpf (0-2); Glucose Urine UA 3+ (Negative); Ketones Urine 2+ (Negative); Leukocyte Esterase Urine Negative (Negative); Nitrite Urine Negative (Negative); Protein Urine Negative (Negative); Specific Gravity Urine 1.022 (1.000-1.030); Urobilinogen Urine Negative (Negative); WBC Urine Automated 0-5 /hpf (0-5); pH Urine 6.5 (4.5-7.5)
--- OUTSIDE RECORDS SUMMARY | 2024-04-02 23:46 | External Medical Summary | Summary of Care ---
Author Name Unknown Organization [facility] Address [address] [place] [address] Phone [phone] Care Team Providers Care Accounting Assistant Name Role Phone Yasmin May MD Primary Care Provider Reason for Visit * Reason Onset Date Comments Medication Refill 12/23/2023 Encounter Details Date Type Department Care Team (Late st Contact Info) Description 12/23/2023 Refill [facility] [address] [place] [address] Yasmin May MD [address] [place] [address] Type 1 diabetes mellitus with hypoglycemia and without coma (HCC); Type 1 diabetes mellitus with diabetic neuropathy (HCC); Type 1 diabetes mellitus with hemoglobin A1c goal of less than 8.0% (HCC) Allergies Active Allergy Reactions Criticality Noted Date Comments Varenicline 02/25/2020 EMESIS Nicotine 02/25/2020 PATCH CAUSED DERMATITIS Penicillins Hives 01/08/2009 Allergy when 5 or 6, unsure of reaction Metoclopramide Other (Please comment) High 0 Facial tics Sulfa Antibiotics 01/08/2009 Bupropion 02/25/2020 HYPOGLYCEMIA documented as of this encounter (statuses as of 12/23/2023) Medications Medication Sig Dispensed Refills Start Date End Date Status Insulin Syringe-Needle U-100 (BD INSULIN SYRINGE ULTRAFINE) 31G X 5/16" 0.5 ML MISC Use as directed. 4 daily injection in case of pump malfunction 100 Each 2 04/23/2015 Active ondansetron ODT (ZOFRAN) 4 MG TBDPIndications:Ga stroparesis Place 1 Tab on tongue every 8 hours as needed for Nausea. dissolve on tongue. 60 Tab 08/01/2017 Active Glucagon (rDNA) 1 MG Injection Kit (Glucagen)Indicati ons:DM type 1, not at goal (HCC) As directed 1 Kit 5 06/09/2020 Active Promethazine HCl 25 MG Oral Tablet (Phenergan)Indicat ions:Gastroparesis One tab by mouth 1-2 times/day. 60 Tab 3 01/19/2021 Active Lisinopril 2.5 MG Oral Tablet (Prinivil) Take 1 Tablet by mouth in the morning. 90 Tablet 3 10/21/2023 Active Insulin Aspart 100 UNIT/ML Injection Solution (NovoLOG) To use in insulin pump: 50 units per day. 02/03/2023 Active Rosuvastatin Calcium 5 MG Oral Tablet (Crestor) Take 1 Tablet by mouth in the morning. 10/01/2023 Active Insulin Glargine 100 UNIT/ML Subcutaneous Solution (Lantus)Indication s:Type 1 diabetes mellitus with hypoglycemia and without coma (HCC),Type 1 diabetes mellitus with diabetic neuropathy (HCC),Type 1 diabetes mellitus with hemoglobin A1c goal of less than 8.0% (HCC) Inject 12 units twice daily in the event of an insulin pump failure 10 mL 5 12/23/2023 Active Insulin Glargine 100 UNIT/ML Subcutaneous Solution (Lantus)Indication s:Type 1 diabetes mellitus with hypoglycemia and without coma (HCC),Type 1 diabetes mellitus with diabetic neuropathy (HCC),Type 1 diabetes mellitus with hemoglobin A1c goal of less than 8.0% (HCC) Inject 12 units twice daily in the event of an insulin pump failure 10 mL 5 12/07/2023 4 Discontinue d(Refill) documented as of this encounter (statuses as of 12/23/2023) Active Problems Problem Noted Date Diagnosed Date Diabetic neuropathy 02/25/2020 Diabetic retinopathy 02/25/2020 Osteoarthritis of left ankle 02/25/2020 History of laser photocoagulation of retina 01/28 Type 1 diabetes mellitus with hypoglycemia 12/10 Calculus of ureter 10/25/2013 Gastroparesis 11/08/2012 Tobacco use disorder DM type 1 causing neurological disease documented as of this encounter (statuses as of 12/23/2023) Resolved Problems Problem Noted Date Diagnosed Date Resolved Date Fracture of ankle, left, closed 12/25/2013 09/15/2016 Urinary frequency 10/25/2013 09/15/2016 Calculus of kidney 10/25/2013 7 Overview: small right stones. Type 1 diabetes mellitus wit h hemoglobin A1c goal of 7.0%-8.0% 11/06/2012 12/10/2013 Overview: ICD-10 update of inactive term DM type 1, not at goal, causing eye disease 10/21/2023 Overview: ICD-10 update of inactive term documented as of this encounter (statuses as of 12/23/2023) Immunizations Name Administration Dates Next Due COVID-19 mRNA, LNP-s, No Pre serve, 2-Dose Series (Moderna) 11/22/2020,10/25/2020 Hepatitis B, 20+ yrs 05/10/2018,05/19/2015,04/16 Pneumococcal Polysaccharide PPV23 (Pneumovax) 07/31/2007,03/28/2000 Seasonal Influenza, Trivalen t, (IIV3), with Preserv, (Fluzone) 02/14/2013,11/26/2012 TDAP (age 10 and older)(Boostrix) 11/24/2019,08/2010 documented as of this encounter Social History Tobacco Use Types Packs/Day Years Used Date Smoking Tobacco: Former Cigarettes 1 15 Q uit: 04/03/2023 Passive Smoke Exposure: Past Smokeless Tobacco: Former Chew Alcohol Use Standard Drinks/Week Comments Yes 0 (1 standard drink = 0.6 oz pur e alcohol) social PHQ-2 Answer Date Recorded PHQ-2 Score -1 12/17/2019 Hunger Vital Sign Answer Date Recorded Within the past 12 months, y ou worried that your food would run out before you got the money to buy more. Never true 03/17/20 20 Within the past 12 months, t he food you bought just didn't last and you didn't have money to get more. Never true 03/17/2020 Sex and Gender Information Value Date Recorded Sex Assigned at Not on file Gender Identity Not on file Sexual Orientation Not on file Job Start Date Occupation Industry Not on file Not on file Not on file documented as of this encounter Miscellaneous Notes * Telephone Encounter - Yasmin May MD - 12/23/2023 1:23 PM EDTSigned Prescriptions: Disp Refills Insulin Glargine 100 UNIT/ML Subcutaneous *10 mL 5 Sig: Inject 12 units twice daily in the event of an insulin pump failure Authorizing Provider: YASMIN MAY * Telephone Encounter - Schuyler Hemphill OSA - 12/23/2023 11:50 AM EDT Did you pend patient's preferred pharmacy and medication before forwarding?yes Pharmacy: [id number] [address] [place] [address] Pending Prescriptions: Disp Refills Insulin Glargine 100 UNIT/ML Subcutaneous*10 mL 5 Sig: Inject 12 units twice daily in the event of an insulin pump failure Last Visit: 10/21/2023 (in office), Visit date not found (telemedicine) Next Visit: Visit date not found If no future appointments scheduled, and last appointment is greater than a year ago, please schedule patient for a follow-up appointment Last date the medication was ordered: 12/07/23 Is this request for a controlled substance?No Urine Drug Screen:No results found for this or any previous visit. Patient Phone Numbers Labs: Lab Results Component Value Date/Time CREAT 0.9 12/24/2020 10:39 AM CREAT 0.9 02/25/2020 11:20 AM POTASSIUM 3.9 12/24/2020 10:39 AM POTASSIUM 5.0 02/25/2020 11:20 AM TSH 0.40 10/10/2015 02:44 PM LDL 95 06/23/2020 04:34 PM LDL 126 02/20/2019 03:41 PM LDL 107 08/04/2016 10:40 AM ALT 10 12/24/2020 10:39 AM ALT 10 08/22/2019 10:35 AM HGBA1C 8.0 (H) 12/24/2020 10:39 AM HGBA1C 8.6 (H) 02/25/2020 11:20 AM documented in this encounter Plan of Treatment Upcoming Encounters Date Type Department Care Team (Late st Contact Info) Description 02/27/2024 9:00 AM EST Office Visit Pharmacy, [place] [id number] [place] [address] [facility] [address] [place] [phone] Health Maintenance Due Date Last Done Comments Pneumococcal Vaccine: Pediatrics (0 to 5 Years) and At-Risk Patients (6 to 64 Years) (2 of 2 - PCV) 07/30/2008 07/31/2007, 03/28/2000 Albumin/Creatinine Ratio 06/23/2021 021, 08/04/2016, 05/11/2016, Additional history exists HbA1c 06/23/2021 12/24/2020, 032 11/2020, 02/25/2020, Additional history exists GFR 12/24/2021 12/24/2020, 03/2 11/2020, 02/25/2020, Additional history exists COVID-19 Vaccine ( season) 2023 11/22/2020, 10/25/2020 Influenza Vaccine (FLU shot) (#1) 2023 02/14/2013, 11/26/2012 Depression Screening 10/20/2024 10/21/2023 Diabetic Foot Exam 10/20/2024 10/21/2023, 0 12/24/2020, 02/25/2020, Additional history exists Diabetic Eye Exam 12/06/2024 12/07/2023, , 10/21/2016, Additional history exists Lipid Panel 06/23/2025 06/23/2020, 01/27, 08/04/2016, Additional history exists DTap/Tdap Vaccines (3 - Td or Tdap) 11/23/2029 11/24/2019, 12/31/2010 Hepatitis B Vaccine Completed 05/10/2018, 05/19/2015, 05/19/2015, Additional history exists HPV (Gardasil) Vaccine Aged Out No lo nger eligible based on patient's age to complete this topic Hepatitis C Screening Discontinued MENINGOCOCCAL (MENACTRA/MENVEO) Aged Out No longer eligible based on patient's age to complete this topic documented as of this encounter Medical Devices Not on filedocumented as of this encounter Visit Diagnoses Diagnosis Type 1 diabetes mellitus with hypoglycemia and without coma (HCC) Type I (juvenile type) diabetes mellitus with other specified manifestations, not stated as uncontrolled Type 1 diabetes mellitus with diabetic neuropathy (HCC) Type I (juvenile type) diabetes mellitus with neurological manifestations, not stated as uncontrolled Type 1 diabetes mellitus with hemoglobin A1c goal of less than 8.0% (HCC) documented in this encounter Care Teams Accounting Assistant Relationship Specialty Start Date End Date Yasmin May MD [address] [place] [address] PCP - General Internal Medicine 10/21/23 documented as of this encounter
--- OUTSIDE RECORDS SUMMARY | 2024-04-02 23:46 | External Medical Summary | Summary of Care ---
Author Name Unknown Organization [facility] Address [address] [place] [address] Phone [phone] Care Team Providers Care Senior Facilities Manager Name Role Phone Yasmin May MD Primary Care Provider [phone] Reason for Visit * Reason Onset Date Comments Forms Request 11/21/2023 [facility] medical FYI 11/21/2023 Fax 11/21/2023 Encounter Details Date Type Department Care Team (Late st Contact Info) Description 11/21/2023 Telephone [facility] [address] [place] [address] Yasmin May MD [address] [place] [address] Forms Request ([facility] medical); FYI; Fax Allergies Active Allergy Reactions Criticality Noted Date Comments Varenicline 02/25/2020 EMESIS Nicotine 02/25/2020 PATCH CAUSED DERMATITIS Penicillins Hives 01/08/2009 Allergy when 5 or 6, unsure of reaction Metoclopramide Other (Please comment) High 0 Facial tics Sulfa Antibiotics 01/08/2009 Bupropion 02/25/2020 HYPOGLYCEMIA documented as of this encounter (statuses as of 12/01/2023) Medications Medication Sig Dispensed Refills Start Date End Date Status Insulin Syringe-Needle U-100 (BD INSULIN SYRINGE ULTRAFINE) 31G X 5/16" 0.5 ML MISC Use as directed. 4 daily injection in case of pump malfunction 100 Each 2 04/23/2015 Active Insulin Infusion Pump (MINIMED 630G INSULIN PUMP) KITIndications:Type 1 diabetes mellitus with hypoglycemia and without coma (HCC) Use as directed. 05/19/2017 Active ondansetron ODT (ZOFRAN) 4 MG TBDPIndications:Tuyet roparesis Place 1 Tab on tongue every 8 hours as needed for Nausea. dissolve on tongue. 60 Tab 08/01/2017 Active polyethylene glycol 3350 (MIRALAX) 255 gram powder TAKE 17GRAMS BY MOUTH DAILY. ONE CAPFUL IN JUICE TO EFFECT 1 STOOL PER DAY 255 g 07/20/2018 Active loratadine (CLARITIN) 10 MG TabletIndications:Na matt sinus congestion,Post-nasa l drip Take 1 Tab by mouth daily. x1-2 wks then as needed-otc 30 Tab 01/31/2019 Active Insulin Lispro 100 UNIT/ML Subcutaneous Solution (HumaLOG) USE VIA INSULIN PUMP, MAX 100 UNITS PER DAY Dx E10.649 100 mL 3 02/29/2020 Active Omeprazole 20 MG Oral Capsule Delayed Release (PriLOSEC) TAKE 1 CAPSULE BY MOUTH EVERY DAY 30 Cap 1 05/22/2020 Active Dronabinol 5 MG Oral Capsule (Marinol)Indications :Gastroparesis,Nause a without vomiting,Anorexia Take 1 Cap by mouth 2 times a day with morning and evening meals. 60 Cap 3 06/10/2020 Active Glucagon (rDNA) 1 MG Injection Kit (Glucagen)Indication s:DM type 1, not at goal (HCC) As directed 1 Kit 5 06/09/2020 Active Atorvastatin Calcium 10 MG Oral Tablet (Lipitor)Indications :DM type 1, not at goal (HCC),Tobacco use disorder TAKE 2 TABLETS BY MOUTH EVERY DAY 180 Tab 1 09/24/2020 Active Glucose Blood In Vitro StripIndications:Typ e 1 diabetes mellitus with complications (HCC),Type 1 diabetes mellitus with hypoglycemia and without coma (HCC) Use to test blood sugar when Dexcom monitor reading questionable and when Dexcom monitor not functioning. This test strip is compatible with insulin pump dx e10.8 50 Strip 5 12/24/2020 Active Promethazine HCl 25 MG Oral Tablet (Phenergan)Indicatio ns:Gastroparesis One tab by mouth 1-2 times/day. 60 Tab 3 01/19/2021 Active Lisinopril 2.5 MG Oral Tablet (Prinivil) Take 1 Tablet by mouth in the morning. 90 Tablet 3 10/21/2023 Active documented as of this encounter (statuses as of 12/01/2023) Active Problems Problem Noted Date Diagnosed Date Diabetic neuropathy 02/25/2020 Diabetic retinopathy 02/25/2020 Osteoarthritis of left ankle 02/25/2020 History of laser photocoagulation of retina 01/28 Type 1 diabetes mellitus with hypoglycemia 12/10 Calculus of ureter 10/25/2013 Gastroparesis 11/08/2012 Tobacco use disorder DM type 1 causing neurological disease documented as of this encounter (statuses as of 12/01/2023) Resolved Problems Problem Noted Date Diagnosed Date [...] as of this encounter (statuses as of 12/01/2023) Immunizations Name Administration Dates Next Due COVID-19 [...] encounter Miscellaneous Notes * Telephone Encounter - Dieudonne Lala OSA - 12/01/2023 2:18 PM EDT Calling in to check on status of forms please signed and fax * Telephone Encounter - Chel Meyer LPN - 11/23/2023 2:11 PM EDT Form is on providers desk to be signed. * Telephone Encounter - Jess Stroud OSA - 11/23/2023 1:41 PM EDT Pt calling in requesting the status of forms being sent back because [facility] Medical has informed him that supplies have not been shipped out due to not having received fax back. Pt stated he is diabeticand needs to be on insulin at all times and is running out of supplies and needs fax to be sent back as soon as possible. * Telephone Encounter - Cortney Brar OSA - 11/22/2023 3:45 PM EDT Venus from [facility] called in to verify clinic got their fax. Advised of above. * Telephone Encounter - Isa Zaidi LPN - 11/21/2023 12:40 PM EDT [facility] medical form placed on provider's desk. documented in this encounter Plan of Treatment Upcoming Encounters Date Type Department Care Team (Late st Contact Info) Description 12/07/2023 8:50 AM EDT Office Visit Pharmacy, [place] [address] [place] [address] [place] [address] [place] [address] 01/23/2024 8:20 AM EDT Office Visit Family [facility], [place] [address] [place] [address] Yasmin May MD [address] [place] [address] Health Maintenance Due Date Last Done Comments Pneumococcal Vaccine: Pediatrics (0 to 5 Years) and At-Risk Patients (6 to 64 Years) (2 of 2 - PCV) 07/30/2008 07/31/2007, 03/28/2000 Diabetic Eye Exam 03/04/2021 03/04/2020, , 11/14/2014, Additional history exists Albumin/Creatinine Ratio 06/23/2021 021, 08/04/2016, 05/11/2016, Additional history exists HbA1c 06/23/2021 12/24/2020, 05/27, 02/25/2020, Additional history exists GFR 12/24/2021 12/24/2020, 05/27, 02/25/2020, Additional history exists COVID-19 Vaccine ( season) 2023 11/22/2020, 10/25/2020 Influenza Vaccine (FLU shot) (#1) 2023 02/14/2013, 11/26/2012 Depression Screening 10/20/2024 10/21/2023 Diabetic Foot Exam 10/20/2024 10/21/2023, 0 12/24/2020, 02/25/2020, Additional history exists Lipid Panel 06/23/2025 06/23/2020, [...] Not on filedocumented as of this encounter Care Teams Senior Facilities Manager Relationship Specialty Start Date End Date Yasmin May MD [address] [place] [address] PCP - General Internal Medicine 10/21/23 documented as of this encounter
--- OUTSIDE RECORDS SUMMARY | 2024-04-02 23:46 | External Medical Summary | Summary of Care ---
Author Name Unknown Organization [facility] Address [address] [place] [address] Phone [phone] Care Team Providers Care Repair Department Supervisor Name Role Phone Yasmin May MD Primary Care Provider [phone] Reason for Visit * Reason Comments Dosage Adjustment In Person (Anticoag Cl inic) Diabetes Education Insulin Pump * Evaluate & Treat - Unlimited Visits (Within 10 days (routine)) - Authorized Specialty Diagnoses / Procedures Referred By Contac t Referred To Contact Pharmacist / Pharmacy Diagnoses Diabetic retinopathy of both eyes associated with type 1 diabetes mellitus, macular edema presence unspecified, unspecified retinopathy severity (HCC) Diabetic polyneuropathy associated with type 1 diabetes mellitus (HCC) Type 1 diabetes mellitus with hypoglycemia and without coma (HCC) Type 1 diabetes mellitus with diabetic neuropathy (HCC) Yasmin May MD [address] [place] [address] Referral ID Status Reason Start Date Expiration Date Visits Requested Visits Authorized [id number] Authorized Specialty Services Required 10/21/2023 04/18/[phone] Encounter Details Date Type Department Care Team (Late st Contact Info) Description 12/07/2023 8:50 AM EDT Office Visit Pharmacy, [place] [address] [place] [address] [place], [facility] [address] [place] [address] Type 1 diabetes mellitus with hemoglobin A1c goal of less than 8.0% (HCC)*; Type 1 diabetes mellitus with hypoglycemia and without coma (HCC); Type 1 diabetes mellitus with diabetic neuropathy (HCC) Allergies Active Allergy Reactions Criticality Noted Date Comments Varenicline 02/25/2020 EMESIS Nicotine 02/25/2020 PATCH CAUSED DERMATITIS Penicillins Hives 01/08/2009 Allergy when 5 or 6, unsure of reaction Metoclopramide Other (Please comment) High 0 Facial tics Sulfa Antibiotics 01/08/2009 Bupropion 02/25/2020 HYPOGLYCEMIA documented as of this encounter (statuses as of 12/07/2023) Medications Medication Sig Dispensed Refills Start Date [...] insulin pump failure 10 mL 5 12/07/2023 Active Insulin Infusion Pump (MINIMED 630G INSULIN PUMP) KITIndications:Typ e 1 diabetes mellitus with hypoglycemia and without coma (HCC) Use as directed. 05/19/201712/06 4 Discontinue d(Medicatio n List Clean Up) polyethylene glycol 3350 (MIRALAX) 255 gram powder TAKE 17GRAMS BY MOUTH DAILY. ONE CAPFUL IN JUICE TO EFFECT 1 STOOL PER DAY 255 g 07/20/2018 4 Discontinue d(Medicatio n List Clean Up) loratadine (CLARITIN) 10 MG TabletIndications: Nasal sinus congestion,Post-na matt drip Take 1 Tab by mouth daily. x1-2 wks then as needed-otc 30 Tab 01/31/2019 4 Discontinue d(Medicatio n List Clean Up) Insulin Lispro 100 UNIT/ML Subcutaneous Solution (HumaLOG) USE VIA INSULIN PUMP, MAX 100 UNITS PER DAY Dx E10.649 100 mL 3 02/29/2020 4 Discontinue d(Medicatio n List Clean Up) Omeprazole 20 MG Oral Capsule Delayed Release (PriLOSEC) TAKE 1 CAPSULE BY MOUTH EVERY DAY 30 Cap 1 05/22/2020 4 Discontinue d(Medicatio n List Clean Up) Dronabinol 5 MG Oral Capsule (Marinol)Indicatio ns:Gastroparesis,N ausea without vomiting,Anorexia Take 1 Cap by mouth 2 times a day with morning and evening meals. 60 Cap 3 06/10/2020 4 Discontinue d(End of Procedure) Atorvastatin Calcium 10 MG Oral Tablet (Lipitor)Indicatio ns:DM type 1, not at goal (HCC),Tobacco use disorder TAKE 2 TABLETS BY MOUTH EVERY DAY 180 Tab 1 09/24/2020 4 Discontinue d(Medicatio n List Clean Up) Glucose Blood In Vitro StripIndications:T ype 1 diabetes mellitus with complications (HCC),Type 1 diabetes mellitus with hypoglycemia and without coma (HCC) Use to test blood sugar when Dexcom monitor reading questionable and when Dexcom monitor not functioning. This test strip is compatible with insulin pump dx e10.8 50 Strip 5 12/24/2020 4 Discontinue d(Medicatio n List Clean Up) documented as of this encounter (statuses as of 12/07/2023) Active Problems Problem Noted Date Diagnosed Date Diabetic neuropathy 02/25/2020 Diabetic retinopathy 02/25/2020 Osteoarthritis of left ankle 02/25/2020 History of laser photocoagulation of retina 01/28 Type 1 diabetes mellitus with hypoglycemia 12/10 Calculus of ureter 10/25/2013 Gastroparesis 11/08/2012 Tobacco use disorder DM type 1 causing neurological disease documented as of this encounter (statuses as of 12/07/2023) Resolved Problems Problem Noted Date Diagnosed Date [...] as of this encounter (statuses as of 12/07/2023) Immunizations Name Administration Dates Next Due COVID-19 [...] on file documented as of this encounter Progress Notes * Delfina Couch, [facility] - 12/07/2023 8:45 AM EDT Images from the original note were not included. Medication Therapy Disease Management Clinic - Diabetes Management Progress Note Mahesh Hayes, identified by name and date of , is a 43 year old male being seen for diabetes management/education. Patient presents for initial diabetic visit. Past Medical History: Diagnosis Date Colitis, acute August 2011 DM (diabetes mellitus), type 1 (HCC) DM type 1 causing eye disease, not at goal 1984 DM type 1 causing neurological disease (HCC) Tobacco use disorder Diagnosis: Type 1 Age of diabetes diagnosis: ~4 years old Family history of diabetes: brother and uncle Microvascular complications: retinopathy, neuropathy, and gastroparesis Macrovascular complications: none DIABETES: Current diabetic medications: Tandem CIQ Pump Infusion set: Autosoft 6 mm 30" or TrueSteel Cartridge: 3mL Insulin: Novolog Basal Rate: 12a-12a: 0.650 units/hr Bolus wizard: on and using ICR: 12a-12a 1:40 ISF: 12a-12a 1:90 Blood Glucose Goals: 90-120 ; Automode targeting 110 Active Insulin Time: 5 hours in CONTROL IQ Back up: Lantus 12 units BID Medication Injection Site: Abdomen Lifestyle: Diet: eats usually once a day due to gastroparesis Glucose Review/SMBG: Readings obtained from patient device Hypoglycemia: Does your blood sugar go below 70 mg/dL? Occasionally- corrects with sweet tea Hyperglycemia symptoms present: none No results for input(s): "HGBA1C" in the last 24062 hours. No results for input(s): "EGFR", "CREAT" in the last 26055 hours. HYPERTENSION: Patient on ACEi/ARB: yes BP Readings from Last 3 Encounters: 10/21/23 128/62 12/24/20 118/60 06/23/20 80/60 Blood pressure at goal: yes HYPERLIPIDEMIA: No results for input(s): "LDLDIRECT", "LDLCALC", "LDLCHOL" in the last 52923 hours. Does patient have clinical ASCVD? No, is patient LDL less than 70mg/dL? No: needs repeat lipid panel, but he is on crestor 5 mg currently HEALTH MAINTENANCE REVIEW: Health Maintenance Due Topic Date Due Pneumococcal Vaccine: Pediatrics (0 to 5 Years) and At-Risk Patients (6 to 64 Years) (2 of 2 - PCV)07/30/2008 Diabetic Eye Exam 03/04/2021 Albumin/Creatinine Ratio 06/23/2021 HbA1c 06/23/2021 GFR 12/24/2021 Influenza Vaccine (FLU shot) (1) 11/27/2023 COVID-19 Vaccine (3 - season) 2023 ASSESSMENT & PLAN: ICD-10-CM 1. Type 1 diabetes mellitus with hemoglobin A1c goal of less than 8.0% (HCC) E10.9 2. Type 1 diabetes mellitus with hypoglycemia and without coma (HCC) E10.649 3. Type 1 diabetes mellitus with diabetic neuropathy (HCC) E10.40 Considerations: - gastroparesis- patient eats only once daily - Q3 month appts to keep insulin pump supply orders active Glycemic control is stable and at goal Patient agreeable to continue medications as noted below. Basal settings continued as glucose is stable overnight and between meals. ICR/fixed dose continued as glucose is stable postprandially. ISF continued as glucose is correcting to goal range. Patient to SMBG at least 4 times daily, before each meal and at bedtime. Patient aware to contact clinic if any hypoglycemia before next visit. Reviewed rule of 15s. Reviewed appropriate management of hyperglycemia as noted in pump start documentation. No changes made to settings today. Patient's gastroparesis makes the control challenging at times, but overall he feels comfortable with his current control and regimen. I placed an order of TH platform for florin to continue to get his tandem pump supplies + Dexcom g7 from [facility]. Patient has glucagon at home, not sure if it is in date. I sent a script for 1 vial of lantus to the pharmacy for patient to have just in case of pump failure. Medication list was otherwise cleaned up, we may look to do NovoNordisk PAP for his novolog if needbe. MEDICATION CHANGES: no change Diabetic Medications: Tandem CIQ Pump Infusion set: Autosoft 6 mm 30" or TrueSteel Cartridge: 3mL Insulin: Novolog Basal Rate: 12a-12a: 0.650 units/hr Bolus wizard: on and using ICR: 12a-12a 1:40 ISF: 12a-12a 1:90 Blood Glucose Goals: 90-120 ; Automode targeting 110 Active Insulin Time: 5 hours in CONTROL IQ Back up: Lantus 12 units BID -- script sent to [facility] 12/07/23 HEALTH MAINTENANCE INTERVENTIONS: Labs: Ordered & Scheduled: HgA1c, BMP/CMP, Urine Microalbumin, and Lipid Panel Immunizations: did not discuss Foot Exam: Up to Date Eye Exam: Up to Date Annual Wellness Visit: N/A FOLLOW UP: Return to clinic in 12 weeks 02/27/2024 I spent a total of 40-54 minutes (exact time 50 mins) on the date of service in preparation, delivery, and documentation of the care provided to Mahesh Hayes excluding any time spent in the performance of separately billed services. Delfina Couch [facility] Clinical Pharmacist - Waxer Operator Medication Therapy Management Clinic 12/07/2023, 8:45 AM documented in this encounter Plan of Treatment Upcoming Encounters Date Type Department Care Team (Late st Contact Info) Description 02/27/2024 9:00 AM EST Office Visit Pharmacy, [address] [place] [address] [place], [facility] [place] [address] Scheduled Orders Name Type Priority Associated Diagnoses Orde r Schedule HEMOGLOBIN A1C Lab Routine Type 1 diabetes mellitus with hemoglobin A1c goal of less than 8.0% (HCC) Expected: 02/20/2024 (Approximate), Expires: 12/06/2024 ALBUMIN / CREATININE RATIO, URINE Lab Routine Type 1 diabetes mellitus with hemoglobin A1c goal of less than 8.0% (HCC) Expected: 02/20/2024 (Approximate), Expires: 12/06/2024 BASIC METABOLIC PANEL Lab Routine Type 1 diabetes mellitus with hemoglobin A1c goal of less than 8.0% (HCC) Expected: 02/20/2024 (Approximate), Expires: 12/06/2024 LIPID PANEL WITH DIRECT LDL IF TG IS HIGH Lab Routine Type 1 diabetes mellitus with hemoglobin A1c goal of less than 8.0% (HCC) Expected: 02/20/2024 (Approximate), Expires: 12/06/2024 Health Maintenance Due Date Last Done Comments Pneumococcal Vaccine: Pediatrics (0 to 5 Years) and At-Risk Patients (6 to 64 Years) (2 of 2 - PCV) 07/30/2008 07/31/2007, 03/28/2000 Diabetic Eye Exam 03/04/2021 03/04/2020, , 11/14/2014, Additional history exists Albumin/Creatinine Ratio 06/23/2021 021, 08/04/2016, 05/11/2016, Additional history exists HbA1c 06/23/2021 12/24/2020, 03/2 11/2020, 02/25/2020, Additional history exists GFR 12/24/2021 [...] Diagnoses Diagnosis Type 1 diabetes mellitus with hemoglobin A1c goal of less than 8.0% (HCC)- Primary Type 1 diabetes mellitus with hypoglycemia and without coma (HCC) Type I (juvenile type) diabetes mellitus with other specified manifestations, not stated as uncontrolled Type 1 diabetes mellitus with diabetic neuropathy (HCC) Type I (juvenile type) diabetes mellitus with neurological manifestations, not stated as uncontrolled documented in this encounter Care Teams Repair Department Supervisor Relationship Specialty Start Date End Date Yasmin May MD [address] [place] [address] PCP - General Internal Medicine 10/21/23 documented as of this encounter
--- OUTSIDE RECORDS SUMMARY | 2024-04-02 23:46 | External Medical Summary | Summary of Care ---
Author Name Unknown Organization [facility] Address [address] [place] [place] [address] Phone [phone] Care Team Providers Care Vp Analytics Name Role Phone Yasmin May MD Primary Care Provider [phone] Reason for Visit * Reason Comments Follow Up Pt here to [facility]. Last seen 2020. Pt c/o N/V. Requesting nausea meds. Hx gastroparesis. Encounter Details Date Type Department Care Team (Late st Contact Info) Description 03/15/2024 2:30 PM EST Office Visit Gastroenterology, [facility] [address] [facility] [place] [address] Mckenna Terry CRNP [address] [place] [address] Gastroparesis*; Dyspepsia and disorder of function of stomach Allergies Active Allergy Reactions Criticality Noted Date Comments Varenicline 02/25/2020 EMESIS Nicotine 02/25/2020 PATCH CAUSED DERMATITIS Penicillins Hives 01/08/2009 Allergy when 5 or 6, unsure of reaction Metoclopramide Other (Please comment) High 0 Facial tics Sulfa Antibiotics 01/08/2009 Bupropion 02/25/2020 HYPOGLYCEMIA documented as of this encounter (statuses as of 03/15/2024) Medications Insulin Syringe-Needle U-100 (BD INSULIN SYRINGE ULTRAFINE) 31G X 5/16" 0.5 ML MISC Use as directed. 4 daily injection in case of pump malfunction 100 Each 2 016 Active Glucagon (rDNA) 1 MG Injection Kit (Glucagen)Indicat ions:DM type 1, not at goal (HCC) As directed 1 Kit 5 021 Active Lisinopril 2.5 MG Oral Tablet (Prinivil) Take 1 Tablet by mouth in the morning. 90 Tablet 3 01/16/20 24 6:17 PM EDT 024 Active Insulin Aspart 100 UNIT/ML Injection Solution (NovoLOG) To use in insulin pump: 50 units per day. 023 Active Insulin Glargine 100 UNIT/ML Subcutaneous Solution (Lantus)Indicatio ns:Type 1 diabetes mellitus with hypoglycemia and without coma (HCC),Type 1 diabetes mellitus with diabetic neuropathy (HCC),Type 1 diabetes mellitus with hemoglobin A1c goal of less than 8.0% (HCC) Inject 12 units twice daily in the event of an insulin pump failure 10 mL 5 024 Active Rosuvastatin Calcium 20 MG Oral Tablet (Crestor)Indicati ons:Type 1 diabetes mellitus with hypoglycemia and without coma (HCC),Type 1 diabetes mellitus with diabetic neuropathy (HCC) Take 1 Tablet by mouth in the morning. Dose increase. 100 Tablet 4 02/29/20 24 2:16 PM EST 024 Active Promethazine HCl 25 MG Oral Tablet (Phenergan)Indica tions:Gastropares is Take 1 Tablet by mouth 3 times a day as needed for Nausea or Vomiting. 90 Tablet 3 024 Active Lansoprazole 15 MG Oral Tablet Delayed Release Disintegrating (Prevacid Solutab) Take 1 Tablet by mouth in the morning. 30 Tablet 3 024 Active ondansetron ODT (ZOFRAN) 4 MG TBDPIndications:G astroparesis Place 1 Tab on tongue every 8 hours as needed for Nausea. dissolve on tongue. 60 Tab 018 2023 Discontinued Promethazine HCl 25 MG Oral Tablet (Phenergan)Indica tions:Gastropares is One tab by mouth 1-2 times/day. 60 Tab 3 021 2023 Discontinued(R efill) documented as of this encounter (statuses as of 03/15/2024) Active Problems Problem Noted Date Diagnosed Date Diabetic neuropathy 02/25/2020 Diabetic retinopathy 02/25/2020 Osteoarthritis of left ankle 02/25/2020 History of laser photocoagulation of retina 01/28 Type 1 diabetes mellitus with hypoglycemia 12/10 Calculus of ureter 10/25/2013 Gastroparesis 11/08/2012 Tobacco use disorder DM type 1 causing neurological disease documented as of this encounter (statuses as of 03/15/2024) Resolved Problems Problem Noted Date Diagnosed Date Resolved Date Fracture of ankle, left, closed 12/25/2013 09/15/2016 Urinary frequency 10/25/2013 09/15/2016 Calculus of kidney 10/25/2013 7 Overview (10/25/2013): small right stones. Type 1 diabetes mellitus wit h hemoglobin A1c goal of 7.0%-8.0% 11/06/2012 12/10/2013 Overview (07/29/2015): ICD-10 update of inactive term DM type 1, not at goal, causing eye disease 10/21/2023 Overview (07/08/2015): ICD-10 update of inactive term documented as of this encounter (statuses as of 03/15/2024) Immunizations Name Administration Dates Next Due COVID-19 mRNA, LNP-s, No Pre serve, 2-Dose Series (Moderna) 11/22/2020,10/25/2020 Hepatitis B, 20+ yrs 05/10/2018,05/19/2015,04/16 Pneumococcal Polysaccharide PPV23 (Pneumovax) 07/31/2007,03/28/2000 Seasonal Influenza Vac., MDV , IM, 0.5 mL (Fluzone) 02/14/2013,11/26/2012 TDAP (age 10 and older)(Boostrix) 11/24/2019,08/2010 documented as of this encounter Social History Tobacco Use Types Packs/Day Years Used Date Smoking Tobacco: Former Cigarettes 1 15 Q uit: 04/03/2023 Passive Smoke Exposure: Past Smokeless Tobacco: Former Chew Alcohol Use Standard Drinks/Week Comments Yes 0 (1 standard drink = 0.6 oz pur e alcohol) social PHQ-2 Answer Date Recorded PHQ Adult Total Score 0 10/21/2023 Hunger Vital Sign Answer Date Recorded Within the past 12 months, y ou worried that your food would run out before you got the money to buy more. Patient declined Within the past 12 months, t he food you bought just didn't last and you didn't have money to get more. Patient declined Childcare Answer Date Recorded Do you feel overwhelmed with taking care of a child, family member or friend? No 10/20/2023 Does your family need help f inding childcare? (Household - for ages 0-17 years) Not on file 10/20/2023 Clothing Answer Date Recorded Have you been unable to get clothing when it was really needed? No 10/20/2023 Is your family able to get c lothes or diapers when needed? (Household - for ages 0-17 years) Not on file 10/20/2023 Personal Safety Answer Date Recorded Do you feel unsafe or have concerns for your saf ety? No 10/20/2023 Do you have concerns for you r family's safety? (Household - for ages 0-17 years) Not on file 10/20/2023 Utilities Answer Date Recorded Do you have trouble paying y our heating, water, or electric bill? Yes 10/20/2023 Is your family able to pay t he heat, water, or electric bill? (Household - for ages 0-17 years) Not on file 10/20/2023 Does your family have access to good internet? (Household - for ages 0-17 years) Not on file 10/20/2023 Employment Status Answer Date Recorded Are you unemployed or without regular income? Ye s 10/20/2023 Does the household have a re gular source of income? (Household - for ages 0-17 years) Not on file 10/20/2023 Social Connections Answer Date Recorded How often do you feel lonely or isolated from th ose around you? Rarely 10/20/2023 Financial Resource Strain Answer Date R ecorded Do you have any trouble payi ng for your medications, or do you think you might in the future? Yes 10/20/2023 Does your family have troubl e paying for medicine? (Household - for ages 0-17 years) Not on file 10/20/2023 Transportation Needs Answer Date Record ed Do you have trouble getting a ride to medical visits or work? (Adult - for ages 18 years and over) Not on file 10/20/2023 Does your family have a hard time getting a ride to doctors visits? (Household - for ages 0-17 years) Not on file 10/20/2023 Has lack of transportation k ept you from medical appointments, meetings, work, or from getting things needed for daily living? Check all that apply. No 10/20/2023 Do you (or your family) have trouble finding or paying for a ride (transportation)? (Household - for ages 0-17 years) Not on file 10/20/2023 Housing Stability Answer Date Recorded Do you currently live in a s helter or have no steady place to sleep at night? No 10/20/2023 Do you think you are at risk of becoming homeless? (Adult - for ages 18 years and over) Not on file 10/20/2023 Does your family worry about paying for your home or becoming homeless? (Household - for ages 0-17 years) Not on file 0 10/20/2023 Are you homeless or worried that you might be in the future? No 10/20/2023 Are you (or your family) hermilo eless or worried that you might be in the future? (Household - for ages 0-17 years) Not on file Food Insecurity Answer Date Recorded Do you need food for this week? No 10/20/2023 Are you able to get enough f ood for your family? (Household - for ages 0-17 years) Not on file 10/20/2023 Does your family need food t his week? (Household - for ages 0-17 years) Not on file 10/20/2023 Do you always have enough fo od for your family? (Household - for ages 0-17 years) Not on file 10/20/2023 Sex and Gender Information Value Date Recorded Sex Assigned at Not on file Legal Sex Male 7:13 AM EST Gender Identity Not on file Sexual Orientation Not on file documented as of this encounter Last Filed Vital Signs Vital Sign Reading Time Taken Comments Blood Pressure 126/72 03/15/2024 2:22 PM EST Pulse - - Temperature 36.7 C (98.1 F) 03/15/2024 2:22 PM ES T Respiratory Rate - - Oxygen Saturation - - Inhaled Oxygen Concentration - - Weight 65.8 kg (145 lb) 03/15/2024 2:22 PM EST Height - - Body Mass Index 20.51 10/21/2023 9:28 AM EDT documented in this encounter Progress Notes * Mckenna Terry CRNP - 03/15/2024 2:29 PM EST DATE OF SERVICE: 03/15/24 REFERRING PHYSICIAN: Mauro CC: F/U gastroparesis 03/15/24: Patient returns to GI clinic to reestablish care after change of his insurance. Reports that overall symptoms of nausea and vomiting are much improved than when I last saw him in 2020. He is currently taking Promethazine 50mg in AM which last till 6PM. Not using Zofran because it constipates him. Would like to have extra 25 mg of promethazine in the evening if possible. He is also experiencing increased gassiness and burping when he eats beef, fried foods. Taking Tums for indigestion and gassiness with sometimes helps. Bowels otherwise moving quite regularly without constipation, rectal bleeding. He quit tobacco uses on 04/03/2023. Rarely drinks alcohol, about 6 pack a year. Admits to still using medical marijuana, smoking it, for neuropathies. Telemedicine visit 01/19/21: Patient location: HOME. I was in a hospital or clinic location. After connecting through [employer], patient was verified with two unique identifiers. Patient (or authorized legal operations support representative) was then informed that this was a Telemedicine visit and being conducted confidentially over secure lines. Methods to assure confidentiality were taken. Patient acknowledged consent and understanding of privacy and security of the Telemedicine visit. The patient agreed to participate. Pt was admitted at [facility] in August for gastroparesis flare. He is doing better now. Taking Phenergan 25mg 1-2 tabs daily. 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 He denies abd pain, n/v, weight loss. Sometimes issues w constipation but relieved w Miralax. Telephonic visit 07/07/2020: After connecting to the patient via telephone, the patient was identified by name and date of . Patient was then informed that this was a telephone call only visit. The patient agreed to participate. Visit Disposition: Routine follow-up Total call duration was 7 minutes. Pt doing relatively well. N/V, controlled w Promethazine usually once daily and if not improved he may take a Zofran 4 hrs after Promethazine. Denies hematemesis, coffee ground emesis, bowel habit changes. Telephonic visit 04/07/20: After connecting to the patient via telephone, the patient was identified by name and date of . Patient was then informed that this was a telephone call only visit. The patient agreed to participate. Visit Disposition: Routine follow-up Total call duration was 6 minutes. Pt doing well since started Erythromycin. N/V improved, no abd pain, bowel habit changes. Telemedicine Visit 02/29/2020: After connecting through [employer], patient was verified with two unique identifiers. Patient (or authorized legal operations support representative) was then informed that this was a Telemedicine visit and that the exam was being conducted confidentially over secure lines. My office door was closed. No one else was in the room with me. Patient acknowledged consent and understanding ofprivacy and security of the Telemedicine visit and gave permission to have a telemedicine presenter/family member stay in the room in order to assist with the history and to conduct the exam if needed. I informed the patient that I have reviewed their record in [facility] and presented the opportunity for them to ask any questions regarding the visit today. The patient agreed to participate. Mahesh Hayes is a 39 year old male, w hx of DM I, gastroparesis who is seen today for increased N/V symptoms in the last 2 months. He denies hematemesis, coffee ground emesis. Generalized abd discomfort w N/V, 2 hours after eating, especially w fatty foods. He reports bowels move daily, denies constipation, or straining. He smokes tobacco and medical marijuana, social ETOH uses. He currently is using Zofran and Promethazine prn n/v, but said the meds are not as effective as before. Reglan caused facial tics. Hx of Erythromycin use in the past. Previous EGDs showed esophagitis. Past Medical History: Diagnosis Date Colitis, acute August 2011 DM (diabetes mellitus), type 1 (HCC) DM type 1 causing eye disease, not at goal 1984 DM type 1 causing neurological disease (HCC) Tobacco use disorder Family History Problem Relation Name Age of Onset Heart Disorder Father Diabetes Brother twin brother. type 1 Diabetes Uncle (Unspecified) Esophageal cancer Uncle (Unspecified) Past Surgical History: Procedure Laterality Date DE REPAIR UMBILICAL HERNIA, UNDER AGE 5 YEARS; REDUCIBLE TREATMENT OF EXTENSIVE RETINOPATHY, PHOTOCOAGULATION Laser Photocoagulation UPPER GI ENDOSCOPY 09/14/2011 UPPER GI ENDOSCOPY 12/18/2012 Social History Tobacco Use Smoking status: Former Current packs/day: 0.00 Average packs/day: 1 pack/day for 15.0 years (15.0 ttl pk-yrs) Types: Cigarettes Quit date: 04/03/2023 Years since quittin.9 Passive exposure: Past Smokeless tobacco: Former Types: Chew Vaping Use Vaping status: Never Used Substance Use Topics Alcohol use: Yes Comment: social Drug use: Yes Types: Marijuana Review of patient's allergies indicates: Allergen Reactions Reglan [Metoclopramide] Other (Please comment) Facial tics Chantix [Varenicline] EMESIS Nicoderm [Nicotine] PATCH CAUSED DERMATITIS Penicillin [Penicillins] Hives Allergy when 5 or 6, unsure of reaction Sulfa [Sulfa Antibiotics] Wellbutrin [Bupropion] HYPOGLYCEMIA Current Outpatient Medications Medication Sig Dispense Refill Promethazine HCl 25 MG Oral Tablet (Phenergan) One tab by mouth 1-2 times/day. 60 Tab 3 Lisinopril 2.5 MG Oral Tablet (Prinivil) Take 1 Tablet by mouth in the morning. 90 Tablet 3 Insulin Aspart 100 UNIT/ML Injection Solution (NovoLOG) To use in insulin pump: 50 units per day. Rosuvastatin Calcium 20 MG Oral Tablet (Crestor) Take 1 Tablet by mouth in the morning. Dose increase. 100 Tablet 4 Insulin Syringe-Needle U-100 (BD INSULIN SYRINGE ULTRAFINE) 31G X 5/16" 0.5 ML MISC Use as directed. 4 daily injection in case of pump malfunction 100 Each 2 ondansetron ODT (ZOFRAN) [address] 1 Tab on tongue every 8 hours as needed for Nausea. dissolve on tongue. 60 Tab 0 Glucagon (rDNA) 1 MG Injection Kit (Glucagen) As directed 1 Kit 5 Insulin Glargine 100 UNIT/ML Subcutaneous Solution (Lantus) Inject 12 units twice daily in the event of an insulin pump failure 10 mL 5 No current facility-administered medications for this visit. REVIEW OF SYSTEMS: All other findings negative except as noted in HPI. EXAM: Filed Vitals: 03/15/24 1422 BP: 126/72 Temp: 36.7 C (98.1 F) Weight: 65.8 kg (145 lb) GENERAL: Well developed and well nourished in no acute distress. SKIN: No rashes, ulcers, jaundice or spider angiomata. HEENT: Normocephalic, sclera clear. NECK: Supple, trachea midline,no JVD. LUNGS: Clear to auscultation bilaterally, no respiratory distress or accessory muscles used. HEART: Regular rate & rhythm, no murmurs and no gallops. ABDOMEN: Normal bowel sounds, soft and nontender. EXTREMITIES: No palmar erythema, no ankle edema, no skin discoloration, no clubbing, no cyanosis. NEURO: No lateralizing findings. Sensory/Motor grossly normal. ASSESSMENT AND PLAN: Mahesh Hayes is a 43 year old male w DM I, hx of esophagitis, gastroparesis, doing quite well clinically. - Start Lansoprazole 15mg qAM - Promethazine 25mg tid prn n/v - Gastroparesis diet - Cautioned uses of marijuana and risk for cyclic vomiting/cannabis hyperemesis syndrome - ED for emergencies - Please call with any questions or concerns I spent a total of 30 minutes on the date of service in review of patient's record, and previously obtained information in person and appropriate medical visit, discussion and education of plan, withpatient and/or caregiver, placing orders for tests/referral/procedures as medically necessary and documentation of pertinent clinical information in patient's medical records for their visit today. RETURN TO CLINIC: 6months or sooner [facility] Joselito Zan documented in this encounter Nursing Notes * Chelsea Cyr CMA - 03/15/2024 2:21 PM EST Chief Complaint Patient presents with Follow Up Pt here to reestablish care. Last seen 2020. Pt c/o N/V. Requesting nausea meds. documented in this encounter Plan of Treatment Upcoming Encounters Date Type Department Care Team (Late st Contact Info) Description 05/28/2024 9:30 AM EST Office Visit Pharmacy, [address] [place] [phone] [facility] [address] [facility] [place] [phone] 08/29/2024 9:00 AM EDT Office Visit Gastroenterology, [facility] [address] [place] [address] Mckenna Terry CRNP [address] [facility] [place] [address] Health Maintenance Due Date Last Done Comments Pneumococcal Vaccine: Pediatrics (0 to 5 Years) and At-Risk Patients (6 to 64 Years) (2 of 2 - PCV) 07/30/2008 07/31/2007, 03/28/2000 COVID-19 Vaccine ( - season) 2023 11/22/2020, 10/25/2020 Influenza Vaccine (FLU shot) (#1) 2023 02/14/2013, 11/26/2012 HbA1c 08/27/2024 02/27/2024, 11/27, 06/23/2020, Additional history exists Depression Screening 10/20/2024 10/21/2023 Diabetic Foot Exam 10/20/2024 10/21/2023, 0 12/24/2020, 02/25/2020, Additional history exists Diabetic Eye Exam 12/06/2024 12/07/2023, , 10/21/2016, Additional history exists Albumin/Creatinine Ratio 02/26/2025 024, 06/23/2020, 08/04/2016, Additional history exists GFR 02/26/2025 02/27/2024, 11/27, 06/23/2020, Additional history exists Lipid Panel 02/26/2029 02/27/2024, 05/27, 02/20/2019, Additional history exists DTap/Tdap Vaccines (3 - [...] as of this encounter Visit Diagnoses Diagnosis Gastroparesis- Primary Dyspepsia and disorder of function of stomach Dyspepsia and other specified disorders of function of stomach documented in this encounter Care Teams Vp Analytics Relationship Specialty Start Date End Date Yasmin May MD PCP - General Internal Medicine 10/21/23 documented as of this encounter
--- OUTSIDE RECORDS SUMMARY | 2024-04-02 23:46 | External Medical Summary ---
Author Name Unknown Address Unknown Organization [id number][place] [place] [address] [place] [address] Laboratory Report Ordering Provider Test Date Status YUDI DURHAM 02/27/2024 09:44:59 Final Normal: <30 mg/g creatinine< br/>High: 30-300 mg/g creatinine
Very High: >300 mg/g creatinine
Nephrotic: >2200 mg/g creatinine Observation Date Value Abnormality Reference (Units ) Status Albumin, Urine 02/27/2024 09:44:59 4.00 (mg/dL) Final Creatinine, Urine 02/27/2024 09:44:59 180 (mg/dL) Final Albumin/Creatinine [Mass Ratio] in Urine 02/27/2024 09:44:59 22 <30 (mg/g Creat) Final Performing Location [facility] [place] [address] [place] [address]
--- OUTSIDE RECORDS SUMMARY | 2024-04-02 23:46 | External Medical Summary | Summary of Care ---
Author Name Unknown Organization [facility] Address [address] [facility] [place] [address] Phone [phone] Care Team Providers Care Lead Sharepoint Developer Name Role Phone Yasmin May MD Primary Care Provider [phone] Encounter Details Date Type Department Care Team (Late st Contact Info) Description 12/19/2023 Orders Only [facility] [address] [place] [address] Yasmin May MD [address] [place] [address] Allergies Active Allergy Reactions Criticality Noted Date Comments Varenicline 02/25/2020 EMESIS Nicotine 02/25/2020 PATCH CAUSED DERMATITIS Penicillins Hives 01/08/2009 Allergy when 5 or 6, unsure of reaction Metoclopramide Other (Please comment) High 0 Facial tics Sulfa Antibiotics 01/08/2009 Bupropion 02/25/2020 HYPOGLYCEMIA documented as of this encounter (statuses as of 12/19/2023) Medications Medication Sig Dispensed Refills Start Date End Date Status Insulin Syringe-Needle U-100 (BD INSULIN SYRINGE ULTRAFINE) 31G X 5/16" 0.5 ML MISC Use as directed. 4 daily injection in case of pump malfunction 100 Each 2 04/23/2015 Active ondansetron ODT (ZOFRAN) 4 MG TBDPIndications:Tuyet [...] Active Insulin Glargine 100 UNIT/ML Subcutaneous Solution (Lantus)Indications: Type 1 diabetes mellitus with hypoglycemia and without coma (HCC),Type 1 diabetes mellitus with diabetic neuropathy (HCC),Type 1 diabetes mellitus with hemoglobin A1c goal of less than 8.0% (HCC) Inject 12 units twice daily in the event of an insulin pump failure 10 mL 5 12/07/2023 Active documented as of this encounter (statuses as of 12/19/2023) Active Problems Problem Noted Date Diagnosed Date Diabetic neuropathy 02/25/2020 Diabetic retinopathy 02/25/2020 Osteoarthritis of left ankle 02/25/2020 History of laser photocoagulation of retina 01/28 Type 1 diabetes mellitus with hypoglycemia 12/10 Calculus of ureter 10/25/2013 Gastroparesis 11/08/2012 Tobacco use disorder DM type 1 causing neurological disease documented as of this encounter (statuses as of 12/19/2023) Resolved Problems Problem Noted Date Diagnosed Date [...] as of this encounter (statuses as of 12/19/2023) Immunizations Name Administration Dates Next Due COVID-19 [...] on file documented as of this encounter Plan of Treatment Upcoming Encounters Date Type Department Care Team (Late st Contact Info) Description 02/27/2024 9:00 AM EST Office Visit Pharmacy, [place] [address] [place] [phone] [facility] [address] [facility] [place] [address] Health Maintenance Due Date Last Done Comments [...] 02/25/2020, Additional history exists Diabetic Eye Exam 12/18/2024 12/07/2023, , 10/21/2016, Additional history exists Lipid [...] Not on filedocumented as of this encounter Procedures Procedure Name Priority Date/Time Associated Diagnosis Comments DIABETIC EYE EXAM Routine 12/07/2023 documented in this encounter Results * DIABETIC EYE EXAM (12/07/2023) 12/07/2023 History Per Patient OTHER OUTSIDE LAB (SEE SCANNED REPORT) documented in this encounter Care Teams Lead Sharepoint Developer Relationship Specialty Start Date End Date Yasmin May MD [address] [place] [address] PCP - General Internal Medicine 10/21/23 documented as of this encounter
--- OUTSIDE RECORDS SUMMARY | 2024-04-02 23:46 | External Medical Summary | Summary of Care ---
Author Name Unknown Organization [facility] Address [address] [place] [facility] [place] [address] Phone [phone] Care Team Providers Care World History Teacher Name Role Phone Yasmin May MD Primary Care Provider [phone] Reason for Visit * Reason Onset Date Comments Patient Assistance Program 02/28/2024 Novol og Vials Encounter Details Date Type Department Care Team (Late st Contact Info) Description 02/28/2024 Telephone Pharmacy, [address] [place] [address] Delfina Couch, [facility] [address] [place] [address] Patient Assistance Program (Novolog Vials) Allergies Active Allergy Reactions Criticality Noted Date Comments Varenicline 02/25/2020 EMESIS Nicotine 02/25/2020 PATCH CAUSED DERMATITIS Penicillins Hives 01/08/2009 Allergy when 5 or 6, unsure of reaction Metoclopramide Other (Please comment) High 0 Facial tics Sulfa Antibiotics 01/08/2009 Bupropion 02/25/2020 HYPOGLYCEMIA documented as of this encounter (statuses as of 02/28/2024) Medications Insulin Syringe-Needle U-100 (BD INSULIN SYRINGE ULTRAFINE) 31G X 5/16" 0.5 ML MISC Use as directed. 4 daily injection in case of pump malfunction 100 Each 2 6 Active ondansetron ODT (ZOFRAN) 4 MG TBDPIndications: Gastroparesis Place 1 Tab on tongue every 8 hours as needed for Nausea. dissolve on tongue. 60 Tab 8 Active Glucagon (rDNA) 1 MG Injection Kit (Glucagen)Indica tions:DM type 1, not at goal (HCC) As directed 1 Kit 5 1 Active Promethazine HCl 25 MG Oral Tablet (Phenergan)Indic ations:Gastropar esis One tab by mouth 1-2 times/day. 60 Tab 3 1 Active Lisinopril 2.5 MG Oral Tablet (Prinivil) Take 1 Tablet by mouth in the morning. 90 Tablet 3 01/16/2024 6:17 PM EDT 4 Active Insulin Aspart 100 UNIT/ML Injection Solution (NovoLOG) To use in insulin pump: 50 units per day. 3 Active Insulin Glargine 100 UNIT/ML Subcutaneous Solution (Lantus)Indicati ons:Type 1 diabetes mellitus with hypoglycemia and without coma (HCC),Type 1 diabetes mellitus with diabetic neuropathy (HCC),Type 1 diabetes mellitus with hemoglobin A1c goal of less than 8.0% (HCC) Inject 12 units twice daily in the event of an insulin pump failure 10 mL 5 4 Active Rosuvastatin Calcium 20 MG Oral Tablet (Crestor)Indicat ions:Type 1 diabetes mellitus with hypoglycemia and without coma (HCC),Type 1 diabetes mellitus with diabetic neuropathy (HCC) Take 1 Tablet by mouth in the morning. Dose increase. 100 Tablet 4 4 Active documented as of this encounter (statuses as of 02/28/2024) Active Problems Problem Noted Date Diagnosed Date Diabetic neuropathy 02/25/2020 Diabetic retinopathy 02/25/2020 Osteoarthritis of left ankle 02/25/2020 History of laser photocoagulation of retina 01/28 Type 1 diabetes mellitus with hypoglycemia 12/10 Calculus of ureter 10/25/2013 Gastroparesis 11/08/2012 Tobacco use disorder DM type 1 causing neurological disease documented as of this encounter (statuses as of 02/28/2024) Resolved Problems Problem Noted Date Diagnosed Date [...] as of this encounter (statuses as of 02/28/2024) Immunizations Name Administration Dates Next Due COVID-19 [...] encounter Miscellaneous Notes * Telephone Encounter - Delfina Couch RPh - 02/28/2024 3:19 PM EST Filled out and faxed enrollment forms for patient to get Novolog U 100 vials from Novo[employer]ord[employer] PAP. Received successful confirmation of fax. Forms scanned into chart. Delfina Couch, PharmD Clinical Pharmacist Medication Therapy Disease Management 02/28/2024, 3:19 PM documented in this encounter Plan of Treatment Upcoming Encounters Date Type Department Care Team (Late st Contact Info) Description 05/28/2024 9:30 AM EST Office Visit Pharmacy, [address] [place] [address] [facility] [address] [place] [address] Health Maintenance Due Date Last Done Comments Pneumococcal Vaccine: Pediatrics (0 to 5 Years) and At-Risk Patients (6 to 64 Years) (2 of 2 - PCV) 07/30/2008 07/31/2007, 03/28/2000 COVID-19 Vaccine ( season) 2023 11/22/2020, 10/25/2020 [...] diabetes mellitus with hypoglycemia and without coma (HCC)- Primary Type I (juvenile type) diabetes mellitus with other specified manifestations, not stated as uncontrolled Type 1 diabetes mellitus with diabetic neuropathy (HCC) Type I (juvenile type) diabetes mellitus with neurological manifestations, not stated as uncontrolled documented in this encounter Care Teams World History Teacher Relationship Specialty Start Date End Date Yasmin May MD [address] [place] [facility] [place] [address] PCP - General Internal Medicine 10/21/23 documented as of this encounter
--- OUTSIDE RECORDS SUMMARY | 2024-04-02 23:46 | External Medical Summary ---
Author Name Unknown Address Unknown Organization [id number]:LAB[facility]ORY [facility] - [address] [place] [address] Laboratory Report Ordering Provider Test Date Status YUDI DURHAM 02/27/2024 09:44:59 Final Observation Date Value Abnormality Reference (Units ) Status HbA1C 02/27/2024 09:44:59 6.8 Above high normal 4. 0-5.6 (%) Final The use of HbA1c to monitor glycemic status is based on normal hemoglobin and HbA composition. This test should not be used in patients with abnormal hemoglobin that affects the half life of the red blood cell or the in vivo glycation rates. Glucose, estimated average 02/27/2024 09:44:59 148 Above high normal <126 (mg/dL) Maurizio monsalve Performing Location [facility]ORY [facility] - [address] [place] [address]
--- OUTSIDE RECORDS SUMMARY | 2024-04-02 23:46 | External Medical Summary | Summary of Care ---
Author Name Unknown Organization [facility] Address [address] [place] [facility] [place] [place] [address] Phone [phone] Care Team Providers Care Field Operations Manager Name Role Phone Yasmin May MD Primary Care Provider [phone] Reason for Visit * Reason Comments Outpatient Testing Encounter Details Date Type Department Care Team (Late st Contact Info) Description 02/27/2024 10:00 AM EST Laboratory Laboratory, [facility] [address] [place] [id number] [facility] [address] [place] [address] Type 1 diabetes mellitus with hemoglobin A1c goal of less than 8.0% ([facility]) Allergies Active Allergy Reactions Criticality Noted Date Comments Varenicline 02/25/2020 EMESIS Nicotine 02/25/2020 PATCH CAUSED DERMATITIS Penicillins Hives 01/08/2009 Allergy when 5 or 6, unsure of reaction Metoclopramide Other (Please comment) High 0 Facial tics Sulfa Antibiotics 01/08/2009 Bupropion 02/25/2020 HYPOGLYCEMIA documented as of this encounter (statuses as of 02/27/2024) Medications Insulin Syringe-Needle U-100 (BD INSULIN SYRINGE [...] pump: 50 units per day. 3 Active Rosuvastatin Calcium 5 MG Oral Tablet (Crestor) Take 1 Tablet by mouth in the morning. 4 Active Insulin Glargine 100 UNIT/ML Subcutaneous Solution (Lantus)Indicati ons:Type 1 diabetes mellitus with hypoglycemia and without coma (HCC),Type 1 diabetes mellitus with diabetic neuropathy (HCC),Type 1 diabetes mellitus with hemoglobin A1c goal of less than 8.0% (HCC) Inject 12 units twice daily in the event of an insulin pump failure 10 mL 5 4 Active documented as of this encounter (statuses as of 02/27/2024) Active Problems Problem Noted Date Diagnosed Date Diabetic neuropathy 02/25/2020 Diabetic retinopathy 02/25/2020 Osteoarthritis of left ankle 02/25/2020 History of laser photocoagulation of retina 01/28 Type 1 diabetes mellitus with hypoglycemia 12/10 Calculus of ureter 10/25/2013 Gastroparesis 11/08/2012 Tobacco use disorder DM type 1 causing neurological disease documented as of this encounter (statuses as of 02/27/2024) Resolved Problems Problem Noted Date Diagnosed Date [...] as of this encounter (statuses as of 02/27/2024) Immunizations Name Administration Dates Next Due COVID-19 [...] s 10/20/2023 Does the household have a [facility] source of income? (Household - for ages [...] Description 05/28/2024 9:30 AM EST [facility] [address] [place] [phone] [facility] [address] [facility] [place] [address] Pending Results Name Type Priority Associated Diagnoses Date /Time HEMOGLOBIN A1C Lab Routine Type 1 diabetes mellitus with hemoglobin A1c goal of less than 8.0% ([facility]) 02/27/2024 9:44 AM EST ALBUMIN / CREATININE RATIO, URINE Lab Routine Type 1 diabetes mellitus with hemoglobin A1c goal of less than 8.0% ([facility]) 02/27/2024 9:44 AM EST BASIC METABOLIC PANEL Lab Routine Type 1 diabetes mellitus with hemoglobin A1c goal of less than 8.0% ([facility]) 02/27/2024 9:44 AM EST LIPID PANEL WITH DIRECT LDL IF TG IS HIGH Lab Routine Type 1 diabetes mellitus with hemoglobin A1c goal of less than 8.0% ([facility]) 02/27/2024 9:44 AM EST Health Maintenance Due Date Last Done Comments [...] (HCC) documented in this encounter Care Teams Field Operations Manager Relationship Specialty Start Date End Date Yasmin May MD [address] [address] PCP - General Internal Medicine 10/21/23 documented as of this encounter
--- OUTSIDE RECORDS SUMMARY | 2024-04-02 23:46 | External Medical Summary ---
Author Name Unknown Address Unknown Organization K01:[facility]ATORY [facility] - [address] [facility] [place] [address] Laboratory Report Ordering Provider Test Date Status YUDI DURHAM 02/27/2024 09:44:59 Final Observation Date Value Abnormality Reference (Units ) Status Triglyceride 02/27/2024 09:44:59 96 <=174 ( mg/dL) Final Triglyceride Reference Range s (mg/dL):
<150 Acceptable
150-174 Borderline high
175-499 High
>=500 Very high Cholesterol 02/27/2024 09:44:59 153 <200 (mg /dL) Final Total Cholesterol Reference Ranges (mg/dL):
<200 Desirable
200-239 Borderline high
>=240 High HDL 02/27/2024 09:44:59 25 Below low normal >39 (mg/dL) Final HDL Cholesterol Reference Ra nges (mg/dL):
>=60 High (Desirable)
<50 Low (Undesirable) For Females
<40 Low (Undesirable) For Males NON-HDL CHOLESTEROL 02/27/2024 09:44:59 128 <=159 (mg/dL) Final Non-HDL Cholesterol Referenc e Range (mg/dL):
<100 Target level for high risk ASCVD patient
<130 Optimal for general population
130-159 Near optimal for general population
160-189 Borderline High
190-219 High
>=220 Very High LDL, (calculated) 02/27/2024 09:44:59 109 <= 129 (mg/dL) Final LDL Cholesterol Reference Ra nges (mg/dL):
<70 Target level for high risk ASCVD patient
<100 Optimal for general population
100-129 Near optimal for general population
130-159 Borderline high
160-189 High
>=190 Very high Performing Location LABORATORY [facility] - [address] [place] [address]
--- OUTSIDE RECORDS SUMMARY | 2024-04-02 23:46 | External Medical Summary ---
Author Name Unknown Address Unknown Organization K01:[facility] - [address] [facility] [place] [address] Laboratory Report Ordering Provider Test Date Status YUDI DURHAM 02/27/2024 09:44:59 Final Observation Date Value Abnormality Reference (Units ) Status BUN 02/27/2024 09:44:59 14 6-20 (mg/dL) Final Creatinine 02/27/2024 09:44:59 1.0 0.6-1.2 (mg/dL) Final Glomerular filtration rate/1.73 sq M.predicted [Volume Rate/Area] in Serum, Plasma or Blood by Creatinine-based formula (CKD-EPI) 02/27/2024 09:44:59 >90 >=60 (mL/min) Final eGFR is calculated based on the CKD-EPI 2020 equation. Sodium 02/27/2024 09:44:59 139 135-146 (m mol/L) Final Potassium 02/27/2024 09:44:59 5.0 3.5-5.1 (m mol/L) Final Cl 02/27/2024 09:44:59 102 98-107 (mm ol/L) Final CO2 02/27/2024 09:44:59 29 22-32 (mmo l/L) Final Anion gap 02/27/2024 09:44:59 8 7-15 (mmol /L) Final Glucose 02/27/2024 09:44:59 202 Above high normal 70 -120 (mg/dL) Final Calcium 02/27/2024 09:44:59 9.7 8.4-10.2 ( mg/dL) Final Performing Location [facility] - [address] [place] [address]
--- OUTSIDE RECORDS SUMMARY | 2024-04-02 23:46 | External Medical Summary | Summary of Care ---
Author Name Unknown Organization [facility] Address [address] [place] [address] Phone [phone] Care Team Providers Care Disaster Recovery Analyst Name Role Phone Yasmin May MD Primary Care Provider [phone] Reason for Visit * Reason Comments Dosage Adjustment In Person (Anticoag Cl inic) Insulin Pump Diabetes Follow-Up Encounter Details Date Type Department Care Team (Late st Contact Info) Description 02/27/2024 9:00 AM EST Office Visit Pharmacy, [facility] [address] [place] [address] [facility] [address] [place] [address] Type 1 diabetes mellitus with hypoglycemia and without coma (HCC)*; Type 1 diabetes mellitus with diabetic neuropathy [...] this encounter Progress Notes * Delfina Couch, [facility] - 02/27/2024 9:02 AM EST Images from the original note were not included. Medication Therapy Disease Management Clinic - Diabetes Management Progress Note Mahesh Hayes, identified by name and date of , is a 43 year old male being seen for diabetes management/education. Patient presents for return diabetic visit. DIABETES: Current diabetic medications: Tandem CIQ Pump Infusion set: Autosoft 6 mm 30" or TrueSteel Cartridge: 3mL Insulin: Novolog Basal Rate: 12a-12a: 0.650 units/hr Bolus wizard: on and using ICR: 12a-12a 1:40 ISF: 12a-12a 1:90 Blood Glucose Goals: 90-120 ; Automode targeting 110 Active Insulin Time: 5 hours in CONTROL IQ Back up: Lantus 12 units BID -- script sent to [facility] [place] 12/07/23 Medication Injection Site: Abdomen Lifestyle: Diet: unchanged Glucose Review/SMBG: Readings obtained from patient device Hypoglycemia: Does your blood sugar go below 70 mg/dL? Yes, pt admits to sometimes overcorrecting Hyperglycemia symptoms present: none Recent Labs Units 02/27/24 0944 HEMOGLOBIN A1C - [facility] % 6.8* No results for input(s): "EGFR", "CREAT" in the last 83305 hours. HYPERTENSION: Patient on ACEi/ARB: yes BP Readings from Last 3 Encounters: 10/21/23 128/62 12/24/20 118/60 06/23/20 80/60 Blood pressure at goal: yes HYPERLIPIDEMIA: No results for input(s): "LDLDIRECT", "LDLCALC", "LDLCHOL", "LDL" in the last 47795 hours. Does patient have clinical ASCVD? No, pt needs updated FLP-- sent to lab today HEALTH MAINTENANCE REVIEW: Health Maintenance Due Topic Date Due Pneumococcal Vaccine: Pediatrics (0 to 5 Years) and At-Risk Patients (6 to 64 Years) (2 of 2 - PCV)07/30/2008 Albumin/Creatinine Ratio 06/23/2021 HbA1c 06/23/2021 GFR 12/24/2021 Influenza Vaccine (FLU shot) (1) 11/27/2023 COVID-19 Vaccine ( season) 2023 ASSESSMENT & PLAN: ICD-10-CM 1. Type 1 diabetes mellitus with hypoglycemia and without coma (HCC) E10.649 2. Type 1 diabetes mellitus with diabetic neuropathy (HCC) E10.40 Considerations: - gastroparesis- patient eats only once daily - Q3 month appts to keep insulin pump supply orders active - dexcom and tandem supplies from [facility] Glycemic control is stable and at goal [...] hypoglycemia before next visit. Reviewed rule of 15s and trying not to overcorrect a low. Reviewed appropriate management of hyperglycemia as noted in pump start documentation. Patient is agreeable to SMBG with dexcom G6 daily. Message sent on platform about G7 supplies, as this is what I had placed an order for, but pt is still receiving G6 supplies Patient aware to contact clinic if any hypoglycemia before next visit. MEDICATION CHANGES: no change-- had pt fill out and sign NovoNordisk PAP paperwork to see about getting novolog for free. He asked about extended infusion sets and I sent an email to the tandem traffic workforce representative to see if this is an option for patient. Diabetic Medications: Tandem CIQ Pump Infusion set: Autosoft 6 mm 30" or TrueSteel Cartridge: 3mL Insulin: Novolog Basal Rate: 12a-12a: 0.650 units/hr Bolus wizard: on and using ICR: 12a-12a 1:40 ISF: 12a-12a 1:90 Blood Glucose Goals: 90-120 ; Automode targeting 110 Active Insulin Time: 5 hours in CONTROL IQ Back up: Lantus 12 units BID -- script sent to [facility] [place] 12/07/23 HEALTH MAINTENANCE INTERVENTIONS: Labs: sent to lab today-- will message pt with results Immunizations: due for flu, pnemo, and covid Foot Exam: Up to Date Eye Exam: Up to Date Annual Wellness Visit: Up to Date FOLLOW UP: Return to clinic in 12 weeks 05/28/2024 I spent a total of 40-54 minutes (exact time 41 mins) on the date of service in preparation, delivery, and documentation of the care provided to Mahesh Hayes excluding any time spent in the performance of separately billed services. Delfina Couch RP Clinical Pharmacist - Logistics Planning Engineer Medication Therapy Management Clinic 02/27/2024, 9:04 AM documented in this encounter Plan of Treatment Upcoming Encounters Date Type Department Care Team (Late st Contact Info) Description 05/28/2024 9:30 AM EST Office Visit Pharmacy, [address] [place] [address] [facility] [place] [facility] [address] [place] [address] Health Maintenance Due Date Last Done Comments Pneumococcal Vaccine: Pediatrics (0 to 5 Years) and At-Risk Patients (6 to 64 Years) (2 of 2 - PCV) 07/30/2008 07/31/2007, 03/28/2000 GFR 12/24/2021 12/24/2020, 05/27, 02/25/2020, Additional history [...] 02/26/2025 024, 06/23/2020, 08/04/2016, Additional history exists Lipid Panel 06/23/2025 06/23/2020, [...] uncontrolled documented in this encounter Care Teams Disaster Recovery Analyst Relationship Specialty Start Date End Date Yasmin May MD [address] [place] [address] PCP - General Internal Medicine 10/21/23 documented as of this encounter
--- OUTSIDE RECORDS SUMMARY | 2024-04-02 23:47 | External Medical Summary | Summary of Care ---
Author Name Unknown Organization [facility] Address [address] [place] [address] Phone [phone] Care Team Providers Care Certified Flight Instructor Name Role Phone Yasmin May MD Primary Care Provider [phone] Reason for Visit * Reason Onset Date Comments Forms Request 11/21/2023 [facility] FYI 11/21/2023 Fax 11/21/2023 Encounter Details Date Type Department Care Team (Late st Contact Info) Description 11/21/2023 Telephone [facility] [address] [place] [address] Yasmin May MD [address] [place] [address] Forms Request ([facility]); FYI; Fax Allergies Active Allergy Reactions Criticality Noted Date Comments Varenicline 02/25/2020 EMESIS Nicotine 02/25/2020 PATCH CAUSED DERMATITIS Penicillins Hives 01/08/2009 Allergy when 5 or 6, unsure of reaction Metoclopramide Other (Please comment) High 0 Facial tics Sulfa Antibiotics 01/08/2009 Bupropion 02/25/2020 HYPOGLYCEMIA documented as of this encounter (statuses as of 11/23/2023) Medications Medication Sig Dispensed Refills Start Date [...] as of this encounter (statuses as of 11/23/2023) Active Problems Problem Noted Date Diagnosed Date Diabetic neuropathy 02/25/2020 Diabetic retinopathy 02/25/2020 Osteoarthritis of left ankle 02/25/2020 History of laser photocoagulation of retina 01/28 Type 1 diabetes mellitus with hypoglycemia 12/10 Calculus of ureter 10/25/2013 Gastroparesis 11/08/2012 Tobacco use disorder DM type 1 causing neurological disease documented as of this encounter (statuses as of 11/23/2023) Resolved Problems Problem Noted Date Diagnosed Date [...] as of this encounter (statuses as of 11/23/2023) Immunizations Name Administration Dates Next Due COVID-19 mRNA, LNP-s, No Pre serve, 2-Dose Series (Moderna) 11/22/2020,10/25/2020 Hepatitis B, 20+ yrs 05/10/2018,05/19/2015,04/16 Pneumococcal Polysaccharide PPV23 (Pneumovax) 07/31/2007,03/28/2000 Seasonal Influenza, Split, I IV3, With Preserve, Inj 02/14/2013,11/26/2012 TDAP (age 10 and older)(Boostrix) 11/24/2019,08/2010 [...] encounter Miscellaneous Notes * Telephone Encounter - Chel Meyer LPN - 11/23/2023 2:11 PM EDT Form is on providers desk to be signed. * Telephone Encounter - Jess Stroud OSA - 11/23/2023 1:41 PM EDT Pt calling in requesting the status of forms being sent back because [facility] has informed him that supplies have not been shipped out due to not having received fax back. Pt stated he is diabeticand needs to be on insulin at all times and is running out of supplies and needs fax to be sent back as soon as possible. * Telephone Encounter - Cortney Brar OSA - 11/22/2023 3:45 PM EDT Venus from [facility] called in to verify clinic got their fax. Advised of above. * Telephone Encounter - Isa Zaidi LPN - 11/21/2023 12:40 PM EDT [facility] form placed on provider's desk. documented in this encounter Plan of Treatment Upcoming Encounters Date Type Department Care Team (Late st Contact Info) Description 12/07/2023 8:50 AM EDT Office Visit Pharmacy, [place] [address] [facility] [place] [address] [facility] [address] [facility] [place] [address] 01/23/2024 8:20 AM EDT Office Visit Family Practice, [place] [address] [facility] [place] [phone] Yasmin May MD [address] [facility] [place] [address] Health Maintenance Due Date Last Done Comments Pneumococcal Vaccine: Pediatrics (0 to 5 Years) and At-Risk Patients (6 to 64 Years) (2 of 2 - PCV) 07/30/2008 07/31/2007, 03/28/2000 Diabetic Eye Exam 03/04/2021 03/04/2020, , 11/14/2014, Additional history exists Albumin/Creatinine Ratio 06/23/2021 021, 08/04/2016, 05/11/2016, Additional history exists HbA1c 06/23/2021 12/24/2020, 2 11/2020, 02/25/2020, Additional history exists GFR 12/24/2021 12/24/2020, 032 11/2020, 02/25/2020, Additional history exists COVID-19 Vaccine ( season) 2022 11/22/2020, 10/25/2020 Influenza Vaccine (FLU shot) (#1) 2023 02/14/2013, 11/26/2012 Depression Screening 10/20/2024 10/21/2023 Diabetic Foot Exam 10/20/2024 10/21/2023, 0 12/24/2020, 02/25/2020, Additional history exists Lipid Panel 06/23/2025 06/23/2020, 1108/2018, 08/04/2016, Additional history exists DTap/Tdap Vaccines (3 [...] filedocumented as of this encounter Care Teams Certified Flight Instructor Relationship Specialty Start Date End Date Yasmin May MD [address] [place] [address] PCP - General Internal Medicine 10/21/23 documented as of this encounter
--- OUTSIDE RECORDS SUMMARY | 2024-04-02 23:47 | External Medical Summary | Summary of Care ---
Author Name Unknown Organization [facility] Address [address] [place] [address] Phone [phone] Care Team Providers Care Mission Assessment Specialist Name Role Phone Yasmin May MD Primary Care Provider [phone] Reason for Visit * Reason Onset Date Comments Forms Request 11/21/2023 [facility] medical FYI 11/21/2023 Fax 11/21/2023 Encounter Details Date Type Department Care Team (Late st Contact Info) Description 11/21/2023 Telephone [facility] [address] [place] [address] Yasmin May MD [address] [place] [address] Forms Request ([facility] medical); FYI; Fax Allergies Active Allergy Reactions [...] encounter Miscellaneous Notes * Telephone Encounter - Jess Stroud OSA - 11/23/2023 1:41 PM EDT Pt calling in requesting the status of forms being sent back because [facility] Medical has informed him that supplies have not been shipped out due to not having received fax back. Pt stated he is diabeticand needs to be on insulin at all times and is running out of supplies and needs fax to be sent back as soon as possible. * Telephone Encounter - Cortney Brar OSA - 11/22/2023 3:45 PM EDT Venus from [facility] Medical called in to verify clinic got their fax. Advised of above. * Telephone Encounter - Isa Zaidi LPN - 11/21/2023 12:40 PM EDT [facility] medical form placed on provider's desk. documented in this encounter Plan of Treatment Upcoming Encounters Date Type Department Care Team (Late st Contact Info) Description 12/07/2023 8:50 AM EDT [address] [address] [facility] [address] [facility] [address] 01/23/2024 8:20 AM EDT Office Visit [facility] [place] [address] [facility] [phone] Yasmin May MD [address] [facility] [address] Health Maintenance Due Date Last Done Comments [...] filedocumented as of this encounter Care Teams Mission Assessment Specialist Relationship Specialty Start Date End Date Yasmin May MD [address] [facility] [place] [address] PCP - General Internal Medicine 10/21/23 documented as of this encounter
--- OUTSIDE RECORDS SUMMARY | 2024-04-02 23:47 | External Medical Summary | Summary of Care ---
Author Name Unknown Organization [facility] Address [address] [facility] [place] [address] Phone [phone] Care Team Providers Care Chemical Research Worker Name Role Phone Yasmin May MD Primary Care Provider [phone] Reason for Visit * Reason Onset Date Comments Forms Request 11/21/2023 [facility] medical FYI 11/21/2023 Fax 11/21/2023 Encounter Details Date Type Department Care Team (Late st Contact Info) Description 11/21/2023 Telephone [facility] [address] [place] [address] Yasmin May MD [address] [place] [address] Forms Request ([facility] medical); FYI; Fax Allergies Active Allergy Reactions Criticality Noted Date Comments Varenicline 02/25/2020 EMESIS Nicotine 02/25/2020 PATCH CAUSED DERMATITIS Penicillins Hives 01/08/2009 Allergy when 5 or 6, unsure of reaction Metoclopramide Other (Please comment) High 0 Facial tics Sulfa Antibiotics 01/08/2009 Bupropion 02/25/2020 HYPOGLYCEMIA documented as of this encounter (statuses as of 11/22/2023) Medications Medication Sig Dispensed Refills Start Date [...] as of this encounter (statuses as of 11/22/2023) Active Problems Problem Noted Date Diagnosed Date Diabetic neuropathy 02/25/2020 Diabetic retinopathy 02/25/2020 Osteoarthritis of left ankle 02/25/2020 History of laser photocoagulation of retina 01/28 Type 1 diabetes mellitus with hypoglycemia 12/10 Calculus of ureter 10/25/2013 Gastroparesis 11/08/2012 Tobacco use disorder DM type 1 causing neurological disease documented as of this encounter (statuses as of 11/22/2023) Resolved Problems Problem Noted Date Diagnosed Date [...] as of this encounter (statuses as of 11/22/2023) Immunizations Name Administration Dates Next Due COVID-19 [...] encounter Miscellaneous Notes * Telephone Encounter - Cortney Brar OSA - 11/22/2023 3:45 PM EDT Venus from [facility] Medical called in to verify clinic got their fax. Advised of above. * Telephone Encounter - Isa Zaidi LPN - 11/21/2023 12:40 PM EDT [facility] medical form placed on provider's desk. documented in this encounter Plan of Treatment Upcoming Encounters Date Type Department Care Team (Late st Contact Info) Description 12/07/2023 8:50 AM EDT Office Visit Pharmacy, [place] [address] [place] [address] [facility] [address] [place] [address] 01/23/2024 8:20 AM EDT Office Visit [facility] [place] [address] [phone] Yasmin May MD [address] [address] Health Maintenance Due Date Last Done Comments [...] 02/25/2020, Additional history exists COVID-19 Vaccine ( - season) 2022 11/22/2020, 10/25/2020 Influenza Vaccine (FLU [...] filedocumented as of this encounter Care Teams Chemical Research Worker Relationship Specialty Start Date End Date Yasmin May MD [address] [place] [address] PCP - General Internal Medicine 10/21/23 documented as of this encounter
--- OUTSIDE RECORDS SUMMARY | 2024-04-02 23:47 | External Medical Summary | Summary of Care ---
Author Name Unknown Organization [facility] Address [address] [place] [place] [address] Phone [phone] Care Team Providers Care Tax Services Professional Name Role Phone Yasmin May MD Primary Care Provider [phone] Reason for Visit * Reason Onset Date Comments Fax 11/07/2023 Insulin pump sup plies from [facility] Encounter Details Date Type Department Care Team (Late st Contact Info) Description 11/07/2023 Telephone [facility] [address] [place] [address] Yasmin May MD [address] [place] [address] Fax (Insulin pump supplies from [facility]) Allergies Active Allergy Reactions Criticality Noted Date Comments Varenicline 02/25/2020 EMESIS Nicotine 02/25/2020 PATCH CAUSED DERMATITIS Penicillins Hives 01/08/2009 Allergy when 5 or 6, unsure of reaction Metoclopramide Other (Please comment) High 0 Facial tics Sulfa Antibiotics 01/08/2009 Bupropion 02/25/2020 HYPOGLYCEMIA documented as of this encounter (statuses as of 11/09/2023) Medications Medication Sig Dispensed Refills Start Date [...] as of this encounter (statuses as of 11/09/2023) Active Problems Problem Noted Date Diagnosed Date Diabetic neuropathy 02/25/2020 Diabetic retinopathy 02/25/2020 Osteoarthritis of left ankle 02/25/2020 History of laser photocoagulation of retina 01/28 Type 1 diabetes mellitus with hypoglycemia 12/10 Calculus of ureter 10/25/2013 Gastroparesis 11/08/2012 Tobacco use disorder DM type 1 causing neurological disease documented as of this encounter (statuses as of 11/09/2023) Resolved Problems Problem Noted Date Diagnosed Date [...] as of this encounter (statuses as of 11/09/2023) Immunizations Name Administration Dates Next Due COVID-19 [...] encounter Miscellaneous Notes * Telephone Encounter - Terri Tavera OSA - 11/09/2023 9:57 AM EDT Called patient to see what fax number they sent it to and patient is not sure. I cannot find paperwork at this time and will wait to see if it comes through. Let patient know that if he talks to the company again, please ask which fax number they are sending it to to verify that it is being sent to the correct number. 11/09/2023 * Telephone Encounter - Walt Mcgraw OSA - 11/07/2023 1:25 PM EDT Patient calling and upset that [facility] is telling him they have called us multiple times, and faxed us multiple times regarding the patient's insulin pump. I relayed that I could see no faxes or call references to [employer] or his pump. He will call them and have them fax "again". Received a call asking if fax was received by office. Name/Company sending fax: [facility] What fax is pertaining to: insulin pump supplies Date(s) they sent request: 11.07.23 Verified fax number they are sending to is correct (Y or N): n/a Callback Number for the clinic to call to verified if fax was received: [phone] documented in this encounter Plan of Treatment Upcoming Encounters Date Type Department Care Team (Late st Contact Info) Description 11/18/2023 8:30 AM EDT [facility] [place] [address] [facility] [address] [facility] [address] [facility] [address] 01/23/2024 8:20 AM EDT Office Visit [facility], [place] [address] [facility] [phone] Yasmin May MD [address] [facility] [address] Health Maintenance Due Date Last Done Comments [...] 06/23/2025 06/23/2020, 01/27, 08/04/2016, Additional history exists DTaP,Tdap,and Td Vaccines (3 - Td or Tdap) 11/23/2029 [...] filedocumented as of this encounter Care Teams Tax Services Professional Relationship Specialty Start Date End Date Yasmin May MD [address] [place] [address] PCP - General Internal Medicine 10/21/23 documented as of this encounter
--- OUTSIDE RECORDS SUMMARY | 2024-04-02 23:47 | External Medical Summary | Summary of Care ---
Author Name Unknown Organization [facility] Address [address] [place] [facility] [place] [address] Phone [phone] Care Team Providers Care Sql Bi Developer Name Role Phone Yasmin May MD Primary Care Provider [phone] Reason for Visit * Reason Onset Date Comments Fax 11/07/2023 Insulin pump sup plies from [facility] Encounter Details Date Type Department Care Team (Late st Contact Info) Description 11/07/2023 Telephone [facility] [address] [place] [address] Yasmin May MD [address] [place] [address] Fax (Insulin pump supplies from [facility]) Allergies Active Allergy Reactions Criticality Noted Date Comments Varenicline 02/25/2020 EMESIS Nicotine 02/25/2020 PATCH CAUSED DERMATITIS Penicillins Hives 01/08/2009 Allergy when 5 or 6, unsure of reaction Metoclopramide Other (Please comment) High 0 Facial tics Sulfa Antibiotics 01/08/2009 Bupropion 02/25/2020 HYPOGLYCEMIA documented as of this encounter (statuses as of 11/18/2023) Medications Medication Sig Dispensed Refills Start Date [...] as of this encounter (statuses as of 11/18/2023) Active Problems Problem Noted Date Diagnosed Date Diabetic neuropathy 02/25/2020 Diabetic retinopathy 02/25/2020 Osteoarthritis of left ankle 02/25/2020 History of laser photocoagulation of retina 01/28 Type 1 diabetes mellitus with hypoglycemia 12/10 Calculus of ureter 10/25/2013 Gastroparesis 11/08/2012 Tobacco use disorder DM type 1 causing neurological disease documented as of this encounter (statuses as of 11/18/2023) Resolved Problems Problem Noted Date Diagnosed Date [...] as of this encounter (statuses as of 11/18/2023) Immunizations Name Administration Dates Next Due COVID-19 [...] encounter Miscellaneous Notes * Telephone Encounter - Nasreen Flanagan OSA - 11/18/2023 2:07 PM EDT Spoke to [employer] and verified best fax number which is not the number they had been faxing to. Provided Venus with the following fax number: [phone]. Venus states they will refax information on Dexcom 6. * Telephone Encounter - Terri Tavera OSA [...] PM EDT Patient calling and upset that [facility] is telling him they have called us multiple times, and faxed us multiple times regarding the patient's insulin pump. I relayed that I could see no faxes or call references to [facility] or his pump. He will call them and have them fax "again". Received a call asking if fax was received by office. Name/Company sending fax: [employer] What fax is pertaining to: insulin pump supplies Date(s) they sent request: 11.07.23 Verified fax number they are sending to is correct (Y or N): n/a Callback Number for the clinic to call to verified if fax was received: [phone] documented in this encounter Plan of Treatment Upcoming Encounters Date Type Department Care Team (Late st Contact Info) Description 12/07/2023 8:50 AM EDT Office Visit Pharmacy, [place] [address] [place] [address] [facility] [address] [place] [address] 01/23/2024 8:20 AM EDT Office Visit Family Practice, [place] [address] [place] [address] Yasmin May MD [address] [place] [address] Health Maintenance Due Date Last Done Comments [...] filedocumented as of this encounter Care Teams Sql Bi Developer Relationship Specialty Start Date End Date Yasmin May MD [address] [place] [address] PCP - General Internal Medicine 10/21/23 documented as of this encounter
--- OUTSIDE RECORDS SUMMARY | 2024-04-02 23:47 | External Medical Summary | Summary of Care ---
Author Name Unknown Organization [facility] Address [address] [place] [address] Phone [phone] Care Team Providers Care Waterworks Chief Engineer Name Role Phone Yasmin May MD Primary Care Provider [phone] Reason for Visit * Reason Onset Date Comments Forms Request 11/21/2023 [facility] medical FYI 11/21/2023 Fax 11/21/2023 Encounter Details Date Type Department Care Team (Late st Contact Info) Description 11/21/2023 Telephone [facility] [address] [place] [address] Yasmin May MD [address] [place] [address] Forms Request ([facility] medical); FYI; Fax Allergies Active Allergy [...] status of forms being sent back because [facility] Medical has informed him that supplies have not been shipped out due to not having received fax back. Pt stated he is diabeticand needs to be on insulin at all times and is running out of supplies and needs fax to be sent back as soon as possible. * Telephone Encounter - Cortney Brar OSA - 11/22/2023 3:45 PM EDT Venus from [facility] Medical called in to verify clinic got their fax. Advised of above. * Telephone Encounter - Isa Zaidi LPN - 11/21/2023 12:40 PM EDT [facility] medical form placed on provider's desk. documented in this encounter Plan of Treatment Upcoming Encounters Date Type Department Care Team (Late st Contact Info) Description 12/07/2023 8:50 AM EDT [address] [address] [facility] [address] [facility] [address] 01/23/2024 8:20 AM EDT Office Visit [facility] [place] [address] [facility] [phone] Yasmin May MD [address] [facility] [address] Health Maintenance Due Date Last Done Comments [...] filedocumented as of this encounter Care Teams Waterworks Chief Engineer Relationship Specialty Start Date End Date Yasmin May MD [address] [facility] [address] PCP - General Internal Medicine 10/21/23 documented as of this encounter
--- OUTSIDE RECORDS SUMMARY | 2024-04-02 23:47 | External Medical Summary | Summary of Care ---
Author Name Unknown Organization [facility] Address [address] [place] [address] Phone [phone] Care Team Providers Care Center Sales And Service Associate Name Role Phone Yasmin May MD Primary Care Provider [phone] Reason for Visit * Reason Onset Date Comments Forms Request 11/21/2023 [facility] medical Encounter Details Date Type Department Care Team ([facility] Contact Info) Description 11/21/2023 Telephone [facility] [address] [place] [address] Yasmin May MD [address] [place] [address] Forms Request ([facility] medical) Allergies Active Allergy Reactions Criticality Noted Date Comments Varenicline 02/25/2020 EMESIS Nicotine 02/25/2020 PATCH CAUSED DERMATITIS Penicillins Hives 01/08/2009 Allergy when 5 or 6, unsure of reaction Metoclopramide Other (Please comment) High 0 Facial tics Sulfa Antibiotics 01/08/2009 Bupropion 02/25/2020 HYPOGLYCEMIA documented as of this encounter (statuses as of 11/21/2023) Medications Medication Sig Dispensed Refills Start Date End Date Status Insulin Syringe-Needle U-100 (BD INSULIN SYRINGE ULTRAFINE) 31G X 5/16" 0.5 ML MISC Use as directed. 4 daily injection in case of pump malfunction 100 Each 2 04/23/2015 Active Insulin Infusion Pump ([employer]IMLookwider 630G INSULIN PUMP) KITIndications:Type 1 diabetes mellitus [...] as of this encounter (statuses as of 11/21/2023) Active Problems Problem Noted Date Diagnosed Date Diabetic neuropathy 02/25/2020 Diabetic retinopathy 02/25/2020 Osteoarthritis of left ankle 02/25/2020 History of laser photocoagulation of retina 01/28 Type 1 diabetes mellitus with hypoglycemia 12/10 Calculus of ureter 10/25/2013 Gastroparesis 11/08/2012 Tobacco use disorder DM type 1 causing neurological disease documented as of this encounter (statuses as of 11/21/2023) Resolved Problems Problem Noted Date Diagnosed Date [...] as of this encounter (statuses as of 11/21/2023) Immunizations Name Administration Dates Next Due COVID-19 [...] encounter Miscellaneous Notes * Telephone Encounter - Isa Zaidi LPN - 11/21/2023 12:40 PM EDT [facility] medical form placed on provider's desk. documented in this encounter Plan of Treatment Upcoming Encounters Date Type Department Care Team (Late st Contact Info) Description 12/07/2023 8:50 AM EDT Office Visit Pharmacy, [place] [address] [place] [address] [place] [facility] [address] [place] [address] 01/23/2024 8:20 AM EDT Office Visit [facility] [address] [place] [address] Yasmin May MD [address] [place] [address] Health Maintenance Due Date Last Done Comments [...] 05/27, 02/25/2020, Additional history exists COVID-19 Vaccine (3 - season) 2022 11/22/2020, 10/25/2020 Influenza Vaccine [...] filedocumented as of this encounter Care Teams Center Sales And Service Associate Relationship Specialty Start Date End Date Yasmin May MD [address] [place] [address] PCP - General Internal Medicine 10/21/23 documented as of this encounter
--- OUTSIDE RECORDS SUMMARY | 2024-04-02 23:47 | External Medical Summary | Summary of Care ---
Author Name Unknown Organization [facility] Address [address] [facility] [place] [address] Phone [phone] Care Team Providers Care Customs Compliance Director Name Role Phone Yasmin aMy MD Primary Care Provider [phone] Reason for Visit * Reason Onset Date Comments Forms Request 11/21/2023 [facility] medical FYI 11/21/2023 Fax 11/21/2023 Encounter Details Date Type Department Care Team (Late st Contact Info) Description 11/21/[address] [facility] [address] [place] [address] Yasmin May MD [address] [place] [address] Forms Request ([facility] medical); FYI; Fax Allergies Active Allergy [...] status of forms being sent back because [facility] Medical has informed him that supplies have not been shipped out due to not having received fax back. Pt stated he is diabeticand needs to be on insulin at all times and is running out of supplies and needs fax to be sent back as soon as possible. * Telephone Encounter - Cortney Brar OSA - 11/22/2023 3:45 PM EDT Venus from [facility] Medical called in to verify clinic got their fax. Advised of above. * Telephone Encounter - Isa Zaidi LPN - 11/21/2023 12:40 PM EDT [facility] medical form placed on provider's desk. documented in this encounter Plan of Treatment Upcoming Encounters Date Type Department Care Team (Late st Contact Info) Description 12/07/2023 8:50 AM EDT Office Visit Pharmacy, [place] [address] [place] [address] [facility] [address] [place] [address] 01/23/2024 8:20 AM EDT Office Visit Family [facility] [place] [address] [place] [place] [address] Yasmin May MD [address] [place] [address] Health Maintenance Due Date Last Done Comments [...] filedocumented as of this encounter Care Teams Customs Compliance Director Relationship Specialty Start Date End Date Yasmin May MD [address] [place] [address] PCP - General Internal Medicine 10/21/23 documented as of this encounter
[2024-04-03 00:07] LABS: Amphetamines+Metham, Urine Neg (Neg); Barbiturates, Urine Neg (Neg); Benzodiazepine, Urine Neg (Neg); Cocaine, Urine Neg (Neg); Fentanyl, Urine Neg (Neg); MDMA (Ecstacy), Urine Neg (Neg); Marijuana, Urine Pos (Neg); Methadone, Urine Neg (Neg); Opiate, Urine Neg (Neg); Phencyclidine, Urine Neg (Neg)
[2024-04-03] MEDS: HALOPERIDOL LACTATE 5 MG in SODIUM CHLORIDE 0.9% 500 ML IV STA (00:51)
[2024-04-03] MEDS: SODIUM CHLORIDE 0.9% 1,000 ML IV SCH ×2 (00:52→11:44)
[2024-04-03] MEDS: LORazepam 2 MG/1 ML VIAL IV STA (00:58)
--- NOTE | 2024-04-03 05:04 | History & Physical Report ---
Date of Service April 03, 2024 Assessment & Plan (1) Coffee ground emesis: Plan: 43-year-old male with past medical history significant type 1 diabetes on insulin pump, diabetic neuropathy, diabetic retinopathy, gastroparesis history of calculus of ureter, history of osteoarthritis of left ankle, tobacco disorder presents with persistent nausea vomiting and coffee-ground emesis. Patient states today evening started to have lot of nausea and vomiting. After some time of vomiting patient says he developed coffee-ground emesis. Denies any abdominal pain. Denies normal bowel movements. He denies any fevers. He has some chest soreness from vomiting. Denies shortness of breath. No headache. No runny nose or sore throat. Currently resting comfortably and hemodynamically stable. Patient smokes marijuana daily. Coffee-ground emesis Intractable nausea vomiting History of gastroparesis Possible cannabis hyperemesis syndrome Hemoglobin stable at 14.2 Blood consent obtained on Protonix drip P.o., IV fluids, IV Zofran as needed H&H every [address] chest shows small hiatal hernia and mildly dilated gas filled oesophagus Ct abd/pelvis shows incomplete distension vs antral gastritis and also acute pancolitis has leukocytosis' empiric cefepime and Flagyl started. GI consult Bladder distension on ct scan will monitor bladder scans consult urology Gastroparesis At home on promethazine IV Zofran as needed for now Type 1 diabetes On insulin pump Close monitor Hyperlipidemia Hold statin for now Hypertension On low-dose lisinopril which we will hold for now DVT prophylaxis SCDs Disposition Telemetry Full code. History of Present Illness Chief Complaint: Nausea vomiting and coffee-ground emesis Primary Care Provider: NO PCP 43-year-old male with past medical history significant type 1 diabetes on insulin pump, diabetic neuropathy, diabetic retinopathy, gastroparesis history of calculus of ureter, history of osteoarthritis of left ankle, tobacco disorder presents with persistent nausea vomiting and coffee-ground emesis. Patient states today evening started to have lot of nausea and vomiting. After some time of vomiting patient says he developed coffee-ground emesis. Denies any abdominal pain. Denies normal bowel movements. He denies any fevers. He has some chest soreness from vomiting. Denies shortness of breath. No headache. No runny nose or sore throat. Currently resting comfortably and hemodynamically stable. Patient smokes marijuana daily. Past medical history as mentioned above Past surgical history. Repair of umbilical hernia under age 7. Treatment of extensive retinopathy. Upper endoscopy. Social history. . Quit smoking 2023. Smoked 1 pack a day for 15 years. No alcohol social drinking. Uses marijuana daily as per patient. Allergies Allergy/AdvReac Type Severity Reaction Status Date / Time clindamycin Allergy Unknown Unknown Verified 04/05/23 22:08 Penicillins Allergy Unknown Swelling Verified 04/03/23 16:28 and hives (per pt's mother) Sulfa (Sulfonamide Allergy Unknown Unknown Verified 04/03/23 16:28 Antibiotics) bupropion [From Wellbutrin] AdvReac Unknown Unknown Verified 04/03/23 16:28 metoclopramide [From Reglan] AdvReac Unknown Unknown Verified 04/03/23 16:28 varenicline [From Chantix] AdvReac Unknown Unknown Verified 04/03/23 16:28 nicotine [From Nicoderm CQ] AdvReac Unknown Verified 04/03/23 16:28 Home Medications Medication Instructions Recorded Confirmed Type insulin aspart U-100 100 unit/mL 1 sliding scale dose subcut 04/03/24 04/03/24 History subcutaneous solution (Novolog USEASDIRECTD U-100 Insulin aspart) lansoprazole 15 mg delayed 15 mg PO DAILY 04/03/24 04/03/24 History release,disintegrating tablet lisinopril 2.5 mg tablet 2.5 mg PO DAILY 04/03/24 04/03/24 History promethazine 25 mg tablet 25 mg PO TID PRN Nausea And 04/03/24 04/03/24 History Vomiting rosuvastatin 20 mg tablet 20 mg PO DAILY 04/03/24 04/03/24 History Past Med/Surg History Problem List (Updated 04/03/24 @ 04:33 by Cory Lynch MD) Leukocytosis (Acute) Gastritis (Acute) Intractable nausea and vomiting (Acute) Aspiration pneumonia Lab test positive for detection of COVID-19 virus Type 1 diabetes (Acute) COVID-19 (Acute) Coffee ground emesis (Acute) Abdominal pain (Acute) Esophagitis (Acute) Nausea & vomiting (Acute) Proliferative diabetic retinopathy associated with type 1 diabetes mellitus Tobacco abuse Diabetic peripheral neuropathy associated with type 1 diabetes mellitus Diabetes mellitus type 1, controlled, insulin dependent Left against medical advice Nausea and vomiting (Acute) Hyperglycemic crisis in diabetes mellitus Marijuana use (Acute) Nephrolithiasis Gastroparesis (Chronic) Esophagitis (Acute) Hyperglycemia due to diabetes mellitus (Acute) Epigastric abdominal pain (Acute) Kidney stone (Chronic) Dysesthesia Encounter for pre-operative examination Right ureteral stone (Acute) Medical History Coffee ground emesis GERD (gastroesophageal reflux disease) Kidney stones History of kidney stones Arthritis History of seizure r/t hypoglycemia (2+ years ago) ADHD Loss of protective sensation of skin of foot Degenerative joint disease of ankle, left Gastroparesis due to DM Surgical History History of lithotripsy History of ankle surgery Left x3 History of tooth extraction PONV (postoperative nausea and vomiting) H/O laser photocoagulation of retina Hx of inguinal herniorrhaphy History of wisdom tooth extraction H/O esophagogastroduodenoscopy Family History Brother T1DM (type 1 diabetes mellitus) Uncle Family history of esophageal ulcer Father Myocardial infarction Heart disease Stroke Mother Deep vein thrombosis Social History Smoking Status: Former smoker Tobacco Type: Cigarettes and E-cigarettes / Vaping Cigarettes Per Day: 2; Second Hand Exposure: Yes; Do You Dip or Chew Tobacco: No; Hx Alcohol Use: No Hx Substance Use: Yes Last Used Substance: Hours (ago) Last Used Substance Other:: last evening 06/19/21 Substance Use Type Other:: Medical marijuana Preferred Language: Japanese Communication Ability: Effective Hearing Ability: Normal Design Assembler Required: No Beliefs That Will Affect Care: None Current Living Situation: Spouse Current Living Situation Comment: home w/ spouse Feels Safe at Home: Yes Assistive Devices: None Review of Systems Review of Systems: All systems reviewed & are unremarkable except as noted in HPI & below Physical Exam Physical Exam: General- Not in distress Head- atraumatic Eyes- PERRL. ENT- oropharynx clear Neck- supple, no JVD. Lungs- clear to auscultation no wheezing or crackles Heart- regular rhythm; no murmur, no gallop. Abdomen- normal bowel sounds, soft, nontender, no distension Extremities- no pretibial edema, no erythema seen Neuro- alert, oriented PERRL, no facial palsy; no dysarthria; moves extremities Results & Data Results & Data Vital Signs (Past 12 Hours) Vital Signs Temp Pulse Pulse Resp BP BP Pulse Ox 04/03/24 03:00 99 H 16 128/69 99 04/03/24 02:05 110 H 04/03/24 01:00 107 H 16 159/77 H 97 04/02/24 23:36 110 H 19 100 04/02/24 23:00 109 H 24 185/92 H 99 04/02/24 22:30 107 H 17 162/82 H 98 04/02/24 22:16 106 H 04/02/24 22:00 110 H 21 162/79 H 99 04/02/24 21:51 117 H 17 153/75 H 98 04/02/24 21:48 98 04/02/24 21:00 113 H 23 146/73 H 99 04/02/24 20:30 112 H 23 145/66 H 97 04/02/24 20:00 113 H 25 H 141/70 H 99 04/02/24 19:30 123 H 16 143/69 H 100 04/02/24 19:30 113 H 20 143/69 H 99 04/02/24 19:17 98 H 20 100 04/02/24 19:01 116 H 20 164/62 H 100 04/02/24 18:44 37.1 C 115 H 22 154/78 H 99 04/02/24 18:28 113 H O2 Del Method 04/03/24 03:00 Room Air 04/03/24 02:05 04/03/24 01:00 Room Air 04/02/24 23:36 Room Air 04/02/24 23:00 Room Air 04/02/24 22:30 Room Air 04/02/24 22:16 04/02/24 22:00 Room Air 04/02/24 21:51 Room Air 04/02/24 21:48 Room Air 04/02/24 21:00 Room Air 04/02/24 20:30 04/02/24 20:00 04/02/24 19:30 Room Air 04/02/24 19:30 Room Air 04/02/24 19:17 Room Air 04/02/24 19:01 Room Air 04/02/24 18:44 Room Air 04/02/24 18:28 Diagnostic Findings Laboratory Results WBC 26.65 K/ul (4.8-10.8) H 04/02/24 18:38 RBC 4.60 M/uL (4.70-6.10) L 04/02/24 18:38 Hgb 14.2 g/dl (14.0-18.0) 04/02/24 18:38 POC Hgb 14.6 g/dl (14.0-18.0) 04/02/24 18:59 Hct 39.7 % (42.0-52.0) L 04/02/24 18:38 POC Hct 43 % (42-52) 04/02/24 18:59 MCV 86.3 fL (80.0-100.0) 04/02/24 18:38 MCH 30.9 pg (25.0-34.0) 04/02/24 18:38 MCHC 35.8 g/dL (32.0-36.0) 04/02/24 18:38 RDW Std Deviation 42.2 fL (36.4-46.3) 04/02/24 18:38 RDW Coeff of [place] 13.3 % (11.5-14.5) 04/02/24 18:38 Plt Count 297 K/uL (130-400) 04/02/24 18:38 MPV 9.2 fL (9.4-12.4) L 04/02/24 18:38 Immature Gran % (Auto) 0.8 % 04/02/24 18:38 Neut % (Auto) 82.5 % 04/02/24 18:38 Lymph % (Auto) 7.7 % 04/02/24 18:38 [place] % (Auto) 7.5 % 04/02/24 18:38 Eos % (Auto) 0.7 % 04/02/24 18:38 Baso % (Auto) 0.8 % 04/02/24 18:38 Neut # (Auto) 21.97 K/uL (1.40-6.50) H 04/02/24 18:38 Lymph # (Auto) 2.06 K/uL (1.20-3.40) 04/02/24 18:38 [place] # (Auto) 2.00 K/uL (0.11-0.59) H 04/02/24 18:38 Eos # (Auto) 0.18 K/uL (0.00-0.50) 04/02/24 18:38 Baso # (Auto) 0.22 K/uL (0.00-0.20) H 04/02/24 18:38 Immature Gran # (Auto) 0.22 K/uL (0.01-0.20) H 04/02/24 18:38 RBC Morphology Unremarkable 04/02/24 18:38 PT 11.9 Seconds (9.0-12.0) 04/02/24 19:22 INR 1.1 (0.9-1.1) 04/02/24 19:22 APTT 23 Seconds (21-31) 04/02/24 19:22 PTT Ratio 0.9 04/02/24 19:22 VBG pH 7.45 (7.36-7.41) H 04/02/24 19:22 VBG pCO2 28 mmHg (38-50) L 04/02/24 19:22 VBG pO2 45 mmHg 04/02/24 19:22 VBG HCO3 20 mmol/L 04/02/24 19:22 VBG O2 Saturation 75.7 % 04/02/24 19:22 VBG Base Excess -3.2 mEq/L 04/02/24 19:22 POC Sodium 136 mmol/L (135-144) 04/02/24 18:59 Sodium 134 mmol/L (136-145) L 04/02/24 18:38 POC Potassium 3.9 mmol/L (3.3-5.0) 04/02/24 18:59 Potassium 4.3 mmol/L (3.5-5.1) 04/02/24 19:22 POC Chloride 101 mmol/L (101-112) 04/02/24 18:59 Chloride 98 mmol/L (98-107) 04/02/24 18:38 Carbon Dioxide 22 mmol/L (21-32) 04/02/24 18:38 POC Total CO2 19 mmol/L (24-31) L 04/02/24 18:59 Anion Gap 14 (3-11) H 04/02/24 18:38 POC Anion Gap 20.0 mmol/L (16-25) 04/02/24 18:59 POC BUN 16 mg/dl (7-18) 04/02/24 18:59 BUN 18 mg/dl (6-23) 04/02/24 18:38 Creatinine 1.13 mg/dl (0.6-1.4) 04/02/24 18:38 POC Creatinine 1.0 mg/dl (0.6-1.3) 04/02/24 18:59 Est Cr Clr Drug Dosing 85.3 ml/min 04/02/24 18:38 eGFR 83.74 04/02/24 18:38 BUN/Creatinine Ratio 15.9 (10-20) 04/02/24 18:38 Glucose 268 mg/dl (70-99(Fasting)) H 04/02/24 18:38 POC Glucose (other) 278 mg/dl (70-99) H 04/02/24 18:59 Calcium 9.9 mg/dl (8.6-10.3) 04/02/24 18:38 POC Ioniz Calcium [place] 1.05 mmol/l (1.12-1.32) L 04/02/24 18:59 Total Bilirubin 0.9 mg/dl (0.2-1.0) 04/02/24 18:38 Direct Bilirubin 0.2 mg/dl (0-0.2) 04/02/24 19:22 AST 16 U/L (13-39) 04/02/24 19:22 ALT 12 U/L (7-52) 04/02/24 18:38 Alkaline Phosphatase 83 U/L (34-104) 04/02/24 18:38 Troponin I High Sens 4.5 pg/ml (0-20) 04/02/24 19:22 Total Protein 7.6 gm/dl (6.0-8.3) 04/02/24 18:38 Albumin 4.6 gm/dl (3.4-5.0) 04/02/24 18:38 Globulin 3.0 gm/dl (2.5-4.0) 04/02/24 18:38 Albumin/Globulin Ratio 1.5 (0.9-2) 04/02/24 18:38 Lipase 5 U/L (11-82) L 04/02/24 18:38 Procalcitonin 0.04 ng/ml (0-0.5) 04/02/24 18:38 Urine Color Yellow 04/02/24 21:40 Urine Appearance Clear (Clear) 04/02/24 21:40 Urine pH 6.5 (4.5-7.5) 04/02/24 21:40 Ur Specific [place] 1.022 (1.000-1.030) 04/02/24 21:40 Urine Protein Negative (Negative) 04/02/24 21:40 Urine Glucose (UA) 3+ (Negative) H 04/02/24 21:40 Urine Ketones 2+ (Negative) H 04/02/24 21:40 Urine Blood Trace (Negative) H 04/02/24 21:40 Urine Nitrite Negative (Negative) 04/02/24 21:40 Urine Bilirubin Negative (Negative) 04/02/24 21:40 Urine Urobilinogen Negative (Negative) 04/02/24 21:40 Ur Leukocyte Esterase Negative (Negative) 04/02/24 21:40 Urine WBC (Auto) 0-5 /hpf (0-5) 04/02/24 21:40 Urine RBC (Auto) 11-20 /hpf (0-2) H 04/02/24 21:40 U Hyaline Cast (Auto) 0-2 /lpf (0-2) 04/02/24 21:40 U Epithel Cells (Auto) 0-2 /hpf (0-2) 04/02/24 21:40 Urine Bacteria (Auto) None Seen (None Seen) 04/02/24 21:40 Urine Opiates Screen Neg (Neg) 04/02/24 21:40 Ur Methadone, Qual Neg (Neg) 04/02/24 21:40 Urine Fentanyl Screen Neg (Neg) 04/02/24 21:40 Urine Barbiturates Neg (Neg) 04/02/24 21:40 Ur Phencyclidine (PCP) Neg (Neg) 04/02/24 21:40 U Amphetamin/Meth Scrn Neg (Neg) 04/02/24 21:40 MDMA (Ecstasy) Screen Neg (Neg) 04/02/24 21:40 U Benzodiazepines Scrn Neg (Neg) 04/02/24 21:40 Ur Cocaine Metabolite Neg (Neg) 04/02/24 21:40 U Marijuana (THC) Screen Pos (Neg) H 04/02/24 21:40 Adenovirus (PCR) Not Detected (NotDetected) 04/02/24 19:54 B. pertussis DNA (PCR) Not Detected (NotDetected) 04/02/24 19:54 B.parapertussis DNA PCR Not Detected (NotDetected) 04/02/24 19:54 C. pneumoniae DNA (PCR) Not Detected (NotDetected) 04/02/24 19:54 Coronavirus OC43 (PCR) Not Detected (NotDetected) 04/02/24 19:54 Coronavirus HKU1 (PCR) Not Detected (NotDetected) 04/02/24 19:54 Coronavirus 229E (PCR) Not Detected (NotDetected) 04/02/24 19:54 SARS-CoV-2 (PCR) Not Detected (NotDetected) 04/02/24 19:54 Coronavirus NL63 (PCR) Not Detected (NotDetected) 04/02/24 19:54 Human Metapneumovir PCR Not Detected (NotDetected) 04/02/24 19:54 Influenza Type A (PCR) Not Detected (NotDetected) 04/02/24 19:54 Influenza Type B (PCR) Not Detected (NotDetected) 04/02/24 19:54 M. pneumoniae (PCR) Not Detected (NotDetected) 04/02/24 19:54 Parainfluenza 1 (PCR) Not Detected (NotDetected) 04/02/24 19:54 Parainfluenza 2 (PCR) Not Detected (NotDetected) 04/02/24 19:54 Parainfluenza 3 (PCR) Not Detected (NotDetected) 04/02/24 19:54 Parainfluenza 4 (PCR) Not Detected (NotDetected) 04/02/24 19:54 RSV (PCR) Not Detected (NotDetected) 04/02/24 19:54 Entero/Rhino (PCR) Not Detected (NotDetected) 04/02/24 19:54 Blood Type A Positive 04/02/24 19:22 Antibody Screen NEGATIVE 04/02/24 19:22 Impressions Abdomen/Pelvis CT 04/02/24 19:15 Exam(s): CT ABDOMEN + PELVIS With Contrast IV Amt: 94 ml opti 320 EXAM: CT Abdomen and Pelvis With Intravenous Contrast CLINICAL HISTORY: Reason for exam: chest/abd pain, n/v, upper GIB. TECHNIQUE: Axial computed tomography images of the abdomen and pelvis with intravenous contrast. CTDI is 22.49 mGy and DLP is 982.26 mGy-cm. Automated exposure control was utilized for the study. A dose lowering technique was utilized adhering to the principles of ALARA. CONTRAST: Patient received 94 ml opti 320 of IV contrast COMPARISON: CT abdomen/pelvis: 04/07/2023 FINDINGS: Lung bases: Concurrently performed CT chest reported separately. ABDOMEN: Image diagnostic quality reduced by motion artifact. Liver: Mild diffuse fatty infiltration.. No mass. Gallbladder and bile ducts: Unremarkable. No calcified stones. No ductal dilation. Pancreas: Diffusely decreased pancreatic glandular tissue. No mass. No ductal dilation. Spleen: Unremarkable. No splenomegaly. Adrenals: Unremarkable. No mass. Kidneys and ureters: An exophytic 3.1 cm left renal parapelvic cyst. A dilated right extrarenal pelvis No solid mass. No solid mass. Stomach and bowel: Small/moderate size hiatal hernia. Nonspecific circumferential wall thickening of the gastric body/antrum, incomplete distention versus antral gastritis. Diffuse incomplete distention of the small bowel loops. Diffuse edematous mucosal thickening of the ascending, transverse and descending colon is seen with liquid/formed stool in a somewhat distended rectosigmoid, concerning for an acute pancolitis. PELVIS: Appendix: No findings to suggest acute appendicitis. Bladder: A markedly distended urinary bladder seen extending superiorly to the L4-L5 level. No mass. Reproductive: Unremarkable as visualized. ABDOMEN and PELVIS: Intraperitoneal space: No free air. No significant fluid collection. Bones/joints: No acute fracture. No dislocation. Soft tissues: Unremarkable. Vasculature: Mild/moderate calcified/noncalcified atheromatous plaques. No abdominal aortic aneurysm. Lymph nodes: No significantly enlarged lymph nodes. IMPRESSION: A small/moderate size hiatal hernia. Nonspecific circumferential wall thickening of the gastric body/antrum, incomplete distention versus antral gastritis. Diffuse edematous mucosal thickening of the ascending, transverse and descending colon, concerning for an acute pancolitis. Advise clinical correlation. A markedly distended urinary bladder seen extending into the abdomen to the L4-L5 level. A 3.1 cm left renal parapelvic cyst. Electronically signed by: Ghada Lo MD, DABR 04/02/24 22:[address] 04/02/24 19:15 Exam(s): CT CHEST With Contrast EXAM: CT Chest With Intravenous Contrast CLINICAL HISTORY: Reason for exam: chest/abd pain, n/v, upper GIB. TECHNIQUE: Axial computed tomography images of the chest with intravenous contrast. CTDI is 22.49 mGy and DLP is 982.26 mGy-cm. Automated exposure control was utilized for the study. A dose lowering technique was utilized adhering to the principles of ALARA. CONTRAST: Contrast must be dictated COMPARISON: X-ray chest: 04/02/2024 FINDINGS: Diagnostic sensitivity of the exam is reduced by motion artifact. Lungs: Central airways are patent. Biapical subpleural emphysematous blebs/mild emphysema. Predominantly basilar mild interstitial thickening. Posteriorly right basilar small linear atelectatic changes. No mass. No consolidation. Pleural space: Unremarkable. No pneumothorax. No significant effusion. Heart: Unremarkable. No cardiomegaly. No significant pericardial effusion. No significant coronary artery calcifications. Bones/joints: Unremarkable. No acute fracture. No dislocation. Soft tissues: Unremarkable. Vasculature: Unremarkable. No thoracic aortic aneurysm. Lymph nodes: Unremarkable. No enlarged lymph nodes. Other findings: A small hiatal hernia with circumferential wall thickening and mildly dilated gas-filled esophagus. IMPRESSION: Mild paraseptal/centrilobular emphysema. Predominantly basilar mild interstitial thickening. Posteriorly right basilar small linear atelectatic changes. No mass. No consolidation. A small hiatal hernia with circumferential wall thickening and a mildly dilated gas-filled esophagus. . Electronically signed by: Ghada Lo MD, NIRAV 04/02/24 22:38 PM Chest X-Ray 04/02/24 19:15 Exam(s): XR CXR 1 VIEW EXAM: XR Chest, 1 View CLINICAL HISTORY: Reason for exam: chest/abd pain, n/v, upper GIB. TECHNIQUE: Frontal view of the chest. COMPARISON: Chest x-ray: 04/07/2023 FINDINGS: Lungs: Hyperinflated lungs. Bilateral bronchial wall and perihilar mild chronic interstitial thickening. No consolidation. Pleural space: Unremarkable. No pneumothorax. Heart: Stable cardiomediastinal silhouette. Bones/joints: Unremarkable. No acute fracture.. IMPRESSION: No acute cardiopulmonary process. Bilateral chronic appearing bronchial wall and perihilar interstitial thickening/bronchitis. . Electronically signed by: Ghada Lo MD, NIRAV 04/02/24 20:12 PM ECG Additional Comments: ECG. Sinus tachycardia rate of 112. No significant change was found. Code Status & VTE Plan VTE Prophylaxis Plan VTE Prophylaxis will be ordered: Yes
[2024-04-03] MEDS: CEFEPIME 2000MG 2,000 MG/20 ML SYR IV STA (07:53)
[2024-04-03] MEDS: metroNIDAZOLE 500 MG/100 ML BAG IV STA (07:53)
--- NOTE | 2024-04-03 08:19 | Electrocardiogram Report ---
Test Reason : Blood Pressure : */* mmHG Vent. Rate : 112 BPM Atrial Rate : 112 BPM P-R Int : 122 ms QRS Dur : 76 ms QT Int : 326 ms P-R-T Axes : 64 56 55 degrees QTcB Int : 444 ms Sinus tachycardia Otherwise normal ECG When compared with ECG of 03-Apr-2023 14:57, No significant change was found Confirmed by Dmitry Shukla ([id number]) on 04/03/2024 8:18:51 AM Referred By: REFERRED SELF Confirmed By: Dmitry Shukla
[2024-04-03] MEDS ORDERED: ONDANSETRON INJ 2 MG/ML 2 ML VIAL IV PRN (09:12)
[2024-04-03] MEDS ORDERED: GLUCOSE 10 TAB/TUBE PO PRN (09:12)
[2024-04-03] MEDS ORDERED: GLUCAGON FOR INJ 1 MG VIAL SQ PRN (09:12)
[2024-04-03] MEDS ORDERED: CARBOHYDRATES FOR HYPOGLYCEMIA PO PRN (09:12)
[2024-04-03] MEDS ORDERED: GLUCOSE 40% GEL 15 GM TUBE PO PRN (09:12)
[2024-04-03] MEDS ORDERED: DEXTROSE 50% 50 ML SYRINGE IV PRN (09:12)
[2024-04-03 10:23] LABS: Basophils # (auto) 0.06 K/uL (0.00-0.20); Basophils % (auto) 0.3 %; Eosinophils # (auto) 0.02 K/uL (0.00-0.50); Eosinophils % (auto) 0.1 %; Hematocrit (blood only) 37.4 % (42.0-52.0); Hemoglobin 12.9 g/dl (14.0-18.0); Immature Granulocytes # (auto) 0.13 K/uL (0.01-0.20); Immature Granulocytes % (auto) 0.6 %; Lymphocytes # (auto) 1.85 K/uL (1.20-3.40); Lymphocytes % (auto) 9.2 %; Mean Corpuscular Hemoglobin 30.4 pg (25.0-34.0); Mean Corpuscular Hgb Conc 34.5 g/dL (32.0-36.0); Mean Corpuscular Volume 88.2 fL (80.0-100.0); Mean Platelet Volume 9.5 fL (9.4-12.4); Monocytes # (auto) 1.87 K/uL (0.11-0.59); Monocytes % (auto) 9.3 %; Neutrophils # (auto) 16.16 K/uL (1.40-6.50); Neutrophils % (auto) 80.5 %; Platelet Count 281 K/uL (130-400); RDW Coefficient of Variation 13.9 % (11.5-14.5); RDW Standard Deviation 44.8 fL (36.4-46.3); Red Blood Count 4.24 M/uL (4.70-6.10); White Blood Count 20.09 K/ul (4.8-10.8)
--- NOTE | 2024-04-03 10:36 | Gastrointestinal Consultation ---
Date of Consultation April 03, 2024 Assessment & Plan (1) Coffee ground emesis: -Continue with antiemetics -Keep NPO -EGD 04/03/24 -Continue IV Protonix as prescribed for now -Need to consider marijuana use as possible contributing factor to his n/v issue -Will need ongoing GI follow-up with Demetrius VILLANUEVA for his gastroparesis Supervising Physician Co-Signing Physician Notes I saw and examined this patient with our nurse practitioner and agree with her assessment and plan. Suspect self-limited gastroparesis flare precipitating factor unclear. He related to his marijuana use no signs of infection. Diabetes under control no DKA. Had coffee ground emesis as well with stable hemodynamics and hemoglobin. Will proceed with endoscopy to exclude significant pathology such as peptic ulcer disease hemorrhagic gastritis and Roshni-Liu tear. History of Present Illness Reason for Consultation: Coffee ground emesis Attending Physician: Quentin Goodman MD History of Present Illness Patient is a 43 yo male with PMH of DM1, gastroparesis, gastritis, esophagitis, and marijuana use who presents to the ED for evaluation of intractable nausea & vomiting. His vomiting began on 04/02/24. He notes a rapid onset. He notes that when he got to the ED, he began vomiting a substance that looked like coffee grounds. He denied NSAID use. He denied alcohol use. He uses Marijuana regularly. He takes Lansoprazole 15 mg po daily. Though he did not have an EGD, he notes that he recently followed up with Demetrius VILLANUEVA in the past several weeks. He reports he declined to schedule an EGD. He notes he requested an increase in his Promethazine to TID. He was admitted exactly one year ago for the same issue. At that time, he was seen by Demetrius VILLANUEVA and was advised to use antiemetics and have an outpatient EGD. He notes he did not do this. Since presentation to the ED, a work-up has been without significantly alarming GI findings. H/H is 12.9/37.4. LFTs unremarkable. HA1C pending. K 4.3. BUN 18/Cr 1.13. No melena. BioFire negative. He is currently prescribed Zofran & Protonix as an inpatient. CT gwyn shows emphysema. CT abd/pelvis shows gastritis and questions a pancolitis, though patient has no corresponding lower GI symptoms. Lungs better characterized on CT of the chest which demonstrates emphysema and mild basilar interstitial thickening. There is no consolidation. A small hiatal hernia is described. CT of the pelvis demonstrates evidence of gastritis. Description of diffuse edematous mucosal thickening throughout the colon is noted which may suggest pancolitis though does not correlate as patient does not have diarrhea. Allergies Allergy/AdvReac Type Severity Reaction Status Date / Time clindamycin Allergy Unknown Unknown Verified 04/05/23 22:08 Penicillins Allergy Unknown Swelling Verified 04/03/23 16:28 and hives (per pt's mother) Sulfa (Sulfonamide Allergy Unknown Unknown Verified 04/03/23 16:28 Antibiotics) bupropion [From Wellbutrin] AdvReac Unknown Unknown Verified 04/03/23 16:28 metoclopramide [From Reglan] AdvReac Unknown Unknown Verified 04/03/23 16:28 varenicline [From Chantix] AdvReac Unknown Unknown Verified 04/03/23 16:28 nicotine [From Nicoderm CQ] AdvReac Unknown Verified 04/03/23 16:28 Home Medications Medication Instructions Recorded Confirmed Type insulin aspart U-100 100 unit/mL 1 sliding scale dose subcut 04/03/24 04/03/24 History subcutaneous solution (Novolog USEASDIRECTD U-100 Insulin aspart) lansoprazole 15 mg delayed 15 mg PO DAILY 04/03/24 04/03/24 History release,disintegrating tablet lisinopril 2.5 mg tablet 2.5 mg PO DAILY 04/03/24 04/03/24 History promethazine 25 mg tablet 25 mg PO TID PRN Nausea And 04/03/24 04/03/24 History Vomiting rosuvastatin 20 mg tablet 20 mg PO DAILY 04/03/24 04/03/24 History Patient History Medical History Coffee ground emesis GERD (gastroesophageal reflux disease) Kidney stones History of kidney stones Arthritis History of seizure r/t hypoglycemia (2+ years ago) ADHD Loss of protective sensation of skin of foot Degenerative joint disease of ankle, left Gastroparesis due to DM Surgical History History of lithotripsy History of ankle surgery Left x3 History of tooth extraction PONV (postoperative nausea and vomiting) H/O laser photocoagulation of retina Hx of inguinal herniorrhaphy History of wisdom tooth extraction H/O esophagogastroduodenoscopy Family History Brother T1DM (type 1 diabetes mellitus) Uncle Family history of esophageal ulcer Father Myocardial infarction Heart disease Stroke Mother Deep vein thrombosis Social History Smoking Status: Former smoker Tobacco Type: Cigarettes and E-cigarettes / Vaping Cigarettes Per Day: 2; Second Hand Exposure: No; Do You Dip or Chew Tobacco: No; Hx Alcohol Use: No Hx Substance Use: Yes Last Used Substance: Hours (ago) Last Used Substance Other:: [id number] Substance Use Type Other:: medical Preferred Language: Guamanian Communication Ability: Effective Hearing Ability: Normal Jewelry Coater Required: No Beliefs That Will Affect Care: None Current Living Situation: Spouse Current Living Situation Comment: home w/ spouse Feels Safe at Home: Yes Assistive Devices: Glasses Review of Systems Constitutional: no fever and no chills Respiratory: no cough and no dyspnea Cardiovascular: no chest pain Gastrointestinal: + nausea, + vomiting and + coffee ground emesis; no abdominal pain Psychiatric: no problem reported Physical Exam Constitutional: well developed Respiratory: normal respiratory effort Gastrointestinal (Abdomen): normal bowel sounds, soft, nontender, no hepatosplenomegaly Results & Data Vital Signs (Past 12 Hours) Vital Signs Pulse Pulse Resp BP BP Pulse Ox O2 Del Method 04/03/24 10:08 101 H 16 120/75 95 Room Air 04/03/24 06:31 97 H 18 105/54 L 98 Room Air 04/03/24 05:56 98 H 04/03/24 03:00 99 H 16 128/69 99 Room Air 04/03/24 02:05 110 H 04/03/24 01:00 107 H 16 159/77 H 97 Room Air 04/02/24 23:36 110 H 19 100 Room Air 04/02/24 23:00 109 H 24 185/92 H 99 Room Air Laboratory Results Laboratory Results - last 48 hr 04/02/24 04/02/24 04/02/24 18:38 18:59 19:22 WBC 26.65 H RBC 4.60 L Hgb 14.2 POC Hgb 14.6 Hct 39.7 L POC Hct 43 MCV 86.3 MCH 30.9 MCHC 35.8 RDW Std Deviation 42.2 RDW Coeff of [place] 13.3 Plt Count 297 MPV 9.2 L Immature Gran % (Auto) 0.8 Neut % (Auto) 82.5 Lymph % (Auto) 7.7 [place] % (Auto) 7.5 Eos % (Auto) 0.7 Baso % (Auto) 0.8 Neut # (Auto) 21.97 H Lymph # (Auto) 2.06 [place] # (Auto) 2.00 H Eos # (Auto) 0.18 Baso # (Auto) 0.22 H Immature Gran # (Auto) 0.22 H RBC Morphology Unremarkable PT 11.9 INR 1.1 APTT 23 PTT Ratio 0.9 VBG pH 7.45 H VBG pCO2 28 L VBG pO2 45 VBG HCO3 20 VBG O2 Saturation 75.7 VBG Base Excess -3.2 POC Sodium 136 Sodium 134 L POC Potassium 3.9 Potassium TNP 4.3 POC Chloride 101 Chloride 98 Carbon Dioxide 22 POC Total CO2 19 L Anion Gap 14 H POC Anion Gap 20.0 POC BUN 16 BUN 18 Creatinine 1.13 POC Creatinine 1.0 Est Cr Clr Drug Dosing 85.3 eGFR 83.74 BUN/Creatinine Ratio 15.9 Glucose 268 H POC Glucose POC Glucose (other) 278 H Estimat Average Glucose Hemoglobin A1c Calcium 9.9 POC Ioniz Calcium Viola 1.05 L Magnesium Total Bilirubin 0.9 Direct Bilirubin 0.2 AST TNP 16 ALT 12 Alkaline Phosphatase 83 Troponin I High Sens 4.5 Total Protein 7.6 Albumin 4.6 Globulin 3.0 Albumin/Globulin Ratio 1.5 Lipase 5 L Procalcitonin 0.04 Urine Color Urine Appearance Urine pH Ur Specific [place] Urine Protein Urine Glucose (UA) Urine Ketones Urine Blood Urine Nitrite Urine Bilirubin Urine Urobilinogen Ur Leukocyte Esterase Urine WBC (Auto) Urine RBC (Auto) U Hyaline Cast (Auto) U Epithel Cells (Auto) Urine Bacteria (Auto) Urine Opiates Screen Ur Methadone, Qual Urine Fentanyl Screen Urine Barbiturates Ur Phencyclidine (PCP) U Amphetamin/Meth Scrn MDMA (Ecstasy) Screen U Benzodiazepines Scrn Ur Cocaine Metabolite U Marijuana (THC) Screen Adenovirus (PCR) B. pertussis DNA (PCR) B.parapertussis DNA PCR C. pneumoniae DNA (PCR) Coronavirus OC43 (PCR) Coronavirus HKU1 (PCR) Coronavirus 229E (PCR) SARS-CoV-2 (PCR) Coronavirus NL63 (PCR) Human Metapneumovir PCR Influenza Type A (PCR) Influenza Type B (PCR) M. pneumoniae (PCR) Parainfluenza 1 (PCR) Parainfluenza 2 (PCR) Parainfluenza 3 (PCR) Parainfluenza 4 (PCR) RSV (PCR) Entero/Rhino (PCR) Blood Type A Positive Antibody Screen NEGATIVE 04/02/24 04/02/24 04/03/24 19:54 21:40 09:53 WBC 20.09 H RBC 4.24 L Hgb 12.9 L POC Hgb Hct 37.4 L POC Hct MCV 88.2 MCH 30.4 MCHC 34.5 RDW Std Deviation 44.8 RDW Coeff of [place] 13.9 Plt Count 281 MPV 9.5 Immature Gran % (Auto) 0.6 Neut % (Auto) 80.5 Lymph % (Auto) 9.2 [place] % (Auto) 9.3 Eos % (Auto) 0.1 Baso % (Auto) 0.3 Neut # (Auto) 16.16 H Lymph # (Auto) 1.85 [place] # (Auto) 1.87 H Eos # (Auto) 0.02 Baso # (Auto) 0.06 Immature Gran # (Auto) 0.13 RBC Morphology PT INR APTT PTT Ratio VBG pH VBG pCO2 VBG pO2 VBG HCO3 VBG O2 Saturation VBG Base Excess POC Sodium Sodium 135 L POC Potassium Potassium 4.4 POC Chloride Chloride 106 Carbon Dioxide 18 L POC Total CO2 Anion Gap 11 POC Anion Gap POC BUN BUN 21 Creatinine 1.08 POC Creatinine Est Cr Clr Drug Dosing 89.2 eGFR 88.41 BUN/Creatinine Ratio 19.4 Glucose 277 H POC Glucose POC Glucose (other) Estimat Average Glucose 163 Hemoglobin A1c 7.3 H Calcium 8.1 L POC Ioniz Calcium Viola Magnesium 1.9 Total Bilirubin Direct Bilirubin AST ALT Alkaline Phosphatase Troponin I High Sens Total Protein Albumin Globulin Albumin/Globulin Ratio Lipase Procalcitonin Urine Color Yellow Urine Appearance Clear Urine pH 6.5 Ur Specific [place] 1.022 Urine Protein Negative Urine Glucose (UA) 3+ H Urine Ketones 2+ H Urine Blood Trace H Urine Nitrite Negative Urine Bilirubin Negative Urine Urobilinogen Negative Ur Leukocyte Esterase Negative Urine WBC (Auto) 0-5 Urine RBC (Auto) 11-20 H U Hyaline Cast (Auto) 0-2 U Epithel Cells (Auto) 0-2 Urine Bacteria (Auto) None Seen Urine Opiates Screen Neg Ur Methadone, Qual Neg Urine Fentanyl Screen Neg Urine Barbiturates Neg Ur Phencyclidine (PCP) Neg U Amphetamin/Meth Scrn Neg MDMA (Ecstasy) Screen Neg U Benzodiazepines Scrn Neg Ur Cocaine Metabolite Neg U Marijuana (THC) Screen Pos H Adenovirus (PCR) Not Detected B. pertussis DNA (PCR) Not Detected B.parapertussis DNA PCR Not Detected C. pneumoniae DNA (PCR) Not Detected Coronavirus OC43 (PCR) Not Detected Coronavirus HKU1 (PCR) Not Detected Coronavirus 229E (PCR) Not Detected SARS-CoV-2 (PCR) Not Detected Coronavirus NL63 (PCR) Not Detected Human Metapneumovir PCR Not Detected Influenza Type A (PCR) Not Detected Influenza Type B (PCR) Not Detected M. pneumoniae (PCR) Not Detected Parainfluenza 1 (PCR) Not Detected Parainfluenza 2 (PCR) Not Detected Parainfluenza 3 (PCR) Not Detected Parainfluenza 4 (PCR) Not Detected RSV (PCR) Not Detected Entero/Rhino (PCR) Not Detected Blood Type Antibody Screen 04/03/24 11:41 WBC RBC Hgb POC Hgb Hct POC Hct MCV MCH MCHC RDW Std Deviation RDW Coeff of [place] Plt Count MPV Immature Gran % (Auto) Neut % (Auto) Lymph % (Auto) [place] % (Auto) Eos % (Auto) Baso % (Auto) Neut # (Auto) Lymph # (Auto) [place] # (Auto) Eos # (Auto) Baso # (Auto) Immature Gran # (Auto) RBC Morphology PT INR APTT PTT Ratio VBG pH VBG pCO2 VBG pO2 VBG HCO3 VBG O2 Saturation VBG Base Excess POC Sodium Sodium POC Potassium Potassium POC Chloride Chloride Carbon Dioxide POC Total CO2 Anion Gap POC Anion Gap POC BUN BUN Creatinine POC Creatinine Est Cr Clr Drug Dosing eGFR BUN/Creatinine Ratio Glucose POC Glucose 179 H POC Glucose (other) Estimat Average Glucose Hemoglobin A1c Calcium POC Ioniz Calcium Viola Magnesium Total Bilirubin Direct Bilirubin AST ALT Alkaline Phosphatase Troponin I High Sens Total Protein Albumin Globulin Albumin/Globulin Ratio Lipase Procalcitonin Urine Color Urine Appearance Urine pH Ur Specific [place] Urine Protein Urine Glucose (UA) Urine Ketones Urine Blood Urine Nitrite Urine Bilirubin Urine Urobilinogen Ur Leukocyte Esterase Urine WBC (Auto) Urine RBC (Auto) U Hyaline Cast (Auto) U Epithel Cells (Auto) Urine Bacteria (Auto) Urine Opiates Screen Ur Methadone, Qual Urine Fentanyl Screen Urine Barbiturates Ur Phencyclidine (PCP) U Amphetamin/Meth Scrn MDMA (Ecstasy) Screen U Benzodiazepines Scrn Ur Cocaine Metabolite U Marijuana (THC) Screen Adenovirus (PCR) B. pertussis DNA (PCR) B.parapertussis DNA PCR C. pneumoniae DNA (PCR) Coronavirus OC43 (PCR) Coronavirus HKU1 (PCR) Coronavirus 229E (PCR) SARS-CoV-2 (PCR) Coronavirus NL63 (PCR) Human Metapneumovir PCR Influenza Type A (PCR) Influenza Type B (PCR) M. pneumoniae (PCR) Parainfluenza 1 (PCR) Parainfluenza 2 (PCR) Parainfluenza 3 (PCR) Parainfluenza 4 (PCR) RSV (PCR) Entero/Rhino (PCR) Blood Type Antibody Screen PG Care Time/CCT Total # of Minutes Spent Total Time Spent with Patient: Total time spent is greater than 50% in coordination of care (as documented) at patient's floor/unit and/or counseling patient: Coding Level of Care Code 77394 IN/OBS CONSULT LVL 4,60M Diagnoses Coffee ground emesis K92.0
[2024-04-03 10:41] LABS: BUN Creatinine Ratio 19.4 (10-20); Calcium 8.1 mg/dl (8.6-10.3); Creatinine Clr Calc Pharmacy 89.2 ml/min; Magnesium 1.9 mg/dl (1.7-2.4); Potassium 4.4 mmol/L (3.5-5.1)
[2024-04-03 11:01] LABS: Estimated Average Glucose 163 mg/dl; Hemoglobin A1C 7.3 % (4.5-5.6)
--- NOTE | 2024-04-03 11:30 | Urology Consultation ---
Date of Consultation April 03, 2024 Assessment & Plan (1) Bladder distension: 43-year-old male admitted for intractable nausea, vomiting and coffee-ground emesis. Urology is consulted for distended bladder on CT imaging. Patient afebrile and hemodynamically stable Labs reviewedcreatinine 1.08, WBC 20.09, hemoglobin 12.9 Urinalysis was not suggestive of infection, showed 11-[address] abdomen pelvis reviewed and shows a distended bladder, left renal cyst, and nonobstructing right renal calculi Patient denies difficulty voiding and reports he was not given the opportunity to void prior to CT imaging Recommend monitor bladder emptyingcheck a postvoid residual and then bladder scan as needed If PVRs are elevated and/or patient unable to void, then recommend straight catheterization or placement of Powers catheter Recommend follow-up with our service outpatient for follow-up of microscopic hem aturia, nephrolithiasis Continue supportive care and medical management per hospital medicine service will sign off, please contact our service with any additional questions or concerns History of Present Illness Attending Physician: Quentin Goodman MD History of Present Illness This is a 43-year-old male with past medical history of type 1 diabetes, gastroparesis, gastritis, esophagitis, nephrolithiasis, and marijuana use who presented to the ED on 04/02/2024 with intractable nausea and vomiting. On arrival to ED, he was afebrile, tachycardic and hypertensive. Lab work showed WBC of 26.65, hemoglobin 14.2, hematocrit 39.7, creatinine 1.13. Urinalysis showed 3+ glucose, 2+ ketones, trace blood, 11-20 RBCs, otherwise negative. Workup included CT abdomen pelvis with IV contrast showed gastritis and possible pancolitis. CT showed a markedly distended urinary bladder, 3.1 cm left renal parapelvic cyst and nonobstructing right renal calculi. Patient was admitted to the hospital medicine service for intractable nausea, vomiting and coffee-ground emesis. Urology is consulted for bladder distention on CT scan. Patient seen and examined in the emergency department. Generally feeling better since arrival. Patient is voiding spontaneously and denies difficulty voiding voiding. He reports he had a full bladder prior to CT and did not have the opportunity to void prior to imaging. Denies dysuria or hematuria. No constipation. He has a history of nephrolithiasis. History of prior stone surgery, last surgery in 2020. He has passed stones spontaneously since then. Allergies Allergy/AdvReac Type Severity Reaction Status Date / Time clindamycin Allergy Unknown Unknown Verified 04/05/23 22:08 Penicillins Allergy Unknown Swelling Verified 04/03/23 16:28 and hives (per pt's mother) Sulfa (Sulfonamide Allergy Unknown Unknown Verified 04/03/23 16:28 Antibiotics) bupropion [From Wellbutrin] AdvReac Unknown Unknown Verified 04/03/23 16:28 metoclopramide [From Reglan] AdvReac Unknown Unknown Verified 04/03/23 16:28 varenicline [From Chantix] AdvReac Unknown Unknown Verified 04/03/23 16:28 nicotine [From Nicoderm CQ] AdvReac Unknown Verified 04/03/23 16:28 Home Medications Medication Instructions Recorded Confirmed Type insulin aspart U-100 100 unit/mL 1 sliding scale dose subcut 04/03/24 04/03/24 History subcutaneous solution (Novolog USEASDIRECTD U-100 Insulin aspart) lansoprazole 15 mg delayed 15 mg PO DAILY 04/03/24 04/03/24 History release,disintegrating tablet lisinopril 2.5 mg tablet 2.5 mg PO DAILY 04/03/24 04/03/24 History promethazine 25 mg tablet 25 mg PO TID PRN Nausea And 04/03/24 04/03/24 History Vomiting rosuvastatin 20 mg tablet 20 mg PO DAILY 04/03/24 04/03/24 History Patient History Medical History Coffee ground emesis GERD (gastroesophageal reflux disease) Kidney stones History of kidney stones Arthritis History of seizure r/t hypoglycemia (2+ years ago) ADHD Loss of protective sensation of skin of foot Degenerative joint disease of ankle, left Gastroparesis due to DM Surgical History History of lithotripsy History of ankle surgery Left x3 History of tooth extraction PONV (postoperative nausea and vomiting) H/O laser photocoagulation of retina Hx of inguinal herniorrhaphy History of wisdom tooth extraction H/O esophagogastroduodenoscopy Family History Brother T1DM (type 1 diabetes mellitus) Uncle Family history of esophageal ulcer Father Myocardial infarction Heart disease Stroke Mother Deep vein thrombosis Social History Smoking Status: Former smoker Tobacco Type: Cigarettes and E-cigarettes / Vaping Cigarettes Per Day: 2; Second Hand Exposure: Yes; Do You Dip or Chew Tobacco: No; Hx Alcohol Use: No Hx Substance Use: Yes Last Used Substance: Hours (ago) Last Used Substance Other:: last evening 06/19/21 Substance Use Type Other:: Medical marijuana Preferred Language: Puerto Rican Communication Ability: Effective Hearing Ability: Normal Rn Urology Required: No Beliefs That Will Affect Care: None Current Living Situation: Spouse Current Living Situation Comment: home w/ spouse Feels Safe at Home: Yes Assistive Devices: None Review of Systems Review of Systems: All systems reviewed & are unremarkable except as noted in HPI & below Physical Exam Constitutional: + thin; no acute distress Respiratory: normal respiratory effort; no respiratory distress and no labored breathing Gastrointestinal (Abdomen): Inspection/Auscultation: abdomen normal to inspection Musculoskeletal: Head/Neck/Chest: normocephalic Neurologic: moves all extremities and awake Psychiatric: Orientation: alert and oriented x 3 Results & Data Vital Signs (Past 12 Hours) Vital Signs Pulse Pulse Resp BP Pulse Ox O2 Del Method 04/03/24 10:08 101 H 16 120/75 95 Room Air 04/03/24 06:31 97 H 18 105/54 L 98 Room Air 04/03/24 05:56 98 H 04/03/24 03:00 99 H 16 128/69 99 Room Air 04/03/24 02:05 110 H 04/03/24 01:00 107 H 16 159/77 H 97 Room Air 04/02/24 23:36 110 H 19 100 Room Air PG Care Time/CCT Total # of Minutes Spent Total Time Spent with Patient: Total time spent is greater than 50% in coordination of care (as documented) at patient's floor/unit and/or counseling patient: Coding Level of Care Code 09594 IN/OBS CONSULT LVL 4,60M Diagnoses Bladder distension N32.89
[2024-04-03] MEDS: PANTOprazole 40 MG in DEXTROSE 5% MINI-B 100 ML IV SCH (11:44)
[2024-04-03] MEDS ORDERED: PHARMACY GLYCEMIC MGMT CONSULT PRN (13:05)
--- NOTE | 2024-04-03 13:42 | Anesthesiology Consultation ---
Date of Service April 03, 2024 Assessment & Plan Chart Review Chart Review: Acceptable Risk for Surgery and Patient NOT seen in Pre Admission Testing Consults Requested none ASA ASA3 Proposed Anesthesia Anesthesia Type: MAC History Surgery Operation Date: 04/03/24 16:30 Proposed Procedures p Esophagogastroduodenoscopy Dr. Kirsten Curtis MD Height/Weight Height: 5 ft 11 in Weight: 64.773 kg Allergies Allergy/AdvReac Type Severity Reaction Status Date / Time clindamycin Allergy Unknown Unknown Verified 04/05/23 22:08 Penicillins Allergy Unknown Swelling Verified 04/03/23 16:28 and hives (per pt's mother) Sulfa (Sulfonamide Allergy Unknown Unknown Verified 04/03/23 16:28 Antibiotics) bupropion [From Wellbutrin] AdvReac Unknown Unknown Verified 04/03/23 16:28 metoclopramide [From Reglan] AdvReac Unknown Unknown Verified 04/03/23 16:28 varenicline [From Chantix] AdvReac Unknown Unknown Verified 04/03/23 16:28 nicotine [From Nicoderm CQ] AdvReac Unknown Verified 04/03/23 16:28 Medications Home Medications Medication Instructions Recorded Confirmed Last Taken insulin aspart U-100 100 unit/mL 1 sliding scale dose subcut 04/03/24 04/03/24 Unknown subcutaneous solution (Novolog USEASDIRECTD U-100 Insulin aspart) lansoprazole 15 mg delayed 15 mg PO DAILY 04/03/24 04/03/24 Unknown release,disintegrating tablet lisinopril 2.5 mg tablet 2.5 mg PO DAILY 04/03/24 04/03/24 Unknown promethazine 25 mg tablet 25 mg PO TID PRN Nausea And 04/03/24 04/03/24 Unknown Vomiting rosuvastatin 20 mg tablet 20 mg PO DAILY 04/03/24 04/03/24 Unknown Active Medications Generic Name Dose Route Start Last Admin Trade Name Freq PRN Reason Stop Dose Admin Sodium Chloride 1,000 mls @ 125 mls/hr 04/03/24 09:12 04/03/24 11:44 Nss IV 04/04/24 09:11 125 mls/hr .Q8H HELIO Administration Pantoprazole Sodium 40 mg/ 100 mls @ 20 mls/hr 04/03/24 10:30 04/03/24 11:44 Dextrose IV 05/03/24 10:29 8 mg/hr Q5H HELIO 20 mls/hr Administration 8 MG/HR Past Medical History Medical History Coffee ground emesis GERD (gastroesophageal reflux disease) Kidney stones History of kidney stones Arthritis History of seizure r/t hypoglycemia (2+ years ago) ADHD Loss of protective sensation of skin of foot Degenerative joint disease of ankle, left Gastroparesis due to DM Exercise / Class Metabolic Activity III < 4 Walking/Shop/Light housework Past Family History Family History Brother T1DM (type 1 diabetes mellitus) Uncle Family history of esophageal ulcer Father Myocardial infarction Heart disease Stroke Mother Deep vein thrombosis Past Surgical History Surgical History History of lithotripsy History of ankle surgery Left x3 History of tooth extraction PONV (postoperative nausea and vomiting) H/O laser photocoagulation of retina Hx of inguinal herniorrhaphy History of wisdom tooth extraction H/O esophagogastroduodenoscopy Past Anesthesia History No Hx of Anesthesia Complications and No Family Hx of Anesthesia Complications History of PONV No Hx of PONV and No Hx of Motion Sickness Social History Smoking Status: Former smoker tobacco type: cigarettes Smoking cigarettes per day: 2 Do You Dip or Chew Tobacco: No Hx Alcohol Use: No Alcohol type: beer alcohol intake frequency: a few times a month Hx Substance Use: Yes substance use type: marijuana Substance Use Type Other:: medical Last Used Substance: Hours (ago) Last Used Substance Other:: [id number] Physical Exam Vital Signs Last Vital Signs Temp 37.2 C 04/03/24 11:30 Pulse 95 H 04/03/24 11:30 Resp 18 04/03/24 11:30 BP 115/65 04/03/24 11:30 Pulse Ox 97 04/03/24 11:30 O2 Del Method Room Air 04/03/24 11:30 Testing Laboratory Results 04/03/24 09:53 04/03/24 09:53 PT 11.9 Seconds (9.0-12.0) 04/02/24 19:22 INR 1.1 (0.9-1.1) 04/02/24 19:22 APTT 23 Seconds (21-31) 04/02/24 19:22 Hemoglobin A1c 7.3 % (4.5-5.6) H 04/03/24 09:53 Urine Color Yellow 04/02/24 21:40 Urine Appearance Clear (Clear) 04/02/24 21:40 Urine pH 6.5 (4.5-7.5) 04/02/24 21:40 Ur Specific [place] 1.022 (1.000-1.030) 04/02/24 21:40 Urine Protein Negative (Negative) 04/02/24 21:40 Urine Glucose (UA) 3+ (Negative) H 04/02/24 21:40 Urine Ketones 2+ (Negative) H 04/02/24 21:40 Urine Nitrite Negative (Negative) 04/02/24 21:40 Ur Leukocyte Esterase Negative (Negative) 04/02/24 21:40 Urine WBC (Auto) 0-5 /hpf (0-5) 04/02/24 21:40 Urine RBC (Auto) 11-20 /hpf (0-2) H 04/02/24 21:40 U Hyaline Cast (Auto) 0-2 /lpf (0-2) 04/02/24 21:40 U Epithel Cells (Auto) 0-2 /hpf (0-2) 04/02/24 21:40 Urine Bacteria (Auto) None Seen (None Seen) 04/02/24 21:40 Blood Type A Positive 04/02/24 19:22 Antibody Screen NEGATIVE 04/02/24 19:22 04/03/24 11:41 POC Glucose 179 H Electrocardiogram Date: 04/02/24 Findings: + ST @ (@ 112) Chest X-Ray Date: 04/02/24 Findings: + other (hyperinflation c/w emphysema)
[2024-04-03] MEDS ORDERED: INSULIN ASPART 100 UNITS/ML VIAL SC PRN (13:45)
[2024-04-03] MEDS ORDERED: ePHEDrine sulfate 50 MG/ML AMP IV PRN (14:02)
[2024-04-03] MEDS ORDERED: ATROPINE SULFATE 0.1 MG/ML 10ML SYR IV PRN (14:02)
--- NOTE | 2024-04-03 14:21 | GI REPORT ---
[facility] Patient: MELISSA FIGUEROA : 1980 Sex at : Male Age: 43 Years Procedure: Upper GI endoscopy Date: 04/03/2024 Attending Physician: Praveen Curtis MD Referring MD: Indications: - Hematemesis Medications: - Monitored Anesthesia Care Complications: - No immediate complications. Procedure: - Prior to the procedure, a History and Physical was performed, and patient medications and allergies were reviewed. The patient's tolerance of previous anesthesia was also reviewed. The risks and benefits of the procedure and the sedation options and risks were discussed with the patient. All questions were answered, and informed consent was obtained. [Anticoagulant Agents] [Days Prior to Procedure]. [ASA Grade]. After reviewing the risks and benefits, the patient was deemed in satisfactory condition to undergo the procedure. - The egd scope was introduced through the mouth and advanced to the second part of the duodenum. - The upper GI endoscopy was accomplished without difficulty. - The patient tolerated the procedure well. Findings: - The examined esophagus was normal. - Diffuse mild inflammation characterized by erythema was found in the entire examined stomach. Multiple biopsies were obtained in the gastric body and in the gastric antrum with cold forceps for histology. Biopsies were taken with a cold forceps for Helicobacter pylori testing. - The examined duodenum was normal. Impression: - Normal esophagus. - Gastritis, characterized by erythema. Biopsied. - Multiple biopsies were obtained in the gastric body and in the gastric antrum. - Normal examined duodenum. Recommendation: - Resume previous diet. - Patient has a contact number available for emergencies. The signs and symptoms of potential delayed complications were discussed with the patient. Return to normal activities tomorrow. Written discharge instructions were provided to the patient. Procedure Code(s): - 80094, Esophagogastroduodenoscopy, flexible, transoral; with biopsy, single or multiple Diagnosis Code(s): - K92.0, Hematemesis - K29.70, Gastritis, unspecified, without bleeding CPT(R) - 2023 copyright [employer]. All Rights Reserved. The CPT codes, CCI edits and ICD codes generated are intended as suggestions and were generated based on input data. These codes are preliminary and upon certified coder review may be revised to meet current compliance and payer requirements. The provider is responsible for the final determination of appropriate codes, and modifiers. Praveen Curtis MD This document has been electronically signed. Note Initiated:04/03/2024 Note Completed:04/03/2024 2:19 PM \\[email or web address]\Results\[email or web address]\[id number]
[2024-04-03 14:38] VITALS: RESP 18
--- NOTE | 2024-04-03 14:39 | Anesthesiology Progress Note ---
Date of Service April 03, 2024 Anesthesia Post Procedure Vital Signs Vital Signs: Temp Pulse Pulse Pulse Resp BP BP 04/03/24 14:35 90 18 116/66 04/03/24 14:20 86 16 107/58 L 04/03/24 13:52 37.1 C 95 H 16 140/67 04/03/24 11:30 37.2 C 95 H 18 115/65 04/03/24 11:00 102 H 04/03/24 11:00 37.2 C 95 H 18 115/65 04/03/24 10:08 101 H 16 120/75 04/03/24 06:31 97 H 18 105/54 L 04/03/24 05:56 98 H 04/03/24 03:00 99 H 16 128/69 04/03/24 02:05 110 H 04/03/24 01:00 107 H 16 159/77 H 04/02/24 23:36 110 H 19 04/02/24 23:00 109 H 24 185/92 H 04/02/24 22:30 107 H 17 162/82 H 04/02/24 22:16 106 H 04/02/24 22:00 110 H 21 162/79 H 04/02/24 21:51 117 H 17 153/75 H 04/02/24 21:48 04/02/24 21:00 113 H 23 146/73 H 04/02/24 20:30 112 H 23 145/66 H 04/02/24 20:00 113 H 25 H 141/70 H 04/02/24 19:30 123 H 16 143/69 H 04/02/24 19:30 113 H 20 143/69 H 04/02/24 19:17 98 H 20 04/02/24 19:01 116 H 20 164/62 H 04/02/24 18:44 37.1 C 115 H 22 154/78 H 04/02/24 18:28 113 H Pulse Ox O2 Del Method 04/03/24 14:35 98 Room Air 04/03/24 14:20 98 Room Air 04/03/24 13:52 96 Room Air 04/03/24 11:30 97 Room Air 04/03/24 11:00 04/03/24 11:00 97 Room Air 04/03/24 10:08 95 Room Air 04/03/24 06:31 98 Room Air 04/03/24 05:56 04/03/24 03:00 99 Room Air 04/03/24 02:05 04/03/24 01:00 97 Room Air 04/02/24 23:36 100 Room Air 04/02/24 23:00 99 Room Air 04/02/24 22:30 98 Room Air 04/02/24 22:16 04/02/24 22:00 99 Room Air 04/02/24 21:51 98 Room Air 04/02/24 21:48 98 Room Air 04/02/24 21:00 99 Room Air 04/02/24 20:30 97 04/02/24 20:00 99 04/02/24 19:30 100 Room Air 04/02/24 19:30 99 Room Air 04/02/24 19:17 100 Room Air 04/02/24 19:01 100 Room Air 04/02/24 18:44 99 Room Air 04/02/24 18:28 Pain Intensity Upper Abdomen: Pain Intensity: 10 Transfer of Care Handoff Completed per policy Notes Mental Status: alert / awake / arousable Patient Amnestic to Procedure: Yes Nausea / Vomiting: adequately controlled Pain: adequately controlled Airway Patency, RR, SpO2: stable & adequate BP & HR: stable & adequate Hydration State: stable & adequate Anesthetic Complications: no major complications apparent
[2024-04-03] MEDS: LIDOCAINE 2% 2 ML VIAL/AMP(20MG/ML) INFIL ONE (15:02)
[2024-04-03] MEDS: PROPOFOL IV EMULSION 10 MG/ML 20 ML VIAL IV ONE (15:02)
[2024-04-03] MEDS: INSULIN, Rapid-Acting PUMP SCH (15:05)
[2024-04-03 15:36] LABS: Hematocrit (blood only) 37.9 % (42.0-52.0); Hemoglobin 12.9 g/dl (14.0-18.0)
[2024-04-03 16:00] VITALS: BP 120/71; TEMP 98.4; O2SAT 98
[2024-04-03] MEDS: CEFEPIME 2000MG 2,000 MG/20 ML SYR IV SCH (17:10)
[2024-04-03] MEDS: metroNIDAZOLE 500 MG/100 ML BAG IV SCH (17:13)
--- NOTE | 2024-04-03 17:15 | Discharge Summary ---
Date of Service April 03, 2024 Admission HPI Per Admitting Provider 43-year-old male with past medical history significant type 1 diabetes on insulin pump, diabetic neuropathy, diabetic retinopathy, gastroparesis history of calculus of ureter, history of osteoarthritis of left ankle, tobacco disorder presents with persistent nausea vomiting and coffee-ground emesis. Patient states today evening started to have lot of nausea and vomiting. After some time of vomiting patient says he developed coffee-ground emesis. Denies any abdominal pain. Denies normal bowel movements. He denies any fevers. He has some chest soreness from vomiting. Denies shortness of breath. No headache. No runny nose or sore throat. Currently resting comfortably and hemodynamically stable. Patient smokes marijuana daily. Past medical history as mentioned above Past surgical history. Repair of umbilical hernia under age 7. Treatment of extensive retinopathy. Upper endoscopy. Social history. . Quit smoking 2023. Smoked 1 pack a day for 15 years. No alcohol social drinking. Uses marijuana daily as per patient. Admission Exam Per Admitting Provider General- Not in distress Head- atraumatic Eyes- PERRL. ENT- oropharynx clear Neck- supple, no JVD. Lungs- clear to auscultation no wheezing or crackles Heart- regular rhythm; no murmur, no gallop. Abdomen- normal bowel sounds, soft, nontender, no distension Extremities- no pretibial edema, no erythema seen Neuro- alert, oriented PERRL, no facial palsy; no dysarthria; moves extremities Principal Diagnosis Coffee ground emesis secondary to gastritis nausea/ vomitting Discharge Exam General- Not in distress Head- atraumatic Eyes- PERRL. Neck- supple, no JVD. Lungs- clear to auscultation no wheezing or crackles Heart- regular rhythm; no murmur Abdomen- normal bowel sounds, soft, nontender, no distension Extremities- no pretibial edema, no erythema seen Neuro- alert, oriented PERRL, no facial palsy; no dysarthria; moves extremities Discharge Data Allergies Allergy/AdvReac Type Severity Reaction Status Date / Time clindamycin Allergy Unknown Unknown Verified 04/05/23 22:08 Penicillins Allergy Unknown Swelling Verified 04/03/23 16:28 and hives (per pt's mother) Sulfa (Sulfonamide Allergy Unknown Unknown Verified 04/03/23 16:28 Antibiotics) bupropion [From Wellbutrin] AdvReac Unknown Unknown Verified 04/03/23 16:28 metoclopramide [From Reglan] AdvReac Unknown Unknown Verified 04/03/23 16:28 varenicline [From Chantix] AdvReac Unknown Unknown Verified 04/03/23 16:28 nicotine [From Nicoderm CQ] AdvReac Unknown Verified 04/03/23 16:28 Consultations 04/02/24 23:46 ED Decision to Admit Stat 04/03/24 09:12 Consult Gastroenterology Routine 04/03/24 09:41 Consult Urology Routine Procedures Performed Operation Date: 04/03/24 16:30 Actual Procedures p EGD Biopsy Cytology - Praveen Curtis MD Ordered Studies 04/02/24 19:15 CT abd pelvis IV con only Stat FINDINGS: Lung bases: Concurrently performed CT chest reported separately. ABDOMEN: Image diagnostic quality reduced by motion artifact. Liver: Mild diffuse fatty infiltration.. No mass. Gallbladder and bile ducts: Unremarkable. No calcified stones. No ductal dilation. Pancreas: Diffusely decreased pancreatic glandular tissue. No mass. No ductal dilation. Spleen: Unremarkable. No splenomegaly. Adrenals: Unremarkable. No mass. Kidneys and ureters: An exophytic 3.1 cm left renal parapelvic cyst. A dilated right extrarenal pelvis No solid mass. No solid mass. Stomach and bowel: Small/moderate size hiatal hernia. Nonspecific circumferential wall thickening of the gastric body/antrum, incomplete distention versus antral gastritis. Diffuse incomplete distention of the small bowel loops. Diffuse edematous mucosal thickening of the ascending, transverse and descending colon is seen with liquid/formed stool in a somewhat distended rectosigmoid, concerning for an acute pancolitis. PELVIS: Appendix: No findings to suggest acute appendicitis. Bladder: A markedly distended urinary bladder seen extending superiorly to the L4-L5 level. No mass. Reproductive: Unremarkable as visualized. ABDOMEN and PELVIS: Intraperitoneal space: No free air. No significant fluid collection. Bones/joints: No acute fracture. No dislocation. Soft tissues: Unremarkable. Vasculature: Mild/moderate calcified/noncalcified atheromatous plaques. No abdominal aortic aneurysm. Lymph nodes: No significantly enlarged lymph nodes. IMPRESSION: A small/moderate size hiatal hernia. Nonspecific circumferential wall thickening of the gastric body/antrum, incomplete distention versus antral gastritis. Diffuse edematous mucosal thickening of the ascending, transverse and descending colon, concerning for an acute pancolitis. Advise clinical correlation. A markedly distended urinary bladder seen extending into the abdomen to the L4-L5 level. A 3.1 cm left renal parapelvic cyst. CT chest diagnostic w con Stat FINDINGS: Diagnostic sensitivity of the exam is reduced by motion artifact. Lungs: Central airways are patent. Biapical subpleural emphysematous blebs/mild emphysema. Predominantly basilar mild interstitial thickening. Posteriorly right basilar small linear atelectatic changes. No mass. No consolidation. Pleural space: Unremarkable. No pneumothorax. No significant effusion. Heart: Unremarkable. No cardiomegaly. No significant pericardial effusion. No significant coronary artery calcifications. Bones/joints: Unremarkable. No acute fracture. No dislocation. Soft tissues: Unremarkable. Vasculature: Unremarkable. No thoracic aortic aneurysm. Lymph nodes: Unremarkable. No enlarged lymph nodes. Other findings: A small hiatal hernia with circumferential wall thickening and mildly dilated gas-filled esophagus. IMPRESSION: Mild paraseptal/centrilobular emphysema. Predominantly basilar mild interstitial thickening. Posteriorly right basilar small linear atelectatic changes. No mass. No consolidation. A small hiatal hernia with circumferential wall thickening and a mildly dilated gas-filled esophagus. . Hospital Course (1) Coffee ground emesis: 43-year-old male with past medical history significant type 1 diabetes on insulin pump, diabetic neuropathy, diabetic retinopathy, gastroparesis history of calculus of ureter, history of osteoarthritis of left ankle, tobacco disorder presents with persistent nausea vomiting and coffee-ground emesis. Patient states today evening started to have lot of nausea and vomiting. After some time of vomiting patient says he developed coffee-ground emesis. Denies any abdominal pain. Denies normal bowel movements. He denies any fevers. He has some chest soreness from vomiting. Denies shortness of breath. No headache. N o runny nose or sore throat. Currently resting comfortably and hemodynamically stable. Patient smokes marijuana daily. Coffee-ground emesis Intractable nausea vomiting History of gastroparesis Possible cannabis hyperemesis syndrome Hemoglobin stable at 14.2 Blood consent obtained on Protonix drip P.o., IV fluids, IV Zofran as needed H&H every [address] chest shows small hiatal hernia and mildly dilated gas filled oesophagus Ct abd/pelvis shows incomplete distension vs antral gastritis and also acute pancolitis has leukocytosis' empiric cefepime and Flagyl started. GI consulted Pt is s/p EGD - c/w gastritis, several biopsies obtained - results pending. Pt is feeling well now and wants to be discharged home, and threatens to leave AMA immediately after his endoscopy. Recommend close follow up with PCP and outpt GI. Cont. lansoprazole. Bladder distension on ct scan will monitor bladder scans urology consulted Gastroparesis At home on promethazine IV Zofran as needed for now Type 1 diabetes On insulin pump Close monitor Hyperlipidemia Held statin while inpt - can resume Hypertension On low-dose lisinopril- can resume Total Time Total Time Spent Total Time Spent (In Minutes): 40 Discharge Plan Discharge Items Patient Disposition: Home - Self-Care Reason For Visit: N/V, COFFEE GROUND EMESIS Discharge Diagnosis: Coffee ground emesis secondary to gastritis nausea/ vomitting Activity: Per Instructions section Non-emergency contact: Primary Care Provider and Data Analyst Etl Developer Call non-emergency contact if: you have any medication questions and your symptoms worsen Follow-up/Referrals: PCP,NO [Primary Care Provider] - Diet: Regular Addtl Attending Provider Instructions: Follow up with your primary care doctor and tray setter. You should be seen by your primary care doctor within 1 week. Advance your diet slowly as tolerated. Continue taking lansoprazole every day. Avoid caffeine, alcohol, marijuana use. Avoid acidic foods (tomato sauce, fruit juices - orange, cranberry, apple, etc.) Pending Studies at Discharge: Yes Studies:: Biopsies from endoscopy Stand-Alone Forms: My [facility], Smoking Cessation Medications and DC Order Prescriptions: Continued insulin aspart U-100 [Novolog U-100 Insulin aspart] 100 unit/mL Solution 1 sliding scale dose SUBCUT USEASDIRECTD Rx Instructions: ON INSULIN PUMP promethazine 25 mg Tablet 25 mg PO TID PRN (Reason: Nausea And Vomiting) lisinopril 2.5 mg Tablet 2.5 mg PO DAILY lansoprazole 15 mg Tablet,Disintegrat, Delay Rel 15 mg PO DAILY rosuvastatin 20 mg Tablet 20 mg PO DAILY Discharge Orders: Discharge Order (Routine); Ordered 04/03/24 Ordered By: Quentin Goodman Admission Data Admit Date/Time: 04/03/24 04:51 Attending Provider: Quentin Goodman Admit Provider: Juan Landaverde Primary Care Provider: PCP,NO Other Providers: Juan Landaverde; Dick Horton; Tejas Tabares; Terri Dunne; Tino Bravo; Angi Adams; Desi Huang; Srikanth Christian; Carmenza Horn; Mahesh Lynn; Zoya Lord; Ramón Maurer
[2024-04-03 17:43] VITALS: PULSE 95
[2024-04-04 23:27] LABS: Marijuana Quant, GCMS Urine 77 ng/mL (<5)
== END 2024-04-03 17:50 | disposition home or self-care (01) | DRG 379 ==
LOC: ED 18:20 → EDINP 04-03 04:51 → 2S 04-03 09:13

== ENCOUNTER 2024-05-16 18:19 | Observation (INO) ==
[2024-05-16 18:34] VITALS: TEMP 98.8
[2024-05-16] MEDS: ONDANSETRON INJ 2 MG/ML 2 ML VIAL IV STA (18:38)
[2024-05-16 18:48] LABS: Basophils # (auto) 0.07 K/uL (0.00-0.20); Basophils % (auto) 0.3 %; Eosinophils # (auto) 0.48 K/uL (0.00-0.50); Eosinophils % (auto) 2.1 %; Hematocrit (blood only) 43.4 % (42.0-52.0); Hemoglobin 14.8 g/dl (14.0-18.0); Immature Granulocytes # (auto) 0.11 K/uL (0.01-0.20); Immature Granulocytes % (auto) 0.5 %; Lymphocytes # (auto) 1.66 K/uL (1.20-3.40); Lymphocytes % (auto) 7.2 %; Mean Corpuscular Hemoglobin 30.4 pg (25.0-34.0); Mean Corpuscular Hgb Conc 34.1 g/dL (32.0-36.0); Mean Corpuscular Volume 89.1 fL (80.0-100.0); Mean Platelet Volume 9.2 fL (9.4-12.4); Monocytes # (auto) 1.48 K/uL (0.11-0.59); Monocytes % (auto) 6.4 %; Neutrophils # (auto) 19.25 K/uL (1.40-6.50); Neutrophils % (auto) 83.5 %; Platelet Count 334 K/uL (130-400); RDW Coefficient of Variation 13.5 % (11.5-14.5); RDW Standard Deviation 44.2 fL (36.4-46.3); Red Blood Count 4.87 M/uL (4.70-6.10); White Blood Count 23.05 K/ul (4.8-10.8)
[2024-05-16] MEDS: PROMETHAZINE 25 MG/51 ML BAG IV STA (18:48)
[2024-05-16] MEDS: SODIUM CHLORIDE 0.9% 1,000 ML IV ONE (18:50)
[2024-05-16 19:08] LABS: Albumin Level 4.4 gm/dl (3.4-5.0); BUN Creatinine Ratio 7.4 (10-20); Bilirubin Direct 0.1 mg/dl (0-0.2); Bilirubin,Total 0.8 mg/dl (0.2-1.0); Calcium 9.4 mg/dl (8.6-10.3); Creatinine Clr Calc Pharmacy 101.8 ml/min; Potassium 4.1 mmol/L (3.5-5.1); Total Protein 7.2 gm/dl (6.0-8.3)
[2024-05-16 19:14] LABS: Troponin I High Sensitivity 4.4 pg/ml (0-20)
[2024-05-16] MEDS: DROPERIDOL 5 MG/2 ML VIAL IV STA (19:26)
--- NOTE | 2024-05-16 19:27 | Emergency Department Note ---
Impression & Plan Gastritis, Gastroparesis, Marijuana use ED Provider Note NAME: MELISSA FIGUEROA AGE: 44 SEX: M : 1980 ARRIVES VIA: Ambulance INFORMANT: Patient, ED PROVIDER(S): Ronny Campuzano MD CHIEF COMPLAINT: Vomiting HPI: This is a 44-year-old male presenting for vomiting. Patient states, started about few hours ago. Notes chills without fevers. He notes no myalgias. He notes he does not use alcohol but does smoke marijuana. Otherwise he does feel like his stomach/esophagus hurts from vomiting. He notes slight bouts of blood in the emesis. Not significant amounts just slight. ROS: See above HPI for pertinent positives & negatives. A total of 10 systems reviewed and were otherwise negative. PAST MEDICAL HISTORY: See Below PAST SURGICAL HISTORY: See Below FAMILY HISTORY: See Below SOCIAL HISTORY: See Below HOME MEDICATIONS: See Below ALLERGIES: See Below VITALS: See Below PHYSICAL EXAMINATION: General: Uncomfortable appearing, actively retching Head: Normocephalic and atraumatic Eyes: Normal inspection, extraocular muscles intact Ear, nose, throat: Normal external exam Neck: Normal range of motion Respiratory: lungs clear to auscultation bilaterally Cardiovascular: Regular rate/rhythm, no murmur GI: soft, nontender, no guarding or rebound Extremities: nontender, moves all extremities Neuro: The patient awake and alert, appropriately conversive, no focal deficits, symmetric faces Skin: Warm, dry, and intact MEDICAL DECISION MAKING: This is a 44-year-old male presenting for vomiting. Patient symptoms began few hours ago. Consider gastroenteritis, cyclic vomiting syndrome, gastroparesis, bowel perforation, diverticulitis, appendicitis, cholecystitis, -Patient's blood work shows significantly cytosis to 23.05. Otherwise leftward shift. This appears chronic on previous admissions. Otherwise electrolytes are within normal limits. His glucose is 218 no signs of DKA. -Patient has refused CT imaging at this time. He does not feel well enough. Patient given Zofran, Phenergan and droperidol. He is not vomiting but still does not want to go to the CT scan. He tells me he had one about 1 month ago and this did not show anything with similar symptoms -Patient otherwise stable, will discharge home as he was previously having gastritis. Will give IV Pepcid and Protonix -Patient had large-volume coffee-ground emesis here. Will admit for further workup instead Differential diagnosis: Esophageal varices, gastritis, upper GI bleed Diagnostics interpreted by me: ECG: None Cardiac Monitoring: An order was placed for continuous cardiac monitoring. The monitor shows a rate of 99 with sinus rhythm. Past Med/Surg History Problem List (Updated 05/16/24 @ 23:35 by Ronny Campuzano MD) Gastritis (Acute) Bladder distension Leukocytosis (Acute) Gastritis (Acute) Intractable nausea and vomiting (Acute) Aspiration pneumonia Lab test positive for detection of COVID-19 virus Type 1 diabetes (Acute) COVID-19 (Acute) Coffee ground emesis (Acute) Abdominal pain (Acute) Esophagitis (Acute) Nausea & vomiting (Acute) Proliferative diabetic retinopathy associated with type 1 diabetes mellitus Tobacco abuse Diabetic peripheral neuropathy associated with type 1 diabetes mellitus Diabetes mellitus type 1, controlled, insulin dependent Left against medical advice Nausea and vomiting (Acute) Hyperglycemic crisis in diabetes mellitus Marijuana use (Acute) Nephrolithiasis Gastroparesis (Chronic) Esophagitis (Acute) Hyperglycemia due to diabetes mellitus (Acute) Epigastric abdominal pain (Acute) Kidney stone (Chronic) Dysesthesia Encounter for pre-operative examination Right ureteral stone (Acute) Medical History Coffee ground emesis GERD (gastroesophageal reflux disease) Kidney stones History of kidney stones Arthritis History of seizure r/t hypoglycemia (2+ years ago) ADHD Loss of protective sensation of skin of foot Degenerative joint disease of ankle, left Gastroparesis due to DM Surgical History History of lithotripsy History of ankle surgery Left x3 History of tooth extraction PONV (postoperative nausea and vomiting) H/O laser photocoagulation of retina Hx of inguinal herniorrhaphy History of wisdom tooth extraction H/O esophagogastroduodenoscopy Family History Brother T1DM (type 1 diabetes mellitus) Uncle Family history of esophageal ulcer Father Myocardial infarction Heart disease Stroke Mother Deep vein thrombosis Social History Smoking Status: Former smoker Tobacco Type: Cigarettes and E-cigarettes / Vaping Cigarettes Per Day: 2; Second Hand Exposure: No; Do You Dip or Chew Tobacco: No; Hx Alcohol Use: No Hx Substance Use: Yes Last Used Substance: Hours (ago) Last Used Substance Other:: [id number] Substance Use Type Other:: medical Preferred Language: Canadian Communication Ability: Effective Hearing Ability: Normal District Engineer Required: No Beliefs That Will Affect Care: None Current Living Situation: Spouse Current Living Situation Comment: home w/ spouse Feels Safe at Home: Yes Assistive Devices: Glasses Allergies Allergies Allergy/AdvReac Type Severity Reaction Status Date / Time clindamycin Allergy Unknown Unknown Verified 04/05/23 22:08 Penicillins Allergy Unknown Swelling Verified 04/03/23 16:28 and hives (per pt's mother) Sulfa (Sulfonamide Allergy Unknown Unknown Verified 04/03/23 16:28 Antibiotics) bupropion [From Wellbutrin] AdvReac Unknown Unknown Verified 04/03/23 16:28 metoclopramide [From Reglan] AdvReac Unknown Unknown Verified 04/03/23 16:28 varenicline [From Chantix] AdvReac Unknown Unknown Verified 04/03/23 16:28 nicotine [From Nicoderm CQ] AdvReac Unknown Verified 04/03/23 16:28 Home Meds Home Medications Medication Instructions Recorded Confirmed insulin aspart U-100 100 unit/mL 1 sliding scale dose subcut 04/03/24 05/17/24 subcutaneous solution (Novolog USEASDIRECTD U-100 Insulin aspart) lansoprazole 15 mg delayed 15 mg PO DAILY 04/03/24 05/17/24 release,disintegrating tablet lisinopril 2.5 mg tablet 2.5 mg PO DAILY 04/03/24 05/17/24 promethazine 25 mg tablet 25 mg PO TID PRN Nausea And 04/03/24 05/17/24 Vomiting rosuvastatin 20 mg tablet 20 mg PO DAILY 04/03/24 05/17/24 blood-glucose sensor (Dexcom G6 05/17/24 05/17/24 Sensor device) insulin glargine 100 unit/mL (3 See Rx Instructions .Route .COMPLEX 05/17/24 05/17/24 mL) subcutaneous pen (Lantus Solostar U-100 Insulin) Results & Data (ED) Vital Signs Vital Signs - 24 hr 05/16/24 18:30 05/16/24 18:31 05/16/24 18:31 Temperature 37.1 C Temperature Source Oral Pulse Rate 111 H 100 H Pulse Rate [Apical] Pulse Rate from SpO2 Sensor Pulse Rhythm Regular Pulse Rhythm [Apical] Pulse Strength Normal Pulse Strength [Apical] Respiratory Rate 20 Respiratory Effort / Characteristics Non-Labored Respiratory Depth Normal Respiratory Pattern Regular Blood Pressure 187/89 H 154/98 H Blood Pressure [Right Arm] Blood Pressure Mean 121 115 Blood Pressure Mean [Right Arm] Blood Pressure Position Lying Blood Pressure Position [Right Arm] Pulse Oximetry 100 Oxygen Delivery Method Room Air Sepsis Recent Fever Within 48 Hours No Sepsis New/Unexplained Change in Mental Status N/A Sepsis Action Taken by Nursing No Action Required 05/16/24 18:39 05/16/24 19:00 05/16/24 21:00 Temperature Temperature Source Pulse Rate 80 Pulse Rate [Apical] 93 H Pulse Rate from SpO2 Sensor 84 Pulse Rhythm Pulse Rhythm [Apical] Pulse Strength Pulse Strength [Apical] Respiratory Rate 19 18 Respiratory Effort / Characteristics Non-Labored Spontaneous Respiratory Depth Normal Respiratory Pattern Regular Blood Pressure 171/84 H Blood Pressure [Right Arm] 143/75 H Blood Pressure Mean 128 Blood Pressure Mean [Right Arm] 97 Blood Pressure Position Blood Pressure Position [Right Arm] Pulse Oximetry 99 98 Oxygen Delivery Method Room Air Sepsis Recent Fever Within 48 Hours Sepsis New/Unexplained Change in Mental Status Sepsis Action Taken by Nursing 05/16/24 22:00 05/16/24 22:20 05/17/24 00:00 Temperature Temperature Source Pulse Rate 96 H Pulse Rate [Apical] 94 H 100 H Pulse Rate from SpO2 Sensor Pulse Rhythm Pulse Rhythm [Apical] Regular Pulse Strength Pulse Strength [Apical] Normal Respiratory Rate 18 17 Respiratory Effort / Characteristics Non-Labored Spontaneous Non-Labored Spontaneous Respiratory Depth Normal Normal Respiratory Pattern Regular Regular Blood Pressure Blood Pressure [Right Arm] 183/87 H 128/66 Blood Pressure Mean Blood Pressure Mean [Right Arm] 119 86 Blood Pressure Position Blood Pressure Position [Right Arm] Lying Pulse Oximetry 98 96 Oxygen Delivery Method Room Air Room Air Sepsis Recent Fever Within 48 Hours Sepsis New/Unexplained Change in Mental Status Sepsis Action Taken by Nursing 05/17/24 00:52 Temperature Temperature Source Pulse Rate 99 H Pulse Rate [Apical] Pulse Rate from SpO2 Sensor Pulse Rhythm Pulse Rhythm [Apical] Pulse Strength Pulse Strength [Apical] Respiratory Rate Respiratory Effort / Characteristics Respiratory Depth Respiratory Pattern Blood Pressure 126/86 Blood Pressure [Right Arm] Blood Pressure Mean Blood Pressure Mean [Right Arm] Blood Pressure Position Blood Pressure Position [Right Arm] Pulse Oximetry Oxygen Delivery Method Sepsis Recent Fever Within 48 Hours Sepsis New/Unexplained Change in Mental Status Sepsis Action Taken by Nursing Laboratory Data 05/17/24 01:05/16/24 18: Lab Results 05/16/24 05/16/24 05/17/24 Range/Units 18: 18:24 04: WBC 23.05 H (4.8-10.8) K/ul RBC 4.87 (4.70-6.10) M/uL Hgb 14.8 13.3 L (14.0-18.0) g/dl Hct 43.4 38.0 L (42.0-52.0) % MCV 89.1 (80.0-100.0) fL MCH 30.4 (25.0-34.0) pg MCHC 34.1 (32.0-36.0) g/dL RDW Std Deviation 44.2 (36.4-46.3) fL RDW Coeff of [place]ont 13.5 (11.5-14.5) % Plt Count 334 (130-400) K/uL MPV 9.2 L (9.4-12.4) fL Immature Gran % (Auto) 0.5 % Neut % (Auto) 83.5 % Lymph % (Auto) 7.2 % [place] % (Auto) 6.4 % Eos % (Auto) 2.1 % Baso % (Auto) 0.3 % Neut # (Auto) 19.25 H (1.40-6.50) K/uL Lymph # (Auto) 1.66 (1.20-3.40) K/uL [place] # (Auto) 1.48 H (0.11-0.59) K/uL Eos # (Auto) 0.48 (0.00-0.50) K/uL Baso # (Auto) 0.07 (0.00-0.20) K/uL Immature Gran # (Auto) 0.11 (0.01-0.20) K/uL Sodium 137 (136-145) mmol/L Potassium 4.1 (3.5-5.1) mmol/L Chloride 104 (98-107) mmol/L Carbon Dioxide 23 (21-32) mmol/L Anion Gap 10 (3-11) BUN 7 (6-23) mg/dl Creatinine 0.94 (0.6-1.4) mg/dl Est Cr Clr Drug Dosing 101.8 ml/min eGFR 103.80 BUN/Creatinine Ratio 7.4 L (10-20) Glucose 225 H (70-99(Fasting)) mg/dl POC Glucose 218 H (70-99) mg/dl Calcium 9.4 (8.6-10.3) mg/dl Magnesium 1.6 L (1.7-2.4) mg/dl Total Bilirubin 0.8 (0.2-1.0) mg/dl Direct Bilirubin 0.1 (0-0.2) mg/dl AST 17 (13-39) U/L ALT 11 (7-52) U/L Alkaline Phosphatase 93 (34-104) U/L Troponin I High Sens 4.4 (0-20) pg/ml Total Protein 7.2 (6.0-8.3) gm/dl Albumin 4.4 (3.4-5.0) gm/dl Lipase 4 L (11-82) U/L Administered Medications Discontinued Medications Al Hydrox/Mg Hydrox/Simethicone (Aluminum/Magnesium Susp 30 Ml Udc) 30 ml PO NOW STA Stop: 05/16/24 23:35 Last Admin: 05/16/24 23:44 Dose: 30 ml Documented By: ROHANL Droperidol (Droperidol 5 Mg/2 Ml Vial) 5 mg IV ONE STA Stop: 05/16/24 19:23 Last Admin: 05/16/24 19:26 Dose: 5 mg Documented By: LEONA Sodium Chloride (Nss) 1,000 mls @ 999 mls/hr IV .Q1H1M ONE Stop: 05/16/24 19:34 Last Infusion: 05/16/24 19:51 Dose: Infused Documented By: Admin: 05/16/24 18:50 Dose: 999 mls/hr Documented By: NERIS Promethazine HCl (Phenergan) 25 mg in 51 mls @ 204 mls/hr IV NOW STA Stop: 05/16/24 18:49 Last Infusion: 05/16/24 19:03 Dose: Infused Documented By: Admin: 05/16/24 18:48 Dose: 204 mls/hr Documented By: NERIS Pantoprazole Sodium (Protonix) 40 mg in 10 mls @ 5 mls/min IV NOW ONE Stop: 05/16/24 23:35 Last Admin: 05/16/24 23:44 Dose: 5 mls/min Documented By: OFELIA Metoprolol Tartrate (Metoprolol Tartrate 1 Mg/Ml Vial) 2.5 mg IV NOW STA Stop: 05/17/24 00:44 Last Admin: 05/17/24 00:52 Dose: Not Given Documented By: JIL Ondansetron HCl (Ondansetron Inj 2 Mg/Ml 2 Ml Vial) 4 mg IV NOW STA Stop: 05/16/24 18:34 Last Admin: 05/16/24 18:38 Dose: Not Given Documented By: Discharge Plan Visit Data Chief Complaint: Illness Stated Complaint: ILLNESS, NAUSE, VOMITING BLOOD ED Provider: Ronny Campuzano Discharge Problem: Gastritis, Gastroparesis, Marijuana use Patient Disposition: Home - Self-Care Discharge Instructions Krames/Other Patient Handouts: ED Gastritis (Adult), ED Diabetic Gastroparesis Activity Restrictions/Additional Instructions: You are seen for your nausea and vomiting with blood. This time you been observed in the emergency department. You I have a high white count and refused CT imaging. This time you stop vomiting, please come back to the ER for any worsening symptom such as nausea, vomiting, chest pain, profuse blood in your vomit. Take your medications such as PPIs and famotidine. Forms Stand Alone Forms: [facility], Important Visit Information Prescriptions Prescriptions: No Action insulin glargine [Lantus Solostar U-100 Insulin] 100 unit/mL (3 mL) insulin pen See Rx Instructions .ROUTE .COMPLEX Rx Instructions: For Pump Failure- 12 units every 12 hours (DME) Dexcom G6 Sensor Device MISCELLANEOUS insulin aspart U-100 [Novolog U-100 Insulin aspart] 100 unit/mL Solution 1 sliding scale dose SUBCUT USEASDIRECTD Rx Instructions: ON INSULIN PUMP promethazine 25 mg Tablet 25 mg PO TID PRN (Reason: Nausea And Vomiting) lisinopril 2.5 mg Tablet 2.5 mg PO DAILY lansoprazole 15 mg Tablet,Disintegrat, Delay Rel 15 mg PO DAILY rosuvastatin 20 mg Tablet 20 mg PO DAILY Referrals Referrals: PCP,NO [Physician] -
[2024-05-16] MEDS: ALUMINUM/MAGNESIUM SUSP 30 ML UDC PO STA (23:44)
[2024-05-16] MEDS: PANTOprazole 40 MG/10 ML SYR IV ONE (23:44)
--- NOTE | 2024-05-17 00:32 | History & Physical Report ---
Date of Service May 17, 2024 Assessment & Plan (1) Upper GI bleed: Plan: Recurrent UGIB History of gastritis Underlying gastroparesis In the setting of acute gastroenteritis illness rule out infectious causes Patient currently hemodynamically stable hypertension, elevated upon arrival at the ER hyperlipidemia, on statin Rx DM1 on insulin pump, reasonable control as of recent hemoglobin A1c of 7.3 last month past tobacco abuse OBS Admit to medical telemetry IV PPI N.p.o. for now GI consult if with recurrent UGIB or significant H&H drop Stool cultures, stool C. difficile Insulin pump as per patient preference (patient refusing pharmacy glycemic c onsult) DVT prophylaxis. SCDs re: GI bleed Full code Text document was generated using [employer] voice recognition software. It may contain grammatical or spelling errors. Kindly contact undersigned for clarification of any documentation item in question. History of Present Illness Chief Complaint: Hematemesis Primary Care Provider: Chapincito Blanco MD History obtained from patient and records. Medical history significant for hypertension, hyperlipidemia, DM1 on insulin pump, gastroparesis, gastritis, urolithiasis, past tobacco abuse. Recent confinement last month for UGIB. Gastritis on EGD. Patient discharged on PPI. This morning, patient noted hematemesis episode associated with upper belly pain going to his chest. Watery diarrhea symptoms. Denies unusual SOB. Denies OTC NSAID intake. Denies unusual headache symptoms. Compliant with home PPI. Medical History as above Surgical History : Umbilical hernia repair Family History : DM, esophageal cancer, heart disease Personal/Social history : Past tobacco abuse, occasional EtOH intake, disabled Allergies Allergy/AdvReac Type Severity Reaction Status Date / Time clindamycin Allergy Unknown Unknown Verified 04/05/23 22:08 Penicillins Allergy Unknown Swelling Verified 04/03/23 16:28 and hives (per pt's mother) Sulfa (Sulfonamide Allergy Unknown Unknown Verified 04/03/23 16:28 Antibiotics) bupropion [From Wellbutrin] AdvReac Unknown Unknown Verified 04/03/23 16:28 metoclopramide [From Reglan] AdvReac Unknown Unknown Verified 04/03/23 16:28 varenicline [From Chantix] AdvReac Unknown Unknown Verified 04/03/23 16:28 nicotine [From Nicoderm CQ] AdvReac Unknown Verified 04/03/23 16:28 Home Medications Medication Instructions Recorded Confirmed Type insulin aspart U-100 100 unit/mL 1 sliding scale dose subcut 04/03/24 05/17/24 History subcutaneous solution (Novolog USEASDIRECTD U-100 Insulin aspart) lansoprazole 15 mg delayed 15 mg PO DAILY 04/03/24 05/17/24 History release,disintegrating tablet lisinopril 2.5 mg tablet 2.5 mg PO DAILY 04/03/24 05/17/24 History promethazine 25 mg tablet 25 mg PO TID PRN Nausea And 04/03/24 05/17/24 History Vomiting rosuvastatin 20 mg tablet 20 mg PO DAILY 04/03/24 05/17/24 History blood-glucose sensor (Dexcom G6 05/17/24 05/17/24 History Sensor device) insulin glargine 100 unit/mL (3 See Rx Instructions .Route .COMPLEX 05/17/24 05/17/24 History mL) subcutaneous pen (Lantus Solostar U-100 Insulin) Past Med/Surg History Problem List (Updated 05/16/24 @ 23:35 by Ronny Campuzano MD) Gastritis (Acute) Bladder distension Leukocytosis (Acute) Gastritis (Acute) Intractable nausea and vomiting (Acute) Aspiration pneumonia Lab test positive for detection of COVID-19 virus Type 1 diabetes (Acute) COVID-19 (Acute) Coffee ground emesis (Acute) Abdominal pain (Acute) Esophagitis (Acute) Nausea & vomiting (Acute) Proliferative diabetic retinopathy associated with type 1 diabetes mellitus Tobacco abuse Diabetic peripheral neuropathy associated with type 1 diabetes mellitus Diabetes mellitus type 1, controlled, insulin dependent Left against medical advice Nausea and vomiting (Acute) Hyperglycemic crisis in diabetes mellitus Marijuana use (Acute) Nephrolithiasis Gastroparesis (Chronic) Esophagitis (Acute) Hyperglycemia due to diabetes mellitus (Acute) Epigastric abdominal pain (Acute) Kidney stone (Chronic) Dysesthesia Encounter for pre-operative examination Right ureteral stone (Acute) Medical History Coffee ground emesis GERD (gastroesophageal reflux disease) Kidney stones History of kidney stones Arthritis History of seizure r/t hypoglycemia (2+ years ago) ADHD Loss of protective sensation of skin of foot Degenerative joint disease of ankle, left Gastroparesis due to DM Surgical History History of lithotripsy History of ankle surgery Left x3 History of tooth extraction PONV (postoperative nausea and vomiting) H/O laser photocoagulation of retina Hx of inguinal herniorrhaphy History of wisdom tooth extraction H/O esophagogastroduodenoscopy Family History Brother T1DM (type 1 diabetes mellitus) Uncle Family history of esophageal ulcer Father Myocardial infarction Heart disease Stroke Mother Deep vein thrombosis Social History Smoking Status: Former smoker Tobacco Type: Cigarettes Cigarettes Per Day: 2; Second Hand Exposure: No; Do You Dip or Chew Tobacco: No; Hx Alcohol Use: No Hx Substance Use: Yes Last Used Substance: Days (ago) Last Used Substance Other:: [id number] Substance Use Type Other:: Medical Card Preferred Language: Maltese Communication Ability: Effective Hearing Ability: Normal Non Destructive Evaluation Technician Required: No Beliefs That Will Affect Care: None Current Living Situation: Spouse Current Living Situation Comment: home w/ spouse Other Information That Helps Us Care for You: No Feels Safe at Home: Yes Safety Concerns: Feels Safe At This Time Assistive Devices: Glasses Review of Systems Review of Systems: As per HPI, all other systems reviewed and negative Physical Exam Physical Exam: GENERAL: Comfortable, looks older than stated age, no respiratory distress SKIN: Normal color, warm HEENT: [place] palpebral conjunctivae, no ptosis, dry buccal mucosa NECK : Supple, no tenderness CHEST : CTA, no tenderness HEART : RRR, no obvious murmurs ABDOMEN: Some distention, minimal epigastric tenderness EXTREMITIES : No LE swelling/tenderness, palpable pulses, no other conspicuous deformities noted NEUROLOGIC : Coherent, no facial asymmetry, no other gross focality Results & Data Results & Data Vital Signs (Past 12 Hours) Vital Signs Temp Pulse Pulse Resp BP BP Pulse Ox 05/16/24 22:20 96 H 05/16/24 22:00 94 H 18 183/87 H 98 05/16/24 21:00 93 H 18 143/75 H 98 05/16/24 19:00 171/84 H 05/16/24 18:39 80 19 99 05/16/24 18:31 154/98 H 05/16/24 18:31 100 H 05/16/24 18:30 37.1 C 111 H 20 187/89 H 100 O2 Del Method 05/16/24 22:20 05/16/24 22:00 Room Air 05/16/24 21:00 Room Air 05/16/24 19:00 05/16/24 18:39 05/16/24 18:31 05/16/24 18:31 05/16/24 18:30 Room Air Laboratory Results Laboratory Results WBC 23.05 K/ul (4.8-10.8) H 05/16/24 18:28 RBC 4.87 M/uL (4.70-6.10) 05/16/24 18:28 Hgb 14.8 g/dl (14.0-18.0) 05/16/24 18: Hct 43.4 % (42.0-52.0) 05/16/24 18: MCV 89.1 fL (80.0-100.0) 05/16/24 18: MCH 30.4 pg (25.0-34.0) 05/16/24 18: MCHC 34.1 g/dL (32.0-36.0) 05/16/24 18: RDW Std Deviation 44.2 fL (36.4-46.3) 05/16/24 18: RDW Coeff of Lamont 13.5 % (11.5-14.5) 05/16/24 18: Plt Count 334 K/uL (130-400) 05/16/24 18: MPV 9.2 fL (9.4-12.4) L 05/16/24 18: Immature Gran % (Auto) 0.5 % 05/16/24 18:28 Neut % (Auto) 83.5 % 05/16/24 18: Lymph % (Auto) 7.2 % 05/16/24 18:28 [place] % (Auto) 6.4 % 05/16/24 18: Eos % (Auto) 2.1 % 05/16/24 18: Baso % (Auto) 0.3 % 05/16/24 18:28 Neut # (Auto) 19.25 K/uL (1.40-6.50) H 05/16/24 18: Lymph # (Auto) 1.66 K/uL (1.20-3.40) 05/16/24 18:28 [place] # (Auto) 1.48 K/uL (0.11-0.59) H 05/16/24 18: Eos # (Auto) 0.48 K/uL (0.00-0.50) 05/16/24 18: Baso # (Auto) 0.07 K/uL (0.00-0.20) 05/16/24 18: Immature Gran # (Auto) 0.11 K/uL (0.01-0.20) 05/16/24 18: Sodium 137 mmol/L (136-145) 05/16/24 18: Potassium 4.1 mmol/L (3.5-5.1) 05/16/24 18: Chloride 104 mmol/L (98-107) 05/16/24 18: Carbon Dioxide 23 mmol/L (21-32) 05/16/24 18: Anion Gap 10 (3-11) 05/16/24 18: BUN 7 mg/dl (6-23) 05/16/24 18: Creatinine 0.94 mg/dl (0.6-1.4) 05/16/24 18: Est Cr Clr Drug Dosing 101.8 ml/min 05/16/24 18: eGFR 103.80 05/16/24 18: BUN/Creatinine Ratio 7.4 (10-20) L 05/16/24 18: Glucose 225 mg/dl (70-99(Fasting)) H 05/16/24 18: POC Glucose 218 mg/dl (70-99) H 05/16/24 18: Calcium 9.4 mg/dl (8.6-10.3) 05/16/24 18: Total Bilirubin 0.8 mg/dl (0.2-1.0) 05/16/24 18: Direct Bilirubin 0.1 mg/dl (0-0.2) 05/16/24 18: AST 17 U/L (13-39) 05/16/24 18: ALT 11 U/L (7-52) 05/16/24 18: Alkaline Phosphatase 93 U/L (34-104) 05/16/24 18:28 Troponin I High Sens 4.4 pg/ml (0-20) 05/16/24 18:28 Total Protein 7.2 gm/dl (6.0-8.3) 05/16/24 18:28 Albumin 4.4 gm/dl (3.4-5.0) 05/16/24 18:28 Lipase 4 U/L (11-82) L 05/16/24 18:28
[2024-05-17 00:41] LABS: Magnesium 1.6 mg/dl (1.7-2.4)
[2024-05-17] MEDS ORDERED: GLUCOSE 40% GEL 15 GM TUBE PO PRN ×2 (00:51→08:25)
[2024-05-17] MEDS ORDERED: GLUCAGON FOR INJ 1 MG VIAL SQ PRN ×2 (00:51→08:25)
[2024-05-17] MEDS ORDERED: GLUCOSE 10 TAB/TUBE PO PRN ×2 (00:51→08:25)
[2024-05-17] MEDS ORDERED: DEXTROSE 50% 50 ML SYRINGE IV PRN ×2 (00:51→08:25)
[2024-05-17] MEDS ORDERED: CARBOHYDRATES FOR HYPOGLYCEMIA PO PRN ×3 (00:51→08:25)
[2024-05-17] MEDS: METOPROLOL TARTRATE 1 MG/ML VIAL IV STA (00:52)
[2024-05-17] MEDS ORDERED: PROMETHAZINE 6.25 MG/50.25 ML BAG IV PRN (00:56)
[2024-05-17] MEDS ORDERED: ACETAMINOPHEN 325 MG TAB PO PRN (00:56)
[2024-05-17] MEDS ORDERED: traMADol HCL 50 MG TABLET PO PRN (00:56)
[2024-05-17 01:41] LABS: Hemoglobin 13.3 g/dl (14.0-18.0)
[2024-05-17] MEDS: MAGNESIUM SULFATE / D5W 1 GM/100 ML BAG IV ONE (03:18)
--- OUTSIDE RECORDS SUMMARY | 2024-05-17 03:44 | External Medical Summary | Summary of Care ---
Author Name Unknown Organization [facility] Address [address] [place] [address] Phone [phone] Care Team Providers Care Podiatric Physician Name Role Phone Nu Blanco MD Primary Care Provider [phone] Reason for Visit * Reason Comments Allergy New Pt * Evaluate & Treat - Unlimited Visits (Within 30 days (routine)) - Authorized Specialty Diagnoses / Procedures Referred By Donald t Referred To Contact Allergy & Immunology / Allergy and Immunology Diagnoses Gastrointestinal food allergy syndrome Nu Blanco MD [address] [place] [id number] Phone: tel: fax: Referral ID Status Reason Start Date Expiration Date Visits Requested Visits Authorized [id number] Authorized Specialty Services Required 04/09/[phone] Encounter Details Date Type Department Care Team (Latest Contact Info) Description 04/12/2024 2:00 PM EST Office Visit Allergy/Immunology [place] [facility] [place] [address] [place] [address] Remy Herrera MD [address] [place] [address] Food intolerance in adult*; Diabetic gastroparesis (HCC) Allergies Active Allergy Reactions Criticality Noted Date Comments Varenicline 02/25/2020 EMESIS Nicotine 02/25/2020 PATCH CAUSED DERMATITIS Penicillins Hives 01/08/2009 Allergy when 5 or 6, unsure of reaction Metoclopramide Other (Please comment) High 0 Facial tics Sulfa Antibiotics 01/08/2009 Bupropion 02/25/2020 HYPOGLYCEMIA documented as of this encounter (statuses as of 04/12/2024) Medications Insulin Syringe-Needle U-100 (BD INSULIN SYRINGE ULTRAFINE) 31G X 5/16" 0.5 ML MISC Use as directed. 4 daily injection in case of pump malfunction 100 Each 2 04/23/19 16 Active Glucagon (rDNA) 1 MG Injection Kit (Glucagen)Indicati ons:DM type 1, not at goal (HCC) As directed 1 Kit 5 06/10/19 21 Active Lisinopril 2.5 MG Oral Tablet (Prinivil) Take 1 Tablet by mouth in the morning. 90 Tablet 3 01/16/2024 6:17 PM EDT 10/21/19 24 Active Insulin Aspart 100 UNIT/ML Injection Solution (NovoLOG) To use in insulin pump: 50 units per day. 02/04/20 23 Active Insulin Glargine 100 UNIT/ML Subcutaneous Solution (Lantus)Indication s:Type 1 diabetes mellitus with hypoglycemia and without coma (HCC),Type 1 diabetes mellitus with diabetic neuropathy (HCC),Type 1 diabetes mellitus with hemoglobin A1c goal of less than 8.0% (HCC) Inject 12 units twice daily in the event of an insulin pump failure 10 mL 5 12/23/19 24 Active Rosuvastatin Calcium 20 MG Oral Tablet (Crestor)Indicatio ns:Type 1 diabetes mellitus with hypoglycemia and without coma (HCC),Type 1 diabetes mellitus with diabetic neuropathy (HCC) Take 1 Tablet by mouth in the morning. Dose increase. 100 Tablet 4 02/29/2024 2:16 PM EST 02/28/20 24 Active Promethazine HCl 25 MG Oral Tablet (Phenergan)Indicat ions:Gastroparesis Take 1 Tablet by mouth 3 times a day as needed for Nausea or Vomiting. 90 Tablet 3 03/16/2024 12:19 PM EST 03/15/20 24 Active Lansoprazole 15 MG Oral Tablet Delayed Release Disintegrating (Prevacid Solutab) Take 1 Tablet by mouth in the morning. 30 Tablet 3 03/16/2024 12:19 PM EST 03/15/20 24 Active Additional Information Patient not taking.Reported on 04/12/2024 documented as of this encounter (statuses as of 04/12/2024) Active Problems Problem Noted Date Diagnosed Date Diabetic neuropathy 02/25/2020 Diabetic retinopathy 02/25/2020 Osteoarthritis of left ankle 02/25/2020 History of laser photocoagulation of retina 01/28 Type 1 diabetes mellitus with hypoglycemia 12/10 Calculus of ureter 10/25/2013 Gastroparesis 11/08/2012 Tobacco use disorder DM type 1 causing neurological disease documented as of this encounter (statuses as of 04/12/2024) Resolved Problems Problem Noted Date Diagnosed Date [...] as of this encounter (statuses as of 04/12/2024) Immunizations Name Administration Dates Next Due COVID-19 [...] Sign Reading Time Taken Comments Blood Pressure 110/60 04/12/2024 1:55 PM EST Pulse 88 04/12/2024 1:55 PM EST Temperature 35.6 C (96.1 F) 04/12/2024 1:55 PM ES T Respiratory Rate 16 04/12/2024 1:55 PM EST Oxygen Saturation - - Inhaled Oxygen Concentration - - Weight 67.7 kg (149 lb 3.2 oz) 04/12/2024 1:55 P M EST Height 180.3 cm (5' 11") 04/12/2024 1:55 PM EST Body Mass Index 20.81 04/12/2024 1:55 PM EST documented in this encounter Progress Notes * Remy Herrera MD - 04/12/2024 1:58 PM EST REASON FOR VISIT: Chief Complaint Patient presents with Allergy New Pt HPI: Mahesh is a pleasant 43-year-old male who presents to our office as a new patient after being referred by Nu Blanco MD for initial consultation of possible food allergies versus intolerances.The patient has questions in regards to if he has food allergies or even alpha Gal syndrome. He states that with certain foods, his symptoms of diabetic gastroparesis are worse. He states that this may be worse with fatty foods in addition to items like beef. He reports symptoms of nausea, abdominal bloating, and gassiness. He has never had any signs or symptoms of a systemic reaction. He denies any hives, rash, itch, lip swelling, tongue swelling, nor throat involvement. He reports no shortness of breath, wheezing, nor significant cough after any certain foods. He has never needed an EpiPen nor Benadryl in relation to any reactions to foods. He states that he is able to eat beef and pork at certain times without any adverse reaction. He does have a history of tick bites. Upon further questioning, he has no significant issues with chronic allergic rhinitis. He states that he may have mild pollen allergies but it is not overly burden some. He has no history of asthma and denies any shortness of breath, wheezing, nor cough. He reports no ER visits nor Urgent Care visits secondary to pulmonary symptoms. REVIEW OF SYSTEMS Skin: No history of hives or atopic dermatitis. Eyes: negative Ears/Nose/Throat: negative Respiratory: No history of cough, wheezing, chest tightness or shortness of breath and No history of bronchial asthma Cardiovascular: negative Gastrointestinal: nausea, excessive gas or bloating Genitourinary: negative Musculoskeletal: pt denies significant joint pain or stiffness Neurologic: negative Psychiatric: negative Hematologic/Lymphatic/Immunologic: negative Endocrine: diabetes Constitutional: none Past Medical History: Diagnosis Date Colitis, acute August 2011 DM (diabetes mellitus), type 1 (HCC) DM type 1 causing eye disease, not at goal 1984 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 4 daily injection in case of pump malfunction 100 Each 2 Glucagon (rDNA) 1 MG Injection Kit (Glucagen) As directed 1 Kit 5 Lisinopril 2.5 MG Oral Tablet (Prinivil) Take 1 Tablet by mouth in the morning. 90 Tablet 3 Insulin Aspart 100 UNIT/ML Injection Solution (NovoLOG) To use in insulin pump: 50 units per day. Insulin Glargine 100 UNIT/ML Subcutaneous Solution (Lantus) Inject 12 units twice daily in the event of an insulin pump failure 10 mL 5 Rosuvastatin Calcium 20 MG Oral Tablet (Crestor) Take 1 Tablet by mouth in the morning. Dose increase. 100 Tablet 4 Promethazine HCl 25 MG Oral Tablet (Phenergan) Take 1 Tablet by mouth 3 times a day as needed for Nausea or Vomiting. 90 Tablet 3 Lansoprazole 15 MG Oral Tablet Delayed Release Disintegrating (Prevacid Solutab) Take 1 Tablet by mouth in the morning. (Patient not taking: Reported on 04/12/2024) 30 Tablet 3 No current facility-administered medications for this visit. Allergies as of 04/12/2024 - Reviewed 04/12/2024 Allergen Reaction Noted Reglan [metoclopramide] Other (Please comment) 02/29/2020 Chantix [varenicline] 02/25/2020 Nicoderm [nicotine] 02/25/2020 Penicillin [penicillins] Hives 01/08/2009 Sulfa [sulfa antibiotics] 01/08/2009 Wellbutrin [bupropion] 02/25/2020 Family History Problem Relation Name Age of Onset Heart Disorder Father Diabetes Brother twin brother. type 1 Diabetes Uncle (Unspecified) Esophageal cancer Uncle (Unspecified) Social History Socioeconomic History Marital status: Spouse name: Not on file Number of children: Not on file Years of education: Not on file Highest education level: Not on file Occupational History Not on file Tobacco Use Smoking status: Former Current packs/day: 0.00 Average packs/day: 1 pack/day for 15.0 years (15.0 ttl pk-yrs) Types: Cigarettes Quit date: 04/03/2023 Years since quittin.0 Passive exposure: Past Smokeless tobacco: Former Types: Chew Vaping Use Vaping status: Never Used Substance and Sexual Activity Alcohol use: Yes Comment: social Drug use: Yes Types: Marijuana Sexual activity: Not on file Other Topics Concern Service Not Asked Blood Transfusions No Caffeine Concern Not Asked Occupational Exposure Not Asked Hobby Hazards Not Asked Sleep Concern Not Asked Stress Concern Not Asked Weight Concern Not Asked Special Diet Not Asked Back Care Not Asked Exercise Not Asked Bike Helmet Not Asked Seat Belt Not Asked Self-Exams Not Asked Social History Narrative Not on file Social Needs Financial Resource Strain: High Risk (10/20/2023) Financial Resource Strain Do you have any trouble paying for your medications, or do you think you might in the future? (Adult - for ages 18 years and over): Yes Does your family have trouble paying for medicine? (Household - for ages 0-17 years): Not on file Food Insecurity: No Food Insecurity (10/20/2023) Food Insecurity Do you need food for this week? (Adult - for ages 18 years and over): No Are you able to get enough food for your family? (Household - for ages 0-17 years): Not on file Does your family need food this week? (Household - for ages 0-17 years): Not on file Do you always have enough food for your family? (Household - for ages 0-17 years): Not on file Transportation Needs: No Transportation Needs (10/20/2023) Transportation Needs Do you have trouble getting a ride to medical visits or work? (Adult - for ages 18 years and over):Not on file Does your family have a hard time getting a ride to doctors visits? (Household - for ages 0-17 years): Not on file Has lack of transportation kept you from medical appointments, meetings, work, or from getting things needed for daily living? Check all that apply. (Adult - for ages 18 years and over): No Do you (or your family) have trouble finding or paying for a ride (transportation)? (Household - for ages 0-17 years): Not on file Social Connections: Socially Integrated (10/20/2023) Social Connections How often do you feel lonely or isolated from those around you? (Adult - for ages 18 years and over): Rarely Housing Stability: Low Risk (10/20/2023) Housing Stability Do you currently live in a fci or have no steady place to sleep at night? (Adult - for ages 18 years and over): No Do you think you are at risk of becoming homeless? (Adult - for ages 18 years and over): Not on file Does your family worry about paying for your home or becoming homeless? (Household - for ages 0-17 years): Not on file Are you homeless or worried that you might be in the future? (Adult - for ages 18 years and over): No Are you (or your family) homeless or worried that you might be in the future? (Household - for ages0-17 years): Not on file Social history: The patient is currently on disability. His hobbies do include landscaping. BP 110/60 | Pulse 88 | Temp 35.6 C (96.1 F) (Tympanic) | Resp 16 | Ht 1.803 m (5' 11") | Wt 67.7 kg (149 lb 3.2 oz) | BMI 20.81 kg/m | BSA 1.84 m PHYSICAL EXAM: GENERAL: No acute distress. HEAD AND FACE: No sinus tenderness noted EYES: EOMI, PERRLA; Conjunctiva- normal; Eyelids - normal EARS: TM's - clear NOSE:Pale mucosa; mild turbinate edema; no nasal polyps or mucopus; Septum - normal OROPHARYNX: Teeth and gums - normal; Mild erythema, no cobblestoning; No lesions, exudates NECK: Supple; No thyroid enlargment or cervical adenopathy RESPIRATORY: Clear to A and P; No wheezes; Good air movement bilaterally; No intercostal retractions or accessory muscle use CARDIOVASCULAR: RRR; No gallops, rubs, clicks, or murmurs. GASTROINTESTINAL: Abdomen is soft and non-tender; BS - normal; No palpable masses or organomegaly LYMPHATIC: No significant adenopathy noted MUSCULOSKELETAL: No significant joint swelling, tenderness EXTREMITIES: No cyanosis, clubbing or peripheral edema SKIN: No evidence atopic dermatitis; no urticaria or angioedema; Normal skin quality NEUROLOGIC/PSYCHIATRIC: Mental status - Oriented x's 3; Mood and affect - normal ASSESSMENT AND PLAN: ICD-10-CM 1. Food intolerance in adult K90.49 2. Diabetic gastroparesis (HCC) E11.43 K31.84 In summary, Mahesh presents with ongoing issues with certain foods that can worsen his diabetic gastroparesis. However this is not consistent with a true type 1 IgE mediated food hypersensitivity. Wealso reviewed that his symptoms are also not consistent with alpha Gal syndrome which typically presents with a systemic reaction and/or anaphylaxis that is delayed and typically occurs 2-8 hours (generally 4-6 hours) following the ingestion of meat from mammals. To his knowledge, he has never had anaphylaxis and this type of setting nor any systemic reactions. In addition, he reports that he cantolerate beef and pork on some occasions without any significant issues. We did review that certain foods such as foods that are fatty, acidic, spicy, and roughage based can increased symptoms and individuals with gastroparesis. Hence diet should be low in fat. His symptoms are more consistent with gastroparesis and food intolerances. Hence, food allergy testing would not be of much benefit and can actually lead to false positives overall. We instructed him that he may benefit from keeping a food journal or diary to determine if there are any certain foods that may worsen his gastrointestinal symptoms. In addition, we reviewed the clinical manifestations of lactose intolerance and gluten intolerance and he will monitor for this in the future to determine either of these entities are playing a role. Thank you very much for allowing myself to participate in the care of your patient. Please do not hesitate to contact our office should you have any questions or concerns. Remy Herrera MD Allergy/Immunology I spent a total of 30-39 minutes (exact time 32 mins) on the date of service in preparation, delivery, and documentation of the care provided to Mahesh Hayes excluding any time spent in the performance of separately billed services or time spent by another provider/QHP. (This note was completed using the dictation program Fluency Direct. As such, there may be misspellings, word substitutions, or other variations that should not change the essence of the clinical content of this encounter note.If there is need for further clarification, please direct questions to the provider listed above.) PCP: NU BLANCO [address] [place] [address] [phone] documented in this encounter Nursing Notes * Hallie Fine LPN - 04/12/2024 1:54 PM EST The pt has been properly identified by confirmation of name and date of . Pt presents as a new pt. Pt states he needs to have testing for allergies to foods documented in this encounter Plan of Treatment Upcoming Encounters Date Type Department Care Team (Late st Contact Info) Description 05/29/2024 9:10 AM EST Office Visit Pharmacy, [facility] [address] [place] [phone] [facility] [address] [place], [place] [address] [address] 08/07/2024 11:00 AM EDT Office Visit Family Practice, [facility] [address] [place] [phone] Nu Blanco MD [address] [facility] [place] [phone] 08/29/2024 9:00 AM EDT Office Visit Gastroenterology, [facility] [address] [place] [address] Mckenna Terry CRNP [address] [place] [phone] Scheduled Referrals Name Type Priority Associated Diagnoses Orde r Schedule ALLERGY REFERRAL OP Referral Within 30 da ys (routine) Gastrointestinal food allergy syndrome Ordered: 04/09/2024 Health Maintenance Due Date Last Done Comments Pneumococcal Vaccine: Pediatrics (0 to 5 Years) and At-Risk Patients (6 to 18 Years and 19+ Years) (2 of 2 - PCV) 07/30/2008 [...] as of this encounter Visit Diagnoses Diagnosis Food intolerance in adult- Primary Other specified intestinal malabsorption Diabetic gastroparesis (HCC) Type II or unspecified type diabetes mellitus with neurological manifestations, not stated as uncontrolled documented in this encounter Care Teams Podiatric Physician Relationship Specialty Start Date End Date Nu Blanco MD [address] [place] [address] PCP - General Family Medicine 04/09/24 documented as of this encounter
--- OUTSIDE RECORDS SUMMARY | 2024-05-17 03:44 | External Medical Summary | Summary of Care ---
Author Name Unknown Organization [facility] Address [address] [facility] [place] [address] Phone [phone] Care Team Providers Care Business Analyst Intern Name Role Phone Chapincito Blanco MD Primary Care Provider Encounter Details Date Type Department Care Team (Late st Contact Info) Description 04/20/2024 Telephone [facility] [place] [address] [place] [phone] Chapincito Blanco MD [address] [place] [address] Allergies Active Allergy Reactions Criticality Noted Date Comments Varenicline 02/25/2020 EMESIS Nicotine 02/25/2020 PATCH CAUSED DERMATITIS Penicillins Hives 01/08/2009 Allergy when 5 or 6, unsure of reaction Metoclopramide Other (Please comment) High 0 Facial tics Sulfa Antibiotics 01/08/2009 Bupropion 02/25/2020 HYPOGLYCEMIA documented as of this encounter (statuses as of 04/20/2024) Medications Insulin Syringe-Needle U-100 (BD INSULIN SYRINGE [...] as of this encounter (statuses as of 04/20/2024) Active Problems Problem Noted Date Diagnosed Date Diabetic neuropathy 02/25/2020 Diabetic retinopathy 02/25/2020 Osteoarthritis of left ankle 02/25/2020 History of laser photocoagulation of retina 01/28 Type 1 diabetes mellitus with hypoglycemia 12/10 Calculus of ureter 10/25/2013 Gastroparesis 11/08/2012 Tobacco use disorder DM type 1 causing neurological disease documented as of this encounter (statuses as of 04/20/2024) Resolved Problems Problem Noted Date Diagnosed Date [...] as of this encounter (statuses as of 04/20/2024) Immunizations Name Administration Dates Next Due COVID-19 [...] encounter Miscellaneous Notes * Telephone Encounter - Reena Purcell LPN - 04/20/2024 12:30 PM EST Call placed to patient to let him know his insulin is in the office and can be picked up during normal business hours. documented in this encounter Plan of Treatment Upcoming Encounters Date Type Department Care Team (Late st Contact Info) Description 05/29/2024 9:10 AM EST Office Visit Pharmacy, [address] [place] [phone] [facility] [address] [facility] [place] [address] 08/07/2024 11:00 AM EDT Office Visit Family [facility] [place] [address] [place] [phone] Chapincito Blanco MD [address] [address] 08/29/2024 9:00 AM EDT Office Visit Gastroenterology, [facility] [address] [place] [address] Mckenna Terry CRNP [address] [place] [phone] Health Maintenance Due Date Last Done Comments Pneumococcal Vaccine: Pediatrics (0 to 5 Years) and At-Risk Patients (6 to 18 Years and 19+ Years) (2 of 2 - PCV) 07/30/2008 07/31/2007, 03/28/2000 COVID-19 Vaccine (3 - season) 2023 11/22/2020, 10/25/2020 Influenza Vaccine [...] filedocumented as of this encounter Care Teams Business Analyst Intern Relationship Specialty Start Date End Date Chapincito Blanco MD [address] [facility] [place] [address] PCP - General Family Medicine 04/09/24 documented as of this encounter
[2024-05-17 03:45] LABS: Appearance Urine Clear (Clear); Bacteria Urine Automated None Seen (None Seen); Bilirubin Urine Negative (Negative); Blood Urine Negative (Negative); Cast Urine Automated 0-2 /lpf (0-2); Color Urine Yellow; Epithelial Cell Urine Auto 0-2 /hpf (0-2); Glucose Urine UA 2+ (Negative); Ketones Urine Trace (Negative); Leukocyte Esterase Urine Negative (Negative); Nitrite Urine Negative (Negative); Protein Urine Trace (Negative); RBC Urine Automated 0-2 /hpf (0-2); Specific Gravity Urine 1.016 (1.000-1.030); Sperm Urine Present (None Prsent); Urobilinogen Urine Negative (Negative); WBC Urine Automated 0-5 /hpf (0-5); pH Urine 7.5 (4.5-7.5)
--- OUTSIDE RECORDS SUMMARY | 2024-05-17 03:45 | External Medical Summary | Summary of Care ---
Author Name Unknown Organization [facility] Address [address] [facility] [place] [address] Phone [phone] Care Team Providers Care Equal Opportunity Officer Name Role Phone Yasmin May MD Primary Care Provider Reason for Visit * Reason Onset Date Comments Hospital Follow-Up 04/04/2024 [facility] ([facility]) Encounter Details Date Type Department Care Team (Late st Contact Info) Description 04/04/2024 Telephone [facility] [address] [place] [address] Laura Trevino, MARIA DOLORES Hospital Follow-Up ([facility] ([facility])) Allergies Active Allergy Reactions Criticality Noted Date Comments Varenicline 02/25/2020 EMESIS Nicotine 02/25/2020 PATCH CAUSED DERMATITIS Penicillins Hives 01/08/2009 Allergy when 5 or 6, unsure of reaction Metoclopramide Other (Please comment) High 0 Facial tics Sulfa Antibiotics 01/08/2009 Bupropion 02/25/2020 HYPOGLYCEMIA documented as of this encounter (statuses as of 04/04/2024) Medications Insulin Syringe-Needle U-100 (BD INSULIN SYRINGE [...] 03/16/2024 12:19 PM EST 03/15/20 24 Active documented as of this encounter (statuses as of 04/04/2024) Active Problems Problem Noted Date Diagnosed Date Diabetic neuropathy 02/25/2020 Diabetic retinopathy 02/25/2020 Osteoarthritis of left ankle 02/25/2020 History of laser photocoagulation of retina 01/28 Type 1 diabetes mellitus with hypoglycemia 12/10 Calculus of ureter 10/25/2013 Gastroparesis 11/08/2012 Tobacco use disorder DM type 1 causing neurological disease documented as of this encounter (statuses as of 04/04/2024) Resolved Problems Problem Noted Date Diagnosed Date [...] as of this encounter (statuses as of 04/04/2024) Immunizations Name Administration Dates Next Due COVID-19 [...] encounter Miscellaneous Notes * Telephone Encounter - Lauar Trevino RN - 04/04/2024 2:53 PM EST Transitions of Care Note Reason for Referral:Recent Admission Phone visit for follow up: [facility] Admitted to: [facility], Date: 04/03/2024 Discharged to: Home, Date: 04/03/2024 Diagnosis driving hospitalization: Coffee ground emesis secondary to Gastritis, Nausea/Vomiting 04/03/2024 - EGD Source/Contact: Patient SUBJECTIVE Consent: Verbal consent for review of hospital discharge: Yes REVIEW OF SYSTEMS Patient/Other Reports: Current patient/caregiver problems or concerns: Doing well at home, no concerns. Wants to talk to PCP about alpha-gal syndrome. Appt scheduled for hospital follow up. CV: Denies problems Pulmonary: Denies problems Chills/Sweats/Fever:Denies chills/sweats Denies fever Appetite:Denies problems such as nausea, vomiting, burning, decreased appetite Current diet: Regular, Advance slowly - avoid caffeine, alcohol, acidic foods Bowel: denies problems Bladder: denies problems Wound (If applicable): N/A Pain:Denies Sleep:Denies problems FUNCTIONAL STATUS: ADL'S: Needs Assistance With:N/A as pt is independent IADL'S: Needs Assistance With:N/A as pt is independent Cognitive and Mental Health: denies problems, alert and oriented x 3, and able to communicate, understand instructions, process information. MEDICATION RECONCILIATION Medications: Discharge med list reviewed with patient or caregiver Reports all medications taken as prescribed. No new or discontinued medications ASSESSMENT Medication Risk Assessment: No risks identified Did patient fail outpatient treatment? No Discharge instructions available for review? Yes PLAN Symptom Monitoring Interventions:Member/caregiver education - signs and symptoms to contact PrimaryCare (DO NOT DELETE-Three medina symptoms patient is to report to PCP) 1. Chest Pain/SOB 2. Fever/chills 3. Nausea/Vomiting History ProfessorCredit Products Officer of Care interventions/Action Plan: 5 - 7 day follow-up with PCP in place - Date: 04/09/2024 Educated on role of [facility] completed with patient/caregiver. Educated patient/caregiver on patient right to have input on [facility] plan of care. Verification of Home Health/DME if indicated: YES Has insulin pump Identified Care Gaps: Yes Care Gaps closed this call: Appointment made or confirmed and Transition of Care follow-up communication Re-evaluation of Plan of Care and progress towards goals achievement: Patient education this visit: Verbal, Scheduled PCP appointment, addressed reasons to call sooner as above Plan to instructed to call Primary Care Provider with change in symptoms or as needed before next follow-up, discharge needs met, verbalizes understanding and agrees with plan. Laura Trevino RN documented in this encounter Plan of Treatment Upcoming Encounters Date Type Department Care Team (Late st Contact Info) Description 04/09/2024 3:00 PM EST Office Visit [place] [id number] [place] [phone] Chapincito Blanco MD [address] [place] [address] 05/28/2024 9:30 AM EST Office Visit Pharmacy, [facility] [address] [place] [phone] [facility] [address] [facility] [address] 08/29/2024 9:00 AM EDT Office Visit Gastroenterology, [facility] [address] [place] [address] Mckenna Terry CRNP [address] [place] [address] Health Maintenance Due Date Last Done Comments [...] filedocumented as of this encounter Care Teams Equal Opportunity Officer Relationship Specialty Start Date End Date Yasmin May MD PCP - General Internal Medicine 10/21/23 documented as of this encounter
--- OUTSIDE RECORDS SUMMARY | 2024-05-17 03:45 | External Medical Summary | Summary of Care ---
Author Name Unknown Organization [facility] Address [address] [place] [address] Phone [phone] Care Team Providers Care Dock Grader Name Role Phone Chapincito Blanco MD Primary Care Provider [phone] Reason for Referral * Evaluate & Treat - Unlimited Visits (Within 30 days (routine)) - Authorized Specialty Diagnoses / Procedures Referred By Donald black Referred To Contact Allergy & Immunology / Allergy and Immunology Diagnoses Gastrointestinal food allergy syndrome Chapincito Blanco MD [address] [place] [address] Phone: tel: fax: Referral ID Status Reason Start Date Expiration Date Visits Requested Visits Authorized [id number] Authorized Specialty Services Required 04/09/2024 999 [id number] Question Answer Referral Priority Within 30 days (routine) Where should this appointment be scheduled? [facility] For what condition is the patient being referred? Food allergy/EoE Does the patient have mainly gastrointestinal symptoms (nausea, vomiting, abdominal pain, cramping, bloating, diahhrea or constipation)? No Comments Has already been seen by GI on outpt and in hospital Reason for Visit * Reason Onset Date Comments Hospital Follow-Up Patient is he re today for a hospital discharge appointment. Patient states he has concerns of a tick born illness. Patient states he was in [facility] due to gastroparesis. Hospital Follow-Up 04/09/2024 Encounter Details Date Type Department Care Team (Latest Contact Info) Description 04/09/2024 3:00 PM EST Office Visit [facility] [place] [address] [place] [phone] Chapincito Blanco MD [address] [place] [phone] Gastrointestinal food allergy syndrome*; Hospital discharge follow-up Allergies Active Allergy Reactions Criticality Noted Date Comments Varenicline 02/25/2020 EMESIS Nicotine 02/25/2020 PATCH CAUSED DERMATITIS Penicillins Hives 01/08/2009 Allergy when 5 or 6, unsure of reaction Metoclopramide Other (Please comment) High 0 Facial tics Sulfa Antibiotics 01/08/2009 Bupropion 02/25/2020 HYPOGLYCEMIA documented as of this encounter (statuses as of 04/09/2024) Medications Insulin Syringe-Needle U-100 (BD INSULIN SYRINGE [...] as of this encounter (statuses as of 04/09/2024) Active Problems Problem Noted Date Diagnosed Date Diabetic neuropathy 02/25/2020 Diabetic retinopathy 02/25/2020 Osteoarthritis of left ankle 02/25/2020 History of laser photocoagulation of retina 01/28 Type 1 diabetes mellitus with hypoglycemia 12/10 Calculus of ureter 10/25/2013 Gastroparesis 11/08/2012 Tobacco use disorder DM type 1 causing neurological disease documented as of this encounter (statuses as of 04/09/2024) Resolved Problems Problem Noted Date Diagnosed Date [...] as of this encounter (statuses as of 04/09/2024) Immunizations Name Administration Dates Next Due COVID-19 [...] Sign Reading Time Taken Comments Blood Pressure 124/64 04/09/2024 2:55 PM EST Pulse 85 04/09/2024 2:55 PM EST Temperature 35.6 C (96.1 F) 04/09/2024 2:55 PM ES T Respiratory Rate 16 04/09/2024 2:55 PM EST Oxygen Saturation 95% 04/09/2024 2:55 PM EST Inhaled Oxygen Concentration - - Weight 66.9 kg (147 lb 8 oz) 04/09/2024 2:55 PM EST Height 179.1 cm (5' 10.5") 04/09/2024 2:55 PM ES T Body Mass Index 20.86 04/09/2024 2:55 PM EST documented in this encounter Progress Notes * Chapincito Blanco MD - 04/09/2024 3:30 PM EST SUBJECTIVE: Mahesh Hayes is a 43 year old male. Chief Complaint Patient presents with Hospital Follow-Up Patient is here today for a hospital discharge appointment. Patient states he has concerns of a tick born illness. Patient states he was in [facility] due to gastroparesis. Recent Admission: Patient was recently admitted 04/03/24 to [facility]. The date of discharge was 04/03/24. Discharge report received and reviewed. HPI: 43-year-old recently hospitalized [facility] 04/03/2024 presenting with persistent nausea vomitingin ultimately coffee-ground emesis. His pain was primarily upper abdominal although he did have some diffuse discomfort in the entire abdomen. Edematous mucosal thickening stomach. CT chest showed emp hysematous changes. He was empirically started on cefepime and Flagyl. GI was consulted and performed EGD with changes consistent with gastritis. He was discharged with no changes his medications. He was to continue lens appraisal 15 mg daily aswell as his insulin per insulin pump. He had no difficulties with Um blood sugars during the hospital stay. Patient questions whether he may have alpha gal syndrome which is an IgE mediated reaction to be for pork. He has had no problems with difficulties with swallowing or speech or shortness of breath orwheezing or recurrent hives Um after eating be for pork. Tells me that he can not tolerate eating pork chops. Patient Active Problem List Diagnosis Tobacco use disorder DM type 1 causing neurological disease (HCC) Gastroparesis Calculus of ureter Type 1 diabetes mellitus with hypoglycemia (HCC) Diabetic neuropathy (HCC) Diabetic retinopathy (HCC) Osteoarthritis of left ankle History of laser photocoagulation of retina Current Outpatient Medications Medication Sig Dispense Refill [...] mouth in the morning. 30 Tablet 3 No current facility-administered medications for this visit. Current and discharge medications have been reconciled. Review of patient's allergies indicates: Allergen Reactions Reglan [Metoclopramide] Other (Please comment) Facial tics Chantix [Varenicline] EMESIS Nicoderm [Nicotine] PATCH CAUSED DERMATITIS Penicillin [Penicillins] Hives Allergy when 5 or 6, unsure of reaction Sulfa [Sulfa Antibiotics] Wellbutrin [Bupropion] HYPOGLYCEMIA Review Of Systems: Skin: negative Eyes: negative Ears/Nose/Throat: negative Respiratory: negative Cardiovascular: negative Gastrointestinal: negative Genitourinary: negative Musculoskeletal: pt denies significant joint pain or stiffness Neurologic: negative Psychiatric: negative Hematologic/Lymphatic/Immunologic: negative Endocrine: negative OBJECTIVE: BP 124/64 (BP Site: Left Arm, BP Position: Sitting, BP Cuff Size: Regular) | Pulse 85 | Temp 96.1 F (35.6 C) (Tympanic) | Resp 16 | Ht 5' 10.5" (1.791 m) | Wt 147 lb 8 oz (66.9 kg) | SpO2 95% | BMI 20.86 kg/m | BSA 1.82 m Review Of Systems: Skin: negative Eyes: negative Ears/Nose/Throat: negative Respiratory: negative Cardiovascular: negative Gastrointestinal: negative Genitourinary: negative Musculoskeletal: pt denies significant joint pain or stiffness Neurologic: negative Psychiatric: negative Hematologic/Lymphatic/Immunologic: negative Endocrine: negative Assessment: Probable gastritis and possible lester colitis. Clinically markedly improved. Unclear whether there is any relationship to alpha Gal syndrome Advised to continue his regular medications in particular lens appraisal 15 mg daily. Marijuana hyperemesis syndrome apparently was discuss during the hospitalization but he claims thathe believes there is no relationship. He admits to smoking marijuana but claims that is generally less than in the past. I spent a total of 30-39 minutes (exact time 30 mins) minutes on the date of service in preparation, delivery, and documentation of the care provided to Mahesh Hayes excluding any time spent in performance of separately billed services. Chapincito Blanco MD documented in this encounter Nursing Notes * Muna Starr LPN - 04/09/2024 2:58 PM EST The patient has been properly identified by confirmation of name and date of . Chief Complaint Patient presents with Hospital Follow-Up Patient is here today for a hospital discharge appointment. Patient states he has concerns of a tick born illness. Patient states he was in [facility] due to gastroparesis. documented in this encounter Plan of Treatment Upcoming Encounters Date Type Department Care Team (Late st Contact Info) Description 04/12/2024 2:00 PM EST Office Visit Allergy/Immunology [facility] [address] [facility] [place] [address] Remy Herrera MD [address] [facility] [place], [place] [address] 05/29/2024 9:10 AM EST Office Visit Pharmacy, [facility] [address] [facility] [place] [phone] [place] [address] [place] [address] 08/07/2024 11:00 AM EDT Office Visit Family Practice, [facility] [address] [facility] [place] [phone] Chapincito Blanco MD [address] [place] [address] 08/29/2024 9:00 AM EDT Office Visit Gastroenterology, [facility] [address] [place] [address] Mckenna Terry CRNP [address] [facility] [place] [address] Scheduled Referrals Name Type Priority Associated Diagnoses [...] as of this encounter Visit Diagnoses Diagnosis Gastrointestinal food allergy syndrome- Primary Allergic gastroenteritis and colitis Hospital discharge follow-up Other follow-up examination documented in this encounter Care Teams Dock Grader Relationship Specialty Start Date End Date Chapincito Blanco MD [facility] [place] [address] PCP - General Family Medicine 04/09/24 documented as of this encounter
[2024-05-17 04:10] LABS: Amphetamines+Metham, Urine Neg (Neg); Barbiturates, Urine Neg (Neg); Benzodiazepine, Urine Neg (Neg); Cocaine, Urine Neg (Neg); Fentanyl, Urine Neg (Neg); MDMA (Ecstacy), Urine Neg (Neg); Marijuana, Urine Pos (Neg); Methadone, Urine Neg (Neg); Opiate, Urine Neg (Neg); Phencyclidine, Urine Neg (Neg)
[2024-05-17 06:53] VITALS: RESP 18
[2024-05-17 07:54] LABS: Basophils # (auto) 0.04 K/uL (0.00-0.20); Basophils % (auto) 0.2 %; Eosinophils # (auto) 0.01 K/uL (0.00-0.50); Eosinophils % (auto) 0.1 %; Hematocrit (blood only) 40.2 % (42.0-52.0); Hemoglobin 13.8 g/dl (14.0-18.0); Immature Granulocytes # (auto) 0.11 K/uL (0.01-0.20); Immature Granulocytes % (auto) 0.6 %; Lymphocytes # (auto) 1.54 K/uL (1.20-3.40); Lymphocytes % (auto) 8.3 %; Mean Corpuscular Hemoglobin 30.4 pg (25.0-34.0); Mean Corpuscular Hgb Conc 34.3 g/dL (32.0-36.0); Mean Corpuscular Volume 88.5 fL (80.0-100.0); Mean Platelet Volume 9.4 fL (9.4-12.4); Monocytes # (auto) 1.02 K/uL (0.11-0.59); Monocytes % (auto) 5.5 %; Neutrophils # (auto) 15.92 K/uL (1.40-6.50); Neutrophils % (auto) 85.3 %; Platelet Count 327 K/uL (130-400); RDW Coefficient of Variation 13.6 % (11.5-14.5); Red Blood Count 4.54 M/uL (4.70-6.10); White Blood Count 18.64 K/ul (4.8-10.8)
[2024-05-17 08:22] LABS: BUN Creatinine Ratio 10.8 (10-20); Calcium 9.2 mg/dl (8.6-10.3); Creatinine Clr Calc Pharmacy 102.9 ml/min; Potassium 4.4 mmol/L (3.5-5.1)
[2024-05-17] MEDS: lisinopril 2.5 MG TAB PO SCH (09:00)
[2024-05-17] MEDS: PANTOprazole 40 MG/10 ML SYR IV SCH (09:00)
[2024-05-17 09:01] VITALS: O2SAT 98
[2024-05-17] MEDS: SODIUM CHLORIDE 0.9% 1,000 ML IV ONE (09:01)
[2024-05-17] MEDS: ROSUVASTATIN CALCIUM 20 MG TAB PO SCH (09:01)
--- NOTE | 2024-05-17 11:30 | Hospitalist Progress Note ---
Date of Service May 17, 2024 Assessment & Plan (1) Gastritis: Plan: Hematemesis Last EGD in March 2024: Suggestive of gastritis: Pathology negative for H. pylori Denies any NSAIDs, aspirin use Hemoglobin stable Hemoptysis resolved Advance diet as tolerated Will increase Protonix to twice a day Wants to be discharged home today not willing to stay for further evaluation Agrees to follow-up with [facility] gastroenterology on discharge as outpatient (2) Leukocytosis: Plan: Unclear etiology Also noted on prior blood work No obvious source of infection Advised to follow-up with primary care physician on discharge Hypomagnesemia Likely due to GI losses Replace and monitor Diarrhea Resolved Obtain stool studies if recurrence Gastroparesis States having intermittent diarrhea chronically Follows with GI as outpatient Gastroparesis diet Marijuana use Advise to quit DM I On insulin pump Eats only once a day " I am aware of diet recommendations for DM and gastroparesis" Monitor blood glucose levels DVT Px: SCDs for now CODE STATUS Full code Disposition Home Admission and Anticipated Discharge Date Admission Date: May 17, 2024 Subjective Patient is seen and examined at bedside Nausea, vomiting, diarrhea resolved Denies any abdominal pain today Hemoptysis resolved as well Offers no other complaints Wants to be discharged home today not willing to stay for further evaluation Review of Systems Review of Systems: All systems reviewed & are unremarkable except as noted in Subjective Physical Exam Physical Exam: Physical Exam: Vitals signs as noted above General Appearance:Thin, frail, no apparent distress Head: normocephalic, Atraumatic Eyes: normal inspection, EOMI Neck: supple, Trachea midline Respiratory/Chest: Normal breath sounds, CTA, No accessory muscle use Cardiovascular: S1, S2, No murmur Abdomen/GI:Soft, Non tender, Bowel sounds present Extremities/Musculoskeletal:normal inspection, no edema Neurologic/Psych:AAOX3, grossly no focal neurological deficits Skin: normal color, warm Results & Data Results & Data Vital Signs (Past 12 Hours) Vital Signs Pulse Pulse Resp BP BP Pulse Ox O2 Del Method 05/17/24 09:01 96 H 18 116/61 98 Room Air 05/17/24 06:58 100 H 05/17/24 06:00 93 H 18 107/81 97 Room Air 05/17/24 04:27 96 H 17 115/61 98 Room Air 05/17/24 04:00 98 H 18 115/61 94 Room Air 05/17/24 02:17 70 17 115/81 97 Room Air 05/17/24 02:17 100 H 96 Room Air 05/17/24 02:07 99 H 05/17/24 02:00 99 H 18 106/61 97 Room Air 05/17/24 00:52 99 H 126/86 05/17/24 00:00 100 H 17 128/66 96 Room Air Laboratory Results Short CBC 05/16/24 05/17/24 05/17/24 Range/Units 18:28 01:26 06:53 WBC 23.05 H 18.64 H (4.8-10.8) K/ul Hgb 14.8 13.3 L 13.8 L (14.0-18.0) g/dl Hct 43.4 38.0 L 40.2 L (42.0-52.0) % Plt Count 334 327 (130-400) K/uL BMP 05/16/24 05/17/24 18:28 06:53 Sodium 137 136 Potassium 4.1 4.4 Chloride 104 103 Carbon Dioxide 23 27 BUN 7 10 Creatinine 0.94 0.93 Glucose 225 H 266 H Calcium 9.4 9.2 Liver Function 05/16/24 Range/Units 18:28 Total Bilirubin 0.8 (0.2-1.0) mg/dl Direct Bilirubin 0.1 (0-0.2) mg/dl AST 17 (13-39) U/L ALT 11 (7-52) U/L Alkaline Phosphatase 93 (34-104) U/L Albumin 4.4 (3.4-5.0) gm/dl Urine 05/17/24 Range/Units 03:03 Urine Color Yellow Urine Appearance Clear (Clear) Urine pH 7.5 (4.5-7.5) Ur Specific [place] 1.016 (1.000-1.030) Urine Protein Trace H (Negative) Urine Glucose (UA) 2+ H (Negative) (2) Leukocytosis Leukocytosis type: unspecified Qualified Code(s): D72.829 - Elevated white blood cell count, unspecified
--- NOTE | 2024-05-17 12:06 | Discharge Summary ---
Date of Service May 17, 2024 Admission HPI Per Admitting Provider History obtained from patient and records. Medical history significant for hypertension, hyperlipidemia, DM1 on insulin pump, gastroparesis, gastritis, urolithiasis, past tobacco abuse. Recent confinement last month for UGIB. Gastritis on EGD. Patient discharged on PPI. This morning, patient noted hematemesis episode associated with upper belly pain going to his chest. Watery diarrhea symptoms. Denies unusual SOB. Denies OTC NSAID intake. Denies unusual headache symptoms. Compliant with home PPI. Medical History as above Surgical History : Umbilical hernia repair Family History : DM, esophageal cancer, heart disease Personal/Social history : Past tobacco abuse, occasional EtOH intake, disabled Admission Exam Per Admitting Provider GENERAL: Comfortable, looks older than stated age, no respiratory distress SKIN: Normal color, warm HEENT: [place] palpebral conjunctivae, no ptosis, dry buccal mucosa NECK : Supple, no tenderness CHEST : CTA, no tenderness HEART : RRR, no obvious murmurs ABDOMEN: Some distention, minimal epigastric tenderness EXTREMITIES : No LE swelling/tenderness, palpable pulses, no other conspicuous deformities noted NEUROLOGIC : Coherent, no facial asymmetry, no other gross focality Principal Diagnosis Upper GI bleed/gastritis Gastroparesis Diarrhea Leukocytosis Marijuana use Discharge Data Allergies Allergy/AdvReac Type Severity Reaction Status Date / Time clindamycin Allergy Unknown Unknown Verified 04/05/23 22:08 Penicillins Allergy Unknown Swelling Verified 04/03/23 16:28 and hives (per pt's mother) Sulfa (Sulfonamide Allergy Unknown Unknown Verified 04/03/23 16:28 Antibiotics) bupropion [From Wellbutrin] AdvReac Unknown Unknown Verified 04/03/23 16:28 metoclopramide [From Reglan] AdvReac Unknown Unknown Verified 04/03/23 16:28 varenicline [From Chantix] AdvReac Unknown Unknown Verified 04/03/23 16:28 nicotine [From Nicoderm CQ] AdvReac Unknown Verified 04/03/23 16:28 Procedures Performed Laboratory Results WBC 18.64 K/ul (4.8-10.8) H 05/17/24 06:53 RBC 4.54 M/uL (4.70-6.10) L 05/17/24 06:53 Hgb 13.8 g/dl (14.0-18.0) L 05/17/24 06:53 Hct 40.2 % (42.0-52.0) L 05/17/24 06:53 MCV 88.5 fL (80.0-100.0) 05/17/24 06:53 MCH 30.4 pg (25.0-34.0) 05/17/24 06:53 MCHC 34.3 g/dL (32.0-36.0) 05/17/24 06:53 RDW Std Deviation 44.0 fL (36.4-46.3) 05/17/24 06:53 RDW Coeff of [place] 13.6 % (11.5-14.5) 05/17/24 06:53 Plt Count 327 K/uL (130-400) 05/17/24 06:53 MPV 9.4 fL (9.4-12.4) 05/17/24 06:53 Immature Gran % (Auto) 0.6 % 05/17/24 06:53 Neut % (Auto) 85.3 % 05/17/24 06:53 Lymph % (Auto) 8.3 % 05/17/24 06:53 [place] % (Auto) 5.5 % 05/17/24 06:53 Eos % (Auto) 0.1 % 05/17/24 06:53 Baso % (Auto) 0.2 % 05/17/24 06:53 Neut # (Auto) 15.92 K/uL (1.40-6.50) H 05/17/24 06:53 Lymph # (Auto) 1.54 K/uL (1.20-3.40) 05/17/24 06:53 [place] # (Auto) 1.02 K/uL (0.11-0.59) H 05/17/24 06:53 Eos # (Auto) 0.01 K/uL (0.00-0.50) 05/17/24 06:53 Baso # (Auto) 0.04 K/uL (0.00-0.20) 05/17/24 06:53 Immature Gran # (Auto) 0.11 K/uL (0.01-0.20) 05/17/24 06:53 Sodium 136 mmol/L (136-145) 05/17/24 06:53 Potassium 4.4 mmol/L (3.5-5.1) 05/17/24 06:53 Chloride 103 mmol/L (98-107) 05/17/24 06:53 Carbon Dioxide 27 mmol/L (21-32) 05/17/24 06:53 Anion Gap 6 (3-11) 05/17/24 06:53 BUN 10 mg/dl (6-23) 05/17/24 06:53 Creatinine 0.93 mg/dl (0.6-1.4) 05/17/24 06:53 Est Cr Clr Drug Dosing 102.9 ml/min 05/17/24 06:53 eGFR 105.14 05/17/24 06:53 BUN/Creatinine Ratio 10.8 (10-20) 05/17/24 06:53 Glucose 266 mg/dl (70-99(Fasting)) H 05/17/24 06:53 POC Glucose 215 mg/dl (70-99) H 05/17/24 09:12 Calcium 9.2 mg/dl (8.6-10.3) 05/17/24 06:53 Magnesium 2.0 mg/dl (1.7-2.4) 05/17/24 06:53 Total Bilirubin 0.8 mg/dl (0.2-1.0) 05/16/24 18:28 Direct Bilirubin 0.1 mg/dl (0-0.2) 05/16/24 18:28 AST 17 U/L (13-39) 05/16/24 18:28 ALT 11 U/L (7-52) 05/16/24 18:28 Alkaline Phosphatase 93 U/L (34-104) 05/16/24 18:28 Troponin I High Sens 4.4 pg/ml (0-20) 05/16/24 18:28 Total Protein 7.2 gm/dl (6.0-8.3) 05/16/24 18:28 Albumin 4.4 gm/dl (3.4-5.0) 05/16/24 18:28 Lipase 4 U/L (11-82) L 05/16/24 18:28 Procalcitonin 0.22 ng/ml (0-0.5) 05/17/24 01:23 Urine Color Yellow 05/17/24 03:03 Urine Appearance Clear (Clear) 05/17/24 03:03 Urine pH 7.5 (4.5-7.5) 05/17/24 03:03 Ur Specific [place] 1.016 (1.000-1.030) 05/17/24 03:03 Urine Protein Trace (Negative) H 05/17/24 03:03 Urine Glucose (UA) 2+ (Negative) H 05/17/24 03:03 Urine Ketones Trace (Negative) H 05/17/24 03:03 Urine Blood Negative (Negative) 05/17/24 03:03 Urine Nitrite Negative (Negative) 05/17/24 03:03 Urine Bilirubin Negative (Negative) 05/17/24 03:03 Urine Urobilinogen Negative (Negative) 05/17/24 03:03 Ur Leukocyte Esterase Negative (Negative) 05/17/24 03:03 Urine WBC (Auto) 0-5 /hpf (0-5) 05/17/24 03:03 Urine RBC (Auto) 0-2 /hpf (0-2) 05/17/24 03:03 U Hyaline Cast (Auto) 0-2 /lpf (0-2) 05/17/24 03:03 U Epithel Cells (Auto) 0-2 /hpf (0-2) 05/17/24 03:03 Urine Bacteria (Auto) None Seen (None Seen) 05/17/24 03:03 Urine Sperm Present (None Prsent) A 05/17/24 03:03 Urine Opiates Screen Neg (Neg) 05/17/24 03:03 Ur Methadone, Qual Neg (Neg) 05/17/24 03:03 Urine Fentanyl Screen Neg (Neg) 05/17/24 03:03 Urine Barbiturates Neg (Neg) 05/17/24 03:03 Ur Phencyclidine (PCP) Neg (Neg) 05/17/24 03:03 U Amphetamin/Meth Scrn Neg (Neg) 05/17/24 03:03 MDMA (Ecstasy) Screen Neg (Neg) 05/17/24 03:03 U Benzodiazepines Scrn Neg (Neg) 05/17/24 03:03 Ur Cocaine Metabolite Neg (Neg) 05/17/24 03:03 U Marijuana (THC) Screen Pos (Neg) H 05/17/24 03:03 Blood Type A Positive 05/17/24 01:26 Antibody Screen NEGATIVE 05/17/24 01:26 Hospital Course (1) Gastritis: Hematemesis Last EGD in March 2024: Suggestive of gastritis: Pathology negative for H. pylori Denies any NSAIDs, aspirin use Hemoglobin stable Hemoptysis resolved Advance diet as tolerated Will increase Protonix to twice a day Wants to be discharged home today not willing to stay for further evaluation Agrees to follow-up with [facility] gastroenterology on discharge as outpatient (2) Leukocytosis: Unclear etiology Also noted on prior blood work No obvious source of infection Advised to follow-up with primary care physician on discharge Hypomagnesemia Likely due to GI losses Replace and monitor Diarrhea Resolved Obtain stool studies if recurrence Gastroparesis States having intermittent diarrhea chronically Follows with GI as outpatient Gastroparesis diet Marijuana use Advise to quit DM I On insulin pump Eats only once a day " I am aware of diet recommendations for DM and gastroparesis" Monitor blood glucose levels DVT Px: SCDs for now CODE STATUS Full code Disposition Home Total Time Total Time Spent Total Time Spent (In Minutes): 49 minutes Discharge Plan Discharge Items Patient Disposition: Home - Self-Care Reason For Visit: UGIB Discharge Diagnosis: Upper GI bleed/gastritis Gastroparesis Diarrhea Leukocytosis Marijuana use Activity: Per Instructions section Exercise/Sports: Gradually increase as tolerated Non-emergency contact: Primary Care Provider Call non-emergency contact if: you have any medication questions, your symptoms worsen, your pain is concerning for you and you have a fever Follow-up/Referrals: Chapincito Blanco MD [Primary Care Provider] - (Date & Time 05/22/2024 2:40 PM Provider: Chapincito Blanco MD [facility] ) Diet: Carb Count or DM1 Addtl Attending Provider Instructions: Follow-up with your primary care physician Dr. 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 -- Avoid [id number] pain medicines (NSAIDs)/Alcohol as advised -- You are noted to have elevated white blood cell count while you are hospita lized. If you develop any fever or any other worsening symptoms, follow-up with your primary care physician for further evaluation Seek immediate medical attention if your symptoms reoccur or worsen Please take all medications as instructed on discharge list below. Please call if you have any questions or problems. You can reach a [facility] hospitalist on duty at [facility] 24 hours a day by calling [phone] Pending Studies at Discharge: No Stand-Alone Forms: My [facility], Smoking Cessation Medications and DC Order Prescriptions: Continued insulin glargine [Lantus Solostar U-100 Insulin] 100 unit/mL (3 mL) insulin pen See Rx Instructions .ROUTE .COMPLEX Rx Instructions: For Pump Failure- 12 units every 12 hours (DME) Dexcom G6 Sensor Device MISCELLANEOUS insulin aspart U-100 [Novolog U-100 Insulin aspart] 100 unit/mL Solution 1 sliding scale dose SUBCUT USEASDIRECTD Rx Instructions: ON INSULIN PUMP promethazine 25 mg Tablet 25 mg PO TID PRN (Reason: Nausea And Vomiting) lisinopril 2.5 mg Tablet 2.5 mg PO DAILY rosuvastatin 20 mg Tablet 20 mg PO DAILY Changed lansoprazole 15 mg Tablet,Disintegrat, Delay Rel 15 mg PO BID Qty: 60 0RF Discharge Orders: Discharge Order (Routine); Ordered 05/17/24 Ordered By: Blayne Marcum Admission Data Admit Date/Time: 05/17/24 00:52 Attending Provider: Blayne Marcum Admit Provider: Hu Vizcaino Primary Care Provider: Chapincito Blanco
[2024-05-17 12:11] VITALS: BP 133/69; PULSE 91
[2024-05-19 13:52] LABS: Marijuana Quant, GCMS Urine >5000 ng/mL (<5)
== END 2024-05-17 12:12 | disposition home or self-care (01) ==
LOC: ED 18:19 → EDINP 18:19

== ENCOUNTER 2024-09-02 22:03 | Observation (INO) ==
[2024-09-02] MEDS: PROMETHAZINE 25 MG/51 ML BAG IV STA (22:34)
[2024-09-02] MEDS: DICYCLOMINE HCL 10 MG/ML 2 ML AMP/VIAL IM ONE (22:34)
[2024-09-02] MEDS: FAMOTIDINE 20MG IV PUSH 20 MG/5 ML SYR IV STA (22:34)
[2024-09-02] MEDS: SODIUM CHLORIDE 0.9% 1,000 ML IV SCH (22:35)
[2024-09-02] MEDS: SODIUM CHLORIDE 0.9% 1,000 ML IV ONE (22:35)
--- NOTE | 2024-09-02 22:36 | Emergency Department Note ---
History of Present Illness General Chief complaint: Hyperglycemia Stated complaint: WEAKNESS, N/V, HYPERGLYCEMIA History of Present Illness This 44-year-old prisoner with diabetes presents ER for nausea, vomiting, diarrhea, chest pain, abdominal pain for the past 3 days. The [facility] tried Phenergan with no improvement of symptoms. Patient denies fever, chills, cough, congestion, flulike illness. He has a history of gastroparesis. Fingerstick per EMS was in the 200s. Home Medications Medication Instructions Recorded Confirmed Type insulin aspart U-100 100 unit/mL 50 unit continuous subcutaneous 04/03/24 09/02/24 History subcutaneous solution (Novolog infusion DAILY U-100 Insulin aspart) lisinopril 2.5 mg tablet 2.5 mg PO QAM 04/03/24 09/02/24 History promethazine 25 mg tablet 25 mg PO TID PRN Nausea And 04/03/24 09/02/24 History Vomiting rosuvastatin 20 mg tablet 20 mg PO QAM 04/03/24 09/02/24 History blood-glucose sensor (Dexcom G6 05/17/24 09/02/24 History Sensor device) insulin glargine 100 unit/mL (3 See Rx Instructions .Route .COMPLEX 05/17/24 09/02/24 History mL) subcutaneous pen (Lantus Solostar U-100 Insulin) mirtazapine 15 mg tablet 15 mg PO HS 09/02/24 09/02/24 History omeprazole 20 mg capsule,delayed 20 mg PO QAM 09/02/24 09/02/24 History release Allergies Allergy/AdvReac Type Severity Reaction Status Date / Time clindamycin Allergy Unknown Unknown Verified 04/05/23 22:08 Penicillins Allergy Unknown Swelling Verified 09/02/24 22:36 and hives (per pt's mother) Sulfa (Sulfonamide Allergy Unknown Unknown Verified 09/02/24 22:36 Antibiotics) bupropion [From Wellbutrin] AdvReac Unknown Unknown Verified 09/02/24 22:36 metoclopramide [From Reglan] AdvReac Unknown Unknown Verified 09/02/24 22:36 varenicline [From Chantix] AdvReac Unknown Unknown Verified 09/02/24 22:36 nicotine [From Nicoderm CQ] AdvReac Unknown Verified 09/02/24 22:36 Past Med/Surg History Problem List (Updated 09/03/24 @ 01:53 by Rahel Rosa PA-C) Acute dehydration (Acute) Abdominal pain, vomiting, and diarrhea (Acute) Diabetes mellitus with hyperglycemia (Acute) Acute urinary retention (Acute) Gastritis (Acute) Bladder distension Leukocytosis (Acute) Gastritis (Acute) Intractable nausea and vomiting (Acute) Aspiration pneumonia Lab test positive for detection of COVID-19 virus Type 1 diabetes (Acute) COVID-19 (Acute) Coffee ground emesis (Acute) Abdominal pain (Acute) Esophagitis (Acute) Nausea & vomiting (Acute) Proliferative diabetic retinopathy associated with type 1 diabetes mellitus Tobacco abuse Diabetic peripheral neuropathy associated with type 1 diabetes mellitus Diabetes mellitus type 1, controlled, insulin dependent Left against medical advice Nausea and vomiting (Acute) Hyperglycemic crisis in diabetes mellitus Marijuana use (Acute) Nephrolithiasis Gastroparesis (Chronic) Esophagitis (Acute) Hyperglycemia due to diabetes mellitus (Acute) Epigastric abdominal pain (Acute) Kidney stone (Chronic) Dysesthesia Encounter for pre-operative examination Right ureteral stone (Acute) Medical History Coffee ground emesis GERD (gastroesophageal reflux disease) Kidney stones History of kidney stones Arthritis History of seizure r/t hypoglycemia (2+ years ago) ADHD Loss of protective sensation of skin of foot Degenerative joint disease of ankle, left Gastroparesis due to DM Surgical History History of lithotripsy History of ankle surgery Left x3 History of tooth extraction PONV (postoperative nausea and vomiting) H/O laser photocoagulation of retina Hx of inguinal herniorrhaphy History of wisdom tooth extraction H/O esophagogastroduodenoscopy Family History Brother T1DM (type 1 diabetes mellitus) Uncle Family history of esophageal ulcer Father Myocardial infarction Heart disease Stroke Mother Deep vein thrombosis Social History Smoking Status: Never smoker Tobacco Type: Cigarettes Cigarettes Per Day: 2; Second Hand Exposure: No; Do You Dip or Chew Tobacco: No; Hx Alcohol Use: No Hx Substance Use: Yes Last Used Substance: Days (ago) Last Used Substance Other:: 1-6-25 1200 Substance Use Type Other:: Medical Card Preferred Language: Hungarian Communication Ability: Effective Hearing Ability: Normal Equipment Hire Manager Required: No Beliefs That Will Affect Care: None Current Living Situation: Spouse Current Living Situation Comment: home w/ spouse Feels Safe at Home: Yes Assistive Devices: Glasses Review of Systems A total of 10 systems reviewed and were otherwise negative Physical Exam Vital Signs Vital Signs - 24 hr 09/02/24 22:28 09/02/24 22:51 09/02/24 23:04 Temperature 36.4 C L Temperature Source Oral Pulse Rate 115 H 105 H Pulse Rate [Apical] Pulse Rhythm Regular Pulse Rhythm [Apical] Pulse Strength Normal Pulse Strength [Apical] Respiratory Rate 18 Respiratory Effort / Characteristics Non-Labored Respiratory Depth Normal Respiratory Pattern Regular Blood Pressure 150/102 H Blood Pressure [Left Arm] Blood Pressure Mean 118 Blood Pressure Mean [Left Arm] Blood Pressure Position Sitting Blood Pressure Position [Left Arm] Pulse Oximetry 100 98 Oxygen Delivery Method Room Air Room Air Sepsis Recent Fever Within 48 Hours No Sepsis New/Unexplained Change in Mental Status No Sepsis Action Taken by Nursing No Action Required 09/02/24 23:57 09/03/24 02:23 Temperature Temperature Source Pulse Rate 107 H Pulse Rate [Apical] 110 H Pulse Rhythm Pulse Rhythm [Apical] Regular Pulse Strength Pulse Strength [Apical] Normal Respiratory Rate 17 Respiratory Effort / Characteristics Non-Labored Respiratory Depth Normal Respiratory Pattern Regular Blood Pressure Blood Pressure [Left Arm] 126/92 Blood Pressure Mean Blood Pressure Mean [Left Arm] 103 Blood Pressure Position Blood Pressure Position [Left Arm] Lying Pulse Oximetry 98 Oxygen Delivery Method Room Air Sepsis Recent Fever Within 48 Hours Sepsis New/Unexplained Change in Mental Status Sepsis Action Taken by Nursing VITALS: Vitals are noted on the nurse's note and reviewed by myself. Vital signs stable. GENERAL: Male in shackles, in no acute distress, nondiaphoretic, well-developed well-nourished. SKIN: Capillary reflex less than 2 seconds. HEENT: Normocephalic. PERRLA. EOMI. Nares patent. Mucous membranes moist. Neck is supple without nuchal rigidity. HEART: Regular rate and rhythm LUNGS: Clear to auscultation bilaterally without wheezes, rales or rhonchi. No retractions or accessory muscle use. ABDOMEN: Positive bowel sounds x 4. Normal tympanic percussion. Soft, mild diffuse tenderness, without masses or organomegaly. Woodard sign negative. No guarding or rebound tenderness. no CVA tenderness MUSCULOSKELETAL: No gross musculoskeletal defects. NEURO: Patient was alert and oriented to person place and time. No focal neurological deficits. Course Administered Medications Ciprofloxacin (Cipro / D5w) 400 mg in 200 mls @ 100 mls/hr IV NOW STA; Protocol Stop: 09/03/24 02:52 Last Admin: 09/03/24 01:55 Dose: 100 mls/hr Documented By: EAMON Discontinued Medications Dicyclomine HCl (Dicyclomine Hcl 10 Mg/Ml 2 Ml Amp/Vial) 20 mg IM NOW ONE Stop: 09/02/24 22:11 Last Admin: 09/02/24 22:34 Dose: 20 mg Documented By: EAMON Sodium Chloride (Nss) 1,000 mls @ 999 mls/hr IV .Q1H1M HELIO Stop: 09/02/24 23:15 Last Infusion: 09/02/24 23:29 Dose: Infused Documented By: Admin: 09/02/24 22:35 Dose: 999 mls/hr Documented By: EAMON Famotidine (Pepcid 20mg Iv Push) 20 mg in 5 mls @ 2.5 mls/min IV NOW STA Stop: 09/02/24 22:11 Last Admin: 09/02/24 22:34 Dose: 2.5 mls/min Documented By: EAMON Sodium Chloride (Nss) 1,000 mls @ 999 mls/hr IV .Q1H1M ONE Stop: 09/02/24 23:21 Last Infusion: 09/02/24 23:36 Dose: Infused Documented By: Admin: 09/02/24 22:35 Dose: 999 mls/hr Documented By: EAMON Promethazine HCl (Phenergan) 25 mg in 51 mls @ 204 mls/hr IV NOW STA Stop: 09/02/24 22:37 Last Infusion: 09/02/24 22:58 Dose: Infused Documented By: Admin: 09/02/24 22:34 Dose: 204 mls/hr Documented By: EAMON Pantoprazole Sodium (Protonix) 40 mg in 10 mls @ 5 mls/min IV NOW ONE Stop: 09/02/24 23:05 Last Admin: 09/02/24 23:11 Dose: 5 mls/min Documented By: EAMON Potassium Chloride (K Arley / Wtr) 10 meq in 100 mls @ 100 mls/hr IV Q1H HELIO Stop: 09/03/24 01:44 Last Admin: 09/03/24 01:55 Dose: 100 mls/hr Documented By: Infusion: 09/03/24 01:24 Dose: Infused Documented By: Admin: 09/03/24 00:24 Dose: 100 mls/hr Documented By: EAMON Magnesium Sulfate/Dextrose (Magnesium Sulfate / D5w) 1 gm in 100 mls @ 200 mls/hr IV Q30M [facility] Stop: 09/03/24 00:35 Last Infusion: 09/03/24 02:03 Dose: Infused Documented By: Admin: 09/03/24 01:25 Dose: 200 mls/hr Documented By: Infusion: 09/03/24 00:54 Dose: Infused Documented By: Admin: 09/03/24 00:24 Dose: 200 mls/hr Documented By: EAMON Sodium Chloride (Nss) 500 mls @ 999 mls/hr IV .Q31M ONE Stop: 09/03/24 01:40 Last Admin: 09/03/24 01:25 Dose: 999 mls/hr Documented By: EAMON Insulin Human Regular (Novolin-R Insulin Per Unit Charge) 10 units IV NOW STA Stop: 09/02/24 23:37 Last Admin: 09/03/24 00:23 Dose: 10 units Documented By: EAMON Co-signed By: VON Insulin Human Regular (Novolin-R Insulin Per Unit Charge) 10 units IV NOW STA Stop: 09/03/24 01:44 Last Admin: 09/03/24 01:55 Dose: 10 units Documented By: EAMON Co-signed By: VON Ioversol (Optiray 320 125ml) 125 ml IV ONCE ONE Stop: 09/03/24 00:20 Last Admin: 09/03/24 00:19 Dose: 118 ml Documented By: MAMIE Lidocaine HCl (Lidocaine 2% Jelly 5 Ml Tube) 5 ml EXT NOW ONE Stop: 09/03/24 00:52 Last Admin: 09/03/24 00:56 Dose: 5 ml Documented By: EAMON Lorazepam (Lorazepam 2 Mg/1 Ml Vial) 1 mg IV NOW STA Stop: 09/02/24 23:05 Last Admin: 09/02/24 23:11 Dose: 1 mg Documented By: EAMON Medical Decision Making Medical Records Attestation: I reviewed the patient's medical records. Home Medications Current Medication List: was personally reviewed by me Laboratory Data Attestation: I reviewed the patient's lab results. 09/02/24 22:26 09/02/24 22:26 Lab Results 09/02/24 09/02/24 09/03/24 Range/Units 22:19 22:26 00:23 WBC 25.84 H (4.8-10.8) K/ul RBC 4.54 L (4.70-6.10) M/uL Hgb 14.0 (14.0-18.0) g/dl Hct 40.9 L (42.0-52.0) % MCV 90.1 (80.0-100.0) fL MCH 30.8 (25.0-34.0) pg MCHC 34.2 (32.0-36.0) g/dL RDW Std Deviation 45.1 (36.4-46.3) fL RDW Coeff of Lamont 13.6 (11.5-14.5) % Plt Count 352 (130-400) K/uL MPV 9.9 (9.4-12.4) fL Immature Gran % (Auto) 0.6 % Neut % (Auto) 83.2 % Lymph % (Auto) 6.8 % Davidson % (Auto) 7.9 % Eos % (Auto) 0.8 % Baso % (Auto) 0.7 % Neut # (Auto) 21.49 H (1.40-6.50) K/uL Lymph # (Auto) 1.77 (1.20-3.40) K/uL Davidson # (Auto) 2.05 H (0.11-0.59) K/uL Eos # (Auto) 0.20 (0.00-0.50) K/uL Baso # (Auto) 0.18 (0.00-0.20) K/uL Immature Gran # (Auto) 0.15 (0.01-0.20) K/uL VBG pH 7.45 H (7.36-7.41) VBG pCO2 29 L (38-50) mmHg VBG pO2 33 mmHg VBG HCO3 20 mmol/L VBG O2 Saturation < 60.0 % VBG Base Excess -2.6 mEq/L Sodium 137 (136-145) mmol/L Potassium 4.0 (3.5-5.1) mmol/L Chloride 98 (98-107) mmol/L Carbon Dioxide 20 L (21-32) mmol/L Anion Gap 19 H (3-11) BUN 23 (6-23) mg/dl Creatinine 1.24 (0.6-1.4) mg/dl Est Cr Clr Drug Dosing 68.4 ml/min eGFR 74.44 BUN/Creatinine Ratio 18.5 (10-20) Glucose 425 H* (70-99(Fasting)) mg/dl POC Glucose 430 H* 364 H* (70-99) mg/dl Calcium 9.8 (8.6-10.3) mg/dl Magnesium 1.8 (1.7-2.4) mg/dl Total Bilirubin 1.2 H (0.2-1.0) mg/dl AST 15 (13-39) U/L ALT 10 (7-52) U/L Alkaline Phosphatase 98 (34-104) U/L Troponin I High Sens 4.7 (0-20) pg/ml Total Protein 7.4 (6.0-8.3) gm/dl Albumin 4.7 (3.4-5.0) gm/dl Globulin 2.7 (2.5-4.0) gm/dl Albumin/Globulin Ratio 1.7 (0.9-2) Lipase 5 L (11-82) U/L Urine Color Urine Appearance (Clear) Urine pH (4.5-7.5) Ur Specific [place] (1.000-1.030) Urine Protein (Negative) Urine Glucose (UA) (Negative) Urine Ketones (Negative) Urine Blood (Negative) Urine Nitrite (Negative) Urine Bilirubin (Negative) Urine Urobilinogen (Negative) Ur Leukocyte Esterase (Negative) Urine WBC (Auto) (0-5) /hpf Urine RBC (Auto) (0-2) /hpf U Hyaline Cast (Auto) (0-2) /lpf U Epithel Cells (Auto) (0-2) /hpf Urine Bacteria (Auto) (None Seen) Urine Comment 09/03/24 09/03/24 Range/Units 01:00 01:37 WBC (4.8-10.8) K/ul RBC (4.70-6.10) M/uL Hgb (14.0-18.0) g/dl Hct (42.0-52.0) % MCV (80.0-100.0) fL MCH (25.0-34.0) pg MCHC (32.0-36.0) g/dL RDW Std Deviation (36.4-46.3) fL RDW Coeff of Lamont (11.5-14.5) % Plt Count (130-400) K/uL MPV (9.4-12.4) fL Immature Gran % (Auto) % Neut % (Auto) % Lymph % (Auto) % Davidson % (Auto) % Eos % (Auto) % Baso % (Auto) % Neut # (Auto) (1.40-6.50) K/uL Lymph # (Auto) (1.20-3.40) K/uL Davidson # (Auto) (0.11-0.59) K/uL Eos # (Auto) (0.00-0.50) K/uL Baso # (Auto) (0.00-0.20) K/uL Immature Gran # (Auto) (0.01-0.20) K/uL VBG pH (7.36-7.41) VBG pCO2 (38-50) mmHg VBG pO2 mmHg VBG HCO3 mmol/L VBG O2 Saturation % VBG Base Excess mEq/L Sodium (136-145) mmol/L Potassium (3.5-5.1) mmol/L Chloride (98-107) mmol/L Carbon Dioxide (21-32) mmol/L Anion Gap (3-11) BUN (6-23) mg/dl Creatinine (0.6-1.4) mg/dl Est Cr Clr Drug Dosing ml/min eGFR BUN/Creatinine Ratio (10-20) Glucose (70-99(Fasting)) mg/dl POC Glucose 335 H* (70-99) mg/dl Calcium (8.6-10.3) mg/dl Magnesium (1.7-2.4) mg/dl Total Bilirubin (0.2-1.0) mg/dl AST (13-39) U/L ALT (7-52) U/L Alkaline Phosphatase (34-104) U/L Troponin I High Sens (0-20) pg/ml Total Protein (6.0-8.3) gm/dl Albumin (3.4-5.0) gm/dl Globulin (2.5-4.0) gm/dl Albumin/Globulin Ratio (0.9-2) Lipase (11-82) U/L Urine Color Yellow Urine Appearance Clear (Clear) Urine pH 6.5 (4.5-7.5) Ur Specific [place] 1.021 (1.000-1.030) Urine Protein Negative (Negative) Urine Glucose (UA) 3+ H (Negative) Urine Ketones 2+ H (Negative) Urine Blood Trace H (Negative) Urine Nitrite Negative (Negative) Urine Bilirubin Negative (Negative) Urine Urobilinogen Negative (Negative) Ur Leukocyte Esterase Negative (Negative) Urine WBC (Auto) 0-5 (0-5) /hpf Urine RBC (Auto) 3-5 H (0-2) /hpf U Hyaline Cast (Auto) 0-2 (0-2) /lpf U Epithel Cells (Auto) 0-2 (0-2) /hpf Urine Bacteria (Auto) None Seen (None Seen) Urine Comment Imaging Data Attestation: I personally reviewed and interpreted this imaging study as follows: Radiologist's Impression: Abdomen/Pelvis CT 09/02/24 22:10 EXAM: CT abd pelvis IV con only CLINICAL HISTORY: mid abd pain TECHNIQUE: Contiguous axial images were obtained from the level of the diaphragm to the pubic symphysis with intravenous contrast. Coronal and sagittal reconstructions were likewise performed and indicated to increase the sensitivity for detecting clinically relevant pathology. If IV contrast material had not been administered, the likelihood of detecting abnormalities relevant to the patient's condition would have been substantially decreased. CT scan was performed according to ALARA (as low as reasonable achievable). COMPARISON: 20:27:06 EGG BREAKER FINDINGS: The visualized lung bases are clear. The liver is normal in size and attenuation. No focal liver lesions are seen. There is no intra or extrahepatic biliary ductal dilatation. Hepatic vasculature is patent. The gallbladder is present. The spleen, pancreas, and adrenal glands are unremarkable. The kidneys are normal in size and attenuation. There is no hydronephrosis . Mild bilateral perinephric fat stranding. Prominent extrarenal pelvis is noted on left side. No renal calculi or renal masses are identified. The ureters are normal in caliber and no ureteral calculi are seen. The bladder is normal in contour. Pelvic viscera are unremarkable. No focal or diffuse bowel wall thickening or evidence of bowel obstruction is identified. Abdominal and pelvic vasculature is patent. No adenopathy or fluid collections are seen. No aggressive appearing osseous lesions are identified. IMPRESSION: 1. Prominent extrarenal pelvis is noted on left side.-stable. 2. Hepatic steatosis. -stable. 3. Mild bilateral perinephric fat stranding -stable. 4. No other new interval abnormality since prior study. Electronically signed by Cristhian Tabor 09-03-2024 01:38 AM Chest CTA 09/02/24 22:21 EXAM: CT angio chest PE protocol CLINICAL HISTORY: PE TECHNIQUE: Contiguous axial images were obtained from the neck base through the upper abdomen following intravenous administration of iodinated contrast material. Angiographic images were processed, 3D MIP images were acquired for interpretation. If IV contrast material had not been administered, the likelihood of detecting abnormalities relevant to the patient's condition would have been substantially decreased. Coronal and sagittal 3-D MIPs were likewise performed and indicated to increase the sensitivity of detectin diffuse clinically relevant pathology. CT scan was performed according to ALARA (as low as reasonable achievable). COMPARISON: 04/02/2024 20:27:06 EGG BREAKER. FINDINGS: Mild paraseptal emphysema are noted involving bilateral upper lobes. Adequate contrast bolus without evidence of pulmonary embolism. The central airways are patent. The lungs are clear. No pleural effusion. The heart, aorta, and pulmonary arteries are of normal size and configuration. There are no appreciable coronary artery and aortic atherosclerotic calcifications. No pericardial effusion is identified. The thyroid is unremarkable. No mediastinal, hilar, or axillary lymphadenopathy is noted. No suspicious lytic or sclerotic osseous lesions are identified. IMPRESSION: 1. No evidence of pulmonary embolism 2. Mild paraseptal emphysema are noted involving bilateral upper lobes.-stable. 3. No other new interval abnormality since prior study. Electronically signed by Cristhian Tabor 09-03-2024 01:34 AM MDM Narrative Prior records/ancillary studies reviewed. Triage Nursing notes reviewed. Additional history obtained from correctional officers The patient's history was concerning for nausea, vomiting, diarrhea, and abdominal pain. Differential diagnosis: Etiologies such as gastroenteritis, food borne illness, infections, appendicitis, diverticulitis, inflammatory bowel disease, obstruction, GI bleed, biliary pathology, as well as others were entertained. Physical examination findings: As above. Abdominal examination revealed diffuse tenderness. Vital signs reviewed and revealed mildly tachycardic ER treatment provided: IV hydration 2 L NSS. Bentyl, Pepcid and Phenergan ordered Protonix and Ativan was ordered as patient continued to vomit Insulin, potassium and magnesium were ordered On reassessment the patient felt better. Patient was tolerating p.o. intake. Diagnostics interpretation by me: EKG ordered for chest pain EKG: Normal sinus, poor baseline, no acute ST-T wave changes, rate of 107. Impression sinus tachycardia independently interpreted by myself The labs Independently Interpreted by myself revealed leukocytosis, hyperglycemia, VBG was reviewed Negative urine Imaging studies: Imaging was reviewed and read by radiology HEART SCORE: Hx: high/mod/low suspicion: 0 ECG: ST depression/nonspecific changes/normal: 0 Age: Greater than 65/45-64/less than 45: 0 Risk factors: (Hypertension, hyperlipidemia, diabetes, coronary disease, tobacco use, cocaine use): 1 Troponin: Greater than 2 times normal limits/1-2 times normal limits/normal: 0 Total: 1 Consultation: A consultation was placed with the hospitalist. The case was discussed and diagnostics were reviewed. The patient was evaluated in the ER for further treatment. This appears to be consistent with nausea, vomiting, diarrhea, dehydration, hyperglycemia with normal pH and urinary retention. Patient had a high leukocytosis and was concern for infection so he was given antibiotics for possible UTI. Urine was not infected. CAT scans were reviewed. Unchanged. Repeat blood sugar was improved. He was given insulin x 2. Medicine was consulted and the case was discussed. He will be admitted to the medical service. By the evaluation outlined above emergent etiologies such as appendicitis, diverticulitis, cardiac sources, mesenteric ischemia, aortic pathology, inflammatory bowel disease, renal colic, PUD, biliary pathology, UTI, as well as others were deemed relatively unlikely. The pt informed about the findings as listed above. All questions were answered and pleased with the treatment. The chart was completed utilizing [employer] Speech voice recognition software. Grammatical errors, random word insertions, pronoun errors, and incomplete sentences are an occassional consequence of this system due to software limitations, ambient noise, and hardware issues. Any formal questions or concerns about the content, text, or information contained within the body of this dictation should be directly addressed to the physician neurosurgical physician assistant for clarification. Impression & Plan Acute urinary retention, Diabetes mellitus with hyperglycemia, Abdominal pain, vomiting, and diarrhea, Acute dehydration Discharge Plan Visit Data Chief Complaint: Hyperglycemia Stated Complaint: WEAKNESS, N/V, HYPERGLYCEMIA ED Provider: Molly Cleaning ED Midlevel Provider: Rahel Rosa Discharge Problem: Acute urinary retention, Diabetes mellitus with hyperglycemia, Abdominal pain, vomiting, and diarrhea, Acute dehydration Patient Disposition: Admitted As Inpatient Condition: Fair Forms Stand Alone Forms: My [facility] Prescriptions Prescriptions: No Action insulin glargine [Lantus Solostar U-100 Insulin] 100 unit/mL (3 mL) insulin pen See Rx Instructions .ROUTE .COMPLEX Rx Instructions: For Pump Failure- 12 units every 12 hours (DME) Dexcom G6 Sensor Device MISCELLANEOUS omeprazole 20 mg capsule,delayed release(DR/EC) 20 mg PO QAM mirtazapine 15 mg tablet 15 mg PO HS insulin aspart U-100 [Novolog U-100 Insulin aspart] 100 unit/mL Solution 50 unit continuous subcutaneous infusion DAILY Rx Instructions: to use in insulin pump: 50 units per day promethazine 25 mg Tablet 25 mg PO TID PRN (Reason: Nausea And Vomiting) lisinopril 2.5 mg Tablet 2.5 mg PO QAM rosuvastatin 20 mg Tablet 20 mg PO QAM Referrals Referrals: Chapincito Blanco MD [Outside Practitioners] -
[2024-09-02 22:39] LABS: Base Excess VBG -2.6 mEq/L; HCO3 VBG 20 mmol/L; Oxygen Saturation VBG < 60.0 %; PCO2 VBG 29 mmHg (38-50); PO2 VBG 33 mmHg; pH VBG 7.45 (7.36-7.41)
[2024-09-02 22:44] LABS: Hematocrit (blood only) 40.9 % (42.0-52.0); Mean Corpuscular Hemoglobin 30.8 pg (25.0-34.0); Mean Corpuscular Hgb Conc 34.2 g/dL (32.0-36.0); Mean Corpuscular Volume 90.1 fL (80.0-100.0); Mean Platelet Volume 9.9 fL (9.4-12.4); Platelet Count 352 K/uL (130-400); RDW Coefficient of Variation 13.6 % (11.5-14.5); RDW Standard Deviation 45.1 fL (36.4-46.3); Red Blood Count 4.54 M/uL (4.70-6.10); White Blood Count 25.84 K/ul (4.8-10.8)
[2024-09-02 22:59] LABS: Basophils # (auto) 0.18 K/uL (0.00-0.20); Basophils % (auto) 0.7 %; Eosinophils % (auto) 0.8 %; Immature Granulocytes # (auto) 0.15 K/uL (0.01-0.20); Immature Granulocytes % (auto) 0.6 %; Lymphocytes # (auto) 1.77 K/uL (1.20-3.40); Lymphocytes % (auto) 6.8 %; Monocytes # (auto) 2.05 K/uL (0.11-0.59); Monocytes % (auto) 7.9 %; Neutrophils # (auto) 21.49 K/uL (1.40-6.50); Neutrophils % (auto) 83.2 %
[2024-09-02 23:07] LABS: Albumin Globulin Ratio 1.7 (0.9-2); BUN Creatinine Ratio 18.5 (10-20); Bilirubin,Total 1.2 mg/dl (0.2-1.0); Calcium 9.8 mg/dl (8.6-10.3); Creatinine Clr Calc Pharmacy 68.4 ml/min; Globulin 2.7 gm/dl (2.5-4.0); Magnesium 1.8 mg/dl (1.7-2.4); Total Protein 7.4 gm/dl (6.0-8.3)
[2024-09-02 23:10] LABS: Troponin I High Sensitivity 4.7 pg/ml (0-20)
[2024-09-02] MEDS: LORazepam 2 MG/1 ML VIAL IV STA (23:11)
[2024-09-02] MEDS: PANTOprazole 40 MG/10 ML SYR IV ONE (23:11)
[2024-09-03] MEDS: OPTIRAY 320 125ml IV ONE (00:19)
[2024-09-03] MEDS: NovoLIN-R INSULIN PER UNIT CHARGE IV STA ×2 (00:23→01:55)
[2024-09-03] MEDS: POTASSIUM CHLORIDE / WTR 10 MEQ/100 ML PLCT IV SCH ×2 (00:24→04:35)
[2024-09-03] MEDS: MAGNESIUM SULFATE / D5W 1 GM/100 ML BAG IV SCH (00:24)
[2024-09-03] MEDS: LIDOCAINE 2% JELLY 5 ML TUBE EXT ONE (00:56)
[2024-09-03 01:14] LABS: Appearance Urine Clear (Clear); Bacteria Urine Automated None Seen (None Seen); Bilirubin Urine Negative (Negative); Blood Urine Trace (Negative); Cast Urine Automated 0-2 /lpf (0-2); Color Urine Yellow; Epithelial Cell Urine Auto 0-2 /hpf (0-2); Glucose Urine UA 3+ (Negative); Ketones Urine 2+ (Negative); Leukocyte Esterase Urine Negative (Negative); Nitrite Urine Negative (Negative); Protein Urine Negative (Negative); Specific Gravity Urine 1.021 (1.000-1.030); Urobilinogen Urine Negative (Negative); WBC Urine Automated 0-5 /hpf (0-5); pH Urine 6.5 (4.5-7.5)
[2024-09-03] MEDS: SODIUM CHLORIDE 0.9% 500 ML IV ONE (01:25)
--- NOTE | 2024-09-03 01:35 | CT Scan Report ---
EXAM: CT angio chest PE protocol CLINICAL HISTORY: PE TECHNIQUE: Contiguous axial images were obtained from the neck base through the upper abdomen following intravenous administration of iodinated contrast material. Angiographic images were processed, 3D MIP images were acquired for interpretation. If IV contrast material had not been administered, the likelihood of detecting abnormalities relevant to the patient's condition would have been substantially decreased. Coronal and sagittal 3-D MIPs were likewise performed and indicated to increase the sensitivity of detectin diffuse clinically relevant pathology. CT scan was performed according to ALARA (as low as reasonable achievable). COMPARISON: 04/02/2024 20:27:06 SECURITY ASSISTANT. FINDINGS: Mild paraseptal emphysema are noted involving bilateral upper lobes. Adequate contrast bolus without evidence of pulmonary embolism. The central airways are patent. The lungs are clear. No pleural effusion. The heart, aorta, and pulmonary arteries are of normal size and configuration. There are no appreciable coronary artery and aortic atherosclerotic calcifications. No pericardial effusion is identified. The thyroid is unremarkable. No mediastinal, hilar, or axillary lymphadenopathy is noted. No suspicious lytic or sclerotic osseous lesions are identified. IMPRESSION: 1. No evidence of pulmonary embolism 2. Mild paraseptal emphysema are noted involving bilateral upper lobes.-stable. 3. No other new interval abnormality since prior study. Electronically signed by Cristhian Tabor 09-03-2024 01:34 AM
--- NOTE | 2024-09-03 01:38 | CT Scan Report ---
EXAM: CT abd pelvis IV con only CLINICAL HISTORY: mid abd pain TECHNIQUE: Contiguous axial images were obtained from the level of the diaphragm to the pubic symphysis with intravenous contrast. Coronal and sagittal reconstructions were likewise performed and indicated to increase the sensitivity for detecting clinically relevant pathology. If IV contrast material had not been administered, the likelihood of detecting abnormalities relevant to the patient's condition would have been substantially decreased. CT scan was performed according to ALARA (as low as reasonable achievable). COMPARISON: 20:27:06 BAG SORTER FINDINGS: The visualized lung bases are clear. The liver is normal in size and attenuation. No focal liver lesions are seen. There is no intra or extrahepatic biliary ductal dilatation. Hepatic vasculature is patent. The gallbladder is present. The spleen, pancreas, and adrenal glands are unremarkable. The kidneys are normal in size and attenuation. There is no hydronephrosis . Mild bilateral perinephric fat stranding. Prominent extrarenal pelvis is noted on left side. No renal calculi or renal masses are identified. The ureters are normal in caliber and no ureteral calculi are seen. The bladder is normal in contour. Pelvic viscera are unremarkable. No focal or diffuse bowel wall thickening or evidence of bowel obstruction is identified. Abdominal and pelvic vasculature is patent. No adenopathy or fluid collections are seen. No aggressive appearing osseous lesions are identified. IMPRESSION: 1. Prominent extrarenal pelvis is noted on left side.-stable. 2. Hepatic steatosis. -stable. 3. Mild bilateral perinephric fat stranding -stable. 4. No other new interval abnormality since prior study. Electronically signed by Cristhian Tabor 09-03-2024 01:38 AM
[2024-09-03] MEDS: CIPROFLOXACIN / D5W 400 MG/200 ML BAG IV STA (01:55)
[2024-09-03 03:11] LABS: BUN Creatinine Ratio 18.1 (10-20); Calcium 8.9 mg/dl (8.6-10.3); Creatinine Clr Calc Pharmacy 80.8 ml/min; Potassium 3.3 mmol/L (3.5-5.1)
[2024-09-03] MEDS: ONDANSETRON INJ 2 MG/ML 2 ML VIAL IV STA (03:16)
[2024-09-03] MEDS: LANTUS PER UNIT CHARGE SQ STA (03:16)
[2024-09-03] MEDS ORDERED: NITROGLYCERIN SL 0.4 MG/TAB TAB SL PRN (05:00)
[2024-09-03] MEDS ORDERED: ONDANSETRON INJ 2 MG/ML 2 ML VIAL IV PRN (05:00)
[2024-09-03] MEDS ORDERED: GLUCAGON FOR INJ 1 MG VIAL SQ PRN (05:00)
[2024-09-03] MEDS ORDERED: GLUCOSE 10 TAB/TUBE PO PRN (05:00)
[2024-09-03] MEDS ORDERED: GLUCOSE 40% GEL 15 GM TUBE PO PRN (05:00)
[2024-09-03] MEDS ORDERED: ACETAMINOPHEN 325 MG TAB PO PRN (05:00)
[2024-09-03] MEDS ORDERED: PHARMACY GLYCEMIC MGMT CONSULT PRN (05:00)
[2024-09-03] MEDS ORDERED: DEXTROSE 50% 50 ML SYRINGE IV PRN (05:00)
[2024-09-03] MEDS: FAMOTIDINE 20MG IV PUSH 20 MG/5 ML SYR IV SCH (05:50)
[2024-09-03] MEDS: SODIUM CHLORIDE 0.9% 1,000 ML IV SCH (05:52)
--- NOTE | 2024-09-03 06:10 | History & Physical Report ---
Date of Service September 03, 2024 Assessment & Plan (1) Diabetes mellitus with hyperglycemia: Plan: 45-year-old male coming from group home with past med history significant for hypertension, hyperlipidemia, type 1 diabetes on insulin pump, gastroparesis, gastritis, urolithiasis, past tobacco use, history of GI bleed presents with nausea vomiting ,abdominal pain and hyperglycemia. Patient states nausea vomiting started after eating his dinner last night. Having abdominal pain from vomiting. And chest soreness from vomiting. Sore throat from vomiting. No fevers. He was constipated and now has some diarrhea. In the ER he was having urinary retention and status post Powers catheter. No fevers. No headache. No runny nose. No shortness of breath. Hemodynamics are okay. Diabetes with hyperglycemia Received IV insulin in the ER Will continue with Lantus and sliding scale Patient does not want to use insulin pump until he feels better Closely monitor Glycemic pharmacy consult Nausea and vomiting CT abdomen pelvis no acute findings History of gastroparesis IV Zofran as needed Seems allergic to Reglan IV fluids If not improving will consult GI Leukocytosis Seems chronic Needs follow-up May consult heme-onc Chest pain States from vomiting EKG and troponin ok CTA chest no acute findings GERD IV Pepcid Hyperlipidemia On statin Hypertension Holding lisinopril 2.5 mg for now Will monitor DVT prophylaxis SCDs for now Disposition Med/telemetry Full code History of Present Illness Chief Complaint: Nausea vomiting and hyperglycemia Primary Care Provider: [facility] 45-year-old male coming from group home with past med history significant for hypertension, hyperlipidemia, type 1 diabetes on insulin pump, gastroparesis, gastritis, urolithiasis, past tobacco use, history of GI bleed presents with nausea vomiting ,abdominal pain and hyperglycemia. Patient states nausea vo miting started after eating his dinner last night. Having abdominal pain from vomiting. And chest soreness from vomiting. Sore throat from vomiting. No fevers. He was constipated and now has some diarrhea. In the ER he was having urinary retention and status post Powers catheter. No fevers. No headache. No runny nose. No shortness of breath. Hemodynamics are okay. Past medical history. As mentioned above. Past surgical history. Umbilical hernia repair. Social history. Past tobacco abuse. Occasional alcohol intake as per record. Family history. Diabetes, esophageal cancer, heart disease Allergies Allergy/AdvReac Type Severity Reaction Status Date / Time clindamycin Allergy Unknown Unknown Verified 04/05/23 22:08 Penicillins Allergy Unknown Swelling Verified 09/02/24 22:36 and hives (per pt's mother) Sulfa (Sulfonamide Allergy Unknown Unknown Verified 09/02/24 22:36 Antibiotics) bupropion [From Wellbutrin] AdvReac Unknown Unknown Verified 09/02/24 22:36 metoclopramide [From Reglan] AdvReac Unknown Unknown Verified 09/02/24 22:36 varenicline [From Chantix] AdvReac Unknown Unknown Verified 09/02/24 22:36 nicotine [From Nicoderm CQ] AdvReac Unknown Verified 09/02/24 22:36 Home Medications Medication Instructions Recorded Confirmed Type insulin aspart U-100 100 unit/mL 50 unit continuous subcutaneous 04/03/24 09/02/24 History subcutaneous solution (Novolog infusion DAILY U-100 Insulin aspart) lisinopril 2.5 mg tablet 2.5 mg PO QAM 04/03/24 09/02/24 History promethazine 25 mg tablet 25 mg PO TID PRN Nausea And 04/03/24 09/02/24 History Vomiting rosuvastatin 20 mg tablet 20 mg PO QAM 04/03/24 09/02/24 History blood-glucose sensor (Dexcom G6 05/17/24 09/02/24 History Sensor device) insulin glargine 100 unit/mL (3 See Rx Instructions .Route .COMPLEX 05/17/24 09/02/24 History mL) subcutaneous pen (Lantus Solostar U-100 Insulin) mirtazapine 15 mg tablet 15 mg PO HS 09/02/24 09/02/24 History omeprazole 20 mg capsule,delayed 20 mg PO QAM 09/02/24 09/02/24 History release Past Med/Surg History Problem List (Updated 09/03/24 @ 01:53 by Rahel Rosa PA-C) Acute dehydration (Acute) Abdominal pain, vomiting, and diarrhea (Acute) Diabetes mellitus with hyperglycemia (Acute) Acute urinary retention (Acute) Gastritis (Acute) Bladder distension Leukocytosis (Acute) Gastritis (Acute) Intractable nausea and vomiting (Acute) Aspiration pneumonia Lab test positive for detection of COVID-19 virus Type 1 diabetes (Acute) COVID-19 (Acute) Coffee ground emesis (Acute) Abdominal pain (Acute) Esophagitis (Acute) Nausea & vomiting (Acute) Proliferative diabetic retinopathy associated with type 1 diabetes mellitus Tobacco abuse Diabetic peripheral neuropathy associated with type 1 diabetes mellitus Diabetes mellitus type 1, controlled, insulin dependent Left against medical advice Nausea and vomiting (Acute) Hyperglycemic crisis in diabetes mellitus Marijuana use (Acute) Nephrolithiasis Gastroparesis (Chronic) Esophagitis (Acute) Hyperglycemia due to diabetes mellitus (Acute) Epigastric abdominal pain (Acute) Kidney stone (Chronic) Dysesthesia Encounter for pre-operative examination Right ureteral stone (Acute) Medical History Coffee ground emesis GERD (gastroesophageal reflux disease) Kidney stones History of kidney stones Arthritis History of seizure r/t hypoglycemia (2+ years ago) ADHD Loss of protective sensation of skin of foot Degenerative joint disease of ankle, left Gastroparesis due to DM Surgical History History of lithotripsy History of ankle surgery Left x3 History of tooth extraction PONV (postoperative nausea and vomiting) H/O laser photocoagulation of retina Hx of inguinal herniorrhaphy History of wisdom tooth extraction H/O esophagogastroduodenoscopy Family History Brother T1DM (type 1 diabetes mellitus) Uncle Family history of esophageal ulcer Father Myocardial infarction Heart disease Stroke Mother Deep vein thrombosis Social History Smoking Status: Former smoker Tobacco Type: Cigarettes Cigarettes Per Day: 2; Second Hand Exposure: No; Do You Dip or Chew Tobacco: No; Hx Alcohol Use: Yes Alcohol type: hard liquor Hx Substance Use: No Preferred Language: German Communication Ability: Effective Hearing Ability: Normal Patient Safety Attendant Required: No Beliefs That Will Affect Care: None Current Living Situation: Other Current Living Situation Comment: [facility] Other Information That Helps Us Care for You: No Feels Safe at Home: Yes Safety Concerns: Feels Safe At This Time Assistive Devices: Glasses Review of Systems Review of Systems: All systems reviewed & are unremarkable except as noted in HPI & below Physical Exam Physical Exam: General- Not in distress Head- atraumatic Eyes- PERRL. ENT- oropharynx clear Neck- supple, no JVD. Lungs- clear to auscultation no wheezing or crackles Heart- regular rate and rhythm; no murmur, no gallop. Abdomen- normal bowel sounds, soft, nontender, no distension Extremities- no pretibial edema, no erythema seen Neuro- alert, oriented PERRL, no facial palsy; no dysarthria; moves extremities Results & Data Results & Data Vital Signs (Past 12 Hours) Vital Signs Temp Pulse Pulse Resp BP BP Pulse Ox 09/03/24 02:23 107 H 09/02/24 23:57 110 H 17 126/92 98 09/02/24 23:04 98 09/02/24 22:51 36.4 C L 105 H 18 150/102 H 100 09/02/24 22:28 115 H O2 Del Method 09/03/24 02:23 09/02/24 23:57 Room Air 09/02/24 23:04 Room Air 09/02/24 22:51 Room Air 09/02/24 22:28 Diagnostic Findings Laboratory Results WBC 25.84 K/ul (4.8-10.8) H 09/02/24 22:26 RBC 4.54 M/uL (4.70-6.10) L 09/02/24 22:26 Hgb 14.0 g/dl (14.0-18.0) 09/02/24 22: Hct 40.9 % (42.0-52.0) L 09/02/24 22:26 MCV 90.1 fL (80.0-100.0) 09/02/24 22: MCH 30.8 pg (25.0-34.0) 09/02/24 22: MCHC 34.2 g/dL (32.0-36.0) 09/02/24 22:26 RDW Std Deviation 45.1 fL (36.4-46.3) 09/02/24 22: RDW Coeff of Lamont 13.6 % (11.5-14.5) 09/02/24 22: Plt Count 352 K/uL (130-400) 09/02/24 22: MPV 9.9 fL (9.4-12.4) 09/02/24 22: Immature Gran % (Auto) 0.6 % 09/02/24 22:26 Neut % (Auto) 83.2 % 09/02/24 22:26 Lymph % (Auto) 6.8 % 09/02/24 22:26 Barry % (Auto) 7.9 % 09/02/24 22:26 Eos % (Auto) 0.8 % 09/02/24 22: Baso % (Auto) 0.7 % 09/02/24 22: Neut # (Auto) 21.49 K/uL (1.40-6.50) H 09/02/24 22:26 Lymph # (Auto) 1.77 K/uL (1.20-3.40) 09/02/24 22:26 Barry # (Auto) 2.05 K/uL (0.11-0.59) H 09/02/24 22: Eos # (Auto) 0.20 K/uL (0.00-0.50) 09/02/24 22:26 Baso # (Auto) 0.18 K/uL (0.00-0.20) 09/02/24 22: Immature Gran # (Auto) 0.15 K/uL (0.01-0.20) 09/02/24 22: VBG pH 7.45 (7.36-7.41) H 09/02/24 22: VBG pCO2 29 mmHg (38-50) L 09/02/24 22: VBG pO2 33 mmHg 09/02/24 22: VBG HCO3 20 mmol/L 09/02/24 22: VBG O2 Saturation < 60.0 % 09/02/24 22: VBG Base Excess -2.6 mEq/L 09/02/24 22: Sodium 138 mmol/L (136-145) 09/03/24 02:42 Potassium 3.3 mmol/L (3.5-5.1) L 09/03/24 02:42 Chloride 107 mmol/L (98-107) 09/03/24 02:42 Carbon Dioxide 21 mmol/L (21-32) 09/03/24 02:42 Anion Gap 10 (3-11) 09/03/24 02:42 BUN 19 mg/dl (6-23) 09/03/24 02:42 Creatinine 1.05 mg/dl (0.6-1.4) 09/03/24 02:42 Est Cr Clr Drug Dosing 80.8 ml/min 09/03/24 02:42 eGFR 90.89 09/03/24 02:42 BUN/Creatinine Ratio 18.1 (10-20) 09/03/24 02:42 Glucose 192 mg/dl (70-99(Fasting)) H 09/03/24 02:42 POC Glucose 248 mg/dl (70-99) H 09/03/24 05:59 Calcium 8.9 mg/dl (8.6-10.3) 09/03/24 02:42 Magnesium 1.8 mg/dl (1.7-2.4) 09/02/24 22:26 Total Bilirubin 1.2 mg/dl (0.2-1.0) H 09/02/24 22:26 AST 15 U/L (13-39) 09/02/24 22:26 ALT 10 U/L (7-52) 09/02/24 22:26 Alkaline Phosphatase 98 U/L (34-104) 09/02/24 22:26 Troponin I High Sens 4.7 pg/ml (0-20) 09/02/24 22:26 Total Protein 7.4 gm/dl (6.0-8.3) 09/02/24 22:26 Albumin 4.7 gm/dl (3.4-5.0) 09/02/24 22:26 Globulin 2.7 gm/dl (2.5-4.0) 09/02/24 22:26 Albumin/Globulin Ratio 1.7 (0.9-2) 09/02/24 22:26 Lipase 5 U/L (11-82) L 09/02/24 22:26 Urine Color Yellow 09/03/24 01:00 Urine Appearance Clear (Clear) 09/03/24 01:00 Urine pH 6.5 (4.5-7.5) 09/03/24 01:00 Ur Specific [place] 1.021 (1.000-1.030) 09/03/24 01:00 Urine Protein Negative (Negative) 09/03/24 01:00 Urine Glucose (UA) 3+ (Negative) H 09/03/24 01:00 Urine Ketones 2+ (Negative) H 09/03/24 01:00 Urine Blood Trace (Negative) H 09/03/24 01:00 Urine Nitrite Negative (Negative) 09/03/24 01:00 Urine Bilirubin Negative (Negative) 09/03/24 01:00 Urine Urobilinogen Negative (Negative) 09/03/24 01:00 Ur Leukocyte Esterase Negative (Negative) 09/03/24 01:00 Urine WBC (Auto) 0-5 /hpf (0-5) 09/03/24 01:00 Urine RBC (Auto) 3-5 /hpf (0-2) H 09/03/24 01:00 U Hyaline Cast (Auto) 0-2 /lpf (0-2) 09/03/24 01:00 U Epithel Cells (Auto) 0-2 /hpf (0-2) 09/03/24 01:00 Urine Bacteria (Auto) None Seen (None Seen) 09/03/24 01:00 Urine Comment 09/03/24 01:00 Impressions Abdomen/Pelvis CT 09/02/24 22:10 EXAM: CT abd pelvis IV con only CLINICAL HISTORY: mid abd pain TECHNIQUE: Contiguous axial images were obtained from the level of the diaphragm to the pubic symphysis with intravenous contrast. Coronal and sagittal reconstructions were likewise performed and indicated to increase the sensitivity for detecting clinically relevant pathology. If IV contrast material had not been administered, the likelihood of detecting abnormalities relevant to the patient's condition would have been substantially decreased. CT scan was performed according to ALARA (as low as reasonable achievable). COMPARISON: 20:27:06 COUNTER MANAGER FINDINGS: The visualized lung bases are clear. The liver is normal in size and attenuation. No focal liver lesions are seen. There is no intra or extrahepatic biliary ductal dilatation. Hepatic vasculature is patent. The gallbladder is present. The spleen, pancreas, and adrenal glands are unremarkable. The kidneys are normal in size and attenuation. There is no hydronephrosis . Mild bilateral perinephric fat stranding. Prominent extrarenal pelvis is noted on left side. No renal calculi or renal masses are identified. The ureters are normal in caliber and no ureteral calculi are seen. The bladder is normal in contour. Pelvic viscera are unremarkable. No focal or diffuse bowel wall thickening or evidence of bowel obstruction is identified. Abdominal and pelvic vasculature is patent. No adenopathy or fluid collections are seen. No aggressive appearing osseous lesions are identified. IMPRESSION: 1. Prominent extrarenal pelvis is noted on left side.-stable. 2. Hepatic steatosis. -stable. 3. Mild bilateral perinephric fat stranding -stable. 4. No other new interval abnormality since prior study. Electronically signed by Cristhian Tabor 09-03-2024 01:38 AM Chest CTA 09/02/24 22:21 EXAM: CT angio chest PE protocol CLINICAL HISTORY: PE TECHNIQUE: Contiguous axial images were obtained from the neck base through the upper abdomen following intravenous administration of iodinated contrast material. Angiographic images were processed, 3D MIP images were acquired for interpretation. If IV contrast material had not been administered, the likelihood of detecting abnormalities relevant to the patient's condition would have been substantially decreased. Coronal and sagittal 3-D MIPs were likewise performed and indicated to increase the sensitivity of detectin diffuse clinically relevant pathology. CT scan was performed according to ALARA (as low as reasonable achievable). COMPARISON: 04/02/2024 20:27:06 COUNTER MANAGER. FINDINGS: Mild paraseptal emphysema are noted involving bilateral upper lobes. Adequate contrast bolus without evidence of pulmonary embolism. The central airways are patent. The lungs are clear. No pleural effusion. The heart, aorta, and pulmonary arteries are of normal size and configuration. There are no appreciable coronary artery and aortic atherosclerotic calcifications. No pericardial effusion is identified. The thyroid is unremarkable. No mediastinal, hilar, or axillary lymphadenopathy is noted. No suspicious lytic or sclerotic osseous lesions are identified. IMPRESSION: 1. No evidence of pulmonary embolism 2. Mild paraseptal emphysema are noted involving bilateral upper lobes.-stable. 3. No other new interval abnormality since prior study. Electronically signed by Cristhian Tabor 09-03-2024 01:34 AM ECG Additional Comments: EKG sinus tachycardia rate of 107. No significant changes found. QTc 453. Code Status & VTE Plan VTE Prophylaxis Plan VTE Prophylaxis will be ordered: Yes
[2024-09-03] MEDS: INSULIN ASPART PER UNIT CHARGE SC SCH (06:19)
[2024-09-03 07:00] LABS: Hematocrit (blood only) 34.7 % (42.0-52.0); Hemoglobin 12.1 g/dl (14.0-18.0); Mean Corpuscular Hgb Conc 34.9 g/dL (32.0-36.0); Mean Platelet Volume 9.7 fL (9.4-12.4); Platelet Count 281 K/uL (130-400); RDW Coefficient of Variation 13.5 % (11.5-14.5); White Blood Count 18.95 K/ul (4.8-10.8)
[2024-09-03 07:17] LABS: BUN Creatinine Ratio 18.2 (10-20); Calcium 8.4 mg/dl (8.6-10.3); Creatinine Clr Calc Pharmacy 85.7 ml/min; Magnesium 1.8 mg/dl (1.7-2.4); Phosphorus 1.8 mg/dl (2.5-4.9); Potassium 4.3 mmol/L (3.5-5.1)
[2024-09-03 07:19] LABS: Basophils # (auto) 0.05 K/uL (0.00-0.20); Basophils % (auto) 0.3 %; Immature Granulocytes # (auto) 0.09 K/uL (0.01-0.20); Immature Granulocytes % (auto) 0.5 %; Lymphocytes # (auto) 0.77 K/uL (1.20-3.40); Lymphocytes % (auto) 4.1 %; Monocytes % (auto) 3.7 %; Neutrophils # (auto) 17.34 K/uL (1.40-6.50); Neutrophils % (auto) 91.4 %
[2024-09-03] MEDS ORDERED: INSULIN ASPART PER UNIT CHARGE SC SCH (07:30)
[2024-09-03 07:31] LABS: Troponin I High Sensitivity 8.6 pg/ml (0-20)
[2024-09-03] MEDS ORDERED: SODIUM PHOSPHATE 3 MMOL/1 ML 5 ML VIAL IV ONE (07:38)
[2024-09-03 07:55] LABS: Estimated Average Glucose 177 mg/dl; Hemoglobin A1C 7.8 % (4.5-5.6)
[2024-09-03] MEDS ORDERED: LANTUS PER UNIT CHARGE SQ SCH (09:00)
[2024-09-03] MEDS: ROSUVASTATIN CALCIUM 20 MG TAB PO SCH (09:05)
[2024-09-03] MEDS: ONDANSETRON INJ 2 MG/ML 2 ML VIAL IV PRN (09:19)
[2024-09-03] MEDS: SODIUM PHOSPHATE 20 MMOL in SODIUM CHLORIDE 0.9% 500 ML IV ONE (10:02)
--- NOTE | 2024-09-03 10:57 | Urology Consultation ---
Date of Consultation September 03, 2024 Assessment & Plan (1) Acute urinary retention: Plan Urology consulted for urinary retention. Urinary retention currently managed with a Blank catheter. Catheter is draining appropriatelyurine is clear yellow. Pt afebrile, hypertensive, tachycardic. Labs - WBCs 18.95; Creatinine 0.99. UA on admission with trace blood, 3-[address] abdomen pelvis -no hydronephrosis, no stones, stable prominent extrarenal pelvis on the left, stable mild bilateral perinephric fat stranding, distended bladder. No acute intervention warranted. Recommend maintaining Blank catheter for at least 1 week and then a voiding trial can be performed. Consider addition of tamsulosin. Will arrange outpatient follow-up with urology service. Urology will sign-off. Please call with any further questions/concerns or changes in patient status. History of Present Illness Attending Physician: Ulysses Camp MD History of Present Illness 44-year-old incarcerated male with past medical history of type 1 diabetes, gastroparesis, gastritis, esophagitis, nephrolithiasis who presented to the ED with nausea, vomiting, abdominal pain, and hyperglycemia. On arrival to ED, he was afebrile, tachycardic and hypertensive. Lab work showed WBC of 25.84, hemoglobin 14, and creatinine 1.24. Urinalysis showed trace blood, 3-5 RBCs, otherwise negative. Workup included CT abdomen pelvis with IV contrast showing no hydronephrosis, no stones, stable prominent extrarenal pelvis on the left, stable mild bilateral perinephric fat stranding. Pt was bladder scanned for PVR >600ml. A blank catheter was placed in the ED. Urology consulted for urinary retention. Patient seen and examined in the emergency department. He is awake and resting in bed on arrival. Guards x 2 at bedside. Nurse at bedside. Blank intact and draining clear yellow urine. Currently reports nausea, dry heaves. No fever. Denies significant pain at present. History of prior stone surgery, last surgery in 2020. Was seen by urology during hospitalization in Mar 2024 for bladder distention. Allergies Allergy/AdvReac Type Severity Reaction Status Date / Time clindamycin Allergy Unknown Unknown Verified 04/05/23 22:08 Penicillins Allergy Unknown Swelling Verified 09/02/24 22:36 and hives (per pt's mother) Sulfa (Sulfonamide Allergy Unknown Unknown Verified 09/02/24 22:36 Antibiotics) bupropion [From Wellbutrin] AdvReac Unknown Unknown Verified 09/02/24 22:36 metoclopramide [From Reglan] AdvReac Unknown Unknown Verified 09/02/24 22:36 varenicline [From Chantix] AdvReac Unknown Unknown Verified 09/02/24 22:36 nicotine [From Nicoderm CQ] AdvReac Unknown Verified 09/02/24 22:36 Home Medications Medication Instructions Recorded Confirmed Type insulin aspart U-100 100 unit/mL 50 unit continuous subcutaneous 04/03/24 09/02/24 History subcutaneous solution (Novolog infusion DAILY U-100 Insulin aspart) lisinopril 2.5 mg tablet 2.5 mg PO QAM 04/03/24 09/02/24 History promethazine 25 mg tablet 25 mg PO TID PRN Nausea And 04/03/24 09/02/24 History Vomiting rosuvastatin 20 mg tablet 20 mg PO QAM 04/03/24 09/02/24 History blood-glucose sensor (Dexcom G6 05/17/24 09/02/24 History Sensor device) insulin glargine 100 unit/mL (3 See Rx Instructions .Route .COMPLEX 05/17/24 09/02/24 History mL) subcutaneous pen (Lantus Solostar U-100 Insulin) mirtazapine 15 mg tablet 15 mg PO HS 09/02/24 09/02/24 History omeprazole 20 mg capsule,delayed 20 mg PO QAM 09/02/24 09/02/24 History release Patient History Medical History Coffee ground emesis GERD (gastroesophageal reflux disease) Kidney stones History of kidney stones Arthritis History of seizure r/t hypoglycemia (2+ years ago) ADHD Loss of protective sensation of skin of foot Degenerative joint disease of ankle, left Gastroparesis due to DM Surgical History History of lithotripsy History of ankle surgery Left x3 History of tooth extraction PONV (postoperative nausea and vomiting) H/O laser photocoagulation of retina Hx of inguinal herniorrhaphy History of wisdom tooth extraction H/O esophagogastroduodenoscopy Family History Brother T1DM (type 1 diabetes mellitus) Uncle Family history of esophageal ulcer Father Myocardial infarction Heart disease Stroke Mother Deep vein thrombosis Social History Smoking Status: Former smoker Tobacco Type: Cigarettes Cigarettes Per Day: 2; Second Hand Exposure: No; Do You Dip or Chew Tobacco: No; Hx Alcohol Use: Yes Alcohol type: hard liquor Hx Substance Use: No Preferred Language: Faroese Communication Ability: Effective Hearing Ability: Normal Filter Press Supervisor Required: No Beliefs That Will Affect Care: None Current Living Situation: [facility] Other Information That Helps Us Care for You: No Feels Safe at Home: Yes Safety Concerns: Feels Safe At This Time Assistive Devices: Glasses Review of Systems Review of Systems: All systems reviewed & are unremarkable except as noted in HPI & below Physical Exam Constitutional: + ill appearing; no acute distress Respiratory: no respiratory distress and no labored breathing Neurologic: awake Psychiatric: Orientation: alert, oriented x 3 and cooperative Genitourinary: Blank intact Results & Data Vital Signs (Past 12 Hours) Vital Signs Temp Pulse Pulse Resp BP BP Pulse Ox 09/03/24 10:30 103 H 22 130/75 96 09/03/24 10:12 100 H 09/03/24 10:00 102 H 20 126/74 95 09/03/24 09:00 99 H 12 140/96 95 09/03/24 08:30 96 H 15 154/76 H 96 09/03/24 08:00 97 H 21 120/65 94 09/03/24 07:30 101 H 17 149/71 H 96 09/03/24 07:00 92 H 23 124/60 96 09/03/24 05:34 36.7 C 101 H 17 153/80 H 100 09/03/24 05:33 36.7 C 101 H 17 153/80 H 100 09/03/24 05:23 100 09/03/24 05:22 36.7 C 101 H 17 153/80 H 100 09/03/24 03:00 97 H 17 131/78 98 09/03/24 02:23 107 H 09/03/24 01:00 100 H 18 127/78 98 09/02/24 23:57 110 H 17 126/92 98 09/02/24 23:04 98 O2 Del Method 09/03/24 10:30 Room Air 09/03/24 10:12 09/03/24 10:00 Room Air 09/03/24 09:00 Room Air 09/03/24 08:30 Room Air 09/03/24 08:00 Room Air 09/03/24 07:30 Room Air 09/03/24 07:00 Room Air 09/03/24 05:34 Room Air 09/03/24 05:33 Room Air 09/03/24 05:23 Room Air 09/03/24 05:22 Room Air 09/03/24 03:00 Room Air 09/03/24 02:23 09/03/24 01:00 Room Air 09/02/24 23:57 Room Air 09/02/24 23:04 Room Air PG Care Time/CCT Total # of Minutes Spent Total Time Spent with Patient: Total time spent is greater than 50% in coordination of care (as documented) at patient's floor/unit and/or counseling patient: Coding Level of Care Code 50878 IN/OBS CONSULT LVL 3,45M Diagnoses Acute urinary retention R33.8
[2024-09-03] MEDS: PROMETHAZINE 12.5 MG/50.5 ML BAG IV PRN (11:39)
[2024-09-03] MEDS: LANTUS PER UNIT CHARGE SC ONE (14:06)
--- NOTE | 2024-09-03 14:39 | Pharmacy Report ---
Pharmacy Glycemic Short Note 2 - Date of Service September 03, 2024 - Glycemic Short BSG Results (Last 24 hours): 09/02/24 09/02/24 09/03/24 22:19 22:26 00:23 Glucose 425 H* POC Glucose 430 H* 364 H* 09/03/24 09/03/24 09/03/24 01:37 02:42 05:59 Glucose 192 H POC Glucose 335 H* 248 H 09/03/24 09/03/24 09/03/24 06:42 09:14 12:47 Glucose 268 H POC Glucose 209 H 322 H* OUTPATIENT ANTIDIABETIC REGIMEN: * Novolog pump * Basal rate of 0.65 units/hr * Bolus ICR of 40 and ISF of 90 (goal range of 90-120 mg/dL) HbA1c: 7.8% (09/03/24) ASSESSMENT: * TW is a 44 year old male who presented to ED w/ nausea, vomiting, diarrhea, abdominal pain, and chest pain x 3 days * Presenting blood glucose > 400 mg/dL * Patient with history of T1DM, reasonably controlled based on most recent HbA1c w/ insulin pump * He does not wish to continue insulin pump at this time * Currently NPO - will utilize ~15% basal reduction today * Loosen Novolog this evening if needed PLAN FOR INPATIENT GLYCEMIC CONTROL: * Hold outpatient oral diabetes medications * Basal insulin * Lantus 13 units today * Reassess in AM * Bolus insulin * NovoLog per scale ACHS or Q6hrs while NPO * Goal Range: Low 120 mg/dL - High 150 mg/dL * Correction Factor: 45 mg/dL/unit * Nutritional / Prandial insulin per carb ratio of 1 unit per 15 grams CHO consumed
--- NOTE | 2024-09-03 16:00 | Communication Note ---
Date of Service: September 03, 2024 The patient was seen and examined in medical telemetry unit. He was admitted with abdominal pain, nausea and vomiting with history of type 1 diabetes on insu foreign pump and also noted to have urinary retention. Has been getting subcu insulin through glycemic pharmacist, IV fluid and antiemetic medications. He was seen by the urologist and has a Powers which should be kept for about 7 days. He does not have any infection and the white count elevated due to stress. A full progress note will be done tomorrow by the hospitalist. Dr Brian Camp
[2024-09-03] MEDS: CHECK SCOPOLAMINE PATCH PLACEMENT SCH ×2 (16:05→23:46)
[2024-09-03] MEDS: SCOPOLAMINE 1 MG/72 HR TDSY PATCH TD SCH (18:04)
[2024-09-03] MEDS: MIRTAZAPINE TAB 15 MG TAB PO SCH (20:57)
[2024-09-04] MEDS ORDERED: CARBOHYDRATES FOR HYPOGLYCEMIA PO PRN (04:41)
[2024-09-04] MEDS ORDERED: DEXTROSE 50% 50 ML SYRINGE IV PRN (04:41)
[2024-09-04] MEDS ORDERED: GLUCAGON FOR INJ 1 MG VIAL SQ PRN (04:41)
[2024-09-04] MEDS ORDERED: GLUCOSE 40% GEL 15 GM TUBE PO PRN (04:41)
[2024-09-04] MEDS ORDERED: INSULIN ASPART 100 UNITS/ML VIAL SC PRN (04:41)
[2024-09-04] MEDS ORDERED: GLUCOSE 10 TAB/TUBE PO PRN (04:41)
[2024-09-04] MEDS ORDERED: Nursing to Pharmacy Communication SCH ×2 (04:45→21:30)
[2024-09-04] MEDS: INSULIN, Rapid-Acting PUMP SC SCH (05:36)
[2024-09-04 08:18] LABS: Basophils # (auto) 0.07 K/uL (0.00-0.20); Basophils % (auto) 0.4 %; Eosinophils # (auto) 0.04 K/uL (0.00-0.50); Eosinophils % (auto) 0.2 %; Hematocrit (blood only) 36.1 % (42.0-52.0); Hemoglobin 12.4 g/dl (14.0-18.0); Immature Granulocytes # (auto) 0.07 K/uL (0.01-0.20); Immature Granulocytes % (auto) 0.4 %; Lymphocytes # (auto) 2.52 K/uL (1.20-3.40); Lymphocytes % (auto) 14.2 %; Mean Corpuscular Hemoglobin 31.2 pg (25.0-34.0); Mean Corpuscular Hgb Conc 34.3 g/dL (32.0-36.0); Mean Corpuscular Volume 90.7 fL (80.0-100.0); Mean Platelet Volume 9.8 fL (9.4-12.4); Monocytes # (auto) 1.51 K/uL (0.11-0.59); Monocytes % (auto) 8.5 %; Neutrophils # (auto) 13.57 K/uL (1.40-6.50); Neutrophils % (auto) 76.3 %; Platelet Count 284 K/uL (130-400); RDW Coefficient of Variation 13.9 % (11.5-14.5); RDW Standard Deviation 46.6 fL (36.4-46.3); Red Blood Count 3.98 M/uL (4.70-6.10); White Blood Count 17.78 K/ul (4.8-10.8)
[2024-09-04 08:42] LABS: Calcium 8.6 mg/dl (8.6-10.3); Creatinine Clr Calc Pharmacy 95.3 ml/min; Magnesium 1.9 mg/dl (1.7-2.4); Phosphorus 3.2 mg/dl (2.5-4.9); Potassium 3.8 mmol/L (3.5-5.1)
--- NOTE | 2024-09-04 11:47 | Electrocardiogram Report ---
Test Reason : Blood Pressure : */* mmHG Vent. Rate : 107 BPM Atrial Rate : 107 BPM P-R Int : 118 ms QRS Dur : 78 ms QT Int : 340 ms P-R-T Axes : 67 66 67 degrees QTcB Int : 453 ms Sinus tachycardia Possible Left atrial enlargement Abnormal ECG When compared with ECG of 02-Apr-2024 18:51, No significant change was found Confirmed by Tejas Canales ([id number]) on 09/04/2024 11:46:57 AM Referred By: [facility] Confirmed By: Tejas Canales
--- NOTE | 2024-09-04 12:15 | Hospitalist Progress Note ---
Date of Service September 04, 2024 Assessment & Plan (1) Diabetes mellitus with hyperglycemia: Plan: 45-year-old male coming from alf with past med history significant for hypertension, hyperlipidemia, type 1 diabetes on insulin pump, gastroparesis, gastritis, urolithiasis, past tobacco use, history of GI bleed presents with nausea vomiting ,abdominal pain and hyperglycemia. Patient states nausea vomiting started after eating his dinner last night. Having abdominal pain from vomiting. And chest soreness from vomiting. Sore throat from vomiting. No fevers. He was constipated and now has some diarrhea. In the ER he was having urinary retention and status post Powers catheter. No fevers. No headache. No runny nose. No shortness of breath. Hemodynamics are okay. Diabetes with hyperglycemia HbA1c 7.8 Received IV insulin in the ER Monitor blood glucose levels next continue insulin per protocol Glycemic pharmacy consult Nausea and vomiting, abdominal pain Likely due to gastroparesis H/O gastroparesis CT abdomen showed hepatic steatosis but otherwise no acute pathology Intolerance to Reglan in the past Received IV fluids Advance diet as tolerated Consider GI evaluation if no improvement next Scopolamine patch Leukocytosis/monocytosis Chronic Check peripheral smear Advised to follow-up with heme-onc as outpatient May consult heme-onc Chest pain Secondary to nausea, vomiting CTA showed no PE, no acute pathology EKG showed no signs of acute ischemia Negative troponin Continue famotidine GERD IV Pepcid Hyperlipidemia On statin Hypertension Resume home lisinopril as able Monitor blood pressure DVT Px: SCDs Encouraged to ambulate CODE STATUS Full code Admission and Anticipated Discharge Date Admission Date: September 03, 2024 Subjective Patient is seen and examined at bedside Nausea, vomiting, abdominal pain resolved Denies any chest pain, dyspnea, dizziness No other complaints today Review of Systems Review of Systems: All systems reviewed & are unremarkable except as noted in Subjective Physical Exam Physical Exam: Physical Exam: Vitals signs as noted above General Appearance:Moderately built and nourished, no apparent distress Head: normocephalic, Atraumatic Eyes: normal inspection, EOMI Neck: supple, Trachea midline Respiratory/Chest: Normal breath sounds, CTA, No accessory muscle use Cardiovascular: S1, S2, No murmur Abdomen/GI:Soft, Non tender, Bowel sounds present Extremities/Musculoskeletal:normal inspection, no edema Neurologic/Psych:AAOX3, grossly no focal neurological deficits Skin: normal color, warm Results & Data Results & Data Vital Signs (Past 12 Hours) Vital Signs Temp Pulse Pulse Resp BP Pulse Ox O2 Del Method 09/04/24 12:07 37.2 C 83 18 139/64 99 Room Air 09/04/24 07:18 80 09/04/24 03:47 37.4 C 80 20 122/67 98 Room Air 09/04/24 00:35 Room Air Laboratory Results Short CBC 09/04/24 Range/Units 07:40 WBC 17.78 H (4.8-10.8) K/ul Hgb 12.4 L (14.0-18.0) g/dl Hct 36.1 L (42.0-52.0) % Plt Count 284 (130-400) K/uL BMP 09/04/24 07:40 Sodium 142 Potassium 3.8 Chloride 109 H Carbon Dioxide 26 BUN 16 Creatinine 0.89 Glucose 117 H Calcium 8.6
[2024-09-04] MEDS: CARBOHYDRATES FOR HYPOGLYCEMIA PO PRN (17:41)
[2024-09-05] MEDS: ZOLPIDEM TARTRATE 5 MG TAB PO STA (02:07)
[2024-09-05 06:18] LABS: Hematocrit (blood only) 37.3 % (42.0-52.0); Hemoglobin 13.2 g/dl (14.0-18.0); Mean Corpuscular Hemoglobin 31.3 pg (25.0-34.0); Mean Corpuscular Hgb Conc 35.4 g/dL (32.0-36.0); Mean Corpuscular Volume 88.4 fL (80.0-100.0); Mean Platelet Volume 9.9 fL (9.4-12.4); Platelet Count 271 K/uL (130-400); RDW Coefficient of Variation 13.2 % (11.5-14.5); RDW Standard Deviation 43.1 fL (36.4-46.3); Red Blood Count 4.22 M/uL (4.70-6.10); White Blood Count 10.39 K/ul (4.8-10.8)
[2024-09-05 06:49] LABS: BUN Creatinine Ratio 14.6 (10-20); Calcium 8.8 mg/dl (8.6-10.3); Creatinine Clr Calc Pharmacy 107.9 ml/min; Magnesium 1.9 mg/dl (1.7-2.4); Phosphorus 3.5 mg/dl (2.5-4.9); Potassium 3.8 mmol/L (3.5-5.1)
--- NOTE | 2024-09-05 11:28 | Hospitalist Progress Note ---
Date of Service September 05, 2024 Assessment & Plan (1) Diabetes mellitus with hyperglycemia: Plan: 45-year-old male coming from [facility] with past med history significant for hypertension, hyperlipidemia, type 1 diabetes on insulin pump, gastroparesis, gastritis, urolithiasis, past tobacco use, history of GI bleed presents with nausea vomiting ,abdominal pain and hyperglycemia. Patient states nausea vomiting started after eating his dinner last night. Having abdominal pain from vomiting. And chest soreness from vomiting. Sore throat from vomiting. No fevers. He was constipated and now has some diarrhea. In the ER he was having urinary retention and status post Powers catheter. No fevers. No headache. No runny nose. No shortness of breath. Hemodynamics are okay. Diabetes with hyperglycemia HbA1c 7.8 Received IV insulin in the ER Monitor blood glucose levels next continue insulin per protocol Glycemic pharmacy consult Continue current management Nausea and vomiting, abdominal pain Likely due to gastroparesis H/O gastroparesis CT abdomen showed hepatic steatosis but otherwise no acute pathology Intolerance to Reglan in the past Received IV fluids Advance diet today Leukocytosis/monocytosis Chronic Peripheral smear reviewed Advised to follow-up with heme-onc as outpatient Chest pain Secondary to nausea, vomiting CTA showed no PE, no acute pathology EKG showed no signs of acute ischemia Negative troponin Continue famotidine Resolved GERD Pepcid Hyperlipidemia On statin Hypertension Resume home lisinopril Monitor blood pressure DVT Px: SCDs Encouraged to ambulate CODE STATUS Full code Disposition Plan to discharge home today if tolerates regular diet Admission and Anticipated Discharge Date Admission Date: September 03, 2024 Subjective Patient is seen and examined at bedside States feeling a lot better today Tolerated liquid diet Nausea, vomiting, abdominal pain resolved Denies any chest pain, dyspnea, dizziness Advance diet today Review of Systems Review of Systems: All systems reviewed & are unremarkable except as noted in Subjective Physical Exam Physical Exam: Physical Exam: Vitals signs as noted above General Appearance:Moderately built and nourished, no apparent distress Head: normocephalic, Atraumatic Eyes: normal inspection, EOMI Neck: supple, Trachea midline Respiratory/Chest: Normal breath sounds, CTA, No accessory muscle use Cardiovascular: S1, S2, No murmur Abdomen/GI:Soft, Non tender, Bowel sounds present Extremities/Musculoskeletal:normal inspection, no edema Neurologic/Psych:AAOX3, grossly no focal neurological deficits Skin: normal color, warm Results & Data Results & Data Vital Signs (Past 12 Hours) Vital Signs Temp Pulse Pulse Resp BP Pulse Ox O2 Del Method 09/05/24 07:54 36.9 C 87 18 154/80 H 97 Room Air 09/05/24 07:18 75 09/05/24 04:10 37.1 C 86 20 131/73 99 Room Air 09/04/24 23:55 37.1 C 77 20 146/71 H 97 Room Air Laboratory Results Short CBC 09/05/24 Range/Units 05:30 WBC 10.39 (4.8-10.8) K/ul Hgb 13.2 L (14.0-18.0) g/dl Hct 37.3 L (42.0-52.0) % Plt Count 271 (130-400) K/uL BMP 09/05/24 05:30 Sodium 140 Potassium 3.8 Chloride 105 Carbon Dioxide 27 BUN 12 Creatinine 0.82 Glucose 116 H Calcium 8.8
[2024-09-05 11:49] VITALS: BP 125/86; RESP 20; TEMP 98.3; O2SAT 98
--- NOTE | 2024-09-05 13:12 | Discharge Summary ---
Date of Service September 05, 2024 Admission HPI Per Admitting Provider 45-year-old male coming from residential with past med history significant for hypertension, hyperlipidemia, type 1 diabetes on insulin pump, gastroparesis, gastritis, urolithiasis, past tobacco use, history of GI bleed presents with nausea vomiting ,abdominal pain and hyperglycemia. Patient states nausea vomiting started after eating his dinner last night. Having abdominal pain from vomiting. And chest soreness from vomiting. Sore throat from vomiting. No fevers. He was constipated and now has some diarrhea. In the ER he was having urinary retention and status post Powers catheter. No fevers. No headache. No runny nose. No shortness of breath. Hemodynamics are okay. Past medical history. As mentioned above. Past surgical history. Umbilical hernia repair. Social history. Past tobacco abuse. Occasional alcohol intake as per record. Family history. Diabetes, esophageal cancer, heart disease Admission Exam Per Admitting Provider General- Not in distress Head- atraumatic Eyes- PERRL. ENT- oropharynx clear Neck- supple, no JVD. Lungs- clear to auscultation no wheezing or crackles Heart- regular rate and rhythm; no murmur, no gallop. Abdomen- normal bowel sounds, soft, nontender, no distension Extremities- no pretibial edema, no erythema seen Neuro- alert, oriented PERRL, no facial palsy; no dysarthria; moves extremities Principal Diagnosis Gastroparesis Diabetes melitis type I with hyperglycemia Urinary retention Leukocytosis/monocytosis Discharge Data Allergies Allergy/AdvReac Type Severity Reaction Status Date / Time clindamycin Allergy Unknown Unknown Verified 04/05/23 22:08 Penicillins Allergy Unknown Swelling Verified 09/02/24 22:36 and hives (per pt's mother) Sulfa (Sulfonamide Allergy Unknown Unknown Verified 09/02/24 22:36 Antibiotics) bupropion [From Wellbutrin] AdvReac Unknown Unknown Verified 09/02/24 22:36 metoclopramide [From Reglan] AdvReac Unknown Unknown Verified 09/02/24 22:36 varenicline [From Chantix] AdvReac Unknown Unknown Verified 09/02/24 22:36 nicotine [From Nicoderm CQ] AdvReac Unknown Verified 09/02/24 22:36 Consultations 09/03/24 01:44 ED Decision to Admit Stat 09/03/24 08:24 Consult Urology Routine Procedures Performed Laboratory Results WBC 10.39 K/ul (4.8-10.8) 09/05/24 05:30 RBC 4.22 M/uL (4.70-6.10) L 09/05/24 05:30 Hgb 13.2 g/dl (14.0-18.0) L 09/05/24 05:30 Hct 37.3 % (42.0-52.0) L 09/05/24 05:30 MCV 88.4 fL (80.0-100.0) 09/05/24 05:30 MCH 31.3 pg (25.0-34.0) 09/05/24 05:30 MCHC 35.4 g/dL (32.0-36.0) 09/05/24 05:30 RDW Std Deviation 43.1 fL (36.4-46.3) 09/05/24 05:30 RDW Coeff of Lamont 13.2 % (11.5-14.5) 09/05/24 05:30 Plt Count 271 K/uL (130-400) 09/05/24 05:30 MPV 9.9 fL (9.4-12.4) 09/05/24 05:30 Immature Gran % (Auto) 0.4 % 09/04/24 07:40 Neut % (Auto) 76.3 % 09/04/24 07:40 Lymph % (Auto) 14.2 % 09/04/24 07:40 Rooks % (Auto) 8.5 % 09/04/24 07:40 Eos % (Auto) 0.2 % 09/04/24 07:40 Baso % (Auto) 0.4 % 09/04/24 07:40 Neut # (Auto) 13.57 K/uL (1.40-6.50) H 09/04/24 07:40 Lymph # (Auto) 2.52 K/uL (1.20-3.40) 09/04/24 07:40 Rooks # (Auto) 1.51 K/uL (0.11-0.59) H 09/04/24 07:40 Eos # (Auto) 0.04 K/uL (0.00-0.50) 09/04/24 07:40 Baso # (Auto) 0.07 K/uL (0.00-0.20) 09/04/24 07:40 Immature Gran # (Auto) 0.07 K/uL (0.01-0.20) 09/04/24 07:40 Peripher Smr Path Cons 09/05/24 05:30 VBG pH 7.45 (7.36-7.41) H 09/02/24 22:26 VBG pCO2 29 mmHg (38-50) L 09/02/24 22: VBG pO2 33 mmHg 09/02/24 22: VBG HCO3 20 mmol/L 09/02/24 22: VBG O2 Saturation < 60.0 % 09/02/24 22: VBG Base Excess -2.6 mEq/L 09/02/24 22: Sodium 140 mmol/L (136-145) 09/05/24 05:30 Potassium 3.8 mmol/L (3.5-5.1) 09/05/24 05:30 Chloride 105 mmol/L (98-107) 09/05/24 05:30 Carbon Dioxide 27 mmol/L (21-32) 09/05/24 05:30 Anion Gap 8 (3-11) 09/05/24 05:30 BUN 12 mg/dl (6-23) 09/05/24 05:30 Creatinine 0.82 mg/dl (0.6-1.4) 09/05/24 05:30 Est Cr Clr Drug Dosing 107.9 ml/min 09/05/24 05:30 eGFR 112.47 09/05/24 05:30 BUN/Creatinine Ratio 14.6 (10-20) 09/05/24 05:30 Glucose 116 mg/dl (70-99(Fasting)) H 09/05/24 05:30 POC Glucose 149 mg/dl (70-99) H 09/05/24 12:21 Estimat Average Glucose 177 mg/dl 09/03/24 06:42 Hemoglobin A1c 7.8 % (4.5-5.6) H 09/03/24 06:42 Calcium 8.8 mg/dl (8.6-10.3) 09/05/24 05:30 Phosphorus 3.5 mg/dl (2.5-4.9) 09/05/24 05:30 Magnesium 1.9 mg/dl (1.7-2.4) 09/05/24 05:30 Total Bilirubin 1.2 mg/dl (0.2-1.0) H 09/02/24 22:26 AST 15 U/L (13-39) 09/02/24 22:26 ALT 10 U/L (7-52) 09/02/24 22: Alkaline Phosphatase 98 U/L (34-104) 09/02/24 22: Troponin I High Sens 8.6 pg/ml (0-20) 09/03/24 06:42 Total Protein 7.4 gm/dl (6.0-8.3) 09/02/24 22: Albumin 4.7 gm/dl (3.4-5.0) 09/02/24 22: Globulin 2.7 gm/dl (2.5-4.0) 09/02/24 22: Albumin/Globulin Ratio 1.7 (0.9-2) 09/02/24 22:26 Lipase 5 U/L (11-82) L 09/02/24 22: Urine Color Yellow 09/03/24 01:00 Urine Appearance Clear (Clear) 09/03/24 01:00 Urine pH 6.5 (4.5-7.5) 09/03/24 01:00 Ur Specific [place] 1.021 (1.000-1.030) 09/03/24 01:00 Urine Protein Negative (Negative) 09/03/24 01:00 Urine Glucose (UA) 3+ (Negative) H 09/03/24 01:00 Urine Ketones 2+ (Negative) H 09/03/24 01:00 Urine Blood Trace (Negative) H 09/03/24 01:00 Urine Nitrite Negative (Negative) 09/03/24 01:00 Urine Bilirubin Negative (Negative) 09/03/24 01:00 Urine Urobilinogen Negative (Negative) 09/03/24 01:00 Ur Leukocyte Esterase Negative (Negative) 09/03/24 01:00 Urine WBC (Auto) 0-5 /hpf (0-5) 09/03/24 01:00 Urine RBC (Auto) 3-5 /hpf (0-2) H 09/03/24 01:00 U Hyaline Cast (Auto) 0-2 /lpf (0-2) 09/03/24 01:00 U Epithel Cells (Auto) 0-2 /hpf (0-2) 09/03/24 01:00 Urine Bacteria (Auto) None Seen (None Seen) 09/03/24 01:00 Urine Comment 09/03/24 01:00 Impressions Abdomen/Pelvis CT 09/02/24 22:10 EXAM: CT abd pelvis IV con only CLINICAL HISTORY: mid abd pain TECHNIQUE: Contiguous axial images were obtained from the level of the diaphragm to the pubic symphysis with intravenous contrast. Coronal and sagittal reconstructions were likewise performed and indicated to increase the sensitivity for detecting clinically relevant pathology. If IV contrast material had not been administered, the likelihood of detecting abnormalities relevant to the patient's condition would have been substantially decreased. CT scan was performed according to ALARA (as low as reasonable achievable). COMPARISON: 20:27:06 CLINICAL TRIAL ASSOCIATE FINDINGS: The visualized lung bases are clear. The liver is normal in size and attenuation. No focal liver lesions are seen. There is no intra or extrahepatic biliary ductal dilatation. Hepatic vasculature is patent. The gallbladder is present. The spleen, pancreas, and adrenal glands are unremarkable. The kidneys are normal in size and attenuation. There is no hydronephrosis . Mild bilateral perinephric fat stranding. Prominent extrarenal pelvis is noted on left side. No renal calculi or renal masses are identified. The ureters are normal in caliber and no ureteral calculi are seen. The bladder is normal in contour. Pelvic viscera are unremarkable. No focal or diffuse bowel wall thickening or evidence of bowel obstruction is identified. Abdominal and pelvic vasculature is patent. No adenopathy or fluid collections are seen. No aggressive appearing osseous lesions are identified. IMPRESSION: 1. Prominent extrarenal pelvis is noted on left side.-stable. 2. Hepatic steatosis. -stable. 3. Mild bilateral perinephric fat stranding -stable. 4. No other new interval abnormality since prior study. Electronically signed by Cristhian Tabor 09-03-2024 01:38 AM Chest CTA 09/02/24 22:21 EXAM: CT angio chest PE protocol CLINICAL HISTORY: PE TECHNIQUE: Contiguous axial images were obtained from the neck base through the upper abdomen following intravenous administration of iodinated contrast material. Angiographic images were processed, 3D MIP images were acquired for interpretation. If IV contrast material had not been administered, the likelihood of detecting abnormalities relevant to the patient's condition would have been substantially decreased. Coronal and sagittal 3-D MIPs were likewise performed and indicated to increase the sensitivity of detectin diffuse clinically relevant pathology. CT scan was performed according to ALARA (as low as reasonable achievable). COMPARISON: 04/02/2024 20:27:06 CLINICAL TRIAL ASSOCIATE. FINDINGS: Mild paraseptal emphysema are noted involving bilateral upper lobes. Adequate contrast bolus without evidence of pulmonary embolism. The central airways are patent. The lungs are clear. No pleural effusion. The heart, aorta, and pulmonary arteries are of normal size and configuration. There are no appreciable coronary artery and aortic atherosclerotic calcifications. No pericardial effusion is identified. The thyroid is unremarkable. No mediastinal, hilar, or axillary lymphadenopathy is noted. No suspicious lytic or sclerotic osseous lesions are identified. IMPRESSION: 1. No evidence of pulmonary embolism 2. Mild paraseptal emphysema are noted involving bilateral upper lobes.-stable. 3. No other new interval abnormality since prior study. Electronically signed by Cristhian Tabor 09-03-2024 01:34 AM Ordered Studies 09/02/24 22:10 CT Abd and Pelvis [CT abd pelvis IV con only] Stat 09/02/24 22:21 CT angio chest PE protocol Stat Hospital Course (1) Diabetes mellitus with hyperglycemia: 45-year-old male coming from residential with past med history significant for hypertension, hyperlipidemia, type 1 diabetes on insulin pump, gastroparesis, gastritis, urolithiasis, past tobacco use, history of GI bleed presents with nausea vomiting ,abdominal pain and hyperglycemia. Patient states nausea vomiting started after eating his dinner last night. Having abdominal pain from vomiting. And chest soreness from vomiting. Sore throat from vomiting. No fevers. He was constipated and now has some diarrhea. In the ER he was having urinary retention and status post Powers catheter. No fevers. No headache. No runny nose. No shortness of breath. Hemodynamics are okay. Diabetes with hyperglycemia HbA1c 7.8 Received IV insulin in the ER Monitor blood glucose levels next continue insulin per protocol Glycemic pharmacy consult Continue current management Nausea and vomiting, abdominal pain Likely due to gastroparesis H/O gastroparesis CT abdomen showed hepatic steatosis but otherwise no acute pathology Intolerance to Reglan in the past Received IV fluids Tolerated regular diet Plan to be discharged home today Leukocytosis/monocytosis Chronic Peripheral smear reviewed Advised to follow-up with heme-onc as outpatient Chest pain Secondary to nausea, vomiting CTA showed no PE, no acute pathology EKG showed no signs of acute ischemia Negative troponin Continue famotidine Resolved GERD Pepcid Hyperlipidemia On statin Hypertension Resume home lisinopril Monitor blood pressure DVT Px: SCDs Encouraged to ambulate CODE STATUS Full code Disposition Home Total Time Total Time Spent Total Time Spent (In Minutes): 43 minutes Discharge Plan Discharge Items Patient Disposition: Home - Self-Care Reason For Visit: HYPERGLYCEMIA, N/V Discharge Diagnosis: Gastroparesis Diabetes melitis type I with hyperglycemia Urinary retention Leukocytosis/monocytosis Condition on Discharge: Fair Activity: Per Instructions section Exercise/Sports: Gradually increase as tolerated Non-emergency contact: Primary Care Provider and Specialist Call non-emergency contact if: you have any medication questions, your symptoms worsen, your pain is concerning for you and you have a fever Follow-up/Referrals: [id number] [Primary Care Provider] - Diet: Carb Count or DM1 Addtl Attending Provider Instructions: [facility] 1 week Follow-up with your urologist Dr. Tino Bravo in 1 week Follow-up with your heme-oncologist for further evaluation of elevated white blood cell count as recommended --Continue Powers catheter for 1 week and follow-up with your urologist for voiding trial as recommended Seek immediate medical attention if your symptoms reoccur or worsen Please review medication list provided on discharge for any medication changes as instructed. Please call if you have any questions or problems. You can reach a [facility] hospitalist on duty at [facility] 24 hours a day by calling [phone] Pending Studies at Discharge: No Stand-Alone Forms: My [facility], Smoking Cessation Medications and DC Order Prescriptions: New famotidine 20 mg Tablet 20 mg PO BID PRN (Reason: Acid Reflux) Qty: 14 0RF Continued insulin glargine [Lantus Solostar U-100 Insulin] 100 unit/mL (3 mL) insulin pen See Rx Instructions .ROUTE .COMPLEX Rx Instructions: For Pump Failure- 12 units every 12 hours (DME) Dexcom G6 Sensor Device MISCELLANEOUS omeprazole 20 mg capsule,delayed release(DR/EC) 20 mg PO QAM mirtazapine 15 mg tablet 15 mg PO HS insulin aspart U-100 [Novolog U-100 Insulin aspart] 100 unit/mL Solution 50 unit continuous subcutaneous infusion DAILY Rx Instructions: to use in insulin pump: 50 units per day promethazine 25 mg Tablet 25 mg PO TID PRN (Reason: Nausea And Vomiting) lisinopril 2.5 mg Tablet 2.5 mg PO QAM rosuvastatin 20 mg Tablet 20 mg PO QAM Discharge Orders: Discharge Order (Routine); Ordered 09/05/24 Ordered By: Blayne Marcum Admission Data Admit Date/Time: 09/03/24 02:23 Attending Provider: Blayne Marcum Admit Provider: Juan Landaverde Primary Care Provider: [facility] Other Providers: Juan Landaverde; Tejas Tabares; Terri Dunne; Tino Bravo; Angi Adams; Desi Huang; Srikanth Christian; Carmenza Horn; Zoya Lord; Navjot Almendarez; Ramón Maurer
[2024-09-05 14:06] VITALS: PULSE 90
[2024-09-05] MEDS ORDERED: FAMOTIDINE 20 MG TAB PO SCH (18:00)
[2024-09-05] MEDS ORDERED: INSULIN, Rapid-Acting PUMP SC SCH (21:30)
== END 2024-09-05 14:52 | DRG 74 ==
LOC: ED 22:03 → INTOOBSV 09-03 02:23 → EDINP 09-03 02:23 → SUATTDRO 09-03 02:23 → 2W 09-03 13:30